=== PATIENT | male | born 1950 | race Caucasian/White ===

== ENCOUNTER 2024-04-15 10:44 | Emergency (ER) | payer MEDICARE, SELFPAY ==
[2024-04-15 11:04] VITALS: BP 120/67; PULSE 66; RESP 15; TEMP 36.4; O2SAT 98
[2024-04-15 11:10] VITALS: BP 120/67; PULSE 66; RESP 15; TEMP 36.4; O2SAT 98
--- NOTE | 2024-04-15 11:10 | ED.EAR ---
HPI - Ear Problem General Chief complaint: Ear Stated complaint: drainage from lt ear Time Seen by Provider: 04/15/24 11:12 Source: patient, RN notes reviewed and old records reviewed Mode of arrival: ambulatory Limitations: no limitations History of Present Illness HPI Narrative: 74 year old male presents to [facility] with complaints of left ear pain and some noted yellowish brownish drainage from his left ear which started last night. Patient reports some discomfort down his left neck below his left eat=r. Patient reports no fevers chills or sweats, has not taken any OTC pain medication for his symptoms. Patient reports concern due to scheduled to fly to [place] on Friday. MD Complaint: ear pain and other (drainage left ear) Location: left ear Severity: mild Discharge from ear: Reports yes - purulent (brownish yellow) Treatment prior to arrival: none Related Data Home Medications Medication Instructions Recorded Confirmed Lactobacillus rhamnosus-Bifidobac. 1 cap PO DIRECTED 04/15/24 04/15/24 animalis 3 billion cell capsule (Sendio) apixaban 2.5 mg tablet (Eliquis) 2.5 mg BID 04/15/24 04/15/24 atorvastatin 40 mg tablet 40 mg DAILY 04/15/24 04/15/24 celecoxib 100 mg capsule 100 mg BID 04/15/24 04/15/24 cholecalciferol (vitamin D3) 250 250 mcg PO DAILY 04/15/24 04/15/24 mcg (10,000 unit) capsule coenzyme Q10 100 mg capsule (Co 100 mg PO DAILY 04/15/24 04/15/24 Q-10) pregabalin 75 mg capsule 150 mg BID 04/15/24 04/15/24 semaglutide 2 mg/dose (8 mg/3 mL) 2 mg subcut WEEKLY 04/15/24 04/15/24 subcutaneous pen injector (Ozempic) torsemide 20 mg tablet 20 mg DAILY 04/15/24 04/15/24 Allergies Allergy/AdvReac Type Severity Reaction Status Date / Time No Known Allergies Allergy Verified 04/15/24 11:05 Review of Systems Review of Systems: CONSTITUTIONAL: Denies malaise, chills, sweats, or fever. EYES: Denies visual changes, redness, or discharge. ENT: Reports no rhinorrhea, congestion, sinus pain,positive for left otalgia and no sore throat. CARDIOVASCULAR: Denies chest pain, palpitations, or edema. RESPIRATORY: Reports no cough.? Denies dyspnea. GASTROINTESTINAL: Denies abdominal pain, nausea, vomiting, diarrhea SKIN: Denies rash or itching. MUSCULOSKELETAL: Denies myalgia. NEUROLOGIC: Denies headache. All systems reviewed & are unremarkable except as noted in HPI and below PMFSH Past Medical History Medical History (Updated 04/17/24 @ 09:39 by Josephine Martinez NP) Arthritis Factor V Leiden Hyperlipidemia Pulmonary embolism Surgical History Surgical History (Updated 04/17/24 @ 09:41 by Josephine Martinez NP) History of bilateral knee replacement History of left hip replacement History of tonsillectomy Social History Social History (Updated 04/17/24 @ 09:41 by Josephine Martinez NP) Smoking status: Never smoker Alcohol intake: current Alcohol use details: rare Substance use type: does not use Living arrangements: with family Gender identity (if verbalized by the patient): Male Comments At time of signature, agree with nursing past medical, surgical, social and family history. There is no relevant family history pertinent to the presenting complaint Exam Narrative: GENERAL: Well-appearing, well-nourished, and in no acute distress. HEAD: Normocephalic EYES: PERRLA, conjunctivae clear ENT: Nares clear, turbinates edematous and erythematous, clear discharge. Mucous membranes moist. Left TM red with some bulging,Right TM pearly gutierrez with dull light reflex bilaterally; no tragal tenderness. Oropharynx erythematous without lesions. Tonsils not present and throat without exudate, no drooling, no hoarseness, no trismus, uvula midline. NECK: Supple. No lymphadenopathy, some tenderness to left side of neck below ear CHEST: Clear to auscultation, breath sounds equal. No wheezing, rhonchi, rales, or stridor. No respiratory distress, spe
== END 2024-04-15 11:46 | disposition home or self-care (01) ==
PROVIDERS: Emergency Provider Registered Nurse
DX: H65.02 Acute serous otitis media, left ear (principal); M19.90 Unspecified osteoarthritis, unspecified site; D68.51 Activated protein C resistance; E78.5 Hyperlipidemia, unspecified; Z96.653 Presence of artificial knee joint, bilateral; Z96.642 Presence of left artificial hip joint; Z79.01 Long term (current) use of anticoagulants
CPT/HCPCS: 99213; G0463

== ENCOUNTER 2024-07-13 06:57 | Outpatient (CLI) | payer MEDICARE, SELFPAY ==
[2024-07-13 08:10] LABS: Basophils Absolute Auto 0.1 K/mm3 (0.0-0.1); Basophils Percent Auto 1.1 % (0.2-1.2); Eosinophils Absolute Auto 0.1 K/mm3 (0-0.3); Eosinophils Percent Auto 2.6 % (0-4.4); Hematocrit 44.4 % (42.0-52.0); Hemoglobin 14.5 g/dL (14.0-18.0); Immature Granulocyte Absolute 0.02 K/mm3 (0.00-0.031); Immature Granulocyte Percent A 0.4 % (0-0.5); Lymphocytes Percent Auto 31.6 % (18.3-44.2); Mean Corpuscular HGB Conc 32.7 g/dl (32-36); Mean Corpuscular Hemoglobin 31.6 pg (26-34); Mean Corpuscular Volume 96.7 fl (80-100); Mean Platelet Volume 10.9 fl (7.4-10.4); Monocytes Absolute Auto 0.6 K/mm3 (0.1-0.6); Monocytes Percent Auto 11.3 % (2.6-8.5); Neutrophils Absolute Auto 2.9 K/mm3 (1.3-6.7); Platelet Count Result 196 k/mm3 (150-375); Red Blood Count 4.59 M/mm3 (4.6-6.20); Red Cell Distribution Width 13.1 % (11.5-14.5); White Blood Count 5.4 K/mm3 (4.5-10.0)
[2024-07-13 08:27] LABS: Alanine Aminotransferase 20 U/L (6-50); Alkaline Phosphatase 120 U/L (38-126); Anion Gap 4 mmol/L (4-12); Aspartate Amino Transferase 25 U/L (17-59); Bilirubin,Total 1.1 mg/dL (0.2-1.3); Blood Urea Nitrogen 27 mg/dL (9-20); Carbon Dioxide 33 mmol/L (22-30); Chloride 102 mmol/L (98-107); Estimated Glomerular Filt Rate 55; Glucose 100 mg/dL (65-110); Potassium 4.2 mmol/L (3.4-5.0); Sodium 139 mmol/L (137-145)
[2024-07-13 13:16] LABS: Creatinine Urine 12.2 mg/dL
[2024-07-13 13:36] LABS: MALB Creatinine Ratio < 49.2 mg/g (0-30); Microalbumin Urine Random < 6.0 mg/L (0-16.7)
== END 2024-07-13 06:58 | disposition home or self-care (01) ==
PROVIDERS: PCP Family Medicine; Visit Provider Family Medicine
DX: E11.9 Type 2 diabetes mellitus without complications (principal); I27.20 Pulmonary hypertension, unspecified; I25.10 Atherosclerotic heart disease of native coronary artery without angina pectoris; E78.2 Mixed hyperlipidemia; D68.51 Activated protein C resistance; K21.9 Gastro-esophageal reflux disease without esophagitis; I51.9 Heart disease, unspecified
CPT/HCPCS: 36415; 80053; 82043; 83036; 84443; 85025

== ENCOUNTER 2024-08-26 08:48 | Outpatient (CLI) | payer MEDICARE, SELFPAY | END 2024-08-26 08:49 | disposition home or self-care (01) | PROVIDERS: PCP Family Medicine; Visit Provider Nurse Practitioner Family | DX: M17.12 Unilateral primary osteoarthritis, left knee (principal); M25.462 Effusion, left knee; W00.0XXA Fall on same level due to ice and snow, initial encounter; Z98.890 Other specified postprocedural states | CPT/HCPCS: 73564 ==

== ENCOUNTER 2024-10-20 14:52 | Outpatient (CLI) | payer MEDICARE, SELFPAY ==
--- NOTE | ~2024-10-20 | XR_ITS ---
CHEST RADIOGRAPH, PA AND LATERAL CLINICAL HISTORY: R05.8 - Other specified cough FOR 1 MONTH . COMPARISON: None available TECHNIQUE: PA and lateral views of the chest. FINDINGS The cardiomediastinal silhouette is unremarkable. The lungs are clear. Visualized osseous structures and soft tissues are unremarkable. IMPRESSION: No focal infiltrate or effusion. Reviewed, dictated and finalized at location A.
--- NOTE | ~2024-10-20 | XR_ITS ---
XR hip RT 2V w AP pelvis 10/20/2024 15:14 Indication: Right hip pain Procedure: AP pelvis and 2 views right hip Comparison: No prior studies for comparison. Findings: Moderate osteoarthritis of the right hip. There is a left total hip arthroplasty. Pelvic ri ngs intact. Sacral foramen are symmetric. No acute fracture or traumatic malalignment. There is lower lumbar spondylosis. Impression: 1: Moderate osteoarthritis of the right hip. Reviewed, dictated and finalized at location A. Impression: 1: Moderate osteoarthritis of the right hip.
--- OUTSIDE RECORDS SUMMARY | 2024-10-20 17:00 | XMS_ITS | Continuity of Care Document ---
Author Organization [facility] Address [address] [place] [address] Phone Care Team Providers Care Cafeteria Or Lunchroom Checker Name Role Phone Gerald Blackburn MD Unavailable [...] Providers Copied on Encounter [facility], [address], [place], [address], [place] tel:[phone] [facility] [place] Osteoarthrosis, localized, not specified whether primary or secondary, involving lower leg Fe 4 Alexey Duarte. [address] [place], [place], [id number] . tel:[phone] [facility], [address], [place], [address], [place] tel:[phone] [facility] [place] Osteoarthrosis, localized, not specified whether primary or secondary, involving lower leg 3 Alexey Duarte. [address] [place], [place], [id number] . tel:[phone] [facility], [address], [place], [address], [place] tel:[phone] [facility] [place] Pain in joint involving lower legObesity, MorbidOsteoarthro sis, localized, not specified whether primary or secondary, involving lower legHypertension, UnspecifiedDiabet ic Nephropathy Feb- 0 3 Alexey Duarte. [address] [facility], [place], [place], [id number] . [phone] [facility], [address], [address], [place] tel:[phone] [facility] [place] Plantar fascial fibromatosisCalca do spur Feb-0 2 Paranjpe Amod. [address] [facility] [address], [place], [place], [id number] . tel:[phone] [facility], [address] [address], [place], [address], [place] tel:[phone] [facility] [place] Plantar fascial fibromatosisCalca do spur 2 Paranjpe Amod. [address] [facility] [address], [place], [place], [id number] . tel:[phone] [facility], [address], [address], [place] tel:[phone] [facility] [place] Plantar fascial fibromatosisCalca do spur 2 Paranjpe Amod. [address] [facility] [address], [place], [place], [id number] . tel:[phone] Family History Family Member Type Diagnosis Age At Onset No Information Payers Payer name Insurance type Covered green party ID Authoriza tion(s) No Information Social History [...]
--- OUTSIDE RECORDS SUMMARY | 2024-10-20 17:00 | XMS_ITS | Encounter Summary ---
Author Organization [facility] Address [address] [facility] [place] [address] Care Team Providers Care Colorectal Surgeon Name Role Phone Yeimi Ramos OD Unavailable Virgil Love MD Unavailable Juju Toledo MD Unavailable [phone] Steve Stovall MD Unavailable Paula HDEZ MD, Frank Unavailable [phone] Virgil Love MD Primary Care Provider Dylan Ann MD Unavailable Maura Gallo MD Unavailable [phone] Kathy Galindo MD Unavailable Virgil Love MD Unavailable None, Physician Primary Care Provider UnavailJosue Cai MD Primary Care Provider [phone] Encounter Details Date Type Department Care Team (Late st Contact Info) Description 11/19/2022 Lab Requisition [facility] Lab [address] [facility] [place] [address] Venkata Mckeon MD [address] [place] [address] Neoplasm of uncertain behavior of [...] Sex Assigned at Male 05/12/2020 8:18 AM STAFF MINE WARFARE OFFICER Legal Sex Male 7:20 AM STAFF MINE WARFARE OFFICER Gender Identity Male 05/12/2020 8:18 AM STAFF MINE WARFARE OFFICER Sexual Orientation Straight 05/12/2020 8: 18 AM STAFF MINE WARFARE OFFICER documented as of this encounter Functional Status [...] Department Care Team (Latest Contact Info) Description 11/29/2024 12:20 PM CDT Hospital Encounter [facility] [address] [place] [address] Juju Toledo MD [address] [phone] Surgery General 11/29/2024 12:20 PM CDT - 11/29/2024 1:20 PM CDT Surgery [facility] [address] [place] [address] Juju Toledo MD [address] [phone] LEFT KNEE ARTHROSCOPY WITH PARTIAL MENISCECTOMY AND POSSIBLE CHONDROPLASTY 11/29/2024 12:30 PM CDT Procedure visit [facility] Orthopedics [address] [phone] Juju Toledo MD [address] [phone] 12/09/2024 10:45 AM CDT Office Visit [facility] Orthopedics [address] [address] Nicole Spencer PA [address] [place] [phone] Scheduled Procedures Name Priority Associated Diagnoses Date/Ti me ARTHROSCOPY KNEE WITH MENISCECTOMY (MEDIAL/LATERAL) S83.207A 11/29/2024 12:20 PM CDT documented as of this encounter [...] AM CDT) Case Report Dermatopathology Report Case: [id number] Authorizing Provider: Venkata Mckeon MD Collected: 11/19/2022 03:33 AM Ordering Location: [facility] Received: 11/20/2022 01:53 PM Pathologist: [...] specimen consists of a shave biopsy measuring 91a43w0 mm. Jar 0. 3 4:08 PM CDT [...] characteristic determined by the Dermatopathology Laboratory at [facility], directed by Dr. Joey Donnelly. These tests need not be, and therefore are not, approved by the [place] Food and Drug Administration. The tests are used for clinical purposes. Billing Codes Specimen Charges Stain Charges 76495 1 3 4:08 PM CDT DERMATOPATHOLOGY LABORATORY Embedded Images 3 4:08 PM CDT DERMATOPATHOLOGY LABORATORY Pathology/Cytolo gy TISSUE SPECIMEN FROM SKIN / Unknown 11/19/2022 3:33 AM CDT 11/20/2022 1:53 PM CDT Venkata Mckeon MD LAB - PATHOLOGY/CYTOLOGY ORDERAB LES Final Result DERMATOPATHOLOGY LABORATORY [facility] - Department of Dermatology [facility] Medicine [address] [place] [address], [address] [place] [address], [facility] [phone] documented in this encounter Visit Diagnoses Diagnosis Neoplasm of uncertain behavior of skin documented in this encounter Care Teams Colorectal Surgeon Relationship Specialty Start Date End Date Virgil Love MD [address] [facility] 200 [place] [address] PCP - General Family Medicine 09/07/21 08/17/24 [place] [address] [place] [address] PCP - Attributed-[facility] 02/28/22 Virgil Love MD [address] [facility] 200 [place] [address] PCP - Attributed-[facility] STL P4P 10/29/23 09/14/24 None, Physician PCP - General 08/18/24 09/14/24 Josue Delgado MD [address] [address] PCP - General Family Medicine 09/15/24 Yeimi Ramos, OD [address] [place] [address] Window Glass Installer 10/30/15 Virgil Love MD [address] [facility] [address] [place] [address] Family Medicine 11/25/19 Juju Toledo MD [address] [place] [phone] Orthopedic Surgery 11/25/19 [place] [address] [place] [address] Surgeon Orthopedic Surgery 05/07/21 [place] [address] [place] [address] Orthopedic Surgery 09/07/21 Dylan Ann MD [address] [place] [address] Cardiology 03/19/22 Kathy Galindo MD [address] [place] [address] Pulmonary Disease 08/20/22 documented as of this encounter
--- OUTSIDE RECORDS SUMMARY | 2024-10-20 17:00 | XMS_ITS | Referral Summary ---
Author Organization [facility] Address [address] [facility] [address] [place] [phone] Phone Care Team Providers Care Marriage And Family Social Worker Name Role Phone Virgil Love MD Primary [...] (two) times a day 02/26/2021 Active multivitamin,tx -zvbv-Dv-HL-min 27-0.4 mg tablet Take by mouth Active UNABLE TO FIND CPAP [id number] l [id number]-KN-ekyr ed-decreased from 9-08/11/18 08/11/2018 Active apixaban (ELIQUIS) [...] 05/03/2024 Assessment & Plan (05/03/2024 1:52 PM LAWYER): Some residual edema. Having some nocturia so we discussed adjusting dose of torsemide in the morning - Change torsemide to 40 mg every morning and check BMP in 2 weeks Generalized edema 11/27/2021 Assessment & Plan (10/20/2023 9:25 AM CDT): Some persistent edema likely venous insufficiency. - check tte Assessment & Plan (09/05/2022 10:18 PM LAWYER): Euvolemic on exam. Try switching Lasix to [...] 18 Assessment & Plan (05/03/2024 1:51 PM LAWYER): Stable -- Continue statin CKD (chronic kidney [...] pain 12/19/2015 Coronary artery disease invo lving qawalangin coronary artery of qawalangin heart without angina pectoris 10/01/2013 Overview (04/03/2021): Thallium treadmill 05/11: no ischemia, poss small prior apical infarct, nl LVEF. Cardiac cath 06/10: LVEF 60%, 20% L main. Assessment & Plan (05/03/2024 1:51 PM LAWYER): He has nonobstructive Coronary artery disease based on a cardiac catheterization. Remains free of anginal symptoms -- Continue Eliquis and statin for primary prevention. Assessment & Plan (10/20/2023 9:23 AM CDT): He has nonobstructive Coronary artery disease based on a cardiac catheterization. Continue Eliquis and statin for primary prevention. Remains free of anginal symptoms Assessment & Plan (09/05/2022 10:17 PM LAWYER): He has nonobstructive Coronary artery disease based [...] 05/11. Assessment & Plan (05/03/2024 1:51 PM LAWYER): Well controlled Assessment & Plan (10/20/2023 9:24 [...] on file Legal Sex Male 5:33 PM LAWYER Gender Identity Male 04/06/2021 8:16 AM CDT Sexual Orientation Straight 04/06/2021 8: 16 AM CDT Last Filed Vital Signs Vital Sign Reading Time Taken Comments Blood Pressure 134/70 05/03/2024 1:04 PM LAWYER Pulse 62 05/03/2024 1:04 PM LAWYER Temperature 36.1 C (97 F) 04/23/2021 12:27 PM CDT Respiratory Rate 22 04/23/2021 3:06 PM CDT Oxygen Saturation 98% 05/03/2024 1:04 PM LAWYER Inhaled Oxygen Concentration - - Weight 142 kg (313 lb) 05/03/2024 1:04 PM LAWYER Height 180.3 cm (5' 11 ) 05/03/2024 1:04 PM LAWYER Body Mass Index 43.65 05/03/2024 1:04 PM LAWYER Plan of Treatment Not on file Procedures Procedure Name Priority Date/Time Associated Diagnosis Comments EGFR Routine 05/17/2024 11:57 AM LAWYER Coronary artery disease involving qawalangin coronary artery of qawalangin heart without angina pectoris LIPID PANEL Routine 09/08/2023 COLONOSCOPY REPORT 06/14/2013 from Last 3 Months or Most Recently Relevant to Health Maintenance Results * eGFR (05/17/2024 11:57 AM LAWYER) eGFR 61 >=60 mL/min/1. 73 m2 Comment: [...] reviewed 2021. Blood 05/17/2024 11:5 7 AM LAWYER 05/17/2024 11:59 AM LAWYER Dylan Ann MD LAB BLOOD ORDERABLES Fin al Result CHARLES [address] [place] [address] * Lipid panel (09/08/2023) SCRIBED Cholesterol, Total [...] Most Recently Relevant to Health Maintenance Insurance [facility] MEDICARE ADVANTAGE [facility] MEDICARE ADVANTAGE [employer] MEDICARE ADVANTAGE Care Teams Marriage And Family Social Worker Relationship Specialty Start Date End Date Virgil Love MD [address] [facility] [address] [place] [address] PCP - General Family Medicine 01/02/21
--- OUTSIDE RECORDS SUMMARY | 2024-10-20 17:00 | XMS_ITS | Encounter Summary ---
Author Organization [facility] Address [address] [place] [address] Care Team Providers Care Rubber Mill Tender Name Role Phone Charles Cardenas MD Unavailable [phone] Grant Desir MD Unavailable Kofi Mendez MD Unavailable [phone] Charles Soria DO Unavailable [phone] Yeimi Ramos OD Unavailable [phone] Fannie Combs MANAGER BAKERY-GLASS MOULD CLEANER Unavailable [phone] Virgil Love MD Unavailable Juju Toledo MD Unavailable [phone] Steve Stovall MD Unavailable Paula HDEZ MD, Frank Unavailable [phone] Virgil Love MD Primary Care Provider Maura Gallo MD Unavailable Dylan Ann MD Unavailable Maura Gallo MD Unavailable [phone] Kathy Galindo MD Unavailable Virgil Love MD Unavailable [phone] None, Physician Primary Care Provider Josue Alvarez MD Primary Care Provider Encounter Details Date Type Department Care Team (Late st Contact Info) Description 11/09/2021 [facility] Outpatient Visit [facility] Orthopedics - Radiology [address] [facility] [place] [address] Document, Scanned Social History Tobacco Use Types [...] Sex Assigned at Male 05/12/2020 8:18 AM INVOICE MACHINE OPERATOR Legal Sex Male 7:20 AM INVOICE MACHINE OPERATOR Gender Identity Male 05/12/2020 8:18 AM INVOICE MACHINE OPERATOR Sexual Orientation Straight 05/12/2020 8: 18 AM INVOICE MACHINE OPERATOR documented as of this encounter Functional [...] Description 11/29/2024 12:20 PM CDT Hospital Encounter [facility] - [address] [place] [address] Juju Toledo MD [address] [facility] [address] [phone] Surgery General 11/29/2024 12:20 PM CDT - 11/29/2024 1:20 PM CDT Surgery [facility] - [address] [place] [address] Juju Toledo MD [address] [facility] [address] [phone] LEFT KNEE ARTHROSCOPY WITH PARTIAL MENISCECTOMY AND POSSIBLE CHONDROPLASTY 11/29/2024 12:30 PM CDT Procedure visit [facility] Orthopedics [address] [phone] Juju Toledo MD [address] [phone] 12/09/2024 10:45 AM CDT Office Visit [facility] Orthopedics [address] [phone] Nicole Spencer, [place] [address] [place] [address] Scheduled Procedures Name Priority Associated [...] on filedocumented in this encounter Care Teams Rubber Mill Tender Relationship Specialty Start Date End Date Virgil Love MD [address] [facility] [address] [place] [address] PCP - General Family Medicine 09/07/21 08/17/24 [place] [address] [facility] [address] [place] [address] PCP - Attributed-[facility] 07/31/21 [place] [address] [facility] [address] [place] [address] PCP - Attributed-[facility] MA 02/28/22 Virgil Love MD [address] [facility] 200 [place] [address] PCP - Attributed-[facility] MA STL P4P 10/29/23 09/14/24 None, Physician PCP - General 08/18/24 09/14/24 oJsue Delgado MD [address] [place] [address] PCP - General Family Medicine 09/15/24 Charles Cardenas MD [address] [place] [address] Pulmonary Disease 09/19/10 05/19/22 Grant Desir MD [address] [facility] [address] [place] [phone] Endocrinology 03/02/13 05/19/22 Kofi Mendez MD [address] [place] [address] [address] [place] [phone] Gastroenterology 03/02/13 05/19/22 Charles Soria DO [address] [place] [phone] Orthopedic Surgery 12/16/14 05/19/22 Yeimi Ramos, OD [address] [facility] [place] [address] Background Check Coordinator 10/30/15 Fannie Combs, MANAGER BAKERY-GLASS MOULD CLEANER [address] [facility] [address] [place] [address] Nurse Practitioner Nurse Practitioner 05/15/17 08/19/22 Virgil Love MD [address] [facility] [address] [place] [address] Family Medicine 11/25/19 Juju Toledo MD [address] [place] [phone] Orthopedic Surgery 11/25/19 [place] [address] [place], [place] [phone] Surgeon Orthopedic Surgery 05/07/21 [place] [address] [address] [place] [address] Orthopedic Surgery 09/07/21 Dylan Ann MD [address] [place] [address] Cardiology 03/19/22 Kathy Galindo MD [address] [place] [address] Pulmonary Disease 08/20/22 documented as of this encounter
--- OUTSIDE RECORDS SUMMARY | 2024-10-20 17:00 | XMS_ITS | Encounter Summary ---
Author Organization [facility] Address [address] [facility] [place] [address] Care Team Providers Care Interactive Developer Name Role Phone Yeimi Ramos OD Unavailable [phone] Virgil Love MD Unavailable Juju Toledo MD Unavailable [phone] Steve Stovall MD Unavailable Paual HDEZ MD, Frank Unavailable [phone] Dylan Ann MD Unavailable [phone] Kathy Galindo MD Unavailable Josue Delgado MD Primary Care Provider [phone] Encounter Details Date Type Department Care Team (Late st Contact Info) Description 10/05/2024 [facility] Outpatient Visit [facility] Orthopedics [address] [place] [address] Document, Scanned Social History Tobacco [...] Sex Assigned at Male 05/12/2020 8:18 AM TANK CAR CLEANER Legal Sex Male 7:20 AM TANK CAR CLEANER Gender Identity Male 05/12/2020 8:18 AM TANK CAR CLEANER Sexual Orientation Straight 05/12/2020 8: 18 AM TANK CAR CLEANER documented as of this encounter Functional Status * Is person deaf or have serious hearing difficulty? Answer Date of Assessment Author No 09/28/2021 7:44 PM CDMireles RN * Is person blind or have [...] of Assessment Author No 09/28/2021 7:44 PM CHANDANAT Philippe RN documented as of this encounter Mental Status * Does person have difficulty concentrating/remembering/making decisions? Answer Entry Date Author No 09/28/2021 7:44 PM Kulkarni RN documented in this encounter Plan of Treatment Upcoming Encounters Date Type Department Care Team (Latest Contact Info) Description 11/29/2024 12:20 PM CDT Hospital Encounter [facility] - [address] [place] [address] Juju Toledo MD [address] [address] Surgery General 11/29/2024 12:20 PM CDT - 11/29/2024 1:20 PM CDT Surgery [facility] - [address] [address] [place], [place] [phone] Juju Toledo MD [address] [address] LEFT KNEE ARTHROSCOPY WITH PARTIAL MENISCECTOMY AND POSSIBLE CHONDROPLASTY 11/29/2024 12:30 PM CDT Procedure visit [facility] Orthopedics [address] [phone] Juju Toledo MD [address] [address] 12/09/2024 10:45 AM CDT Office Visit [facility] Orthopedics [address] [phone] Nicole [place], [place] [address] [place] [address] Scheduled Procedures Name Priority Associated [...] on filedocumented in this encounter Care Teams Interactive Developer Relationship Specialty Start Date End Date Josue Delgado MD [address] [place] [address] PCP - General Family Medicine 09/15/24 LowellYeimi Lance, OD [address] [facility] [place] [address] Electrician Apprentice 10/30/15 Virgil Love MD [address] [facility] 200 [place] [address] Family Medicine 11/25/19 Juju Toledo MD [address] [facility] 100 [place] [address] Orthopedic Surgery 11/25/19 [place] [address] [address] [address] Surgeon Orthopedic Surgery 05/07/21 [place] [address] [address] [place] [address] Orthopedic Surgery 09/07/21 Dylan Ann MD [address] [place] [address] Cardiology 03/19/22 Kathy Galindo MD [address] [place] [address] Pulmonary Disease 08/20/22 documented as of this encounter
--- OUTSIDE RECORDS SUMMARY | 2024-10-20 17:00 | XMS_ITS | Encounter Summary ---
Author Organization [facility] Address [address] [facility] [address] Care Team Providers Care News Videographer Name Role Phone Justin Cowan MD Primary Care Provider Charles Cardenas MD Unavailable [phone] Javi Sotelo MD Unavailable [phone] Grant Desir MD Unavailable [phone] Kofi Mendez MD Unavailable Charles Soria DO Unavailable Juju Toledo MD Unavailable [phone] Yeimi Ramos OD Unavailable [phone] Tona Suarez RN Unavailable [phone] Byron Nickerson MD Unavailable Unavailable Fannie Combs ETCHER PRINTED CIRCUIT BOARDS-LIQUOR BRIDGE OPERATOR Unavailable Virgil Love MD Primary Care Provider Justin Cowan MD Primary Care Provider Maura Gallo MD Unavailable Virgil Love MD Unavailable Juju Toledo MD Unavailable [phone] Maura Gallo MD Unavailable Virgil Love MD Unavailable [phone] Maura Gallo MD Unavailable [phone] Maura Gallo MD Primary Care Provider [phone] Steve Stovall MD Unavailable [phone] Virgil Love MD Primary Care Provider [phone] David Flores MD Unavailable [phone] Paula HDEZ MD, Frank Unavailable [phone] Virgil Love MD Primary Care Provider [phone] Maura Gallo MD Unavailable [phone] Dylan Ann MD Unavailable [phone] Maura Gallo MD Unavailable [phone] Kathy Galindo MD Unavailable Virgil Love MD Unavailable [phone] Justin Cowan MD Unavailable Virgil Love MD Unavailable [phone] None, Physician Primary Care Provider UnavailJosue Cai MD Primary Care Provider [phone] Encounter Details Date Type Department Care Team (Late st Contact Info) Description 06/13/2014 Therapy Visit EXTERNAL NON-[facility] DEPT Charles Soria, DO [address] [place] [address] Social History Tobacco Use Types Packs/Day Years Used Date Smoking Tobacco: Never Smokeless Tobacco: Never Alcohol Use Standard Drinks/Week Comments Yes 1.7 (1 standard drink = 0.6 oz p ure alcohol) Sex and Gender Information Value Date Recorded Sex Assigned at Male 05/12/2020 8:18 AM HOME BASED ASSISTANT Legal Sex Male 7:20 AM HOME BASED ASSISTANT Gender Identity Male 05/12/2020 8:18 AM HOME BASED ASSISTANT Sexual Orientation Straight 05/12/2020 8: 18 AM HOME BASED ASSISTANT documented as of this encounter Plan of Treatment Upcoming Encounters Date Type Department Care Team (Latest Contact Info) Description 11/29/2024 12:20 PM CDT Hospital Encounter [facility] - [address]ast[address] Op [address] [place] [address] Juju Toledo MD [address] [phone] Surgery General 11/29/2024 12:20 PM CDT - 11/29/2024 1:20 PM CDT Surgery [facility] - [address] [place] [address] Juju Toledo MD [address] [phone] LEFT KNEE ARTHROSCOPY WITH PARTIAL MENISCECTOMY AND POSSIBLE CHONDROPLASTY 11/29/2024 12:30 PM CDT Procedure visit [facility] Orthopedics [address] [phone] Juju Toledo MD [address] [phone] 12/09/2024 10:45 AM CDT Office Visit [facility] Orthopedics [address] [place] [phone] Nicole Spencer, [place] [address] [place] [address] Scheduled Procedures Name Priority Associated [...] on filedocumented in this encounter Care Teams News Videographer Relationship Specialty Start Date End Date Justin Cowan MD [address] [place] [address] [address] [place] [phone] PCP - General 03/25/08 06/01/17 Virgil Love MD [address] [facility] 200 [place] [address] PCP - General Family Medicine 06/02/17 09/16/17 Justin Cowan MD [address] [place] [phone] PCP - General Internal Medicine 09/17/17 09/17/17 [place] [address] [place], [place] [address] PCP - Attributed-[facility] 08/28/18 03/20/20 [place] [address] [place], [place] [address] PCP - Attributed-[facility] [place] 08/29/19 10/28/19 Virgil Love MD [address] [facility] 200 [place] [address] PCP - Attributed-[facility] [place] 10/29/19 01/28/20 [place] [address] [place], [place] [address] PCP - Attributed-C [place] 01/29/20 06/14/21 [place] [address] [place] [address] PCP - General Family Medicine 05/07/21 05/14/21 Virgil Love MD [address] [facility] [address] [place] [address] PCP - General Family Medicine 06/06/21 09/06/21 Virgil Love MD [address] [facility] [address] [place] [address] PCP - General Family Medicine 09/07/21 08/17/24 [place] [address] [place] [address] PCP - Attributed-C [place] 07/31/21 12/14/21 [place] [address] [place] [address] PCP - Attributed-C [place] 02/28/22 10/16/23 Virgil Love MD [address] [facility] 200 [place] [address] PCP - Attributed-C [place] STL P4P 10/29/23 09/14/24 Justin Cowan MD [address] [facility] [address] [place] [address] PCP - Attributed-[facility] 10/07/17 07/01/18 Virgil Love MD [address] [facility] [address] [place], [place] [address] PCP - Attributed-[facility] 07/02/18 08/27/18 None, Physician PCP - General 08/18/24 09/14/24 Josue Delgado MD [address] [place] [address] [place] [address] PCP - General Family Medicine 09/15/24 Charles Cardenas MD [facility] [address] [place], [place] [phone] Pulmonary Disease 09/19/10 05/19/22 Javi Sotelo MD [address] [facility] [address] [place], [place] [address] Dermatology 08/23/11 09/06/21 Grant Desir MD [address] [place] [address] [address] [place] [address] Endocrinology 03/02/13 05/19/22 Kofi Mendez MD [address] [place] [address] [address] [place] [address] Gastroenterology 03/02/13 05/19/22 Charles Soria DO [address] [facility] [address] [place] [phone] Orthopedic Surgery 12/16/14 05/19/22 Juju Toledo MD [address] [facility] [address] [place] [phone] Orthopedic Surgery 08/08/15 09/06/21 Yeimi Ramos, OD [address] [facility] [address] Drafter Apprentice 10/30/15 Tona Suarez RN Hotel Maid 04/22/17 06/24/18 Byron Nickerson MD Physician Hematology and Oncology 05/15/17 09/06/21 Fannie Combs APRN-LIQUOR BRIDGE OPERATOR [address] [facility] [address] [place] [address] Nurse Practitioner Nurse Practitioner 05/15/17 08/19/22 Virgil Love MD [address] [facility] [address] [place] [address] Family Medicine 11/25/19 Juju Toledo MD [address] [place] [phone] Orthopedic Surgery 11/25/19 [place] [address] [facility] [address] [place] [address] Surgeon Orthopedic Surgery 05/07/21 [place] [address] [place] [address] Physical Medicine and Rehabilitation 07/19/21 09/06/21 [place] [address] [place] [address] Orthopedic Surgery 09/07/21 Dylan Ann MD [address] [facility] [address] [place] [address] Cardiology 03/19/22 Kathy Galindo MD [address] [place] [address] Pulmonary Disease 08/20/22 documented as of this encounter
--- OUTSIDE RECORDS SUMMARY | 2024-10-20 17:00 | XMS_ITS | Clinical Summary ---
Author Organization [facility] Address [address] [address] Phone Care Team Providers Care Scratch Polisher Name Role Phone Virgil Love MD Primary [...] (two) times a day 02/26/2021 Active multivitamin,tx -sfmc-Cl-WR-min 27-0.4 mg tablet Take by mouth Active UNABLE TO FIND CPAP [id number] l EZJD-RG-ysik ed-decreased from 9-08/11/18 08/11/2018 Active apixaban (ELIQUIS) [...] & Plan (05/03/2024 1:52 PM FINANCIAL AID COUNSELOR): Some residual edema. Having some nocturia so we discussed adjusting dose of torsemide in the morning - Change torsemide to 40 mg every morning and check BMP in 2 weeks Generalized edema 11/27/2021 Assessment & Plan (10/20/2023 9:25 AM CDT): Some persistent edema likely venous insufficiency. - check tte Assessment & Plan (09/05/2022 10:18 PM FINANCIAL AID COUNSELOR): Euvolemic on exam. Try switching Lasix to [...] & Plan (05/03/2024 1:51 PM FINANCIAL AID COUNSELOR): Stable -- Continue statin CKD (chronic kidney [...] pain 12/19/2015 Coronary artery disease invo lving knik coronary artery of knik heart without angina pectoris 10/01/2013 Overview (04/03/2021): Thallium treadmill 05/11: no ischemia, poss small prior apical infarct, nl LVEF. Cardiac cath 06/10: LVEF 60%, 20% L main. Assessment & Plan (05/03/2024 1:51 PM FINANCIAL AID COUNSELOR): He has nonobstructive Coronary artery disease based on a cardiac catheterization. Remains free of anginal symptoms -- Continue Eliquis and statin for primary prevention. Assessment & Plan (10/20/2023 9:23 AM CDT): He has nonobstructive Coronary artery disease based on a cardiac catheterization. Continue Eliquis and statin for primary prevention. Remains free of anginal symptoms Assessment & Plan (09/05/2022 10:17 PM FINANCIAL AID COUNSELOR): He has nonobstructive Coronary artery disease based [...] & Plan (05/03/2024 1:51 PM FINANCIAL AID COUNSELOR): Well controlled Assessment & Plan (10/20/2023 9:24 [...] Legal Sex Male 5:33 PM FINANCIAL AID COUNSELOR Gender Identity Male 04/06/2021 8:16 AM CDT Sexual Orientation Straight 04/06/2021 8: 16 AM CDT Obstetrics History Last Filed Vital Signs Vital Sign Reading Time Taken Comments Blood Pressure 134/70 05/03/2024 1:04 PM FINANCIAL AID COUNSELOR Pulse 62 05/03/2024 1:04 PM FINANCIAL AID COUNSELOR Temperature 36.1 C (97 F) 04/23/2021 12:27 PM CDT Respiratory Rate 22 04/23/2021 3:06 PM CDT Oxygen Saturation 98% 05/03/2024 1:04 PM FINANCIAL AID COUNSELOR Inhaled Oxygen Concentration - - Weight 142 kg (313 lb) 05/03/2024 1:04 PM FINANCIAL AID COUNSELOR Height 180.3 cm (5' 11 ) 05/03/2024 1:04 PM FINANCIAL AID COUNSELOR Body Mass Index 43.65 05/03/2024 1:04 PM FINANCIAL AID COUNSELOR Plan of Treatment Health Maintenance Due Date [...] EGFR Routine 05/17/2024 11:57 AM FINANCIAL AID COUNSELOR Coronary artery disease involving knik coronary artery of knik heart without angina pectoris LIPID PANEL Routine 09/08/2023 COLONOSCOPY REPORT 06/14/2013 from Last 3 Months or Most Recently Relevant to Health Maintenance Results * eGFR (05/17/2024 11:57 AM FINANCIAL AID COUNSELOR) eGFR 61 >=60 mL/min/1. 73 m2 Comment: [...] Blood 05/17/2024 11:5 7 AM FINANCIAL AID COUNSELOR 05/17/2024 11:59 AM FINANCIAL AID COUNSELOR Dylan nAn MD LAB BLOOD ORDERABLES Fin al Result CHARLES [address] [facility] Department [place] [address] * Lipid panel (09/08/2023) SCRIBED Cholesterol, Total 106 l - h EXTERNAL LAB SCRIBED HDL 42 l - h EXTERNAL LAB SCRIBED LDL 52 l - h EXTERNAL LAB SCRIBED Triglycerides 58 l - h EXTERNAL LAB Blood 09/08/2023 Historical Provider LAB BLOOD ORDERABLES Nereyda l Result Performing Organization Address City/[facility]/ZIP Co de Phone Number EXTERNAL LAB * COLONOSCOPY REPORT (06/14/2013) Anatomical Region Laterality Modality Other Narrative 06/14/2013 Ordered by an unspecified provider. Historical Provider GI PROCEDURE ORDERABLES F inal Result from Last 3 Months or Most Recently Relevant to Health Maintenance Insurance UHC MEDICARE ADVANTAGE [facility] MEDICARE ADVANTAGE UHC MEDICARE ADVANTAGE Care Teams Scratch Polisher Relationship Specialty Start Date End Date Virgil Love MD [address] [facility] [address] [facility] [place] [address] PCP - General Family Medicine 01/02/21
--- OUTSIDE RECORDS SUMMARY | 2024-10-20 17:00 | XMS_ITS | Encounter Summary ---
Author Organization [facility] Address [address] [facility] [place] [address] Care Team Providers Care Freelance Digital Project Manager Name Role Phone Charles Cardenas MD Unavailable [phone] Javi Sotelo MD Unavailable [phone] Grant Desir MD Unavailable Kofi Mendez MD Unavailable [phone] Charles Sorai DO Unavailable Juju Toledo MD Unavailable [phone] Yeimi Ramos OD Unavailable [phone] Byron Nickerson MD Unavailable Unavailable Fannie Combs MANAGER VEHICLE-AUTOMATIC PRESSER Unavailable [phone] Maura Gallo MD Unavailable [phone] Virgil Love MD Unavailable Juju Toledo MD Unavailable [phone] Maura Gallo MD Unavailable [phone] Virgil Love MD Unavailable [phone] Maura Gallo MD Unavailable Maura Gallo MD Primary Care Provider [phone] Steve Stovall MD Unavailable [phone] Virgil Love MD Primary Care Provider + [phone] David Flores MD Unavailable [phone] Paula HDEZ MD, Javi Unavailable [phone] Virgil Love MD Primary Care Provider + [phone] Maura Gallo MD Unavailable [phone] Dylan Ann MD Unavailable [phone] Maura Gallo MD Unavailable [phone] Kathy Galindo MD Unavailable Virgil Love MD Unavailable [phone] None, Physician Primary Care Provider UnavailJosue Cai MD Primary Care Provider [phone] Encounter Details Date Type Department Care Team (Late st Contact Info) Description 02/18/2019 [facility] [address] [place] [address] Juju Toledo MD [address] [place] [address] Social History Tobacco Use Types Packs/Day Years Used Date Smoking Tobacco: Never Smokeless Tobacco: Never Alcohol Use Standard Drinks/Week Comments No 4 (1 standard drink = 0.6 oz pur e alcohol) Sex and Gender Information Value Date Recorded Sex Assigned at Male 05/12/2020 8:18 AM DRAFT ROLLER PICKER Legal Sex Male 7:20 AM DRAFT ROLLER PICKER Gender Identity Male 05/12/2020 8:18 AM DRAFT ROLLER PICKER Sexual Orientation Straight 05/12/2020 8: 18 AM DRAFT ROLLER PICKER documented as of this encounter Functional Status [...] Description 11/29/2024 12:20 PM CDT Hospital Encounter [facility] [address] [facility] [place] [address] Juju Toledo MD [address] [place] [phone] Surgery General 11/29/2024 12:20 PM CDT - 11/29/2024 1:20 PM CDT Surgery [facility] [address] [place] [address] Juju Toledo MD [address] [place] [phone] LEFT KNEE ARTHROSCOPY WITH PARTIAL MENISCECTOMY AND POSSIBLE CHONDROPLASTY 11/29/2024 12:30 PM CDT Procedure visit [facility] Orthopedics [address] [place] [address] Juju Toledo MD [address] [place] [phone] 12/09/2024 10:45 AM CDT Office [facility] [address] [place] [address] [place] [address] [place] [address] Scheduled Procedures Name Priority Associated [...] on filedocumented in this encounter Care Teams Freelance Digital Project Manager Relationship Specialty [place] [address] [place] [address] PCP - Attributed-MSSP 08/28/18 03/20/20 [place] [address] [place] [address] PCP - Attributed-C MA 08/29/19 10/28/19 Virgil Love MD [address] [place] [address] PCP - Attributed-C OR 10/29/19 01/28/20 [place] [address] [place], [place] [id number] PCP - Attributed-[facility] 01/29/20 06/14/21 [place] [address] [place] [address] PCP - General Family Medicine 05/07/21 05/14/21 Virgil Love MD [address] [facility] [address] [place] [address] PCP - General Family Medicine 06/06/21 09/06/21 Virgil Love MD [address] [facility] [address] [place] [address] PCP - General Family Medicine 09/07/21 08/17/24 [place] [address] [place] [address] PCP - Attributed-[facility] 07/31/21 12/14/21 [place] [address] [place] [address] PCP - Attributed-C OR 02/28/22 10/16/23 Virgil Love MD [address] [facility] [address] [place] [address] PCP - Attributed-[facility] STL P4P 10/29/23 09/14/24 None, Physician PCP - General 08/18/24 09/14/24 Josue Delgado MD [address] [place] [address] [place] [phone] PCP - General Family Medicine 09/15/24 Charles Cardenas MD [address] [facility] [address] [place] [address] Pulmonary Disease 09/19/10 05/19/22 Javi Sotelo MD [address] [facility] [address] [place] [address] Dermatology 08/23/11 09/06/21 Grant Desir MD [address] [facility] [address] [place] [phone] Endocrinology 03/02/13 05/19/22 Kofi Mendez MD [address] [place], [place] [address]y [address] [place] [address] Gastroenterology 03/02/13 05/19/22 Charles Soria DO [address] [facility] [address] [place] [phone] Orthopedic Surgery 12/16/14 05/19/22 Juju Toledo MD [address] [facility] [address] [place] [phone] Orthopedic Surgery 08/08/15 09/06/21 Yeimi Ramos, OD [address] [facility] [place] [address] Hat Blocking Operator 10/30/15 Byron Nickerson MD [address] [facility] [place] [address] Physician Hematology and Oncology 05/15/17 09/06/21 Fannie Combs, MANAGER VEHICLE-AUTOMATIC PRESSER [address] [facility] [address] [place] [address] Nurse Practitioner Nurse Practitioner 05/15/17 08/19/22 Virgil Love MD [address] [facility] [address] [place] [address] Family Medicine 11/25/19 Juju Toledo MD [address] [place] [phone] Orthopedic Surgery 11/25/19 [place] [address] [place] [address] Surgeon Orthopedic Surgery 05/07/21 [place] [address] [place] [address] Physical Medicine and Rehabilitation 07/19/21 09/06/21 [place] [address] [place], [place] [phone] Orthopedic Surgery 09/07/21 Dylan Ann MD [address] [place] [address] Cardiology 03/19/22 Kathy Galindo MD [address] [place] [address] Pulmonary Disease 08/20/22 documented as of this encounter
--- OUTSIDE RECORDS SUMMARY | 2024-10-20 17:00 | XMS_ITS | Encounter Summary ---
Author Organization [facility] Address [address] [facility] [place] [address] Care Team Providers Care Zoology Professor Name Role Phone Charles Cardenas MD Unavailable [phone] Javi Sotelo MD Unavailable Grant Desir MD Unavailable [phone] Kofi Mendez MD Unavailable [phone] Charles Soria DO Unavailable Juju Toledo MD Unavailable [phone] Yeimi Ramos OD Unavailable [phone] Tona Suarez RN Unavailable [phone] Byron Nickerson MD Unavailable Unavailable Fannie Combs COAL DELIVERER-APPLICATIONS SYSTEMS ANALYST Unavailable Maura Gallo MD Unavailable [phone] Virgil Love MD Unavailable Juju Toledo MD Unavailable [phone] Maura Gallo MD Unavailable [phone] Virgil Love MD Unavailable Maura Gallo MD Unavailable [phone] Maura Gallo MD Primary Care Provider [phone] Steve Stovall MD Unavailable [phone] Virgil Love MD Primary Care Provider + [phone] David Flores MD Unavailable [phone] Paula HDEZ MD, Frank Unavailable Virgil Love MD Primary Care Provider + [phone] Maura Gallo MD Unavailable [phone] Dylan Ann MD Unavailable [phone] Maura Gallo MD Unavailable [phone] Kathy Galindo MD Unavailable Virgil Love MD Unavailable [phone] Justin Cowan MD Unavailable [phone] Virgil Love MD Unavailable [phone] None, Physician Primary Care Provider UnavailJosue Cai MD Primary Care Provider [phone] Encounter Details Date Type Department Care Team (Late st Contact Info) Description 05/19/2018 [facility] Outpatient Visit [facility] Orthopedics - Radiology [address] [place] [address] Document, Scanned Social History Tobacco Use Types Packs/Day Years Used Date Smoking Tobacco: Never Smokeless Tobacco: Never Alcohol Use Standard Drinks/Week Comments Yes 4 (1 standard drink = 0.6 oz pur e alcohol) 1 glass of whiskey nightly Sex and Gender Information Value Date Recorded Sex Assigned at Male 05/12/2020 8:18 AM CARE TRANSITION COORDINATOR Legal Sex Male 7:20 AM CARE TRANSITION COORDINATOR Gender Identity Male 05/12/2020 8:18 AM CARE TRANSITION COORDINATOR Sexual Orientation Straight 05/12/2020 8: 18 AM CARE TRANSITION COORDINATOR documented as of this encounter Functional Status [...] Ayala, RN * Does person have difficulty dressing/bathing? Answer Date of Assessment Author No 04/22/2017 12:37 AM Sharyn Ayala, RN * Does person have difficulty doing errands alone? Answer Date of Assessment Author No 04/22/2017 12:37 AM Sharyn Ayala, RN documented as of this encounter Mental Status * Does person have difficulty concentrating/remembering/making decisions? Answer Entry Date Author No 04/22/2017 12:37 AM Sharyn Ayala RN documented in this encounter Plan of Treatment Upcoming Encounters Date Type Department Care Team (Latest Contact Info) Description 11/29/2024 12:20 PM CDT Hospital Encounter [facility] [address] [place] [address] Juju Toledo MD [address] [place] [phone] Surgery General 11/29/2024 12:20 PM CDT - 11/29/2024 1:20 PM CDT Surgery [facility] [address] [place] [address] Juju Toledo MD [address] [place] [phone] LEFT KNEE ARTHROSCOPY WITH PARTIAL MENISCECTOMY AND POSSIBLE CHONDROPLASTY 11/29/2024 12:30 PM CDT Procedure visit [facility] Orthopedics [address] [place] [address] Juju Toledo MD [address] [place] [phone] 12/09/2024 10:45 AM CDT [facility] [address] [place] [address] Nicole Spencer [place] [address] [facility] [place] [address] Scheduled Procedures Name Priority Associated [...] on filedocumented in this encounter Care Teams Zoology Professor Relationship Specialty [place] [address] [place] [address] PCP - Attributed-MSSP 08/28/18 03/20/20 [place] [address] [place] [address] PCP - Attributed-[facility]HC MA 08/29/19 10/28/19 Virgil Love MD [address] [place] [address] PCP - Attributed-UHC ID 10/29/19 01/28/20 [place] [address] [place] [address] PCP - Attributed-UHC ID 01/29/20 06/14/21 [place] [address] [place] [address] PCP - General Family Medicine 05/07/21 05/14/21 Virgil Love MD [address] [place] [address] PCP - General Family Medicine 06/06/21 09/06/21 Virgil Love MD [address] [facility] [address] [place] [address] PCP - General Family Medicine 09/07/21 08/17/24 [place] [address] [place] [address] PCP - Attributed-UHC ID 07/31/21 12/14/21 [place] [address] [place], [place] [address] PCP - Attributed-[facility]HC ID 02/28/22 10/16/23 Virigl Love MD [address] [place] [address] PCP - Attributed-UHC MA STL P4P 10/29/23 09/14/24 Justin Cowan MD [address] [facility] [address] [place] [address] PCP - Attributed-MSSP 10/07/17 07/01/18 Virgil Love MD [address] [facility] [address] [place], [place] [phone] PCP - Attributed-MSSP 07/02/18 08/27/18 None, Physician PCP - General 08/18/24 09/14/24 Josue Delgado MD [address] [place] [address] [place] [address] PCP - General Family Medicine 09/15/24 Charles Cardenas MD [address] [facility] [address] [place], [place] [phone] Pulmonary Disease 09/19/10 05/19/22 Javi Sotelo MD [address] [facility] [address] [place] [address] Dermatology 08/23/11 09/06/21 Grant Desir MD [address] [place], [place] [address]wy [address] [place] [address] Endocrinology 03/02/13 05/19/22 Kofi Mendez MD [address] [place] [address] [address] [place] [address] Gastroenterology 03/02/13 05/19/22 Charles Soria DO [address] [facility] [place] [phone] Orthopedic Surgery 12/16/14 05/19/22 Juju Toledo MD [address] [facility] [address] [place] [phone] Orthopedic Surgery 08/08/15 09/06/21 Yeimi Ramos, OD [address] [facility] [address] [place], [place] [address] Plant Maintenance Engineer 10/30/15 Tona Suarez RN Stock Parts Inspector 04/22/17 06/24/18 Byron Nickerson MD Physician Hematology and Oncology 05/15/17 09/06/21 Fannie Combs, COAL DELIVERER-APPLICATIONS SYSTEMS ANALYST [address] [facility] [address] [place], [place] [address] Nurse Practitioner Nurse Practitioner 05/15/17 08/19/22 Virgil Love MD [address] [facility] [address] [place], [place] [phone] Family Medicine 11/25/19 Juju Toledo MD [address] [place] [phone] Orthopedic Surgery 11/25/19 [place] [address] [place], [place] [phone] Surgeon Orthopedic Surgery 05/07/21 [place] [address] [place] [address] Physical Medicine and Rehabilitation 07/19/21 09/06/21 [place] [address] [address] [place] [address] Orthopedic Surgery 09/07/21 Dylan Ann MD [address] [place] [address] Cardiology 03/19/22 Kathy Galindo MD [address] [place] [address] Pulmonary Disease 08/20/22 documented as of this encounter
--- OUTSIDE RECORDS SUMMARY | 2024-10-20 17:00 | XMS_ITS | Encounter Summary ---
Author Organization [facility] Address [address] [place] [address] Care Team Providers Care Landfill Grader Name Role Phone Justin Cowan MD Primary Care Provider [phone] Charles Cardenas MD Unavailable [phone] Javi Sotelo MD Unavailable [phone] Grant Desir MD Unavailable Kofi Mendez MD Unavailable Charles Soria DO Unavailable Juju Toledo MD Unavailable [phone] Yeimi Ramos OD Unavailable Tona Suarez RN Unavailable Byron Nickerson MD Unavailable Unavailable Fannie Combs DRY CANS BACK TENDER-UTILITIES AND MAINTENANCE SUPERVISOR Unavailable [phone] Virgil Love MD Primary Care Provider [phone] Justin Cowan MD Primary Care Provider [phone] Maura Gallo MD Unavailable Virgil Love MD Unavailable Juju Toledo MD Unavailable [phone] Maura Gallo MD Unavailable [phone] Virgil Love MD Unavailable [phone] Maura Gallo MD Unavailable [phone] Maura Gallo MD Primary Care Provider [phone] Steve Stovall MD Unavailable [phone] Virgil Love MD Primary Care Provider [phone] David Flores MD Unavailable [phone] Paula HDEZ MD, Frank Unavailable +[phone] Virgil Love MD Primary Care Provider + [phone] Maura Gallo MD Unavailable [phone] Dylan Ann MD Unavailable [phone] Maura Gallo MD Unavailable [phone] Kathy Galindo MD Unavailable Virgil Love MD Unavailable [phone] Justin Cowan MD Unavailable [phone] Virgil oLve MD Unavailable [phone] None, Physician Primary Care Provider UnavailJosue Cai MD Primary Care Provider [phone] Encounter Details Date Type Department Care Team (Late st Contact Info) Description 04/04/2014 Therapy Visit [facility] [address] [place] [address] Unknown, Provider Social History Tobacco Use Types Packs/Day Years Used Date Smoking Tobacco: Never Smokeless Tobacco: Never Alcohol Use Standard Drinks/Week Comments Yes 1.7 (1 standard drink = 0.6 oz p ure alcohol) Sex and Gender Information Value Date Recorded Sex Assigned at Male 05/12/2020 8:18 AM DEMI CHEF Legal Sex Male 7:20 AM DEMI CHEF Gender Identity Male 05/12/2020 8:18 AM DEMI CHEF Sexual Orientation Straight 05/12/2020 8: 18 AM DEMI CHEF documented as of this encounter Plan of Treatment Upcoming Encounters Date Type Department Care Team (Latest Contact Info) Description 11/29/2024 12:20 PM CDT Hospital Encounter [facility] - [facility] [address] [place] [address] Juju Toledo MD [address] [phone] Surgery General 11/29/2024 12:20 PM CDT - 11/29/2024 1:20 PM CDT Surgery [facility] - [facility] [address] [place] [address] Juju Toledo MD [address] [phone] LEFT KNEE ARTHROSCOPY WITH PARTIAL MENISCECTOMY AND POSSIBLE CHONDROPLASTY 11/29/2024 12:30 PM CDT Procedure visit [facility] Orthopedics [address] [phone] Juju Toledo MD [address] [phone] 12/09/2024 10:45 AM CDT Office Visit [facility] Orthopedics [address] [phone] Nicole Spencer, [place] [address] [place] [address] Scheduled Procedures Name Priority Associated [...] on filedocumented in this encounter Care Teams Landfill Grader Relationship Specialty Start Date End Date Justin Cowan MD [address] [place] [address] [address] [place] [address] PCP - General 03/25/08 06/01/17 Virgil Love MD [address] [address] PCP - General Family Medicine 06/02/17 09/16/17 Justin Cowan MD [address] [place] [address] 300 [place] [phone] PCP - General Internal Medicine 09/17/17 09/17/17 [place] [address] [id number] PCP - Attributed-MSSP 08/28/18 03/20/20 [place] [address] [facility] [address] [place] [address] PCP - Attributed-C [place] 08/29/19 10/28/19 Virgil Love MD [address] [facility] 200 [place] [address] PCP - Attributed-[facility] [place] 10/29/19 01/28/20 [place] [address] [place], [place] [id number] PCP - Attributed-C [place] 01/29/20 06/14/21 [place] [address] [place], [place] [address] PCP - General Family Medicine 05/07/21 05/14/21 Virgil Love MD [address] [facility] 200 [place] [address] PCP - General Family Medicine 06/06/21 09/06/21 Virgil Love MD [address] [facility] 200 [place] [address] PCP - General Family Medicine 09/07/21 08/17/24 [place] [address] [place], [place] [address] PCP - Attributed-[facility] 07/31/21 12/14/21 [place] [address] [place], [place] [address] PCP - Attributed-C [place] 02/28/22 10/16/23 Virgil Love MD [address] [facility] 200 [place] [address] PCP - Attributed-[facility] P4 10/29/23 09/14/24 Justin Cowan MD [address] [place] [address] [address] [place] [address] PCP - Attributed-MSSP 10/07/17 07/01/18 Virgil Love MD [address] [facility] 200 [place] [address] PCP - Attributed-MSSP 07/02/18 08/27/18 None, Physician PCP - General 08/18/24 09/14/24 Josue Delgado MD [address] [place] [address] PCP - General Family Medicine 09/15/24 Charles Cardenas MD [address] [place] [address] Pulmonary Disease 09/19/10 05/19/22 Javi Sotelo MD [address] [facility] [address] [place], [place] [phone] Dermatology 08/23/11 09/06/21 Grant Desir MD [address] [facility] [address] [place] [address] Endocrinology 03/02/13 05/19/22 Kofi Mendez MD [address] [facility] [address] [place] [address] Gastroenterology 03/02/13 05/19/22 Charles Soria DO [address] [place] [address] Orthopedic Surgery 12/16/14 05/19/22 Juju Toledo MD [address] [facility] [address] [place] [address] Orthopedic Surgery 08/08/15 09/06/21 Yeimi Ramos OD [address] [facility] [place] [address] Controls Designer 10/30/15 Tona Suarez, RN Claims Adjustor 04/22/17 06/24/18 Byron Nickerson MD Physician Hematology and Oncology 05/15/17 09/06/21 Fannie Combs, DRY CANS BACK TENDER-UTILITIES AND MAINTENANCE SUPERVISOR [address] [facility] [address] [place] [address] Nurse Practitioner Nurse Practitioner 05/15/17 08/19/22 Virgil Love MD [address] [facility] [address] [place] [address] Family Medicine 11/25/19 Juju Toledo MD [address] [place] [address] Orthopedic Surgery 11/25/19 [place] [address] [place] [address] Surgeon Orthopedic Surgery 05/07/21 [place] [address] [place] [address] Physical Medicine and Rehabilitation 07/19/21 09/06/21 [place] [address] [place] [address] Orthopedic Surgery 09/07/21 Dylan Ann MD [address] [facility] [address] [place] [address] Cardiology 03/19/22 Kathy Galindo MD [address] [place] [address] Pulmonary Disease 08/20/22 documented as of this encounter
--- OUTSIDE RECORDS SUMMARY | 2024-10-20 17:00 | XMS_ITS | Encounter Summary ---
Author Organization [facility] Address [address] [facility] [place] [address] Care Team Providers Care Sheepskin Pickler Name Role Phone Charles Cardenas MD Unavailable [phone] Grnat Desir MD Unavailable [phone] Kofi Mendez MD Unavailable [phone] Charles Soria DO Unavailable [phone] Yeimi Ramos OD Unavailable [phone] Fannie Combs BLACKSMITH HAMMER OPERATOR-RN SECURITY Unavailable [phone] Virgil Love MD Unavailable [phone] Juju Toledo MD Unavailable [phone] Steve Stovall MD Unavailable Paula HDEZ MD, Frank Unavailable [phone] Virgil Love MD Primary Care Provider [phone] Maura Gallo MD Unavailable [phone] Dylan Ann MD Unavailable Maura Gallo MD Unavailable [phone] Kathy Galindo MD Unavailable Virgil Love MD Unavailable [phone] None, Physician Primary Care Provider Josue Alvarez MD Primary Care Provider Encounter Details Date Type Department Care Team (Late st Contact Info) Description 11/29/2021 [facility] Outpatient Visit [facility] Orthopedics - Radiology [address] [facility] [place] [address] Document, Scanned Social History Tobacco Use Types [...] Sex Assigned at Male 05/12/2020 8:18 AM FOREST FIRE SPECIALIST SUPERVISOR Legal Sex Male 7:20 AM FOREST FIRE SPECIALIST SUPERVISOR Gender Identity Male 05/12/2020 8:18 AM FOREST FIRE SPECIALIST SUPERVISOR Sexual Orientation Straight 05/12/2020 8: 18 AM FOREST FIRE SPECIALIST SUPERVISOR documented as of this encounter Functional Status [...] [facility] [address] [place] [address] Juju Toledo MD 400 [facility] [address] [phone] Surgery General 11/29/2024 12:20 PM CDT - 11/29/2024 1:20 PM CDT Surgery [facility] - [facility] Op [address] [place] [address] Juju Toledo MD 400 [facility] [address] [phone] LEFT KNEE ARTHROSCOPY WITH PARTIAL MENISCECTOMY AND POSSIBLE CHONDROPLASTY 11/29/2024 12:30 PM CDT Procedure visit [facility] Orthopedics [address] [phone] Juju Toledo MD [address] [phone] 12/09/2024 10:45 AM CDT Office Visit [facility] Orthopedics [address] [phone] Nicole Spencer, [place] [address]75 [place] [address] Scheduled Procedures Name Priority Associated [...] on filedocumented in this encounter Care Teams Sheepskin Pickler Relationship Specialty Start Date End Date Virgil Love MD [address] [facility] 200 [place] [address] PCP - General Family Medicine 09/07/21 08/17/24 [place] [address] [facility] [address] [place] [address] PCP - Attributed-[facility] 07/31/21 [place] [address] [facility] [address] [place] [address] PCP - Attributed-[facility] [place] 02/28/22 Virgil Love MD [address] [facility] 200 [place] [address] PCP - Attributed-[facility] [place] STL P4P 10/29/23 09/14/24 None, Physician PCP - General 08/18/24 09/14/24 Josue Delgado MD [address] [place] [address] PCP - General Family Medicine 09/15/24 Charles Cardenas MD [address] [place] [address] Pulmonary Disease 09/19/10 05/19/22 Grant Desir MD [address] [facility] [address] [place] [address] Endocrinology 03/02/13 05/19/22 Kofi Mendez MD [address] [place] [address] [address] [place] [address] Gastroenterology 03/02/13 05/19/22 Charles Soria DO [address] [place] [address] Orthopedic Surgery 12/16/14 05/19/22 Yeimi Ramos, OD [address] [facility] [place] [address] Tunnel Mucker 10/30/15 Fannie Combs, BLACKSMITH HAMMER OPERATOR-RN SECURITY [address] [facility] [address] [place] [address] Nurse Practitioner Nurse Practitioner 05/15/17 08/19/22 Virgil Love MD [address]75 [facility] [address] [place] [address] Family Medicine 11/25/19 Juju Toledo MD [address] [place] [address] Orthopedic Surgery 11/25/19 [place] [address] [place], [place] [address] Surgeon Orthopedic Surgery 05/07/21 [place] [address] [address] [place] [address] Orthopedic Surgery 09/07/21 Dylan Ann MD [address] [place] [address] Cardiology 03/19/22 Kathy Galindo MD [address] [place] [address] Pulmonary Disease 08/20/22 documented as of this encounter
--- OUTSIDE RECORDS SUMMARY | 2024-10-20 17:00 | XMS_ITS | Encounter Summary ---
Author Organization [facility] Address [address] [facility] [place] [address] Care Team Providers Care Diagnostic Radiologic Technologist Name Role Phone Justin Cowan MD Primary Care Provider Charles Cardenas MD Unavailable Javi Sotelo MD Unavailable Grant Desir MD Unavailable Kofi Mendez MD Unavailable Charles Soria DO Unavailable Juju Toledo MD Unavailable [phone] Yeimi Ramos OD Unavailable Tona Suarez RN Unavailable [phone] Byron Nickerson MD Unavailable Unavailable Fannie Combs CONICAL MIXER-DREDGE PUMPER Unavailable [phone] Virgil Love MD Primary Care Provider Justin Cowan MD Primary Care Provider Maura Gallo MD Unavailable Virgil Love MD Unavailable Juju Toledo MD Unavailable [phone] Maura Gallo MD Unavailable [phone] Virgil Love MD Unavailable [phone] Maura Gallo MD Unavailable [phone] Maura Gallo MD Primary Care Provider [phone] Steve Stovall MD Unavailable [phone] Virgil Love MD Primary Care Provider + [phone] David Flores MD Unavailable [phone] Paula HDEZ MD, Frank Unavailable [phone] Virgil Love MD Primary Care Provider + [phone] Maura Gallo MD Unavailable [phone] Dylan Ann MD Unavailable +[phone] Maura Gallo MD Unavailable [phone] Kathy Galindo MD Unavailable Virgil Love MD Unavailable [phone] Justin Cowan MD Unavailable [phone] Virgil Love MD Unavailable [phone] None, Physician Primary Care Provider Unavailunruly e Josue Delgado MD Primary Care Provider [phone] Encounter Details Date Type Department Care Team (Late st Contact Info) Description 08/17/2015 [facility] Outpatient Visit [facility] Orthopedics [address] [place] [address] Juju Toledo MD [address] [place] [address] Social History Tobacco Use Types Packs/Day Years Used Date Smoking Tobacco: Never Smokeless Tobacco: Never Alcohol Use Standard Drinks/Week Comments Yes 1.7 (1 standard drink = 0.6 oz p ure alcohol) Sex and Gender Information Value Date Recorded Sex Assigned at Male 05/12/2020 8:18 AM HOTBED TRANSFER OPERATOR Legal Sex Male 7:20 AM HOTBED TRANSFER OPERATOR Gender Identity Male 05/12/2020 8:18 AM HOTBED TRANSFER OPERATOR Sexual Orientation Straight 05/12/2020 8: 18 AM HOTBED TRANSFER OPERATOR documented as of this encounter Plan of Treatment Upcoming Encounters Date Type Department Care Team (Latest Contact Info) Description 11/29/2024 12:20 PM CDT Hospital Encounter [facility] - [facility] Op [address] [place] [address] Juju Toledo MD [address] [phone] Surgery General 11/29/2024 12:20 PM CDT - 11/29/2024 1:20 PM CDT Surgery [facility] - [facility] [address] [place] [address] Juju Toledo MD [address] [phone] LEFT KNEE ARTHROSCOPY WITH PARTIAL MENISCECTOMY AND POSSIBLE CHONDROPLASTY 11/29/2024 12:30 PM CDT Procedure visit [facility] Orthopedics [address] [address] Juju Toledo MD [address] [address] 12/09/2024 10:45 AM CDT Office Visit [facility] Orthopedics [address] [address] Nicole Spencer [place] [address] [place] [address] Scheduled Procedures Name Priority Associated Diagnoses Date/Ti [...] on filedocumented in this encounter Care Teams Diagnostic Radiologic Technologist Relationship Specialty Start Date End Date Justin Cowan MD [address] [address] PCP - General 03/25/08 06/01/17 Virgil Love MD 1475 [facility] 200 [place] [address] PCP - General Family Medicine 06/02/17 09/16/17 Justin Cowan MD [address] [place] [address] PCP - General Internal Medicine 09/17/17 09/17/17 [place] [address] [place], [place] [address] PCP - Attributed-MSSP 08/28/18 03/20/20 [place] [address] [address] [place] [address] PCP - Attributed-[facility] [place] 08/29/19 10/28/19 Virgil Love MD [address] [facility] 200 [place] [address] PCP - Attributed-[facility] [place] 10/29/19 01/28/20 [place] [address] [place] [address] PCP - Attributed-[facility] [place] 01/29/20 06/14/21 [place] [address] [place] [address] PCP - General Family Medicine 05/07/21 05/14/21 Virgil Love MD [address] [facility] 200 [place] [address] PCP - General Family Medicine 06/06/21 09/06/21 Virgil Love MD [address] [facility] 200 [place] [address] PCP - General Family Medicine 09/07/21 08/17/24 [place] [address] [place] [address] PCP - Attributed-[facility] MA 07/31/21 12/14/21 [place] [address] [place] [address] PCP - Attributed-[facility] [place] 02/28/22 10/16/23 Virgil Love MD 14[address] [facility] 200 [place] [address] PCP - Attributed-[facility] STL P4P 10/29/23 09/14/24 Justin Cowan MD 711 [facility] [address] [place] [address] PCP - Attributed-MSSP 10/07/17 07/01/18 Virgil Love MD 1475 [facility] 200 [place] [address] PCP - Attributed-[facility]SP 07/02/18 08/27/18 None, Physician PCP - General 08/18/24 09/14/24 Josue Delgado MD [address] [place] [address] PCP - General Family Medicine 09/15/24 Charles Cardenas MD [address] [facility] [address] [place] [address] Pulmonary Disease 09/19/10 05/19/22 Javi Sotelo MD [address] [facility] [address] [place] [address] Dermatology 08/23/11 09/06/21 Grant Desir MD 7[address] [facility] [address] [place] [address] Endocrinology 03/02/13 05/19/22 Kofi Mendez MD [address] [facility] [address] [place] [address] Gastroenterology 03/02/13 05/19/22 Charles Soria DO [address] [place] [address] Orthopedic Surgery 12/16/14 05/19/22 Juju Toledo MD [address] [facility] [address] [place] [address] Orthopedic Surgery 08/08/15 09/06/21 Yeimi Ramos, OD [address] [facility] [place], [place] [address] Airport Skilled Maintenance Supervisor 10/30/15 Tona Suarez, RN Flight Crew Ordnanceman 04/22/17 06/24/18 Byron Nickerson MD Physician Hematology and Oncology 05/15/17 09/06/21 Fannie Combs, CONICAL MIXER-DREDGE PUMPER [address] [facility] [address] [place], [place] [id number] Nurse Practitioner Nurse Practitioner 05/15/17 08/19/22 Virgil Love MD [address] [facility] [address] [place], [place] [address] Family Medicine 11/25/19 Juju Toledo MD [address] [place] [address] Orthopedic Surgery 11/25/19 [place] [address] [place] [address] Surgeon Orthopedic Surgery 05/07/21 [place] [address] [place], [place] [address] Physical Medicine and Rehabilitation 07/19/21 09/06/21 [place] [address] [place] [address] Orthopedic Surgery 09/07/21 Dylan Ann MD [address] [facility] [address] [place] [address] Cardiology 03/19/22 Kathy Galindo MD [address] [place] [address] Pulmonary Disease 08/20/22 documented as of this encounter
--- OUTSIDE RECORDS SUMMARY | 2024-10-20 17:00 | XMS_ITS | Encounter Summary ---
Author Organization [facility] Address [address] [facility] [place] [address] Care Team Providers Care Software Maintenance Engineer Name Role Phone Charles Cardenas MD Unavailable [phone] Javi Sotelo MD Unavailable Grant Desir MD Unavailable +[phone] Kofi Mendez MD Unavailable +[phone] Charles Soria DO Unavailable +[phone] Juju Toledo MD Unavailable [phone] Yeimi Ramos OD Unavailable [phone] Byron Nickerson MD Unavailable Unavailable Fannie Combs SIEBEL CRM DEVELOPER-CHARGE AUTHORIZER Unavailable +[phone] Maura Gallo MD Unavailable Virgil Love MD Unavailable +[phone] Juju Toledo MD Unavailable [phone] Virgil Love MD Unavailable +[phone] Maura Gallo MD Unavailable Maura Gallo MD Primary Care Provider [phone] Steve Stovall MD Unavailable [phone] Virgli Love MD Primary Care Provider + [phone] David Flores MD Unavailable +[phone] Paula HDEZ MD, Javi Unavailable +[phone] Virgil Love MD Primary Care Provider + [phone] Maura Gallo MD Unavailable [phone] Dylan Ann MD Unavailable +[phone] Maura Gallo MD Unavailable +[phone] Kathy Galindo MD Unavailable Virgil Love MD Unavailable +[phone] None, Physician Primary Care Provider UnavailJosue Cai MD Primary Care Provider [phone] Encounter Details Date Type Department Care Team (Late st Contact Info) Description 11/17/2019 Lab Requisition [facility] Care DermPath Lab [address] [facility] [place] [address] Dario Sanabria MD [address] [place] [address] Social History Tobacco Use Types Packs/Day Years Used Date Smoking Tobacco: Never Smokeless Tobacco: Never Alcohol Use Standard Drinks/Week Comments No 4 (1 standard drink = 0.6 oz pur e alcohol) Sex and Gender Information Value Date Recorded Sex Assigned at Male 05/12/2020 8:18 AM PRODUCER DIRECTOR Legal Sex Male 7:20 AM PRODUCER DIRECTOR Gender Identity Male 05/12/2020 8:18 AM PRODUCER DIRECTOR Sexual Orientation Straight 05/12/2020 8: 18 AM PRODUCER DIRECTOR COVID-19 Exposure Response Date Recorded In the [...] Description 11/29/2024 12:20 PM CDT Hospital Encounter [facility] - [address]ast[address] [place] [address] Juju Toledo MD [address] [place] [phone] Surgery General 11/29/2024 12:20 PM CDT - 11/29/2024 1:20 PM CDT Surgery [facility] - [address]astasia Op [address] [place] [address] Juju Toledo MD [address] [place] [phone] LEFT KNEE ARTHROSCOPY WITH PARTIAL MENISCECTOMY AND POSSIBLE CHONDROPLASTY 11/29/2024 12:30 PM CDT Procedure visit [facility] Orthopedics [address] [place] [address] Juju Toledo MD [address] [place] [phone] 12/09/2024 10:45 AM CDT Office Visit [facility] Health Orthopedics [address] [place] [address] Nicole Spencer, [place] [address] [place] [address] Scheduled Procedures Name Priority Associated Diagnoses Date/Ti ms ARTHROSCOPY KNEE WITH MENISCECTOMY (MEDIAL/LATERAL) S83.207A 11/29/2024 [...] AM CDT) Case Report Dermatopathology Report Case: [id number] Authorizing Provider: Dario Sanabria MD Collected: 11/16/2019 12:00 AM Ordering Location: [facility] DermPath Lab Received: 11/17/2019 09:52 AM [...] PM CDT DERMATOPATHOLOGY LABORATORY Gross Description A: [id number]. B: [id number]. C: [id number]. D: [id number]. E: [id number]. 0 5:19 PM CDT DERMATOPATHOLOGY LABORATORY Microscopic [...] characteristic determined by the Dermatopathology Laboratory at [facility], directed by Dr. Joey Donnelly. These tests need not be, and therefore are not, approved by the [place] Food and Drug Administration. The tests are used for clinical purposes. Billing Codes Specimen Charges Stain Charges 49898 39166 16156 34690 36664 1 1 1 1 1 0 5:19 [...] BLES Edited Result - Final DERMATOPATHOLOGY LABORATORY [facility] - Department of Dermatology Beam Department Supervisor [place] [address], [facility] [phone] documented in this encounter Visit Diagnoses Not on filedocumented in this encounter Care Teams Software Maintenance Engineer Relationship Specialty [place] [address] [place] [address] PCP - Attributed-[facility] 08/28/18 03/20/20 Virgil Love MD [address] [facility] [address] [place] [address] PCP - Attributed-[facility] [place] 10/29/19 01/28/20 [place] [address] [place] [address] PCP - Attributed-[facility] [place] 01/29/20 06/14/21 [place] [address] [place] [address] PCP - General Family Medicine 05/07/21 05/14/21 Virgil Love MD [address] [facility] [address] [place] [address] PCP - General Family Medicine 06/06/21 09/06/21 Virgil Love MD [address] [facility] [address] [place] [address] PCP - General Family Medicine 09/07/21 08/17/24 [place] [address] [place] [address] PCP - Attributed-[facility] [place] 07/31/21 12/14/21 [place] [address] [place] [address] PCP - [facility] 02/28/22 10/16/23 Virgil Love MD [address] [facility] [address] [place] [address] PCP - Attributed-[facility] ST P4P 10/29/23 09/14/24 None, Physician PCP - General 08/18/24 09/14/24 Josue Delgado MD Professional [place] [facility] [place] [address] PCP - General Family Medicine 09/15/24 Charles Cardenas MD [address] [place] [address] Pulmonary Disease 09/19/10 05/19/22 Javi Sotelo MD [address] [facility] [address] [place] [address] Dermatology 08/23/11 09/06/21 Grant Desir MD [address] [facility] [address] [place] [phone] Endocrinology 03/02/13 05/19/22 Kofi Mendez MD [address] [facility] [address] [address] [place] [address] Gastroenterology 03/02/13 05/19/22 Charles Soria DO [address] [place] [phone] Orthopedic Surgery 12/16/14 05/19/22 Juju Toledo MD [address] [facility] [address] [place] [phone] Orthopedic Surgery 08/08/15 09/06/21 Yeimi Ramos, OD [address] [facility] [place] [address] Soup Mixer 10/30/15 Byron Nickerson MD [address] [facility] [place] [address] Physician Hematology and Oncology 05/15/17 09/06/21 Fannie Combs APRN-CHARGE AUTHORIZER [address] [facility] [address] [place] [address] Nurse Practitioner Nurse Practitioner 05/15/17 08/19/22 Virgil Love MD [address] [facility] [address] [place] [address] Family Medicine 11/25/19 Juju Toledo MD [address] [facility] [address] [place] [phone] Orthopedic Surgery 11/25/19 [place] [address] [place] [address] Surgeon Orthopedic Surgery 05/07/21 [place] [address] [place], [place] [address] Physical Medicine and Rehabilitation 07/19/21 09/06/21 [place] [address] [place] [address] Orthopedic Surgery 09/07/21 Dylan Ann MD [address] [place] [address] Cardiology 03/19/22 Kathy Galindo MD [address] [place] [address] Pulmonary Disease 08/20/22 documented as of this encounter
--- OUTSIDE RECORDS SUMMARY | 2024-10-20 17:00 | XMS_ITS | Encounter Summary ---
Author Organization [facility] Address [address] [facility] [place] [address] Care Team Providers Care Automotive Fleet Supervisor Name Role Phone Charles Cardenas MD Unavailable [phone] Javi Sotelo MD Unavailable Grant Desir MD Unavailable [phone] Kofi Mendez MD Unavailable [phone] Charles Soria DO Unavailable Juju Toledo MD Unavailable [phone] Yeimi Ramos OD Unavailable [phone] Byron Nickerson MD Unavailable Unavailable Fannie Combs MANAGER OF HEALTH-RATE ENGINEER Unavailable [phone] Maura Gallo MD Unavailable [phone] Virgil Love MD Unavailable Juju Toledo MD Unavailable [phone] Maura Gallo MD Unavailable [phone] Virgil Love MD Unavailable Maura Gallo MD Unavailable Maura Gallo MD Primary Care Provider [phone] Steve Stovall MD Unavailable [phone] Virgil Love MD Primary Care Provider + [phone] David Flores MD Unavailable [phone] Paula HDEZ MD, Javi Unavailable [phone] Virgil Love MD Primary Care Provider + [phone] Maura Gallo MD Unavailable [phone] Dylan Ann MD Unavailable [phone] Maura Gallo MD Unavailable [phone] Kathy Galindo MD Unavailable Virgil Love MD Unavailable [phone] None, Physician Primary Care Provider UnavailJosue Cai MD Primary Care Provider [phone] Encounter Details Date Type Department Care Team (Late st Contact Info) Description 11/16/2018 [facility] [address] [place] [address] Juju Toledo MD [address] [place] [address] Social History Tobacco Use Types Packs/Day Years Used Date Smoking Tobacco: Never Smokeless Tobacco: Never Alcohol Use Standard Drinks/Week Comments No 4 (1 standard drink = 0.6 oz pur e alcohol) Sex and Gender Information Value Date Recorded Sex Assigned at Male 05/12/2020 8:18 AM OUTSOLE LEVELER Legal Sex Male 7:20 AM OUTSOLE LEVELER Gender Identity Male 05/12/2020 8:18 AM OUTSOLE LEVELER Sexual Orientation Straight 05/12/2020 8: 18 AM OUTSOLE LEVELER documented as of this encounter Functional Status [...] Description 11/29/2024 12:20 PM CDT Hospital Encounter [facility] - Anastasia Op [address] [facility] [place] [address] Juju Toledo MD [address] [place] [phone] Surgery General 11/29/2024 12:20 PM CDT - 11/29/2024 1:20 PM CDT Surgery [facility] - [address]ast[address] [place] [address] Juju Toledo MD [address] [place] [phone] LEFT KNEE ARTHROSCOPY WITH PARTIAL MENISCECTOMY AND POSSIBLE CHONDROPLASTY 11/29/2024 12:30 PM CDT Procedure visit [facility] Orthopedics [address] [place] [address] Juju Toledo MD [address] [place] [phone] 12/09/2024 10:45 AM CDT Office Visit [facility] [address] [place] [address] Nicole Spencer [place] [address] [place] [address] Scheduled Procedures Name Priority Associated [...] on filedocumented in this encounter Care Teams Automotive Fleet Supervisor Relationship Specialty [place] [address] [place] [address] PCP - Attributed-[facility] 08/28/18 03/20/20 [place] [address] [place] [address] PCP - Attributed-C [place] 08/29/19 10/28/19 Virgil Love MD [address] [place] [address] PCP - Attributed-C [place] 10/29/19 01/28/20 [place] [address] [place], [place] [address] PCP - Attributed-[facility] 01/29/20 06/14/21 [place] [address] [place] [address] PCP - General Family Medicine 05/07/21 05/14/21 Virgil Love MD [address] [facility] [address] [place] [address] PCP - General Family Medicine 06/06/21 09/06/21 Virgil Love MD [address] [facility] [address] [place] [address] PCP - General Family Medicine 09/07/21 08/17/24 [place] [address] [place] [address] PCP - Attributed-[facility] 07/31/21 12/14/21 [place] [address] [place] [address] PCP - Attributed-C [place] 02/28/22 10/16/23 Virgil Love MD [address] [facility] [address] [place] [address] PCP - Attributed-[facility] ST[facility] P4P 10/29/23 09/14/24 None, Physician PCP - General 08/18/24 09/14/24 Josue Delgado MD [address] [place] [address] [place] [phone] PCP - General Family Medicine 09/15/24 Charles Cardenas MD [address] [facility] [address] [place] [address] Pulmonary Disease 09/19/10 05/19/22 Javi Sotelo MD [address] [facility] [address] [place] [address] Dermatology 08/23/11 09/06/21 Grant Desir MD [address] [facility] [address] [place] [phone] Endocrinology 03/02/13 05/19/22 Kofi Mendez MD [address] [place], [place] [address]y [address] [place] [address] Gastroenterology 03/02/13 05/19/22 Charles Soria DO [address] [facility] [address] [place] [address] Orthopedic Surgery 12/16/14 05/19/22 Juju Toledo MD [address] [facility] [address] [place] [phone] Orthopedic Surgery 08/08/15 09/06/21 Yeimi Ramos, OD [address] [facility] [place] [address] Tenter Frame Back Tender 10/30/15 Byron Nickerson MD [address] [facility] [place] [address] Physician Hematology and Oncology 05/15/17 09/06/21 Fannie Combs, MANAGER OF HEALTH-RATE ENGINEER [address] [facility] [address] [place] [address] Nurse Practitioner Nurse Practitioner 05/15/17 08/19/22 Virgil Love MD [address] [facility] [address] [place] [address] Family Medicine 11/25/19 Juju Toledo MD [address] [place] [phone] Orthopedic Surgery 11/25/19 [place] [address] [place] [address] Surgeon Orthopedic Surgery 05/07/21 [place] [address] [place] [address] Physical Medicine and Rehabilitation 07/19/21 09/06/21 [place] [address] [place], [place] [phone] Orthopedic Surgery 09/07/21 Dylan Ann MD [address] [place] [address] Cardiology 03/19/22 Kathy Galindo MD [address] [place] [address] Pulmonary Disease 08/20/22 documented as of this encounter
--- OUTSIDE RECORDS SUMMARY | 2024-10-20 17:00 | XMS_ITS | Encounter Summary ---
Author Organization [facility] Address [address] [facility] [place] [address] Care Team Providers Care Overhead Cleaner Name Role Phone Justin Cowan MD Primary Care Provider Charles Cardenas MD Unavailable [phone] Javi Sotelo MD Unavailable Grant Desir MD Unavailable Kofi Mendez MD Unavailable Charles Soria DO Unavailable [phone] Juju Toledo MD Unavailable [phone] Yeimi Ramos OD Unavailable Tona Suarez RN Unavailable Byron Nickerson MD Unavailable Unavailable Fannie Combs PROFILE STITCHING MACHINE OPERATOR-CLINICAL RESEARCH ADMINISTRATOR Unavailable Virgil Love MD Primary Care Provider [phone] Justin Cowan MD Primary Care Provider Maura Gallo MD Unavailable Virgil Love MD Unavailable [phone] Juju Toledo MD Unavailable [phone] Maura Gallo MD Unavailable [phone] Virgil Love MD Unavailable [phone] Maura Gallo MD Unavailable [phone] Maura Gallo MD Primary Care Provider [phone] Steve Stovall MD Unavailable [phone] Virgil Love MD Primary Care Provider [phone] aDvid Flores MD Unavailable +[phone] Paula HDEZ MD, Frank Unavailable [phone] Virgil Love MD Primary Care Provider + [phone] Maura Gallo MD Unavailable [phone] Dylan Ann MD Unavailable [phone] Maura Gallo MD Unavailable [phone] Kathy Galindo MD Unavailable Virgil Love MD Unavailable [phone] Justin Cowan MD Unavailable Virgil Love MD Unavailable [phone] None, Physician Primary Care Provider UnavailJosue Cai MD Primary Care Provider [phone] Encounter Details Date Type Department Care Team (Late st Contact Info) Description 02/03/2014 [facility] Justin Cowan MD [address] [facility] [address] [place] [address] Social History Tobacco Use Types Packs/Day Years Used Date Smoking Tobacco: Never Smokeless Tobacco: Never Alcohol Use Standard Drinks/Week Comments Yes 1.7 (1 standard drink = 0.6 oz p ure alcohol) Sex and Gender Information Value Date Recorded Sex Assigned at Male 05/12/2020 8:18 AM INSPECTOR ALIGNING Legal Sex Male 7:20 AM INSPECTOR ALIGNING Gender Identity Male 05/12/2020 8:18 AM INSPECTOR ALIGNING Sexual Orientation Straight 05/12/2020 8: 18 AM INSPECTOR ALIGNING documented as of this encounter Plan of Treatment Upcoming Encounters Date Type Department Care Team (Latest Contact Info) Description 11/29/2024 12:20 PM CDT Hospital Encounter [facility] - [address] [place] [address] Juju Toledo MD [address] [phone] Surgery General 11/29/2024 12:20 PM CDT - 11/29/2024 1:20 PM CDT Surgery [facility] - [address] [place] [address] Juju Toledo MD [address] [phone] LEFT KNEE ARTHROSCOPY WITH PARTIAL MENISCECTOMY AND POSSIBLE CHONDROPLASTY 11/29/2024 12:30 PM CDT Procedure visit [facility] Orthopedics [address] [address] Juju Toledo MD [address] [phone] 12/09/2024 10:45 AM CDT Office Visit [facility] Orthopedics [address] [place] [address] Nicole Spencer PA [address] [place] [phone] Scheduled Procedures Name Priority Associated Diagnoses Date/Ti [...] on filedocumented in this encounter Care Teams Overhead Cleaner Relationship Specialty Start Date End Date Justin Cowan MD [address] [facility] [address] [place] [address] PCP - General 03/25/08 06/01/17 Virgil Love MD 14[address] [facility] 200 [place] [address] PCP - General Family Medicine 06/02/17 09/16/17 Justin Cowan MD [address] [place] [address] [address] [place] [phone] PCP - General Internal Medicine 09/17/17 09/17/17 [place] [address] [place] [address] PCP - Attributed-[facility] 08/28/18 03/20/20 [place] [address] [place], [place] [address] PCP - Attributed-[facility] 08/29/19 10/28/19 Virgil Love MD [address] [facility] 200 [place] [address] PCP - Attributed-[facility] [place] 10/29/19 01/28/20 [place] [address] [place], [place] [address] PCP - Attributed-C [place] 01/29/20 06/14/21 [place] [address] [place], [place] [address] PCP - General Family Medicine 05/07/21 05/14/21 Virgil Love MD [address] [facility] 200 [place] [address] PCP - General Family Medicine 06/06/21 09/06/21 Virgil Love MD [address] [facility] 200 [place] [address] PCP - General Family Medicine 09/07/21 08/17/24 [place] [address] [place] [address] PCP - Attributed-[facility] 07/31/21 12/14/21 [place] [address] [place], [place] [address] PCP - Attributed-C [place] 02/28/22 10/16/23 Virgil Love MD [address] [facility] 200 [place] [address] PCP - Attributed-[facility] P4 10/29/23 09/14/24 Justin Cowan MD [address] [facility] [address] [place] [address] PCP - Attributed-[facility] 10/07/17 07/01/18 Virgil Love MD [address] [place] [address] 200 [place], [place] [address] PCP - Attributed-[facility] 07/02/18 08/27/18 None, Physician PCP - General 08/18/24 09/14/24 Josue Delgado MD [address] [place] [address] [place] [address] PCP - General Family Medicine 09/15/24 Charles Cardenas MD [address] [place] [address] [facility] [address] [place] [address] Pulmonary Disease 09/19/10 05/19/22 [place] [address] [place] [address] [address] [place], [place] [address] Dermatology 08/23/11 09/06/21 Grant Desir MD [address] [place], [place] [address]y [address] [place] [address] Endocrinology 03/02/13 05/19/22 Kofi Mendez MD [address] [place] [address] [address] [place] [address] Gastroenterology 03/02/13 05/19/22 Charles Soria DO [address] [facility] [address] [place] [address] Orthopedic Surgery 12/16/14 05/19/22 Juju Toledo MD [address] [facility] [address] [place] [address] Orthopedic Surgery 08/08/15 09/06/21 Yeimi Ramos OD [address] [facility] [place] [address] Physical Director 10/30/15 Tona Suarez, RN Corporate Director Of Pharmacy 04/22/17 06/24/18 Byron Nickerson MD Physician Hematology and Oncology 05/15/17 09/06/21 Fannie Combs APRN-CLINICAL RESEARCH ADMINISTRATOR [address] [facility] [address] [place] [address] Nurse Practitioner Nurse Practitioner 05/15/17 08/19/22 Virgil Love MD [address] [facility] [address] [place] [address] Family Medicine 11/25/19 Juju Toledo MD [address] [place] [phone] Orthopedic Surgery 11/25/19 [place] [address] [place] [address] Surgeon Orthopedic Surgery 05/07/21 [place] [address] [place] [address] Physical Medicine and Rehabilitation 07/19/21 09/06/21 [place] [address] [place] [address] Orthopedic Surgery 09/07/21 Dylan Ann MD [address] [place] [address] Cardiology 03/19/22 Kathy Galindo MD [address] [place] [address] Pulmonary Disease 08/20/22 documented as of this encounter
--- OUTSIDE RECORDS SUMMARY | 2024-10-20 17:00 | XMS_ITS | Encounter Summary ---
Author Organization [facility] Address [address] [place] [address] Care Team Providers Care Animal Nutrition Consultant Name Role Phone Justin Cowan MD Primary Care Provider Charles Cardenas MD Unavailable [phone] Javi Sotelo MD Unavailable Grant Desir MD Unavailable [phone] Kofi Mendez MD Unavailable Charles Soria DO Unavailable Juju Toledo MD Unavailable [phone] Yeimi Ramos OD Unavailable Tona Suarez RN Unavailable Byron Nickerson MD Unavailable Unavailable Fannie Combs REGISTERED NURSE MATERNAL CHILD-COMPUTER OPERATIONS MANAGER Unavailable [phone] Virgil Love MD Primary Care Provider [phone] Justin Cowan MD Primary Care Provider [phone] Maura Gallo MD Unavailable [phone] Virgil Love MD Unavailable [phone] Juju Toledo MD Unavailable [phone] Maura Gallo MD Unavailable [phone] Virgil Love MD Unavailable [phone] Maura Gallo MD Unavailable [phone] Maura Gallo MD Primary Care Provider [phone] Steve Stovall MD Unavailable [phone] Virgil Love MD Primary Care Provider [phone] David Flores MD Unavailable [phone] Paula HDEZ MD, Frank Unavailable +[phone] Virgil Love MD Primary Care Provider + [phone] Maura Gallo MD Unavailable [phone] Dylan Ann MD Unavailable [phone] Maura Gallo MD Unavailable [phone] Kathy Galindo MD Unavailable Virgil Love MD Unavailable [phone] Justin Cowan MD Unavailable [phone] Virgil Love MD Unavailable [phone] None, Physician Primary Care Provider UnavailJosue Cai MD Primary Care Provider [phone] Encounter Details Date Type Department Care Team (Late st Contact Info) Description 06/10/2014 Therapy Visit EXTERNAL NON-[facility] DEPT Justin Cowan MD 1 [facility] [address] [place] [address] Social History Tobacco Use Types Packs/Day Years Used Date Smoking Tobacco: Never Smokeless Tobacco: Never Alcohol Use Standard Drinks/Week Comments Yes 1.7 (1 standard drink = 0.6 oz p ure alcohol) Sex and Gender Information Value Date Recorded Sex Assigned at Male 05/12/2020 8:18 AM SOCK FOLDER Legal Sex Male 7:20 AM SOCK FOLDER Gender Identity Male 05/12/2020 8:18 AM SOCK FOLDER Sexual Orientation Straight 05/12/2020 8: 18 AM SOCK FOLDER documented as of this encounter Plan of Treatment Upcoming Encounters Date Type Department Care Team (Latest Contact Info) Description 11/29/2024 12:20 PM CDT Hospital Encounter [facility] - [facility] [address] [place] [address] Juju Toledo MD [address] [phone] Surgery General 11/29/2024 12:20 PM CDT - 11/29/2024 1:20 PM CDT Surgery [facility] - [facility] [address] [place] [address] Juju Toledo MD [address] [phone] LEFT KNEE ARTHROSCOPY WITH PARTIAL MENISCECTOMY AND POSSIBLE CHONDROPLASTY 11/29/2024 12:30 PM CDT Procedure visit [facility] [address] [phone] Juju Toledo MD [address] [phone] 12/09/2024 10:45 AM CDT Office Visit [facility] [address] [phone] Nicole Spencer PA [address] [place] [address] Scheduled Procedures Name Priority Associated [...] on filedocumented in this encounter Care Teams Animal Nutrition Consultant Relationship Specialty Start Date End Date Justin Cowan MD 1 [facility] [address] [place] [address] PCP - General 03/25/08 06/01/17 Virgil Love MD [address] [facility] 200 [place] [address] PCP - General Family Medicine 06/02/17 09/16/17 Justin Cowan MD [address] [place] [phone] PCP - General Internal Medicine 09/17/17 09/17/17 [place] [address] [place], [place] [id number] PCP - Attributed-MSSP 08/28/18 03/20/20 [place] [address] [place], [place] [id number] PCP - Attributed-[facility] [place] 08/29/19 10/28/19 Virgil Love MD [address] [facility] [address] [place] [address] PCP - Attributed-C [place] 10/29/19 01/28/20 [place] [address] [place], [place] [id number] PCP - Attributed-C [place] 01/29/20 06/14/21 [place] [address] [place] [address] PCP - General Family Medicine 05/07/21 05/14/21 Virgil Love MD [address] [facility] [address] [place] [address] PCP - General Family Medicine 06/06/21 09/06/21 Virgil Love MD [address] [facility] [address] [place] [address] PCP - General Family Medicine 09/07/21 08/17/24 [place] [address] [place] [address] PCP - Attributed-C [place] 07/31/21 12/14/21 [place] [address] [place] [address] PCP - Attributed-C [place] 02/28/22 10/16/23 Virgil Love MD [address] [facility] [address] [place] [address] PCP - Attributed-C [place] [facility] P4P 10/29/23 09/14/24 Justin Cowan MD [address] [facility] [place] [address] PCP - Attributed-MSSP 10/07/17 07/01/18 Virgil Love MD [address] [facility] [address] [place] [address] PCP - Attributed-MSSP 07/02/18 08/27/18 None, Physician PCP - General 08/18/24 09/14/24 Josue Delgado MD [address] [place] [address] [place] [address] PCP - General Family Medicine 09/15/24 Charles Cardenas MD [address] [place], [place] [phone] Pulmonary Disease 09/19/10 05/19/22 Javi Sotelo MD [address] [facility] [address] [place], [place] [phone] Dermatology 08/23/11 09/06/21 Grant Desir MD [address] [place] [address] [address] [place] [address] Endocrinology 03/02/13 05/19/22 Kofi Mendez MD [address] [place] [address] [address] [place] [address] Gastroenterology 03/02/13 05/19/22 Charles Soria DO [address] [facility] [address] [place] [address] Orthopedic Surgery 12/16/14 05/19/22 Juju Toledo MD [address] [facility] [address] [place] [phone] Orthopedic Surgery 08/08/15 09/06/21 Yeimi Ramos OD [address] [facility] [address] Regional Administrative Assistant 10/30/15 Tona Suarez RN Furnace Clerk 04/22/17 06/24/18 Byron [place] MD Physician Hematology and Oncology 05/15/17 09/06/21 Fannie Combs APRN-COMPUTER OPERATIONS MANAGER [address] [facility] [address] [place] [address] Nurse Practitioner Nurse Practitioner 05/15/17 08/19/22 Vrigil Love MD [address] [facility] [address] [place] [address] Family Medicine 11/25/19 Juju Toledo MD [address] [place] [phone] Orthopedic Surgery 11/25/19 [place] [address] [facility] [address] [place] [address] Surgeon Orthopedic Surgery 05/07/21 [place] [address] [place] [address] Physical Medicine and Rehabilitation 07/19/21 09/06/21 [place] [address] [place] [address] [place] [address] Orthopedic Surgery 09/07/21 Dylan Ann MD [address] [place] [address] Cardiology 03/19/22 Kathy Galindo MD [address] [place] [address] Pulmonary Disease 08/20/22 documented as of this encounter
--- OUTSIDE RECORDS SUMMARY | 2024-10-20 17:00 | XMS_ITS | Encounter Summary ---
Author Organization [facility] Address [address] [facility] [place] [address] Care Team Providers Care Crime Scene Specialist Name Role Phone Charles Cardenas MD Unavailable [phone] Javi Sotelo MD Unavailable [phone] Grant Desir MD Unavailable [phone] Kofi Mendez MD Unavailable [phone] Charles Soria DO Unavailable [phone] Juju Toledo MD Unavailable [phone] Yeimi Ramos OD Unavailable [phone] Byron [place] MD Unavailable Unavailable Fannie Combs COMMUNITY FACILITATOR-SUPERVISOR CEMETERY WORKERS Unavailable [phone] Maura Gallo MD Unavailable Virgil Love MD Unavailable [phone] Juju Toledo MD Unavailable [phone] Virgil Love MD Unavailable Maura Gallo MD Unavailable Maura Gallo MD Primary Care Provider [phone] Steve Stovall MD Unavailable Virgil Love MD Primary Care Provider [phone] David Flores MD Unavailable Paula HDEZ MD, Javi Unavailable [phone] Virgil Love MD Primary Care Provider [phone] Maura Gallo MD Unavailable [phone] Dylan Ann MD Unavailable [phone] Muara Gallo MD Unavailable [phone] Kathy Galindo MD Unavailable Virgil Love MD Unavailable [phone] None, Physician Primary Care Provider UnavailJosue Cai MD Primary Care Provider [phone] Encounter Details Date Type Department Care Team (Late st Contact Info) Description 11/24/2019 Lab Requisition [facility] [address] [facility] [place] [phone] Dario Sanabria MD [address] [place] [address] Social History Tobacco Use Types Packs/Day Years Used Date Smoking Tobacco: Never Smokeless Tobacco: Never Alcohol Use Standard Drinks/Week Comments No 4 (1 standard drink = 0.6 oz pur e alcohol) Sex and Gender Information Value Date Recorded Sex Assigned at Male 05/12/2020 8:18 AM SAND BOBBER Legal Sex Male 7:20 AM SAND BOBBER Gender Identity Male 05/12/2020 8:18 AM SAND BOBBER Sexual Orientation Straight 05/12/2020 8: 18 AM SAND BOBBER COVID-19 Exposure Response Date Recorded In the [...] 11/29/2024 12:20 PM CDT Hospital Encounter [facility] - [facility]ast[facility] Op [address] [place] [address] Juju Toledo MD [address] [place] [phone] Surgery General 11/29/2024 12:20 PM CDT - 11/29/2024 1:20 PM CDT Surgery [facility] - [facility] Op [address] [place] [address] Juju Toledo MD [address] [place] [phone] LEFT KNEE ARTHROSCOPY WITH PARTIAL MENISCECTOMY AND POSSIBLE CHONDROPLASTY 11/29/2024 12:30 PM CDT Procedure visit [facility] Orthopedics [address] [place] [address] Juju Toledo MD [address] [place] [phone] 12/09/2024 10:45 AM CDT Office Visit [facility] Health Orthopedics [address] [place] [address] Nicole Spencer, PA [address] [place] [address] Scheduled Procedures Name Priority Associated Diagnoses Date/Ti ri ARTHROSCOPY KNEE WITH MENISCECTOMY (MEDIAL/LATERAL) S83.207A 11/29/2024 [...] AM CDT) Case Report Dermatopathology Report Case: [id number] Authorizing Provider: Dario Sanabria MD Collected: 11/23/2019 12:00 AM Ordering Location: [facility] Lab Received: 11/24/2019 10:55 AM Pathologist: [...] CDT DERMATOPATHOLOGY LABORATORY Gross Description Specimen A: [id number]. Jar 0. Specimen B: [id number]. Jar 0. Specimen C: [id number]. Jar 0. 0 6:16 PM CDT DERMATOPATHOLOGY [...] characteristic determined by the Dermatopathology Laboratory at [facility], directed by Dr. Joey Donnelly. These tests need not be, and therefore are not, approved by the [place] Food and Drug Administration. The tests are used for clinical purposes. Billing Codes Specimen Charges Stain Charges 29644 23636 88903 1 1 1 0 6:16 PM CDT [...] PATHOLOGY/CYTOLOGY ORDERA BLES Final Result DERMATOPATHOLOGY LABORATORY [facility] - Department of Dermatology Biology Lecturer [facility]/[address] [phone] documented in this encounter Visit Diagnoses Not on filedocumented in this encounter Care Teams Crime Scene Specialist Relationship Specialty [place] [address] [place] [address] PCP - Attributed-[facility] 08/28/18 03/20/20 Virgil Love MD [address] [place] [address] PCP - Attributed-[facility] 10/29/19 01/28/20 [place] [address] [place] [address] PCP - Attributed-[facility] 01/29/20 06/14/21 [place] [address] [place] [address] PCP - General Family Medicine 05/07/21 05/14/21 Virgil Love MD [address] [place] [address] PCP - General Family Medicine 06/06/21 09/06/21 Virgil Love MD [address] [facility] 200 [place] [address] PCP - General Family Medicine 09/07/21 08/17/24 [place] [address] [facility] [address] [place] [address] PCP - Attributed-[facility] 07/31/21 12/14/21 [place] [address] [facility] [address] [place] [address] PCP - Attributed-[facility] 02/28/22 10/16/23 Virgil Love MD [address] [facility] [address] [place] [address] PCP - Attributed-[facility] P4 10/29/23 09/14/24 None, Physician PCP - General 08/18/24 09/14/24 Josue Delgado MD [address] [place] [address] [place] [address] PCP - General Family Medicine 09/15/24 Charles Cardenas MD [address] [place] [address] Pulmonary Disease 09/19/10 05/19/22 Javi Sotelo MD [address] [facility] [address] [place] [address] Dermatology 08/23/11 09/06/21 Grant Dseir MD [address] [facility] [address] [place] [address] Endocrinology 03/02/13 05/19/22 Kofi Mendez MD [address] [facility] [address] [place] [address] Gastroenterology 03/02/13 05/19/22 Charles Soria DO [address] [place] [phone] Orthopedic Surgery 12/16/14 05/19/22 Juju Toledo MD [facility] [facility] [address] [place] [phone] Orthopedic Surgery 08/08/15 09/06/21 Yeimi Ramos, LUIS [address] [facility] [address] Instruction Assistant Principal 10/30/15 Byron [place] MD [address] [facility] [address] Physician Hematology and Oncology 05/15/17 09/06/21 Fannie Combs APRN-SUPERVISOR CEMETERY WORKERS [facility]5 [facility] [address] [place] [address] Nurse Practitioner Nurse Practitioner 05/15/17 08/19/22 Virgil Love MD [address] [facility] 200 [place] [address] Family Medicine 11/25/19 Juju Toledo MD [address] [place] [phone] Orthopedic Surgery 11/25/19 [place] [address] [place] [address] Surgeon Orthopedic Surgery 05/07/21 [place] [address] [place] [address] Physical Medicine and Rehabilitation 07/19/21 09/06/21 [place] [address] [place] [address] Orthopedic Surgery 09/07/21 Dylan Ann MD [address] [place] [address] Cardiology 03/19/22 Kathy Galindo MD [address] [place] [address] Pulmonary Disease 08/20/22 documented as of this encounter
--- OUTSIDE RECORDS SUMMARY | 2024-10-20 17:00 | XMS_ITS | Clinical Summary ---
Author Organization [facility] Address [address] [facility] [place] [address] Care Team Providers Care Grapple Crew Leader Name Role Phone Yeimi Ramos OD Unavailable Virgil Love MD Unavailable [phone] Juju Toledo MD Unavailable [phone] Steve Stovall MD Unavailable [phone] Paula HDEZ MD, Frank Unavailable [phone] Dylan Ann MD Unavailable [phone] Kathy Galindo MD Unavailable Josue Delgado MD Primary Care Provider [phone] Source Comments [facility],non-owned Affiliates and Associated Physician Practices is amultiple site organization consisting of ambulatory clinics and hospital sitesin [place], [place], [place] and [place]. This disclosure is being madepursuant to the Care Everywhere program and may not contain all information available regarding this patient. Last updated 18.[facility] Allergies No known active allergies Medications * Be aware that medications may not be up to date on this document. Alwaysverify current medications with the patient. Multiple Vitamins-Minerals (CENTRUM SILVER 50+MEN PO) Take by mouth once daily Active CPAP CPAP [id number] ZJOV-KJ-gvlaxo-de creased from 9-08/11/18 08/11/19 19 Active Coenzyme Q10 100 MG tablet Take 1 (one) tablet by mouth once daily Active Probiotic Product (LineRate Systems PO) Take by mouth 2 times daily Active amoxicillin (AMOXIL) 500 MG tablet Take 4 tabs one hour before any dental treatment 4 tablet 3 12/12/19 22 Active Cholecalciferol (Vitamin D3) 250 MCG (34341 UT) TABS Take by mouth once daily [...] A DAY. 05/02/20 24 Active HYDROcodone-acetam inophen (Radom) 10-325 MG tabletIndications: Acute pain of left [...] Encounters Date Type Department Care Team Description 10/12/2024 Telephone [facility] [address] [place] [address] Juju Toledo MD Surgery Scheduling 10/11/2024 Telephone [facility] [address] [place] [address] Juju Toledo MD Question 10/05/2024 SS Outpatient Visit [facility] [address] [place] [address] Document, Scanned 09/30/2024 11:15 AM CDT Office Visit [facility] [address] [place] [address] Juju Toledo MD Acute pain of left knee (Primary Dx); Acute meniscal tear of left knee, initial encounter 09/15/2024 10:44 AM CDT - 09/15/2024 11:59 PM CDT Hospital Encounter [facility] Imaging Services - MRI [address] [place] [address] Juju Toledo MD Discharge Disposition: Home or Self Care 09/14/2024 Travel 09/09/2024 Travel from Last 3 Months Immunizations Immunization Administration Dates Next Due COVID PFIZER BIVALENT 12Y+ 30mcg/0.3ML 03/19/2022 Comirnaty Covd-19 Mrna Vacci ne (Nucleoside Modified) 04/11/2023 Covid Moderna primary monova lent 12+ yr 0.5mL 03/03/2021,10/03/2020,08/28/2020 FLU VACCINE TRI IIV3 SPLIT P F IM (FLUVIRIN) 04/08/2015,04/08/2015 INFLUENZA VACCINE 04/11/2023, 2,03/06/2021,2019,02/28/2019,02/28/2019,04/08/2017,1 INFLUENZA VACCINE, ADJUVANTE D, QUADR. (FLUAD QUADRIVALENT; [...] Sex Assigned at Male 05/12/2020 8:18 AM TECHNICAL SUPPORT REPRESENTATIVE Legal Sex Male 7:20 AM TECHNICAL SUPPORT REPRESENTATIVE Gender Identity Male 05/12/2020 8:18 AM TECHNICAL SUPPORT REPRESENTATIVE Sexual Orientation Straight 05/12/2020 8: 18 AM TECHNICAL SUPPORT REPRESENTATIVE Last Filed Vital Signs Vital Sign Reading [...] 1:48 PM CDT Height 179.1 cm (5' 10.5 ) 02/26/2024 1:48 PM CD T Body Mass Index 43.57 02/26/2024 1:48 PM CDT Plan of Treatment Upcoming Encounters Date Type Department Care Team (Latest Contact Info) Description 11/29/2024 12:20 PM CDT Hospital Encounter [facility] [address] [place] [address] Juju Toledo MD [address] [place] [phone] Surgery General 11/29/2024 12:20 PM CDT - 11/29/2024 1:[address] [facility] [address] [place] [address] Juju Toledo MD [address] [place] [phone] LEFT KNEE ARTHROSCOPY WITH PARTIAL MENISCECTOMY AND POSSIBLE CHONDROPLASTY 11/29/2024 12:30 PM CDT Procedure visit [facility] [address] [place] [address] Juju Toledo MD [address] [place] [phone] 12/09/2024 10:45 AM CDT Office Visit [facility] [address] [place] [address] Nicole Spencer, [place] [address] [place] [phone] Scheduled Procedures Name Priority Associated Diagnoses Date/Ti me ARTHROSCOPY KNEE WITH MENISCECTOMY (MEDIAL/LATERAL) S83.207A 11/29/2024 12:20 PM CDT Health Maintenance Due Date Last [...] 132/86(2023 1:48 PM CDT) No Rojelio, Leonor [facility] Lifestyle: Have labs drawn Lifestyle No Rojelio, Leonor [facility] Lifestyle: Have labs drawn Lifestyle No Rojelio, Leonor Have labs drawn Lifestyle No Rojelio, Leonor Medical Devices Implanted Type Area Platen Builder Up Device Identifier Shelf Expiration Date Model / Serial / Lot Iconix 1 Tt Intellibraid Technology 1.4 Mm Plaza With 1.2 Mm Xbraid Tt Implanted:Qty: 3 on 09/15/2015 by Juju Toledo MD at [facility] Left: Shoulder 05/30/2017 [id number] / / [id number] Shell Actb 54mm Hip Ch 12 Sclp Snpft Lck Implanted:Qty: 1 on 09/27/2021 at [facility] Left: Hip [employer] 05/29/2031 [id number] / / [id number] Liner Actb 45d 7mm Ofst Jj 54mm 36mm Implanted:Qty: 1 on 09/27/2021 at [facility] Left: Hip [employer] 09/27/2025 [id number] / / [id number] Stm Fem 154mm Hip 5 Lat Ofst Intgr-+ Implanted:Qty: 1 on 09/27/2021 at [facility] Left: Hip [employer] 09/27/2025 [id number] / / [id number] Head Fem +8mm 12/14 36mm Hip Oxnm Implanted:Qty: 1 on 09/27/2021 at [facility] Left: Hip [employer] 06/29/2031 [id number] / / [id number] Cmpnt Ptlr Std 31mm 3 Pg Kn Ser A Implanted:Qty: 1 on 04/10/2022 by Steve Stovall MD at [facility] Right: Knee [employer] 01/17/2027 [id number] / / [id number] Tray Tib 83mm Kn Cocr I Beam Implanted:Qty: 1 on 04/10/2022 by Steve Stovall MD at [facility] Right: Knee [employer] 01/16/2032 [id number] / / [id number] Cmpnt Fem Kn Rt Cr Cmnt Prm Vngrd Intlk Implanted:Qty: 1 on 04/10/2022 by Steve Stovall MD at [facility] Right: Knee [employer] 03/07/2032 [id number] / / [id number] Brng [id number] Vngrd Arcm Kn Ant Stab Implanted:Qty: 1 on 04/10/2022 by Steve Stovall MD at [facility] Right: Knee [employer] 11/22/2025 [id number] / / [id number] Cmnt Bone Djo Srg Cblt 40gm Hvisc Strl Implanted:Qty: 1 on 04/10/2022 by Steve Stovall MD at [facility] Right: Knee [employer] 01/10/2023 600-15-0 00 / / [id number] Anselmo Bone [place]-G Hv 40/20 Implanted:Qty: 1 on 04/10/2022 by Steve Stovall MD at [facility] Right: Knee [employer] 07/26/2023 600-15-1 00 / / [id number] Explanted Type Area Platen Builder Up Device Identifier Shelf Expiration Date Model / Serial / Lot Iconix 1.4 Mm Plaza Explanted:Qty : 1 on 09/15/2015 by Juju Toledo MD at [facility] Left: Shoulder 04/23/2017 [id number] 2 / / [id number] Pin Hlf 255mm 5mm Jtx Lng Orth Ss 45mm Explanted:Qty : 1 on 09/27/2021 at [facility] [employer] [id number] / / Procedures Procedure Name Priority Date/Time Associated Diagnosis Comments MRI KNEE LEFT WO CONTRAST Routine 09/15/2024 11:38 AM CDT History of prosthetic unicompartmental arthroplasty of left knee Fall, initial encounter Acute pain of left knee IMAGING COMMUNICATION ORDER Routine 08/26/2024 3:20 PM TECHNICAL SUPPORT REPRESENTATIVE HEMOGLOBIN A1C - POINT OF CARE (AMB) [...] DATE/TIME OF EXAM: 09/15/2024 11:38 AM, LOCATION [facility] INDICATION: Z96.652: Presence of left artificial knee [...] CONTRAST, DATE/TIME OF EXAM: 1:38 AM, LOCATION [facility] INDICATION: Z96.652: Presence of left artificial knee [...] * IMAGING COMMUNICATION ORDER (08/26/2024 3:20 PM TECHNICAL SUPPORT REPRESENTATIVE) Anatomical Region Laterality Modality Other Scanned Document IR ORDERABLES Final Result * HEMOGLOBIN A1C - POINT OF CARE (HgbA1C) (02/26/2024 1:58 PM CDT) Pathologist [facility] Hemoglobin A1c POCT 5.7 % [facility] Expiration Date [id number] [facility] K[facility]KER Lot # [id number] [facility] QC Verified Yes Yes [facility] Blood BLOOD SPECIMEN / Unknown 02/26/2024 1:58 PM CDT Virgil Love MD LAB - POINT OF CARE ORDERABL ES Final Result Performing Organization Address City/[facility]/ZIP Co de Phone Number [facility] [address] [place] [address], [facility] [phone] * (ABNORMAL) BASIC METABOLIC PANEL (BMP) (10/08/2023 10:02 AM CDT) Pathologist [facility] Glucose 121(H) 70 - 105 mg/dL [facility] [...] Comment Lab Testing performed at: [facility] [address] [facility] [place] [id number] Virgil Love MD LAB - CHEMISTRY ORDERABLES F inal Result [facility] INSURANCE BILL [address] [place] [address] * MICROALB/CREAT RATIO URINE RANDOM PANEL (09/08/2023 11:57 AM CDT) Creatinine Urine 80.06 mg/dL [facility] INSURANCE BILL Microalbumin Urine <0.5 mg/dL [facility] INSURANCE BILL Microalbumin/Crea tinine Ratio mg/g [facility] INSURANCE BILL Comment: Not Calculated Urine URINE SPECIMEN OBTAINED BY CLEAN CATCH PROCEDURE / Unknown 09/08/2023 11:57 AM CDT 09/08/2023 Narrative Resulting Agency Comment Lab Testing performed at: [facility] [address] [place] [id number] us Virgil Love MD LAB - URINE CHEMISTRY ORDERA BLES Final Result [facility] INSURANCE BILL [address] [place] [address] * EYE EXAM (06/26/2023) Anatomical Region Laterality Modality Other 06/26/2023 Narrative 06/26/2023 Ordered by an unspecified provider. us Scanned Document SCANNING ONLY Final Result * [id number] COLOGUARD TEST *Associate with Z12.11 OR Z12.12 Dx Codes* (11/17/2018 8:00 AM CDT) Cologuard Negative Not Applicable [employer] [facility] Comment: A negative result indicates [...] were screened with both Cologuard and colonoscopy. (Imperiale T. et al, N Engl J Med 2014;370(14):8705-4286) COLOGUARD RE-SCREENING RECOMMENDATION: Periodic routine colorectal cancer screening is an important part of preventive healthcare for asymptomatic persons at average risk for colorectal cancer. Following a negative Cologuard result, the [place] Cancer Society and U.S. Multi-Society Task Force screening guidelines recommend a Cologuard re-screening interval of 3 years. References: [place] [employer] Society (ACS). Colorectal cancer prevention and early detection. [place], [place]: [place] [employer] Society; [updated 2015Oct 21]. https://www.cancer.org/cancer/prgsm-cusysg-yrprth/knrabusqo-gazsdsvma-ampxobm/ acs-recommendations.html. Accessed February 27, 2018; Ayo DK, Steven CR, King LeighK, Colorectal Cancer Screening: Recommendations for Physicians and Patients from the U.S. Multi-Society Task Force on Colorectal Cancer Screening, Am J Gastroenterology 2017; 112:3887-4001. Test Type: Composite algorithmic analysis of stool [...] can be accessed at the following location: www.[facility].com/results. Additional description of the Cologuard test process, warnings and precautions can be found at www.cologuardtest.com. Rx Only. Stool specimen (specimen) STOOL SPECIMEN / Unknown 11/17/2018 8:00 AM CDT 11/18/2018 4:34 PM CDT Virgil Love MD LAB - CHEMISTRY ORDERABLES F inal Result [facility] [address] [address] * ENDOSCOPY, COLON, SCREENING (06/10/2018) Kofi Mendez MD GI PROCEDURE ORDERABLES F inal Result Performing Organization Address City/[facility]/ZIP Co de Phone Number [facility] RESULT SCAN [...] a more specific supplemental or PCR testing. [employer] offers HCV Ab w/Reflex to Verification test #[id number]. Blood specimen (specimen) BLOOD SPECIMEN / Unknown 03/04/2013 9:19 AM CDT 03/04/2013 12:01 PM CDT Narrative Resulting Agency Comment [facility] [address] [facility] [phone] Justin Cowan MD LAB - CHEMISTRY ORDERABLES Fin al Result [facility] ACCOUNT BILL [address] [place] [address] from Last 3 Months or Most Recently Relevant to Health Maintenance Insurance MANAGED MEDICARE ADV MANAGED MEDICARE ADV Advance Directives Documents on File Type Date Recorded Patient Access Control Officer Expl anation Adv Directive/Living Will/POA 04/12/2022 10:08 [...] 11:50 AM 06/25/2018 5:15 PM Care Teams Grapple Crew Leader Relationship Specialty Start Date End Date Josue Delgado MD [address] [place] [phone] PCP - General Family Medicine 09/15/24 Yeimi Ramos, OD [address] [facility] [address] Digital Press Operator 10/30/15 Virgil Love MD [address] [place], [place] [phone] Family Medicine 11/25/19 Juju Toledo MD [address] [facility] [address] [place] [address] Orthopedic Surgery 11/25/19 [place] [address] [id number] Surgeon Orthopedic Surgery 05/07/21 [place] [address] [place] [address] Orthopedic Surgery 09/07/21 Dylan Ann MD [address] [place] [address] Cardiology 03/19/22 Kathy Galindo MD [address] [place] [address] Pulmonary Disease 08/20/22
== END 2024-10-20 14:53 | disposition home or self-care (01) ==
PROVIDERS: PCP Family Medicine
DX: M16.11 Unilateral primary osteoarthritis, right hip (principal); R05.8 Other specified cough; I27.20 Pulmonary hypertension, unspecified
CPT/HCPCS: 71046; 73502

== ENCOUNTER 2025-02-10 01:45 | Day surgery (SDC) | payer MEDICARE, SELFPAY ==
[2024-09-28 14:12] VITALS: BMI 41.8
--- NOTE | 2024-09-28 16:05 | PC.NURSE ---
Spoke with patient regarding medication Eliquis. Patient verbalizes understanding that the last dose is to be taken on 10/08/2024 and the Endoscopist will instruct them when to restart after the procedure.
--- OUTSIDE RECORDS SUMMARY | 2024-10-11 00:59 | XMS_ITS | Encounter Summary ---
Author Organization [facility] Address [address] [place] [address] Care Team Providers Care Barrel Lathe Operator Outside Name Role Phone Yeimi Ramos OD Unavailable [phone] Virgil Love MD Unavailable Juju Toledo MD Unavailable [phone] Steve Stovall MD Unavailable aPula HDEZ MD, Frank Unavailable [phone] Dylan Ann MD Unavailable [phone] Kathy Galindo MD Unavailable Josue Delgado MD Primary Care Provider [phone] Encounter Details Date Type Department Care Team (Late st Contact Info) Description 10/05/2024 [facility] Outpatient Visit [facility] Orthopedics [address] [place] [address] Document, Scanned Social History Tobacco Use Types Packs/Day Years Used Date Smoking Tobacco: Never Smokeless Tobacco: Never Alcohol Use Standard Drinks/Week Comments No 4 (1 standard drink = 0.6 oz pur e alcohol) AUDIT-C Answer Date Recorded Q1: How often do you have a drink containing alcohol? Never 04/10/2022 Q2: How many drinks containi ng alcohol do you have on a typical day when you are drinking? Patient does not drink Q3: How often do you have si x or more drinks on one occasion? Never 04/10/2022 PHQ-2 Answer Date Recorded Patient Health Questionnaire-2 Score 2 09/23/2024 Hunger Vital Sign Answer Date Recorded Within the past 12 months, y ou worried that your food would run out before you got the money to buy more. Never true 04/11/20 22 Within the past 12 months, t he food you bought just didn't last and you didn't have money to get more. Never true 04/11/2022 Sex and Gender Information Value Date Recorded Sex Assigned at Male 05/12/2020 8:18 AM COMPUTER CONSULTANT Legal Sex Male 7:20 AM COMPUTER CONSULTANT Gender Identity Male 05/12/2020 8:18 AM COMPUTER CONSULTANT Sexual Orientation Straight 05/12/2020 8: 18 AM COMPUTER CONSULTANT documented as of this encounter Functional Status * Is person deaf or have serious hearing difficulty? Answer Date of Assessment Author No 09/28/2021 7:44 PM CDT Philippe RN * Is person blind or have serious difficulty seeing? Answer Date of Assessment Author No 09/28/2021 7:44 PM CDT Philippe RN * Does person have serious difficulty walking/climbing stairs? Answer Date of Assessment Author No 09/28/2021 7:44 PM CDT Philippe RN * Does person have difficulty dressing/bathing? Answer Date of Assessment Author No 09/28/2021 7:44 PM CDT Philippe RN * Does person have difficulty doing errands alone? Answer Date of Assessment Author No 09/28/2021 7:44 PM CDT Philippe RN documented as of this encounter Mental Status * Does person have difficulty concentrating/remembering/making decisions? Answer Entry Date Author No 09/28/2021 7:44 PM Kulkarni RN documented in this encounter Plan of Treatment Upcoming Encounters Date Type Department Care Team (Latest Contact Info) Description 12/06/2024 12:50 PM CDT Procedure visit [facility] Orthopedics [address] [place] [address] Juju Toledo MD [address] [address] 12/06/2024 1:15 PM CDT Hospital Encounter [facility] [address], [place] [id number] Juju Toledo MD [address] [address] Surgery General 12/06/2024 1:15 PM CDT - 12/06/2024 2:15 PM CDT Surgery [facility] [address] [place], [place] [id number] Juju Toledo MD [address] [address] LEFT KNEE ARTHROSCOPY WITH PARTIAL MENISCECTOMY AND POSSIBLE CHONDROPLASTY 12/16/2024 10:45 AM CDT Office Visit [facility] Orthopedics [address] [id number] Nicole [place], [place] [address] [place] [id number] Scheduled Procedures Name Priority Associated Diagnoses Date/Ti me ARTHROSCOPY KNEE WITH MENISCECTOMY (MEDIAL/LATERAL) S83.207A 12/06/2024 1:15 PM CDT documented as of this encounter Goals Goal Patient Goal Type Associated Problems Recent Progress Patient-Stated? Author Blood Pressure < 140/90 Blood Pressure 132/86(2023 1:48 PM CDT) No Rojelio, Leonor Blood Pressure < 140/90 Blood Pressure 132/86(2023 1:48 PM CDT) No Rojelio, Leonor Blood Pressure < 140/90 Blood Pressure 132/86(2023 1:48 PM CDT) No Rojelio, Leonor Blood Pressure < 140/90 Blood Pressure 132/86(2023 1:48 PM CDT) No Rojelio, Leonor [facility] Lifestyle: Have labs drawn Lifestyle No Rojelio, Leonor [facility] Lifestyle: Have labs drawn Lifestyle No Rojelio, Leonor Have labs drawn Lifestyle No Rojelio, Leonor documented as of this encounter Visit Diagnoses Not on filedocumented in this encounter Care Teams Barrel Lathe Operator Outside Relationship Specialty Start Date End Date Josue Delgado MD [address] [place] [address] PCP - General Family Medicine 09/15/24 DinwiddieYeimi Lance, OD [address] [facility] [place] [address] Lathe Turner 10/30/15 Virgil Love MD [address] [facility] [address] [place] [address] Family Medicine 11/25/19 Juju Toledo MD [address] [facility] [address] [place] [address] Orthopedic Surgery 11/25/19 [place] [address] [address] [address] Surgeon Orthopedic Surgery 05/07/21 [place] [address] [address] [facility] [address] [place] [address] Orthopedic Surgery 09/07/21 Dylan Ann MD [address] [place] [address] Cardiology 03/19/22 Kathy Galindo MD [address] [place] [address] Pulmonary Disease 08/20/22 documented as of this encounter
--- OUTSIDE RECORDS SUMMARY | 2024-10-11 00:59 | XMS_ITS | Referral Summary ---
Author Organization [facility] Address [address] [facility] [address] [place] [address] Phone Care Team Providers Care Escape Wheel Tooth Cutter Name Role Phone Virgil Love MD Primary Care Provider + Allergies No known active allergies Medications celecoxib (CeleBREX) 200 mg capsule TAKE 1 (ONE) CAPSULE BY MOUTH 2 TIMES DAILY 2021 Active atorvastatin (LIPITOR) 40 mg tablet Take 1 tablet (40 mg total) by mouth daily 02/12/2021 Active potassium chloride ER 10 mEq CR capsule Take 10 mEq by mouth daily 02/08/2021 Active ubidecarenone (coenzyme Q10) 100 mg tablet Take 1 tablet by mouth daily Active zolpidem CR (AMBIEN CR) 12.5 mg CR tablet Take 1 tablet (12.5 mg total) by mouth nightly as needed 09/18/2020 Active pregabalin (LYRICA) 75 mg capsule 2 (two) times a day 02/26/2021 Active multivitamin,tx -gluq-Qi-NA-min 27-0.4 mg tablet Take by mouth Active UNABLE TO FIND CPAP [id number] ed-decreased from 9-08/11/18 08/11/2018 Active apixaban (ELIQUIS) 2.5 mg tablet Take 1 tablet (2.5 mg total) by mouth 2 (two) times a day Active semaglutide (Ozempic) 2 mg/dose (8 mg/3 mL) pen injector injection Inject 2 mg under the skin Active torsemide (DEMADEX) 20 mg tablet Take 2 tablets (40 mg total) by mouth 2 (two) times a day 360 tablet 3 08/20/2023 Active cholecalciferol (VITAMIN D-3) 5,000 unit tablet Active Active Problems Problem Noted Date Diagnosed Date Chronic diastolic heart failure 05/03/2024 Assessment & Plan (05/03/2024 1:52 PM FINANCIAL AID DIRECTOR): Some residual edema. Having some nocturia so we discussed adjusting dose of torsemide in the morning - Change torsemide to 40 mg every morning and check BMP in 2 weeks Generalized edema 11/27/2021 Assessment & Plan (10/20/2023 9:25 AM CDT): Some persistent edema likely venous insufficiency. - check tte Assessment & Plan (09/05/2022 10:18 PM FINANCIAL AID DIRECTOR): Euvolemic on exam. Try switching Lasix to 40 every other day but if edema recurs then go back to 40 daily Assessment & Plan (03/27/2022 11:06 AM CDT): Improved after increasing his Lasix to 40 b.i.d. which he will continue. Will get a chemistry panel next week Assessment & Plan (01/02/2022 6:57 PM CDT): Significantly improving after increasing diuretic - cont lasix 40 bid Assessment & Plan (11/27/2021 11:53 AM CDT): He has significant fluid overload after his surgery. It is getting better with Lasix however he still has 2+ pitting edema. - increase Lasix to 40 b.i.d. and check labs in 1-2 weeks - see him in a month for follow-up Chronic bilateral low back pain 12/22/2020 Left lumbosacral radiculopathy 12/22/2020 Musculoskeletal pain 12/22/2020 Primary osteoarthritis of left hip 12/22/2020 Bilateral pulmonary embolism 08/08/2020 Type 2 diabetes mellitus wit h stage 3 chronic kidney disease, without long-term current use of insulin 12/14/2019 Overview (04/03/2021): Virgil Loev MD on 11/11/19 Preop examination 06/24/2018 Atherosclerosis of aorta 10/02/2017 Overview (04/03/2021): CXR: 18 Assessment & Plan (05/03/2024 1:51 PM FINANCIAL AID DIRECTOR): Stable -- Continue statin CKD (chronic kidney disease), stage III 10/03/19 18 Overview (04/03/2021): 03/10/19 Maura Gallo MD Family Medicine Status post gastric banding 10/01/2017 Factor 5 Leiden mutation, heterozygous 7 Overview (04/03/2021): 09/28/18 Multidisciplinary Hematology and Oncology and Nurse Practitioner Class 3 severe obesity due t o excess calories with serious comorbidity and body mass index (BMI) of 45.0 to 49.9 in adult 10/30/2016 Chronic right shoulder pain 12/19/2015 Coronary artery disease invo lving algaaciq coronary artery of algaaciq heart without angina pectoris 10/01/2013 Overview (04/03/2021): Thallium treadmill 05/11: no ischemia, poss small prior apical infarct, nl LVEF. Cardiac cath 06/10: LVEF 60%, 20% L main. Assessment & Plan (05/03/2024 1:51 PM FINANCIAL AID DIRECTOR): He has nonobstructive Coronary artery disease based on a cardiac catheterization. Remains free of anginal symptoms -- Continue Eliquis and statin for primary prevention. Assessment & Plan (10/20/2023 9:23 AM CDT): He has nonobstructive Coronary artery disease based on a cardiac catheterization. Continue Eliquis and statin for primary prevention. Remains free of anginal symptoms Assessment & Plan (09/05/2022 10:17 PM FINANCIAL AID DIRECTOR): He has nonobstructive Coronary artery disease based on a cardiac catheterization. Continue Eliquis and statin for primary prevention. Remains free of anginal symptoms Assessment & Plan (03/27/2022 11:06 AM CDT): He has nonobstructive Coronary artery disease based on a cardiac catheterization. Continue Eliquis and statin for primary prevention. He is going to undergo contralateral knee surgery and he is okay to proceed without any further testing Assessment & Plan (01/02/2022 6:56 PM CDT): He has nonobstructive Coronary artery disease based on a catheterization from within last 6 months. Continue Eliquis and statin for primary prevention Assessment & Plan (11/27/2021 11:52 AM CDT): He has nonobstructive Coronary artery disease based on a catheterization from within last 6 months. Continue Eliquis and statin for primary prevention HTN (hypertension) 10/09/2012 Overview (04/03/2021): HCTZ started 05/11. Assessment & Plan (05/03/2024 1:51 PM FINANCIAL AID DIRECTOR): Well controlled Assessment & Plan (10/20/2023 9:24 AM CDT): Well controlled CTS (carpal tunnel syndrome) 09/25/2012 Peripheral neuropathy 09/25/2012 Obstructive sleep apnea syndrome 09/19/2010 Overview (04/03/2021): CPAP, Dx 09/07 (Dr Cardenas) GERD (gastroesophageal reflux disease) 09/25/200 8 Overview (04/03/2021): EGD (Dr. Mendez) 04/06 Hyperlipidemia 03/24/2008 Overview (04/03/2021): Muscle aches with atorvastatin 06/11: changed to Crestor. Radiation exposure 03/24/2008 Immunizations Immunization Administration Dates Next Due Influenza, Quadrivalent, Hig h Dose, Preservative Free, Intrr 03/06/2021 Influenza, Quadrivalent, Spl it, Preservative Free, Intramuscular 04/02/2018 Influenza, Trivalent, High D ose, Split, Preservative Free, Intramuscular 02/28/2019 Influenza, Trivalent, Preser vative Free, Intramuscular 04/08/2015,04/08/2015 Influenza, Unspecified 02/21/2020,2019,02/28/2019,04/08 Moderna SARS-CoV-2 Monovalen t Vaccination (12+ YRS) 03/03/2021 Pneumococcal Conjugate PCV 13 10/08/2017 Pneumococcal Polysaccharide PPV23 04/08/2015,03/2014 Tdap 07/23/2020,12/16/2014 ZOSTER LIVE 04/08/2015 ZOSTER Recombinant 06/12/2019,02/28/2019, 019 Social History Tobacco Use Types Packs/Day Years Used Date Smoking Tobacco: Never Smokeless Tobacco: Never Tobacco Cessation:Counseling Given: Not Answered AUDIT-C Answer Date Recorded Q1: How often do you have a drink containing alc ohol? Never 04/23/2021 Average Number of Drinks Not on file 021 Frequency of Binge Drinking Not on file 03/31 Sex and Gender Information Value Date Recorded Sex Assigned at Not on file Legal Sex Male 5:33 PM FINANCIAL AID DIRECTOR Gender Identity Male 04/06/2021 8:16 AM CDT Sexual Orientation Straight 04/06/2021 8: 16 AM CDT Last Filed Vital Signs Vital Sign Reading Time Taken Comments Blood Pressure 134/70 05/03/2024 1:04 PM FINANCIAL AID DIRECTOR Pulse 62 05/03/2024 1:04 PM FINANCIAL AID DIRECTOR Temperature 36.1 C (97 F) 04/23/2021 12:27 PM CDT Respiratory Rate 22 04/23/2021 3:06 PM CDT Oxygen Saturation 98% 05/03/2024 1:04 PM FINANCIAL AID DIRECTOR Inhaled Oxygen Concentration - - Weight 142 kg (313 lb) 05/03/2024 1:04 PM FINANCIAL AID DIRECTOR Height 180.3 cm (5' 11) 05/03/2024 1:04 PM FINANCIAL AID DIRECTOR Body Mass Index 43.65 05/03/2024 1:04 PM FINANCIAL AID DIRECTOR Plan of Treatment Not on file Procedures Procedure Name Priority Date/Time Associated Diagnosis Comments EGFR Routine 05/17/2024 11:57 AM FINANCIAL AID DIRECTOR Coronary artery disease involving algaaciq coronary artery of algaaciq heart without angina pectoris LIPID PANEL Routine 09/08/2023 COLONOSCOPY REPORT 06/14/2013 from Last 3 Months or Most Recently Relevant to Health Maintenance Results * eGFR (05/17/2024 11:57 AM FINANCIAL AID DIRECTOR) eGFR 61 >=60 mL/min/1. 73 m2 Comment: Interpretive Data Reference Interval Normal >/= 90 mL/min/1.73m2 Mildly decreased* 60 - 89 mL/min/1.73m2 Mildly to moderately decreased 45 - 59 mL/min/1.73m2 Moderately to severely decreased 30 - 44 mL/min/1.73m2 Severely decreased 15 - 29 mL/min/1.73m2 Kidney Failure < 15 mL/min/1.73m2 *Relative to young adult level Estimated glomerular filtration rate is determined by the 2020 CKD-EPI equation recommended by the National Kidney Foundation (A Unifying Approach to GFR Estimation: Recommendations of the NKF-ASK Task Force on Reassessing the Inclusion of Race in Diagnosing Kidney Disease, JASN 2020). The CKD-EPI equation should not be used for patients with unstable renal function and has not been validated in children and those over 70. Current interpretive data was last reviewed 2021. Blood 05/17/2024 11:5 7 AM FINANCIAL AID DIRECTOR 05/17/2024 11:59 AM FINANCIAL AID DIRECTOR Dylan Ann MD LAB BLOOD ORDERABLES Fin al Result [facility] [address] Department [place] [address] * Lipid panel (09/08/2023) SCRIBED Cholesterol, Total 106 l - h EXTERNAL LAB SCRIBED HDL 42 l - h EXTERNAL LAB SCRIBED LDL 52 l - h EXTERNAL LAB SCRIBED Triglycerides 58 l - h EXTERNAL LAB Blood 09/08/2023 Historical Provider LAB BLOOD ORDERABLES Nereyda l Result EXTERNAL LAB * COLONOSCOPY REPORT (06/14/2013) Anatomical Region Laterality Modality Other Narrative 06/14/2013 Ordered by an unspecified provider. Historical Provider GI PROCEDURE ORDERABLES F inal Result from Last 3 Months or Most Recently Relevant to Health Maintenance Insurance [facility] MEDICARE ADVANTAGE [facility] MEDICARE ADVANTAGE [employer] MEDICARE ADVANTAGE Care Teams Escape Wheel Tooth Cutter Relationship Specialty Start Date End Date Virgil Love MD [address] [facility] [address] [place] [address] PCP - General Family Medicine 01/02/21
--- OUTSIDE RECORDS SUMMARY | 2024-10-11 01:00 | XMS_ITS | Encounter Summary ---
Author Organization [facility] Address [address] [place] [address] Care Team Providers Care Aviation Support Equipment Repairer Name Role Phone Charles Cardenas MD Unavailable [phone] Javi Sotelo MD Unavailable Grant Desir MD Unavailable Kofi Mendez MD Unavailable [phone] Charles Soria DO Unavailable Juju Toledo MD Unavailable [phone] Yeimi Ramos OD Unavailable [phone] Tona Suarez RN Unavailable [phone] Byron Nickerson MD Unavailable Unavailable Fannie Combs VOCATIONAL REHABILITATION COUNSELOR-RN [facility]ARY CARE UNIT Unavailable [phone] Maura Gallo MD Unavailable [phone] Virgil Love MD Unavailable Juju Toledo MD Unavailable [phone] Maura Gallo MD Unavailable Virgil Love MD Unavailable [phone] Maura Gallo MD Unavailable [phone] Maura Gallo MD Primary Care Provider [phone] Steve Stovall MD Unavailable [phone] Virgil Love MD Primary Care Provider + [phone] David Flores MD Unavailable [phone] Paula HDEZ MD, Frank Unavailable +[phone] Virgil Love MD Primary Care Provider + [phone] Maura Gallo MD Unavailable [phone] Dylan Ann MD Unavailable [phone] Maura Gallo MD Unavailable [phone] Kathy Galindo MD Unavailable Virgil Love MD Unavailable [phone] Justin Cowan MD Unavailable [phone] Virgil Love MD Unavailable [phone] None, Physician Primary Care Provider UnavailJosue Cai MD Primary Care Provider [phone] Encounter Details Date Type Department Care Team (Late st Contact Info) Description 05/19/2018 [facility] Outpatient Visit [facility] Orthopedics - Radiology [address] [place] [address] Document, Scanned Social History Tobacco Use Types Packs/Day Years Used Date Smoking Tobacco: Never Smokeless Tobacco: Never Alcohol Use Standard Drinks/Week Comments Yes 4 (1 standard drink = 0.6 oz pur e alcohol) 1 glass of whiskey nightly Sex and Gender Information Value Date Recorded Sex Assigned at Male 05/12/2020 8:18 AM SHEET METAL FORMER Legal Sex Male 7:20 AM SHEET METAL FORMER Gender Identity Male 05/12/2020 8:18 AM SHEET METAL FORMER Sexual Orientation Straight 05/12/2020 8: 18 AM SHEET METAL FORMER documented as of this encounter Functional Status * Is person deaf or have serious hearing difficulty? Answer Date of Assessment Author No 04/22/2017 12:37 AM Sharyn Ayala, RN * Is person blind or have serious difficulty seeing? Answer Date of Assessment Author No 04/22/2017 12:37 AM Sharyn Ayala, RN * Does person have serious difficulty walking/climbing stairs? Answer Date of Assessment Author No 04/22/2017 12:37 AM Sharyn Ayala RN * Does person have difficulty dressing/bathing? Answer Date of Assessment Author No 04/22/2017 12:37 AM Sharyn Ayala, RN * Does person have difficulty doing errands alone? Answer Date of Assessment Author No 04/22/2017 12:37 AM Sharyn Ayala RN documented as of this encounter Mental Status * Does person have difficulty concentrating/remembering/making decisions? Answer Entry Date Author No 04/22/2017 12:37 AM Sharyn Ayala RN documented in this encounter Plan of Treatment Upcoming Encounters Date Type Department Care Team (Latest Contact Info) Description 12/06/2024 12:50 PM CDT Procedure visit [facility] Orthopedics [address] [place] [address] [place] [address] Juju Toledo MD [address] [phone] 12/06/2024 1:15 PM CDT Hospital Encounter [facility] [address] [place] [address] Juju Toledo MD [address] [phone] Surgery General 12/06/2024 1:15 PM CDT - 12/06/2024 2:15 PM CDT Surgery [facility] [address] [place] [address] Juju Toledo MD [address] [place] [phone] LEFT KNEE ARTHROSCOPY WITH PARTIAL MENISCECTOMY AND POSSIBLE CHONDROPLASTY 12/16/2024 10:45 AM CDT Office Visit [facility] Health Orthopedics [address] [place] [address] Nicole Spencer PA [address] [facility] [place] [address] Scheduled Procedures Name Priority Associated Diagnoses Date/Ti [...] on filedocumented in this encounter Care Teams Aviation Support Equipment Repairer Relationship Specialty [place] [address] [place] [address] PCP - Attributed-[facility] 08/28/18 03/20/20 [place] [address] [place] [address] PCP - Attributed-C MA 08/29/19 10/28/19 Virgil Love MD [address] [place] [address] PCP - Attributed-[facility] [place] 10/29/19 01/28/20 [place] [address] [place] [address] PCP - Attributed-[facility] [place] 01/29/20 06/14/21 [place] [address] [place] [address] PCP - General Family Medicine 05/07/21 05/14/21 Virgil Love MD [address] [place] [address] PCP - General Family Medicine 06/06/21 09/06/21 Virgil Love MD [address] [facility] [address] [place] [address] PCP - General Family Medicine 09/07/21 08/17/24 [place] [address] [place] [address] PCP - Attributed-[facility] [place] 07/31/21 12/14/21 [place] [address] [place], [place] [address] PCP - Attributed-[facility] [place] 02/28/22 10/16/23 Virgil Love MD [address] [place] [address] PCP - Attributed-[facility] [place] STL P4P 10/29/23 09/14/24 Justin Cowan MD [address] [facility] [address] [place] [address] PCP - Attributed-[facility] 10/07/17 07/01/18 Virgil Love MD [address] [facility] [address] [place], [place] [id number] PCP - Attributed-[facility] 07/02/18 08/27/18 None, Physician PCP - General 08/18/24 09/14/24 oJsue Delgado MD [address] [place] [address] [place] [address] PCP - General Family Medicine 09/15/24 Charles Cardenas MD [address] [place], [place] [phone] Pulmonary Disease 09/19/10 05/19/22 Javi Sotelo MD [address] [facility] [address] [place] [address] Dermatology 08/23/11 09/06/21 Grant Desir MD [address] [place], [place] [address]wy [address] [place] [address] Endocrinology 03/02/13 05/19/22 Kofi Mendez MD [address] [place] [address] [address] [place] [address] Gastroenterology 03/02/13 05/19/22 Charles Soria DO [address] [facility] [place] [phone] Orthopedic Surgery 12/16/14 05/19/22 Juju Toledo MD [address] [facility] [address] [place] [phone] Orthopedic Surgery 08/08/15 09/06/21 Yeimi Ramos, OD [address] [facility] [facility] [address] [place], [place] [address] Sugar Chipper Machine Operator 10/30/15 Tona Suarez RN Ux Manager 04/22/17 06/24/18 Byron Nickerson MD Physician Hematology and Oncology 05/15/17 09/06/21 Fannie Combs, VOCATIONAL REHABILITATION COUNSELOR-RN CORONARY CARE UNIT [address] [facility] [address] [place], [place] [id number] Nurse Practitioner Nurse Practitioner 05/15/17 08/19/22 Virgil Love MD [address] [facility] [address] [place], [place] [phone] Family Medicine 11/25/19 Juju Toledo MD [address] [place] [phone] Orthopedic Surgery 11/25/19 [place] [address] [place], [place] [phone] Surgeon Orthopedic Surgery 05/07/21 [place] [address] [place] [address] Physical Medicine and Rehabilitation 07/19/21 09/06/21 [place] [address] [address] [place] [address] Orthopedic Surgery 09/07/21 Dylan Ann MD [address] [place] [address] Cardiology 03/19/22 Kathy Galindo MD [address] [place] [address] Pulmonary Disease 08/20/22 documented as of this encounter
--- OUTSIDE RECORDS SUMMARY | 2024-10-11 01:00 | XMS_ITS | Encounter Summary ---
Author Organization [facility] Address [address] [facility] [place] [address] Care Team Providers Care Miter Sawyer Name Role Phone Charles Cardenas MD Unavailable [phone] Javi Sotelo MD Unavailable Grant Desir MD Unavailable [phone] Kofi Mendez MD Unavailable [phone] Charles Soria DO Unavailable [phone] Juju Toledo MD Unavailable [phone] Yeimi Ramos OD Unavailable [phone] Byron Nickerson MD Unavailable Unavailable Fannie Combs EXPERIMENTAL ROCKETSLED MECHANIC-RETAIL PHARMACY MANAGER Unavailable [phone] Maura Gallo MD Unavailable [phone] Virgil Love MD Unavailable [phone] Juju Toledo MD Unavailable [phone] Virgil Love MD Unavailable [phone] Maura Gallo MD Unavailable Maura Gallo MD Primary Care Provider [phone] Steve Stovall MD Unavailable [phone] Virgil Love MD Primary Care Provider + [phone] David Flores MD Unavailable Paula HDEZ MD, Javi Unavailable [phone] Virgil Love MD Primary Care Provider [phone] Maura Gallo MD Unavailable [phone] Dylan Ann MD Unavailable [phone] Maura Gallo MD Unavailable [phone] Kathy Galindo MD Unavailable Virgil Love MD Unavailable [phone] None, Physician Primary Care Provider UnavailJosue Cai MD Primary Care Provider [phone] Encounter Details Date Type Department Care Team (Late st Contact Info) Description 11/24/2019 Lab Requisition [facility] Care DermPath Lab [address] [facility] [place] [phone] Dario Sanabria MD [address] [place] [address] Social History Tobacco Use Types Packs/Day Years Used Date Smoking Tobacco: Never Smokeless Tobacco: Never Alcohol Use Standard Drinks/Week Comments No 4 (1 standard drink = 0.6 oz pur e alcohol) Sex and Gender Information Value Date Recorded Sex Assigned at Male 05/12/2020 8:18 AM DUMPER CENTRAL CONCRETE MIXING PLANT Legal Sex Male 7:20 AM DUMPER CENTRAL CONCR[employer]E M[employer]ING [employer]ANT Gender Identity Male 05/12/2020 8:18 AM DUMPER CENTRAL CONCR[employer]E M[employer]ING PLANT Sexual Orientation Straight 05/12/2020 8: 18 AM DUMPER CENTRAL CONCRETE MIXING PLANT COVID-19 Exposure Response Date Recorded In the last month, have you been in contact with someone who was confirmed or suspected to have Coronavirus / COVID-19? No / Unsure 11/25/2019 2:10 PM CDT documented as of this encounter Functional Status * Is person deaf or have serious hearing difficulty? Answer Date of Assessment Author No 06/24/2018 12:00 PM Lissett Baca RN * Is person blind or have serious difficulty seeing? Answer Date of Assessment Author No 06/24/2018 12:00 PM Lissett Baca RN * Does person have serious difficulty walking/climbing stairs? Answer Date of Assessment Author No 06/24/2018 12:00 PM Lissett Baca RN * Does person have difficulty dressing/bathing? Answer Date of Assessment Author No 06/24/2018 12:00 PM Lissett Baca RN * Does person have difficulty doing errands alone? Answer Date of Assessment Author No 06/24/2018 12:00 PM Lissett Baca RN documented as of this encounter Mental Status * Does person have difficulty concentrating/remembering/making decisions? Answer Entry Date Author No 06/24/2018 12:00 PM Lissett Baca RN documented in this encounter Plan of Treatment Upcoming Encounters Date Type Department Care Team (Latest Contact Info) Description 12/06/2024 12:50 PM CDT Procedure visit [facility] Orthopedics [address] [place] [address] Juju Toledo MD [address] [phone] 12/06/2024 1:15 PM CDT Hospital Encounter [facility] [address] [place] [address] Juju Toledo MD [address] [phone] Surgery General 12/06/2024 1:15 PM CDT - 12/06/2024 2:15 PM CDT Surgery [facility] [address] [place] [address] Juju Toledo MD [address] [phone] LEFT KNEE ARTHROSCOPY WITH PARTIAL MENISCECTOMY AND POSSIBLE CHONDROPLASTY 12/16/2024 10:45 AM CDT Office Visit [facility] Health Orthopedics [address] [place] [address] Nicole Spencer, PA [address] [place] [address] Scheduled Procedures Name Priority Associated [...] Rojelio, Leonor documented as of this encounter Procedures Procedure Name Priority Date/Time Associated Diagnosis Comments DERMATOPATHOLOGY Routine 11/23/2019 12:0 0 AM CDT documented in this encounter Results * DERMATOPATHOLOGY (11/23/2019 12:00 AM CDT) Case Report Dermatopathology Report Case: [id number] Authorizing Provider: Dario Sanabria MD Collected: 11/23/2019 12:00 AM Ordering Location: [facility] DermPath Lab Received: 11/24/2019 10:55 AM Pathologist: Scott Donnelly MD Specimens: A) - Skin, scalp A B) - Skin, scalp B C) - Skin, scalp C 0 6:16 PM T DERMATOPATHOLOGY LABORATORY Final Diagnosis Specimen A. SKIN, scalp A: ACTINIC KERATOSIS (L57.0) Specimen B. SKIN, scalp B: ACTINIC KERATOSIS (L57.0) Specimen C. SKIN, scalp C: ACTINIC KERATOSIS (L57.0) (see microscopic description) 0 6:16 PM T DERMATOPATHOLOGY LABORATORY Clinical History A-C: Check margins. 0 6:16 PM CDT DERMATOPATHOLOGY LABORATORY Gross Description Specimen A: [id number]. Jar 0. Specimen B: [id number]. Jar 0. Specimen C: [id number]. Jar 0. 0 6:16 PM CDT DERMATOPATHOLOGY LABORATORY Microscopic Description Specimen A. SKIN, scalp A: There is focal parakeratosis. The lower half of the epidermis shows disorderly maturation of keratinocytes with nuclear pleomorphism. Specimen B. SKIN, scalp B: There is focal parakeratosis. The lower half of the epidermis shows disorderly maturation of keratinocytes with nuclear pleomorphism. Specimen C. SKIN, scalp C: There is focal parakeratosis. The lower half of the epidermis shows disorderly maturation of keratinocytes with nuclear pleomorphism. Additional deeper sections were obtained and reviewed. 0 6:16 PM T DERMATOPATHOLOGY LABORATORY Disclaimer An external and internal positive and negative controls are appropriate for the histochemical, immunohistochemical and immunofluorescence stain(s) in this case (if any), except where stated explicitly. The performance characteristics of the stain(s) cited in this report were developed and its performance characteristic determined by the Dermatopathology Laboratory at [facility], directed by Dr. Joey Donnelly. These tests need not be, and therefore are not, approved by the [place] Food and Drug Administration. The tests are used for clinical purposes. Billing Codes Specimen Charges Stain Charges 22787 [id number] 35466 1 1 1 0 6:16 PM CDT DERMATOPATHOLOGY LABORATORY Embedded Images 0 6:16 PM T DERMATOPATHOLOGY LABORATORY Pathology/Cytology TISSUE SPECIMEN FROM SKIN / Unknown 11/23/2019 11/24/2019 10:55 AM CDT Miscellaneous samples (specimen) TISSUE SPECIMEN FROM SKIN / Unknown 11/23/2019 11/24/2019 10:55 AM CDT Miscellaneous samples (specimen) TISSUE SPECIMEN FROM SKIN / Unknown 11/23/2019 11/24/2019 10:55 AM CDT Dario Sanabria MD LAB - PATHOLOGY/CYTOLOGY ORDERA BLES Final Result DERMATOPATHOLOGY LABORATORY [facility] - Department of Dermatology [facility]/[address] [phone] documented in this encounter Visit Diagnoses Not on filedocumented in this encounter Care Teams Miter Sawyer Relationship Specialty [place] [address] [place] [address] PCP - Attributed-[facility] 08/28/18 03/20/20 Virgil Love MD [address] [place] [address] PCP - Attributed-[facility] 10/29/19 01/28/20 [place] [address] [place] [address] PCP - Attributed-[facility] 01/29/20 06/14/21 [place] [address] [place] [address] PCP - General Family Medicine 05/07/21 05/14/21 Virgil Love MD [address] [place] [address] PCP - General Family Medicine 06/06/21 09/06/21 Virgil Love MD [address] [facility] [address] [place] [address] PCP - General Family Medicine 09/07/21 08/17/24 [place] [address] [facility] [address] [place] [address] PCP - Attributed-[facility] 07/31/21 12/14/21 [place] [address] [facility] [address] [place] [address] PCP - Attributed-[facility] 02/28/22 10/16/23 Virgil Love MD [address] [facility] [address] [place] [address] PCP - Attributed-[facility] P4 10/29/23 09/14/24 None, Physician PCP - General 08/18/24 09/14/24 Josue Delgado MD [address] [place] [address] [place] [address] PCP - General Family Medicine 09/15/24 Charles Cardenas MD [address] [place] [address] Pulmonary Disease 09/19/10 05/19/22 Javi Sotelo MD [address] [facility] [address] [place] [address] Dermatology 08/23/11 09/06/21 Grant Desir MD [address] [facility] [address] [place] [address] Endocrinology 03/02/13 05/19/22 Kofi Mendez MD [address] [facility] [address] [place] [address] Gastroenterology 03/02/13 05/19/22 Charles Soria DO [address] [place] [address] Orthopedic Surgery 12/16/14 05/19/22 Juju Toledo MD [facility] [address] [place] [phone] Orthopedic Surgery 08/08/15 09/06/21 Yeimi Ramos, LUIS [address] [place] [address] Media Sales Representative 10/30/15 Byron Nickerson MD [address] [place] [address] Physician Hematology and Oncology 05/15/17 09/06/21 Fannie Combs APRN-RETAIL PHARMACY MANAGER [facility] [address] [place] [address] Nurse Practitioner Nurse Practitioner 05/15/17 08/19/22 Virgil Love MD [address] [facility] [address] [place] [address] Family Medicine 11/25/19 Juju Toledo MD [address] [place] [address] Orthopedic Surgery 11/25/19 [place] [address] [place] [address] Surgeon Orthopedic Surgery 05/07/21 [place] [address] [place] [address] Physical Medicine and Rehabilitation 07/19/21 09/06/21 [place] [address] [address] [place] [address] Orthopedic Surgery 09/07/21 Dylan Ann MD [address] [place] [address] Cardiology 03/19/22 Kathy Galindo MD [address] [place] [address] Pulmonary Disease 08/20/22 documented as of this encounter
--- OUTSIDE RECORDS SUMMARY | 2024-10-11 01:00 | XMS_ITS | Encounter Summary ---
Author Organization [facility] Address [address] [facility] [place] [address] Care Team Providers Care Sleeve Baster Name Role Phone Justin Cowan MD Primary Care Provider [phone] Charles Cardenas MD Unavailable [phone] Javi Sotelo MD Unavailable Grant Desir MD Unavailable [phone] Kofi Mendez MD Unavailable Charles Soria DO Unavailable Juju Toledo MD Unavailable [phone] Yeimi Ramos OD Unavailable [phone] Tona Suarez RN Unavailable Byron Nickerson MD Unavailable Unavailable Fannie Combs RESIDENT HALL DIRECTOR-SKID ROAD WORKER Unavailable [phone] Virgil Love MD Primary Care Provider Justin Cowan MD Primary Care Provider Maura Gallo MD Unavailable Virgil Love MD Unavailable [phone] Juju Toledo MD Unavailable [phone] Maura Gallo MD Unavailable Virgil Love MD Unavailable [phone] Maura Gallo MD Unavailable [phone] Maura Gallo MD Primary Care Provider [phone] Steve Stovall MD Unavailable [phone] Virgil Love MD Primary Care Provider [phone] David Flores MD Unavailable [phone] Paula HDEZ MD, Frank Unavailable +[phone] Virgil Love MD Primary Care Provider + [phone] Maura Gallo MD Unavailable [phone] Dylan Ann MD Unavailable [phone] Maura Gallo MD Unavailable +[phone] Kathy Galindo MD Unavailable Virgil Love MD Unavailable +[phone] Justin Cowan MD Unavailable [phone] Virgil Love MD Unavailable +[phone] None, Physician Primary Care Provider UnavailJosue Cai MD Primary Care Provider [phone] Encounter Details Date Type Department Care Team (Late st Contact Info) Description 06/13/2014 Therapy Visit EXTERNAL NON-[facility] DEPT Charles Soria, DO [address] [place] [address] Social History Tobacco Use Types Packs/Day Years Used Date Smoking Tobacco: Never Smokeless Tobacco: Never Alcohol Use Standard Drinks/Week Comments Yes 1.7 (1 standard drink = 0.6 oz p ure alcohol) Sex and Gender Information Value Date Recorded Sex Assigned at Male 05/12/2020 8:18 AM ADVERTISING ASSISTANT Legal Sex Male 7:20 AM ADVERTISING ASSISTANT Gender Identity Male 05/12/2020 8:18 AM ADVERTISING ASSISTANT Sexual Orientation Straight 05/12/2020 8: 18 AM ADVERTISING ASSISTANT documented as of this encounter Plan of Treatment Upcoming Encounters Date Type Department Care Team (Latest Contact Info) Description 12/06/2024 12:50 PM CDT Procedure visit [facility] Orthopedics [address] [address] Juju Toledo MD [address] [phone] 12/06/2024 1:15 PM CDT Hospital Encounter [facility] [address] [place], [place] [id number] Juju Toledo MD [address] [address] Surgery General 12/06/2024 1:15 PM CDT - 12/06/2024 2:[address] [facility] - [address] [place], [place] [address] Juju Toledo MD [address] [phone] LEFT KNEE ARTHROSCOPY WITH PARTIAL MENISCECTOMY AND POSSIBLE CHONDROPLASTY 12/16/2024 10:45 AM CDT Office Visit [facility] Orthopedics [address] [id number] Nicole Spencer, [place] [address] [place] [address] Scheduled Procedures Name Priority Associated [...] on filedocumented in this encounter Care Teams Sleeve Baster Relationship Specialty Start Date End Date Justin Cowan MD [address] [place] [address] 300 [place] [address] PCP - General 03/25/08 06/01/17 Virgil Love MD [address]75 [facility] 200 [place] [address] PCP - General Family Medicine 06/02/17 09/16/17 Justin Cowan MD [address] [place] [phone] PCP - General Internal Medicine 09/17/17 09/17/17 [place] [address] [place], [place] [address] PCP - Attributed-MSSP 08/28/18 03/20/20 [place] [address] [place], [place] [address] PCP - Attributed-[facility] [place] 08/29/19 10/28/19 Virgil Love MD [address]75 [facility] 200 [place] [address] PCP - Attributed-[facility]HC [place] 10/29/19 01/28/20 [place] [address] [place], [place] [address] PCP - Attributed-C [place] 01/29/20 06/14/21 [place] [address] [place] [address] PCP - General Family Medicine 05/07/21 05/14/21 Virgil Love MD [address] [facility] [address] [place] [address] PCP - General Family Medicine 06/06/21 09/06/21 Virgil Love MD [address] [facility] [address] [place] [address] PCP - General Family Medicine 09/07/21 08/17/24 [place] [address] [place] [address] PCP - Attributed-C [place] 07/31/21 12/14/21 [place] [address] [place] [address] PCP - Attributed-C [place] 02/28/22 10/16/23 Virgil Love MD [address] [email or web address] 200 [place] [address] PCP - Attributed-C [place] STL P4P 10/29/23 09/14/24 Justin Cowan MD [address] [facility] [address] [place] [address] PCP - Attributed-MSSP 10/07/17 07/01/18 Virgil Love MD 1475 [facility] 200 [place], [place] [address]84[address] PCP - Attributed-MSSP 07/02/18 08/27/18 None, Physician PCP - General 08/18/24 09/14/24 Josue Delgado MD [address] [place] [address] [place] [address] PCP - General Family Medicine 09/15/24 Charles Cardenas MD [facility] [address] [place], [place] [address] Pulmonary Disease 09/19/10 05/19/22 Javi Sotelo MD [address] [facility] [address] [place], [place] [address] Dermatology 08/23/11 09/06/21 Grant Desir MD [address] [place] [address] Pkw[address] [place] [address] Endocrinology 03/02/13 05/19/22 Kofi Mendez MD [address] [place] [address] [address]kw[address] [place] [address] Gastroenterology 03/02/13 05/19/22 Charles Soria DO 400 [facility] [address] [place] [address] Orthopedic Surgery 12/16/14 05/19/22 Juju Toledo MD [address]75 [facility] [address] [place] [address] Orthopedic Surgery 08/08/15 09/06/21 Yeimi Ramos, OD [address] [place] [address] Educational Speech Language Clinician 10/30/15 Tona Suarez RN Filler Wiper 04/22/17 06/24/18 Byron Nickerson MD Physician Hematology and Oncology 05/15/17 09/06/[address] F[address] Combs APRN-SKID ROAD WORKER [address] [facility] [address] [place] [address] Nurse Practitioner Nurse Practitioner 05/15/17 08/19/22 Virgil Love MD [address] [facility] [address] [place] [address] Family Medicine 11/25/19 Juju Toledo MD [address] [place] [phone] Orthopedic Surgery 11/25/19 [place] [address] [facility] [address] [place] [address] Surgeon Orthopedic Surgery 05/07/21 [place] [address] [place] [address] Physical Medicine and Rehabilitation 07/19/21 09/06/21 [place] [address] [place] [address] [place] [address] Orthopedic Surgery 09/07/21 Dylan Ann MD [address] [facility] [address] [place] [address] Cardiology 03/19/22 Kathy Galindo MD [address] [place] [address] Pulmonary Disease 08/20/22 documented as of this encounter
--- OUTSIDE RECORDS SUMMARY | 2024-10-11 01:00 | XMS_ITS | Encounter Summary ---
Author Organization [facility] Address [address] [facility] [place] [address] Care Team Providers Care Frame Aligner Name Role Phone Justin Cowan MD Primary Care Provider Charles Cardenas MD Unavailable [phone] Javi Sotelo MD Unavailable Grant Desir MD Unavailable Kofi Mendez MD Unavailable [phone] Charles Soria DO Unavailable [phone] Juju Toledo MD Unavailable [phone] Yeimi Ramos OD Unavailable Tona Suarez RN Unavailable +[phone] Byron Nickerson MD Unavailable Unavailable Fannie Combs HAZMAT CDL DRIVER-NEEDLE MOLDER Unavailable [phone] Virgil Love MD Primary Care Provider [phone] Justin Cowan MD Primary Care Provider [phone] Maura Gallo MD Unavailable Virgil Love MD Unavailable [phone] Juju Toledo MD Unavailable [phone] Maura Gallo MD Unavailable [phone] Virgil Love MD Unavailable [phone] Maura Gallo MD Unavailable [phone] Maura Gallo MD Primary Care Provider [phone] Steve Stovall MD Unavailable [phone] Virgil Love MD Primary Care Provider [phone] David Flores MD Unavailable [phone] Paula HDEZ MD, Frank Unavailable +[phone] Virgil Love MD Primary Care Provider + [phone] Maura Gallo MD Unavailable [phone] Dylan Ann MD Unavailable +[phone] Maura Gallo MD Unavailable [phone] Kathy Galindo MD Unavailable Virgil Love MD Unavailable [phone] Justin Cowan MD Unavailable [phone] Virgil Love MD Unavailable [phone] None, Physician Primary Care Provider UnavailJosue Cai MD Primary Care Provider [phone] Encounter Details Date Type Department Care Team (Late st Contact Info) Description 02/03/2014 [facility] DEPT Justin Cowan MD [address] [facility] [address] [place] [address] Social History Tobacco Use Types Packs/Day Years Used Date Smoking Tobacco: Never Smokeless Tobacco: Never Alcohol Use Standard Drinks/Week Comments Yes 1.7 (1 standard drink = 0.6 oz p ure alcohol) Sex and Gender Information Value Date Recorded Sex Assigned at Male 05/12/2020 8:[address] MAGISTRATE Legal Sex Male 7:[address] MAGISTRATE Gender Identity Male 05/12/2020 8:[address] MAGISTRATE Sexual Orientation Straight 05/12/2020 8: [address] MAGISTRATE documented as of this encounter Plan of Treatment Upcoming Encounters Date Type Department Care Team (Latest Contact Info) Description 12/06/2024 12:50 PM CDT Procedure visit [facility] Orthopedics [address] [address] Juju Toledo MD 400 [facility] [address] [phone] 12/06/2024 1:15 PM CDT Hospital Encounter [facility] - [address] [place] [address] Juju Toledo MD 400 [facility] [address] [phone] Surgery General 12/06/2024 1:15 PM CDT - 12/06/2024 2:15 PM CDT Surgery [facility] - [address] [place], [place] [address] Juju Toledo MD 400 [facility] [address] [phone] LEFT KNEE ARTHROSCOPY WITH PARTIAL MENISCECTOMY AND POSSIBLE CHONDROPLASTY 12/16/2024 10:45 AM CDT Office Visit [facility] Orthopedics 400 [facility] [address] [address] Nicole Spencer PA 1475 [place] [address] Scheduled Procedures Name Priority Associated Diagnoses Date/Ti me ARTHROSCOPY KNEE WITH MENISCECTOMY (MEDIAL/LATERAL) S83.207A 12/06/2024 1:15 PM CDT documented as of this encounter Goals Goal Patient Goal Type Associated Problems Recent Progress Patient-Stated? Author Blood Pressure < 140/90 Blood Pressure 132/86(2023 1:48 PM CDT) No Rojelio, Leonor [facility] Lifestyle: Have labs drawn Lifestyle No Rojelio, Leoonr documented as of this encounter Visit Diagnoses Not on filedocumented in this encounter Care Teams Frame Aligner Relationship Specialty Start Date End Date Justin Cowan MD 1 [facility] 300 [place] [address] PCP - General 03/25/08 06/01/17 Virgil Love MD 1475 [facility] 200 [place] [address] PCP - General Family Medicine 06/02/17 09/16/17 Justin Cowan MD [address] [place] [address] [address] [place] [address] PCP - General Internal Medicine 09/17/17 09/17/17 [place] [address] [place] [address] PCP - Attributed-MSSP 08/28/18 03/20/20 [place] [address] [place], [place] [address] PCP - Attributed-[facility] 08/29/19 10/28/19 Virgil Love MD [address] [facility] 200 [place] [address] PCP - Attributed-[facility] MA 10/29/19 01/28/20 [place] [address] [place], [place] [address] PCP - Attributed-C [place] 01/29/20 06/14/21 [place] [address] [place], [place] [address] PCP - General Family Medicine 05/07/21 05/14/21 Virgil Love MD 1475 [facility] 200 [place] [address] PCP - General Family Medicine 06/06/21 09/06/21 Virgil Love MD 1475 [facility] 200 [place] [address] PCP - General Family Medicine 09/07/21 08/17/24 [place] [address] [place] [address] PCP - Attributed-[facility] 07/31/21 12/14/21 [place] [address] [place], [place] [address] PCP - Attributed-C [place] 02/28/22 10/16/23 Virgil Love MD 1475 [facility] 200 [place] [address] PCP - Attributed-[facility] P4 10/29/23 09/14/24 Justin Cowan MD 1 [facility] [address] [place] [address] PCP - Attributed-MSSP 10/07/17 07/01/18 Virgil Love MD [address] [place] [address] 200 [place], [place] [address] PCP - Attributed-MSSP 07/02/18 08/27/18 None, Physician PCP - General 08/18/24 09/14/24 Josue Delgado MD [address] [place] [address] [place] [address] PCP - General Family Medicine 09/15/24 Charles Cardenas MD [address] [place] [address] [place] [address] Pulmonary Disease 09/19/10 05/19/22 [place] [address] [place] [address] [address] [place], [place] [address] Dermatology 08/23/11 09/06/21 Grant Desir MD [address] [place], [place] [address]y [address] [place] [address] Endocrinology 03/02/13 05/19/22 Kofi Mendez MD [address] [place] [address] [address]kw[address] [place] [address] Gastroenterology 03/02/13 05/19/22 Charles Soria DO 400 [facility] [address] [place] [address] Orthopedic Surgery 12/16/14 05/19/22 Juju Toledo MD [address] [facility] [address] [place] [address] Orthopedic Surgery 08/08/15 09/06/21 Yeimi Ramos OD [address] [facility] [place] [address] Skate Hop 10/30/15 Tona Suarez, RN Regional Sales Manager 04/22/17 06/24/18 Byron Nickerson MD Physician Hematology and Oncology 05/15/17 09/06/21 Fannie Combs APRN-NEEDLE MOLDER 1475 [facility] [address] [place] [address] Nurse Practitioner Nurse Practitioner 05/15/17 08/19/22 Virgil Love MD [address] [facility] [address] [place] [address] Family Medicine 11/25/19 Juju Toledo MD [address] [place] [address] Orthopedic Surgery 11/25/19 [place] [address] [place] [address] Surgeon Orthopedic Surgery 05/07/21 [place] [address] [place] [address] Physical Medicine and Rehabilitation 07/19/21 09/06/21 [place] [address] [place] [address] Orthopedic Surgery 09/07/21 Dylan Ann MD [address] [place] [address] Cardiology 03/19/22 Kathy Galindo MD [address] [place] [address] Pulmonary Disease 08/20/22 documented as of this encounter
--- OUTSIDE RECORDS SUMMARY | 2024-10-11 01:00 | XMS_ITS | Encounter Summary ---
Author Organization [facility] Address [address] [facility] [place] [address] Care Team Providers Care Preparole Counseling Aide Name Role Phone Charles Cardenas MD Unavailable [phone] Javi Sotelo MD Unavailable Grant Deisr MD Unavailable Kofi Mendez MD Unavailable [phone] Charles Soria DO Unavailable Juju Toledo MD Unavailable [phone] Yeimi Ramos OD Unavailable [phone] Byron Nickerson MD Unavailable Unavailable Fannie Combs WAFER CLEANER-JOURNALISM INTERNSHIP Unavailable [phone] Maura Gallo MD Unavailable Virgil Love MD Unavailable [phone] Juju Toledo MD Unavailable [phone] Maura Gallo MD Unavailable Virgil Love MD Unavailable [phone] Maura Gallo MD Unavailable [phone] Maura Gallo MD Primary Care Provider [phone] Steve Stovall MD Unavailable [phone] Virgil Love MD Primary Care Provider + [phone] David Flores MD Unavailable +[phone] Paula HDEZ MD, Javi Unavailable +[phone] Virgil Love MD Primary Care Provider + [phone] Maura Gallo MD Unavailable [phone] Dylan Ann MD Unavailable [phone] Maura Gallo MD Unavailable [phone] Kathy Galindo MD Unavailable Virgil Love MD Unavailable [phone] None, Physician Primary Care Provider UnavailJosue Cai MD Primary Care Provider [phone] Encounter Details Date Type Department Care Team (Late st Contact Info) Description 02/18/2019 [facility] [address] [place] [address] Juju Toledo MD [address] [place] [address] Social History Tobacco Use Types Packs/Day Years Used Date Smoking Tobacco: Never Smokeless Tobacco: Never Alcohol Use Standard Drinks/Week Comments No 4 (1 standard drink = 0.6 oz pur e alcohol) Sex and Gender Information Value Date Recorded Sex Assigned at Male 05/12/2020 8:18 AM TOP LIFT AND AUTOMATIC WINDOW REPAIRER Legal Sex Male 7:20 AM TOP LIFT AND AUTOMATIC WINDOW REPAIRER Gender Identity Male 05/12/2020 8:18 AM TOP LIFT AND AUTOMATIC WINDOW REPAIRER Sexual Orientation Straight 05/12/2020 8: 18 AM TOP LIFT AND AUTOMATIC WINDOW REPAIRER documented as of this encounter Functional Status [...] Description 12/06/2024 12:50 PM CDT Procedure visit [facility] Orthopedics [address] [address] Juju Toledo MD [address] [phone] 12/06/2024 1:15 PM CDT Hospital Encounter [facility] - Anastasia [address] [place] [address] Juju Toledo MD [address] [phone] Surgery General 12/06/2024 1:15 PM CDT - 12/06/2024 2:15 PM CDT Surgery [facility] - [address]astasia [address] [place] [address] Juju Toledo MD [address] [phone] LEFT KNEE ARTHROSCOPY WITH PARTIAL MENISCECTOMY AND POSSIBLE CHONDROPLASTY 12/16/2024 10:45 AM CDT Office Visit [facility] Orth[facility]ics [address] [place] [address] Nicole Spencer PA [address] [place] [address] Scheduled Procedures Name Priority Associated [...] on filedocumented in this encounter Care Teams Preparole Counseling Aide Relationship Specialty [place] [address] [place] [address] PCP - Attributed-MSSP 08/28/18 03/20/20 [place] [address] [place] [address] PCP - Attributed-C [place] 08/29/19 10/28/19 Virgil Love MD [address] [place] [address] PCP - Attributed-C [place] 10/29/19 01/28/20 [place] [address] [place], [place] [address] PCP - Attributed-[facility] 01/29/20 06/14/21 [place] [address] [place] [address] PCP - General Family Medicine 05/07/21 05/14/21 Virgil Love MD 1475 [facility] [address] [place] [address] PCP - General Family Medicine 06/06/21 09/06/21 Virgil Love MD 1475 [facility] [address] [place] [address] PCP - General Family Medicine 09/07/21 08/17/24 [place] [address] [place] [address] PCP - Attributed-[facility] 07/31/21 12/14/21 [place] [address] [place] [address] PCP - Attributed-C [place] 02/28/22 10/16/23 Virgil Love MD 1475 [facility] [address] [place] [address] PCP - Attributed-[facility] STL P4P 10/29/23 09/14/24 None, Physician PCP - General 08/18/24 09/14/24 Josue Delgado MD [address] [place] [address] [place] [address] PCP - General Family Medicine 09/15/24 Charles Cardenas MD [address] [facility] [address] [place] [address] Pulmonary Disease 09/19/10 05/19/22 Javi Sotelo MD 53[address] [facility] [address] [place] [address] Dermatology 08/23/11 09/06/21 Grant Desir MD [facility] [facility] [address] [place] [address] Endocrinology 03/02/13 05/19/22 Kofi Mendez MD [address] [place], [place] [address]y [address] [place] [address] Gastroenterology 03/02/13 05/19/22 Charles Soria DO 400 [facility] [address] [place] [address] Orthopedic Surgery 12/16/14 05/19/22 Juju Toledo MD 1475 [facility] [address] [place] [address] Orthopedic Surgery 08/08/15 09/06/21 Yeimi Ramos, OD [address] [facility] [place] [place] [address] Drawing Machine Operator 10/30/15 Byron Nickerson MD [address] [facility] [place] [address] Physician Hematology and Oncology 05/15/17 09/06/21 Fannie Combs, WAFER CLE[employer]ER[employer] INTERNSHIP 1475 [facility] [address] [place] [address] Nurse Practitioner Nurse Practitioner 05/15/17 08/19/22 Virgil Love MD [address] [facility] [address] [place] [address] Family Medicine 11/25/19 Juju Toledo MD [address] [place] [address] Orthopedic Surgery 11/25/19 [place] [address] [place] [address] Surgeon Orthopedic Surgery 05/07/21 [place] [address] [place] [address] Physical Medicine and Rehabilitation 07/19/21 09/06/21 [place] [address] [place], [place] [address] Orthopedic Surgery 09/07/21 Dylan Ann MD [address] [place] [address] Cardiology 03/19/22 Kathy Galindo MD [address] [place] [address] Pulmonary Disease 08/20/22 documented as of this encounter
--- OUTSIDE RECORDS SUMMARY | 2024-10-11 01:00 | XMS_ITS | Continuity of Care Document ---
Author Organization [facility] Address [address] [place] [address] Phone Care Team Providers Care Photostatic Copy Maker Name Role Phone Gerald Blackburn MD Unavailable Unavailable Medications Medication Instructions Dosage Effective Dates (start - stop) Status Comments Celebrex 200 mg Cap take 1 capsule (200M G) by oral route every day 200 MG - Active Lipitor 10 mg Tab take 1 tablet (10MG) by oral route every day 10 MG - Active Advance Directives Directive Yes / No Effective Date File Name No Information Encounters Encounter Description Practice Location Reason(s) For Visit Diagnoses Date Provider Providers Copied on Encounter [facility], [address], [place], [address], [place] tel:[phone] [facility] [place] Osteoarthrosis, localized, not specified whether primary or secondary, involving lower leg Fe 4 Alexey Duarte. [address] [place], [place], [id number] . tel:[phone] [facility], [address], [place], [address], [place] tel:[phone] [facility] [place] Osteoarthrosis, localized, not specified whether primary or secondary, involving lower leg 3 Alexey Duarte. [address] [place], [place], [id number] . tel:[phone] [facility], [address], [place], [address], [place] tel:[phone] [facility] [place] Pain in joint involving lower legObesity, MorbidOsteoarthro sis, localized, not specified whether primary or secondary, involving lower legHypertension, UnspecifiedDiabet ic Nephropathy Feb- 0 3 Alexey Duarte. [address] [facility], [place], [place], [id number] . [phone] [facility], [address], [address], [place] tel:[phone] [facility] [place] Plantar fascial fibromatosisCalca do spur Feb-0 2 Paranjpe Amod. [address] [facility] [address], [place], [place], [id number] . tel:[phone] [facility], [address] [address], [place], [address], [place] tel:[phone] [facility] [place] Plantar fascial fibromatosisCalca do spur 2 Paranjpe Amod. [address] [facility] [address], [place], [place], [id number] . tel:[phone] [facility], [address], [address], [place] tel:[phone] [facility] [place] Plantar fascial fibromatosisCalca do spur 2 Paranjpe Amod. [address] [facility] [address], [place], [place], [id number] . tel:[phone] Family History Family Member Type Diagnosis Age At Onset No Information Payers Payer name Insurance type Covered republican ID Authoriza tion(s) No Information Social History Type Description Quantity Date Captured Comments Sex Male Smoking Status No Information Chief Complaint And Reason For Visit No Information Reason For Referral Reason For Referral No Information History Of Present Illness Encounter Date Complaint History Of Prese nt Illness No Information Functional Status Date Functional Assessmen t No Information Instructions Date Instruction Additional Infor mation No Information Assessments Type Assessment Date No Information Patient Care Teams Name Effective Dates (start - stop) Status Members No Information
--- OUTSIDE RECORDS SUMMARY | 2024-10-11 01:00 | XMS_ITS | Clinical Summary ---
Author Organization [facility] Address [address] [place] [address] Care Team Providers Care Wool Merchant Name Role Phone Yeimi Ramos OD Unavailable [phone] Virgil Love MD Unavailable [phone] Juju Toledo MD Unavailable [phone] Steve Stovall MD Unavailable [phone] Paula HDEZ MD, Frank Unavailable [phone] Dylan Ann MD Unavailable [phone] Kathy Galindo MD Unavailable Josue Delgado MD Primary Care Provider Source Comments [facility],non-owned Affiliates and Associated Physician Practices is amultiple site organization consisting of ambulatory clinics and hospital sitesin [place], [place], [place] and [place]. This disclosure is being madepursuant to the Care Everywhere program and may not contain all information available regarding this patient. Last updated 18.[facility] Allergies No known active allergies Medications * Be aware that medications may not be up to date on this document. Alwaysverify current medications with the patient. Multiple Vitamins-Minerals (CENTRUM SILVER 50+MEN PO) Take by mouth once daily Active CPAP CPAP [id number] creased from 9-08/11/18 08/11/19 19 Active Coenzyme Q10 100 MG tablet Take 1 (one) tablet by mouth once daily Active Probiotic Product (JustBook PO) Take by mouth 2 times daily Active amoxicillin (AMOXIL) 500 MG tablet Take 4 tabs one hour before any dental treatment 4 tablet 3 12/12/19 22 Active Cholecalciferol (Vitamin D3) 250 MCG (46912 UT) TABS Take by mouth once daily Active atorvastatin (Lipitor) 40 MG tablet Take 1 (one) tablet by mouth once daily 90 tablet 3 07/11/19 24 Active Additional Information Patient taking differently: 20 mgOral DAILY, Reported on 02/26/2024 mupirocin (Bactroban) 2 % ointment Apply to affected area 2 times daily 30 g 2 08/04/19 24 Active apixaban (Eliquis) 2.5 MG tablet Take 1 (one) tablet by mouth 2 times daily 180 tablet 2 08/28/19 24 Active celecoxib (CeleBREX) 100 MG capsule Take 1 (one) capsule by mouth 2 times daily 180 capsule 4 10/22/19 24 Active Semaglutide (2 MG/DOSE) 8 MG/3ML Subcutaneous Solution Pen-injector (Ozempic (2 MG/DOSE)) Inject 2 (two) mg subcutaneously every 7 days 9 mL 3 11/13/19 24 Active Additional Information Patient not taking.Reported on 09/30/2024 methylPREDNISolone (Medrol Dosepak) 4 MG tabletIndications: Left lumbosacral radiculopathy Take by mouth as directed Take as directed by mouth per package instructions. 21 tablet 02/26/20 24 Active Additional Information Patient not taking.Reported on 09/30/2024 pregabalin (Lyrica) 75 MG capsuleIndications :Primary osteoarthritis of right shoulder TAKE 2 CAPSULES BY MOUTH 3 TIMES A DAY 540 capsule 05/31/20 24 Active Mounjaro 5 MG/0.5ML injection 07/06/19 25 Active torsemide (Demadex) 20 MG tablet TAKE 2 TABLETS BY MOUTH 2 TIMES A DAY. 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 07/26/2024 Failure of total knee replacement, subsequent en counter 04/10/2022 Hip arthritis 09/27/2021 Type 2 diabetes mellitus wit h diabetic neuropathy, without long-term current use of insulin 05/16/2021 Overview (05/16/2021): 11/11/19 Virgil Love MD Family Medicine OV Morbid obesity 05/16/2021 Overview (05/16/2021): BMI 41.84 as of 04/06/21 Primary osteoarthritis of left hip 12/22/2020 Left lumbosacral radiculopathy 12/22/2020 Chronic bilateral low back pain 12/22/2020 Type 2 diabetes mellitus wit h stage 3 chronic kidney disease, without long-term current use of insulin, unspecified whether stage 3a or 3b CKD 12/14/2019 Overview (05/16/2021): 11/13/20 Virgil Love MD Family Medicine OV Virgil Love MD on 11/11/19 BMI 40.0-44.9, adult 03/10/2019 Overview (05/16/2021): BMI 41.84 as of 04/06/21 Preop examination 06/24/2018 CKD (chronic kidney disease), stage III 10/03/19 18 Overview (06/04/2019): 03/10/19 Maura Gallo MD Family Medicine Status post gastric banding 10/01/2017 Factor 5 Leiden mutation, heterozygous 7 Overview (06/04/2019): 09/28/18 Multidisciplinary Hematology and Oncology and Nurse Practitioner Class 3 severe obesity due t o excess calories with serious comorbidity and body mass index (BMI) of 45.0 to 49.9 in adult 10/30/2016 Chronic right shoulder pain 12/19/2015 S/P arthroscopy of shoulder 10/29/2015 Labral tear of shoulder 08/20/2015 CAD (coronary artery disease) 10/01/2013 Overview (05/02/2021): Thallium treadmill 05/11: no ischemia, poss small prior apical infarct, nl LVEF. Cardiac cath 06/10: LVEF 60%, 20% L main. Peripheral neuropathy 09/25/2012 CUBA (obstructive sleep apnea) 09/19/2010 Overview (09/19/2010): CPAP, Dx 09/07 (Dr Cardenas) Hyperlipidemia 03/24/2008 Overview (06/10/2013): Muscle aches with atorvastatin 06/11: changed to Crestor. Screen for colon cancer 03/24/2008 Overview (10/22/2013): Adenomatous polyp 04/01. Follow-up scope (Dr. Mendez) 04/06: no polyps, some diverticulosis. 06/11: no polyps. Family history of colon cancer in sister. Radiation Exposure (to neck as child) 03/24/2008 CUBA on CPAP Resolved Problems Problem Noted Date Diagnosed Date Resolved Date Musculoskeletal pain 12/22/2020 022 Bilateral pulmonary embolism 08/08/2020 08/28/2023 History of diabetes mellitus, type II 11/05/2018 05/15/2020 Type II Diabetes mellitus w/ CKD III 10/02/2017 11/05/2018 Atherosclerosis of aorta 10/02/201708/2020 Overview (10/02/2017): CXR: 18 DVT femoral (deep venous thr ombosis) with thrombophlebitis 10/01/2017 05/15/2020 Unstable angina pectoris 04/21/2017 Acute saddle pulmonary embol ism without acute cor pulmonale 04/21/2017 05/15/2020 Pulmonary artery hypertension 12/20/2016 05/15/2020 Overview (12/20/2016): Eduar Espinoza MD: 08/30/2016 Type II diabetes mellitus, uncontrolled 10/30/2016 12/24/2016 Overview (10/30/2016): Office Visit 05/13/16 Dr. Blayne Desir Left shoulder pain 07/28/2015 7 CAD (coronary artery disease) 10/01/2013 05/02/2021 Overview (12/07/2014): Thallium treadmill 05/11: no ischemia, poss small prior apical infarct, nl LVEF. Cardiac cath 06/10: LVEF 60%, 20% L main. Type 2 diabetes, controlled, with neuropathy 3 11/05/2018 Overview (03/02/2013): Metformin started 02/09. HTN (hypertension) 10/09/2012 2 Overview (10/09/2012): HCTZ started 05/11. Diabetic sensorimotor neuropathy 09/25/2012 12/07/2014 CTS (carpal tunnel syndrome) 09/25/2012 05/02/2021 HTN (hypertension) 08/04/2008 2 Overview (12/03/2010): Able to come off amlodipine 2009 Screening for heart disease 03/24/2008 05/15/2020 Overview (06/15/2012): Normal thallium TM 04/05. Normal carotid ultrasound 07/06. Normal thallium TM 04/06 (except for hypertensive response). Thallium treadmill 05/11: no ischemia, poss small prior apical infarct, nl LVEF. Cardiac cath 06/10: LVEF 60%, 20% L main. GERD (gastroesophageal reflux disease) 03/24/2008 04/05/2022 Overview (05/02/2008): EGD (Dr. Mendez) 04/06 Back pain 12/24/2016 Encounters Date Type Department Care Team Description 10/05/2024 SS Outpatient Visit [facility] [address] [place] [address] Document, Scanned 09/30/2024 11:15 AM CDT Office Visit [facility] [address] [place] [address] Juju Toledo MD Acute pain of left knee (Primary Dx); Acute meniscal tear of left knee, initial encounter 09/15/2024 10:44 AM CDT - 09/15/2024 11:59 PM CDT Hospital Encounter [facility] - MRI [address] [place] [phone] Juju Toledo MD Discharge Disposition: Home or Self Care 09/14/2024 Travel 09/09/2024 Travel from Last 3 Months Immunizations Immunization Administration Dates Next Due COVID PFIZER BIVALENT 12Y+ 30mcg/0.3ML 03/19/2022 Comirnaty Covd-19 Mrna Vacci ne (Nucleoside Modified) 04/11/2023 Covid Moderna primary monova lent 12+ yr 0.5mL 03/03/2021,10/03/2020,08/28/2020 FLU VACCINE TRI IIV3 SPLIT P F IM (FLUVIRIN) 04/08/2015,04/08/2015 INFLUENZA VACCINE 04/11/2023,,03/06/2021,2019,02/28/2019,02/28/2019,04/08/2017,1 INFLUENZA VACCINE, ADJUVANTE D, QUADR. (FLUAD QUADRIVALENT; 65Y+) (AIIV4) 04/11/2023 INFLUENZA VACCINE, HIGH-DOSE , QUADR. (FLUZONE HIGH-DOSE QUADRIVALENT; 65Y+), 0.7 ML (HD-IIV4) 04/01/2022,03/06/2021,02/21/2020,2018,02/28/2019 INFLUENZA VACCINE, HIGH-DOSE , TRIV. (FLUZONE HIGH-DOSE TRIVALENT; 65Y+) (HD-IIV3) 02/28/2019 INFLUENZA VACCINE, QUADR. (F LUZONE; FLULAVAL; FLUARIX; AFLURIA QUADRIVALENT; 6MO+), 0.5 ML (IIV4) 04/02/2018 MODERNA SARS-COV-2 COVID-19 VACCINE 0.25ML 12/12/2021 PNEUMOCOCCAL PPSV23 04/08/2015,03/09/2014 Pneumococcal Pcv13 Conj 10/08/2017 RSV AREXVY 60YR+ 0.5ML 05/21/2023 TDAP (7yrs+) 07/23/2020,07/23/2020,12/16/2014 ZOSTER VACCINE, LIVE 04/08/2015 Zoster Hzv Vacc Recombinant Inj Im 06/12/2019,,02/28/2019 Family History Medical History Relation Name Comments CAD (Coronary Artery Disease) Brother CABG Colon polyps Brother Hodgkin's lymphoma Brother CAD (Coronary Artery Disease) Father CABG Colon polyps Father CAD (Coronary Artery Disease) Mother Cancer Sister colon Relation Name Status Comments Brother Father Mother Sister Social History Tobacco Use Types Packs/Day Years Used Date Smoking Tobacco: Never Smokeless Tobacco: Never Tobacco Cessation:Counseling Given: Not Answered Alcohol Use Standard Drinks/Week Comments No 4 [...] Sex Assigned at Male 05/12/2020 8:18 AM MANAGER APPLIED Legal Sex Male 7:20 AM MANAGER APPLIED Gender Identity Male 05/12/2020 8:18 AM MANAGER APPLIED Sexual Orientation Straight 05/12/2020 8: 18 AM MANAGER APPLIED Last Filed Vital Signs Vital Sign Reading Time Taken Comments Blood Pressure 132/86 02/26/2024 1:48 PM CDT Pulse 68 02/26/2024 1:48 PM CDT Temperature 36.4 C (97.5 F) 02/26/2024 1:48 PM CDT Respiratory Rate 18 04/11/2022 11:35 AM CDT Oxygen Saturation 98% 02/26/2024 1:48 PM CDT Inhaled Oxygen Concentration - - Weight 139.7 kg (308 lb) 02/26/2024 1:48 PM CDT Height 179.1 cm (5' 10.5) 02/26/2024 1:48 PM CD T Body Mass Index 43.57 02/26/2024 1:48 PM CDT Plan of Treatment Upcoming Encounters Date Type Department Care Team (Latest Contact Info) Description 12/06/2024 12:50 PM CDT Procedure visit [facility] [address] [place] [id number] Juju Toledo MD [address] [phone] 12/06/2024 1:15 PM CDT Hospital Encounter [facility] [address] [place] [address] Juju Toledo MD [address] [phone] Surgery General 12/06/2024 1:15 PM CDT - 12/06/2024 2:15 PM CDT Surgery [facility] [address] [place] [address] Juju Toledo MD [address] [place] [phone] LEFT KNEE ARTHROSCOPY WITH PARTIAL MENISCECTOMY AND POSSIBLE CHONDROPLASTY 12/16/2024 10:45 AM CDT Office Visit [facility] [address] [place] [address] Nicole [place], [place] [address] [place] [address] Scheduled Procedures Name Priority Associated Diagnoses Date/Ti me ARTHROSCOPY KNEE WITH MENISCECTOMY (MEDIAL/LATERAL) S83.207A 12/06/2024 1:15 PM CDT Health Maintenance Due Date Last Done Comments CT COLONOGRAPHY - COLON CA SCREENING 1950 FIT - COLON CA SCREENING 1950 FLEX SIG - COLON CA SCREENING 1950 COLOGUARD (AGES 45-75) - COLON CA SCREENING 11/17/2021 11/17/2018 COVID-19 VACCINE ( season) 2024 04/11/2023, 04/11/2023, 12/02/2022, Additional history exists DIABETES - URINE PROTEIN SCREENING 06/30/2024 09/08/2023, 08/26/2022, 05/20/2022, Additional history exists MEDICARE AWV CALENDAR YEAR 2024 08/28/2023, 08/20/2022, 09/07/2021, Additional history exists DIABETES-HGB A1C 08/27/2024 02/26/2024, , 08/26/2022, Additional history exists DIABETES-SERUM CREATININE 10/07/20242023, 09/08/2023, 08/26/2022, Additional history exists DIABETES-FOOT EXAM WITH MONOFILAMENT 02/26/2025 02/27/2024, 08/20/2022, 04/02/2018, Additional history exists INFLUENZA VACCINE (Season Ended) 2025 04/11/2023, 04/11/2023, 04/01/2022, Additional history exists DIABETES RETINOPATHY SCREENING 06/26/2025 06/26/2023, 03/29/2022, 06/11/2021, Additional history exists COLON MONITORING 06/10/2028 06/10/2018, 05/2018, 06/10/2018, Additional history exists COLONOSCOPY - COLON CA SCREENING 06/10/2028 06/10/2018, 06/10/2018, 06/10/2018, Additional history exists Colorectal Cancer Screening 06/10/2028 DTAP/TDAP/TD VACCINES (4 - Td or Tdap) 07/23/2030 07/23/2020, 07/23/2020, 12/16/2014 HEPATITIS C SCREENING Completed 03/04/2013 PNEUMOCOCCAL VACCINE 50+ Discontinued 018, 04/08/2015, 03/09/2014 ZOSTER VACCINE Completed 06/12/2019, 06/2018, 02/28/2019, Additional history exists Respiratory Syncytial Virus (RSV) Vaccine Pt: or over 60 yrs Completed 05/21/2023 DEPRESSION SCREENING Completed 09/30/2024, 08/28/2023, 08/20/2022, Additional history exists HEPATITIS B VACCINE Aged Out No longe r eligible based on patient's age to complete this topic HIB VACCINE Aged Out No longer eligi ble based on patient's age to complete this topic HPV VACCINE Aged Out No longer eligi ble based on patient's age to complete this topic MENINGOCOCCAL (Group B) VACCINE SHARED DECISION-MAKING Aged Out No longer eligible based on patient's age to complete this topic MENINGOCOCCAL GROUPS A/C/Y/W VACCINE Aged Out No longer eligible based on patient's age to complete this topic Goals Goal Patient Goal Type Associated Problems [...] Have labs drawn Lifestyle No Rojelio, Leonor Medical Devices Implanted Type Area Financial Processing Clerk Device Identifier Shelf Expiration Date Model / Serial / Lot Iconix 1 Tt IntellibrMirador [employer] 1.4 Mm [place] With 1.2 Mm Xbraid Tt Implanted:Qty: 3 on 09/15/2015 by Juju Toledo MD at [facility] Left: Shoulder 05/30/2017 [id number] / / [id number] Shell Actb 54mm Hip Ch 12 Sclp Snpft Lck Implanted:Qty: 1 on 09/27/2021 at [facility] Left: Hip [employer] 05/29/2031 [id number] Liner Actb 45d 7mm Ofst Jj 54mm 36mm Implanted:Qty: 1 on 09/27/2021 at [facility] Left: Hip [employer] 09/27/2025 [id number] / / [id number] Stm Fem 154mm Hip 5 Lat Ofst Intgr-+ Implanted:Qty: 1 on 09/27/2021 at [facility] Left: Hip [employer] 09/27/2025 [id number] / / [id number] Head Fem +8mm 06/12 36mm Hip Oxnm Implanted:Qty: 1 on 09/27/2021 at [facility] Left: Hip [employer] 06/29/2031 [id number] / / [id number] Cmpnt Ptlr Std 31mm 3 Pg Kn Ser A Implanted:Qty: 1 on 04/10/2022 by Steve Stovall MD at [facility] Right: Knee [employer] 01/17/2027 [id number] / / [id number] Tray Tib 83mm Kn Cocr I Beam Implanted:Qty: 1 on 04/10/2022 by Steve Stovall MD at [facility] Right: Knee [employer] 01/16/2032 [id number] / / [id number] Cmpnt Fem Kn Rt Cr Cmnt Prm Vngrd Intlk Implanted:Qty: 1 on 04/10/2022 by Steve Stovall MD at [facility] Right: Knee [employer] 03/07/2032 [id number] / / [id number] Brng [id number] Vngrd Arcm Kn Ant Stab Implanted:Qty: 1 on 04/10/2022 by Steve Stovall MD at [facility] Right: Knee [employer] 11/22/2025 [id number] / / [id number] Cmnt Bone Djo Srg Cblt 40gm Hvisc Strl Implanted:Qty: 1 on 04/10/2022 by Steve Stovall MD at [facility] Right: Knee [employer] 01/10/2023 600-15-0 00 / / [id number] Anselmo Bone [place]-G Hv 40/20 Implanted:Qty: 1 on 04/10/2022 by Steve Stovall MD at [facility] Right: Knee [employer] 07/26/2023 600-15-1 00 / / [id number] Explanted Type Area Financial Processing Clerk Device Identifier Shelf Expiration Date Model / Serial / Lot Iconix 1.4 Mm [place] Explanted:Qty : 1 on 09/15/2015 by Juju Toledo MD at [facility] Left: Shoulder 04/23/2017 [id number] 2 / / [id number] Pin Hlf 255mm 5mm Jtx Lng Orth Ss 45mm Explanted:Qty : 1 on 09/27/2021 at [facility] [employer] [id number] / / Procedures Procedure Name Priority Date/Time Associated Diagnosis Comments MRI KNEE LEFT WO CONTRAST Routine 09/15/2024 11:38 AM CDT History of prosthetic unicompartmental arthroplasty of left knee Fall, initial encounter Acute pain of left knee IMAGING COMMUNICATION ORDER Routine 08/26/2024 3:20 PM MANAGER APPLIED HEMOGLOBIN A1C - POINT OF CARE (AMB) Routine 02/26/2024 1:58 PM CDT Type 2 diabetes mellitus with stage 3 chronic kidney disease, without long-term current use of insulin, unspecified whether stage 3a or 3b CKD BASIC METABOLIC PANEL (CALCIUM TOTAL) Routine 10/08/2023 10:02 AM CDT SATISH (acute kidney injury) MICROALB/CREAT RATIO URINE RANDOM PANEL Routine 09/08/2023 11:57 AM CDT Type 2 diabetes mellitus with diabetic neuropathy, without long-term current use of insulin EYE EXAM 06/26/2023 COLOGUARD TEST Routine 11/17/2018 8:00 AM CDT Screen for colon cancer ENDOSCOPY, COLON, SCREENING Routine 06/10/2018 Family history of colon cancer Hx of adenomatous colonic polyps Family history of polyps in the colon HEPATITIS C ANTIBODY Routine 03/04/2013 9:19 AM CDT Diabetic sensorimotor neuropathy from Last 3 Months or Most Recently Relevant to Health Maintenance Results * MRI Knee Left Wo Contrast (09/15/2024 11:38 AM CDT) Anatomical Region Laterality Modality Lower Extremity Magnetic Resonan ce 09/15/2024 12:2 4 PM CDT Impressions 09/15/2024 1:06 PM CDT IMPRESSION: 1. Undersurface tear of the posterior horn of the lateral meniscus with a horizontal tear extending into the body. 2. No cruciate or collateral ligament tear. 3. Moderate-severe chondral thinning within the patellofemoral and lateral central weightbearing compartments. 4. Reactive marrow signal change within the proximal tibia. Given history of fall this could relate to contusion. No acute fracture line. 5. Moderate knee joint effusion with evidence of synovitis. 6. No evidence of prosthetic loosening or osteolysis. > Interpreting Provider: Fredi Joyner MD on 09/15/2024 1:06 PM Narrative 09/15/2024 1:06 PM CDT PROCEDURE: MRI KNEE LEFT WO CONTRAST, DATE/TIME OF EXAM: 09/15/2024 11:38 AM, LOCATION [facility] INDICATION: Z96.652: Presence of left artificial knee joint W19.XXXA: Unspecified fall, initial encounter M25.562: Pain in left knee ADDITIONAL CLINICAL INFORMATION: Ordering Provider Reason For Exam: Technologist Note: Additional: COMPARISON: Radiographs 07/12/2024 (report not provided at time of dictation). TECHNIQUE: MRI of the knee was performed without contrast. FINDINGS: Joint and Bursae: There is a moderate knee joint effusion. Some intermediate signal filling defects within the effusion are noted, evidence for synovitis. There is no evidence of a Gomez's cyst. Bones: There is some relatively diffuse increased T2 signal within the proximal tibia. This is relatively nonfocal within the central aspect of the bone, near the intercondylar eminence. No significant osteolysis or lucency/resorption is noted about the medial compartment prosthesis to suggest loosening. Cartilage: Patellofemoral: Grade 3 chondral thinning patellofemoral compartment is noted. There is moderate marginal osteophyte formation. Medial compartment: Replaced. Lateral Compartment: Grade 3 chondral thinning is noted laterally. There is marginal osteophyte formation. Ligaments: The somewhat limited due to magnetic susceptibility artifact, both the ACL and PCL appear to remain intact. The lateral collateral ligament complex is intact. The MCL appears intact. Extensor Mechanism: The quadriceps and patellar tendons are intact. The medial and lateral patellar retinacula are intact. Tendons/Soft tissues: The popliteus tendon is intact. The musculature is intact without evidence of tear. The popliteal neurovascular bundle is unremarkable. Mensici: The medial meniscus is absent. There is undersurface tearing of the posterior horn of the lateral meniscus. There is a horizontal component which extends into the body. Procedure Note Fredi Joyner MD - 09/15/2024 PROCEDURE: MRI KNEE LEFT WO CONTRAST, DATE/TIME OF EXAM: 1:38 AM, LOCATION [facility] INDICATION: Z96.652: Presence of left artificial knee joint W19.XXXA: Unspecified fall, initial encounter M25.562: Pain in left knee ADDITIONAL CLINICAL INFORMATION: Ordering Provider Reason For Exam: Technologist Note: Additional: COMPARISON: Radiographs 07/12/2024 (report not provided at time of dictation). TECHNIQUE: MRI of the knee was performed without contrast. FINDINGS: Joint and Bursae: There is a moderate knee joint effusion. Some intermediate signal filling defects within the effusion are noted,evidence for synovitis. There is no evidence of a Gomez's cyst. Bones: There is some relatively diffuse increased T2 signal within the proximal tibia. This is relatively nonfocal within the central aspect of the bone, near the intercondylar eminence. No significant osteolysis or lucency/resorption is noted about the medial compartment prosthesis to suggest loosening. Cartilage: Patellofemoral: Grade 3 chondral thinning patellofemoral compartment is noted. There is moderate marginal osteophyte formation. Medial compartment: Replaced. Lateral Compartment: Grade 3 chondral thinning is notedlaterally. There is marginal osteophyte formation. Ligaments: The somewhat limited due to magnetic susceptibility artifact, both the ACL and PCL appear to remain intact. The lateral collateral ligament complex is intact. The MCL appears intact. Extensor Mechanism: The quadriceps and patellar tendons are intact. The medial and lateral patellar retinacula are intact. Tendons/Soft tissues: The popliteus tendon is intact. The musculatureis intact without evidence of tear. The popliteal neurovascular bundle is unremarkable. Mensici: The medial meniscus is absent. There is undersurface tearingof the posterior horn of the lateral meniscus. There is a horizontalcomponent which extends into the body. IMPRESSION: 1. Undersurface tear of the posterior horn of the lateral meniscus witha horizontal tear extending into the body. 2. No cruciate or collateral ligament tear. 3. Moderate-severe chondral thinning within the patellofemoral andlateral central weightbearing compartments. 4. Reactive marrow signal change within the proximal tibia. Givenhistory of fall this could relate to contusion. No acute fracture line. 5. Moderate knee joint effusion with evidence of synovitis. 6. No evidence of prosthetic loosening or osteolysis. > Interpreting Provider: Fredi Joyner MD on 09/15/2024 1:06 PM us Juju Toledo MD MR ORDERABLES Final Result * IMAGING COMMUNICATION ORDER (08/26/2024 3:20 PM MANAGER APPLIED) Anatomical Region Laterality Modality Other us Scanned Document IR ORDERABLES Final Result * HEMOGLOBIN A1C - POINT OF CARE (HgbA1C) (02/26/2024 1:58 PM CDT) Hemoglobin A1c POCT 5.7 % [facility] [employer] Expiration Date [id number] [facility] [employer] Lot # [id number] [facility] QC Verified Yes Yes [facility] [employer] Blood BLOOD SPECIMEN / Unknown 02/26/2024 1:58 PM CDT Virgil Love MD LAB - POINT OF CARE ORDERABL ES Final Result [facility] [address] [place], [place] [address] [phone] * (ABNORMAL) BASIC METABOLIC PANEL (BMP) (10/08/2023 10:02 AM CDT) Glucose 121(H) 70 - 105 mg/dL [facility] INSURANCE BILL BUN 23 7 - 26 mg/dL [facility] BILL Creatinine 1.20 0.72 - 1.25 mg/dL [facility] INSURANCE BILL eGFR by CKD-EPI 65(L) >=90 mL/min/1.7 3 m2 [facility] INSURANCE BILL Sodium 141 136 - 145 mmol/L [facility] INSURANCE BILL Potassium 3.7 3.5 - 5.1 mmol/L [facility] INSURANCE BILL Chloride 101 98 - 107 mmol/L [facility] INSURANCE BILL CO2 31(H) 22 - 29 mmol/L [facility] INSURANCE BILL Calcium 9.3 8.4 - 10.4 mg/dL [facility] INSURANCE BILL Blood BLOOD SPECIMEN / Unknown 10/08/2023 10:02 AM CDT 10/08/2023 Narrative Resulting Agency Comment Lab Testing performed at: [facility] [address] [facility] [id number] us Virgil Love MD LAB - CHEMISTRY ORDERABLES F inal Result [facility] INSURANCE BILL [address] [place] [address] * MICROALB/CREAT RATIO URINE RANDOM PANEL (09/08/2023 11:57 AM CDT) Creatinine Urine 80.06 mg/dL [facility] INSURANCE BILL Microalbumin Urine <0.5 mg/dL [facility] INSURANCE BILL Microalbumin/Crea tinine Ratio mg/g [facility] INSURANCE BILL Comment: Not Calculated Urine URINE SPECIMEN OBTAINED BY CLEAN CATCH PROCEDURE / Unknown 09/08/2023 11:57 AM CDT 09/08/2023 Narrative Resulting Agency Comment Lab Testing performed at: [facility] [address] [place] [id number] us Virgil Love MD LAB - URINE CHEMISTRY ORDERA BLES Final Result [facility] INSURANCE BILL [address] [place] [address] * EYE EXAM (06/26/2023) Anatomical Region Laterality Modality Other 06/26/2023 Narrative 06/26/2023 Ordered by an unspecified provider. us Scanned Document SCANNING ONLY Final Result * [id number] COLOGUARD TEST *Associate with Z12.11 OR Z12.12 Dx Codes* (11/17/2018 8:00 AM CDT) Cologuard Negative Not Applicable [facility] Comment: A negative result indicates a low likelihood that a colorectal cancer (CRC) or an advanced adenoma (adenomatous polyps with more advanced pre-malignant features) is present. The chance that a person with a negative Cologuard test has a colorectal cancer is less than 1 in 1500 (negative predictive value >99.9%) or has an advanced adenoma is less than 5.3% (negative predictive value 94.7%). These data are based on a prospective cross-sectional screening study of 10,000 individuals at average risk for colorectal cancer who were screened with both Cologuard and colonoscopy. (Loreto Vargas al, N Engl J Med 2014;370(14):4209-2305) COLOGUARD RE-SCREENING RECOMMENDATION: Periodic routine colorectal cancer screening is an important part of preventive healthcare for asymptomatic persons at average risk for colorectal cancer. Following a negative Cologuard result, the [place] [employer] Society and U.S. Multi-Society Task Force screening guidelines recommend a Cologuard re-screening interval of 3 years. References: [place] [employer] Society (ACS). Colorectal cancer prevention and early detection. [place], [place]: [place] [employer]; [updated 2015Oct 21]. https://www.cancer.org/cancer/thqjn-vxntlu-dzlqiu/xxdxjavzy-huqxiicvc-vkxvqwa/ acs-recommendations.html. Accessed February 27, 2018; Ayo DK, Steven CR, King LeighK, Colorectal Cancer Screening: Recommendations for Physicians and Patients from the U.S. Multi-Society Task Force on Colorectal Cancer Screening, Am J Gastroenterology 2017; 112:0884-5503. Test Type: Composite algorithmic analysis of stool DNA-biomarkers with hemoglobin immunoassay. Quantitative values of individual biomarkers are not reportable and are not associated with individual biomarker result reference ranges. Precautions and Limitations: Cologuard is intended for colorectal cancer screening of adults of either sex, 50 years or older, who are at typical average-risk for colorectal cancer. A negative Cologuard test result does not guarantee the absence of colorectal cancer or advanced adenoma (pre-cancer). Patients with a negative Cologuard test result should be advised to continue participating in a colorectal cancer screening program. Cologuard may produce a positive result, even though a colonoscopy may not find colorectal cancer or precancerous polyps. The performance of Cologuard has been established in a cross sectional study (i.e., single point in time). Performance has not been evaluated in adults who have been previously tested with Cologuard or in patients less than 50 years of age. Cologuard has been approved for use by the U.S. FDA. Cologuard performance data in a 10,000 patient pivotal study using colonoscopy as the reference method can be accessed at the following location: www.[employer]do[employer]/results. Additional description of the Cologuard test process, warnings and precautions can be found at www.cologuardtest.com. Rx Only. Stool specimen (specimen) STOOL SPECIMEN / Unknown 11/17/2018 8:00 AM CDT 11/18/2018 4:34 PM CDT us Virgil Love MD LAB - CHEMISTRY ORDERABLES F inal Result [facility] [address] [place] [id number] * ENDOSCOPY, COLON, SCREENING (06/10/2018) us Kofi Mendez MD GI PROCEDURE ORDERABLES F inal Result Performing Organization Address City/[facility] Co de Phone Number [facility] RESULT SCAN * HEPATITIS C ANTIBODY (03/04/2013 9:19 AM CDT) Hepatitis C Antibody <0.1 0.0 - 0.9 s/co ratio [facility] ACCOUNT BILL Comment: Negative: < 0.8 Indeterminate 0.8 - 0.9 Positive: > 0.9 . In order to reduce the incidence of a false positive result, the CDC recommends that all s/co ratios between 1.0 and 10.9 be confirmed by a more specific supplemental or PCR testing. [facility] offers HCV Ab w/Reflex to Verification test #[id number]. Blood specimen (specimen) BLOOD SPECIMEN / Unknown 03/04/2013 9:19 AM CDT 03/04/2013 12:01 PM CDT Narrative Resulting Agency Comment [facility] [address] [facility] [id number] us Justin Cowan MD LAB - CHEMISTRY ORDERABLES Fin al Result Performing Organization Address [facility] de Phone Number [facility] ACCOUNT BILL [address] [place] [address] from Last 3 Months or Most Recently Relevant to Health Maintenance Insurance MANAGED MEDICARE ADV MANAGED MEDICARE ADV Advance Directives Documents on File Type Date Recorded Patient Tin Tie Machine Operator Automatic Expl anation Adv Directive/Living Will/POA 04/12/2022 10:08 PM Adv Directive/Living Will/POA 06/26/2018 9:49 PM Adv Directive/Living Will/POA 06/18/2018 4:59 PM * Full Code (Latest Code Status on File) Date Activated Date Inactivated Comments 04/10/2022 3:59 PM 04/11/2022 3:30 PM * Full Code Date Activated Date Inactivated Comments 09/27/2021 10:01 AM 10/02/2021 6:13 PM * Full Code Date Activated Date Inactivated Comments 08/08/2020 9:36 PM 08/10/2020 3:33 PM * Full Code Date Activated Date Inactivated Comments 08/08/2020 8:43 PM 08/08/2020 9:36 PM * Full Code Date Activated Date Inactivated Comments 06/24/2018 11:50 AM 06/25/2018 5:15 PM Care Teams Wool Merchant Relationship Specialty Start Date End Date Josue Delgado MD [address] [place] [id number] PCP - General Family Medicine 09/15/24 Yeimi Ramos OD [address] [facility] [place] [address] Supervisor Mirror Fabrication 10/30/15 Virgil Love MD [address] [place] [address] Family Medicine 11/25/19 Juju Toledo MD [address] [facility] [address] [place] [phone] Orthopedic Surgery 11/25/19 [place] [address] [address] Surgeon Orthopedic Surgery 05/07/21 [place] [address] [place] [address] Orthopedic Surgery 09/07/21 Dylan Ann MD [address] [place] [address] Cardiology 03/19/22 Kathy Galindo MD [address] [place] [address] Pulmonary Disease 08/20/22
--- OUTSIDE RECORDS SUMMARY | 2024-10-11 01:00 | XMS_ITS | Encounter Summary ---
Author Organization [facility] Address [address] [place] [address] Care Team Providers Care Butcher Scullion Name Role Phone Charles Cardenas MD Unavailable [phone] Grant Desir MD Unavailable [phone] Kofi Mendez MD Unavailable [phone] Charles Soria DO Unavailable [phone] Yeimi Ramos OD Unavailable [phone] Fannie Combs BAIT PAINTER-ACCOUNTS PAYABLE MANAGER Unavailable [phone] Virgil Love MD Unavailable [phone] Juju Toledo MD Unavailable [phone] Steve Stovall MD Unavailable Paula HDEZ MD, Frank Unavailable [phone] Virgil Love MD Primary Care Provider Maura Gallo MD Unavailable [phone] Dylan Ann MD Unavailable Maura Gallo MD Unavailable Kathy Galindo MD Unavailable Virgil Love MD Unavailable None, Physician Primary Care Provider Josue Alvarez MD Primary Care Provider Encounter Details Date Type Department Care Team (Late st Contact Info) Description 11/09/2021 [facility] Outpatient Visit [facility] Orthopedics - Radiology [address] [place] [address] Document, Scanned Social History Tobacco Use Types Packs/Day Years Used Date Smoking Tobacco: Never Smokeless Tobacco: Never Alcohol Use Standard Drinks/Week Comments No 4 (1 standard drink = 0.6 oz pur e alcohol) PHQ-2 Answer Date Recorded PHQ2 TOTAL SCORE 0 09/07/2021 Hunger Vital Sign Answer Date Recorded Within the past 12 months, y ou worried that your food would run out before you got the money to buy more. Never true 09/29/19 22 Within the past 12 months, t he food you bought just didn't last and you didn't have money to get more. Never true 09/28/2021 Sex and Gender Information Value Date Recorded Sex Assigned at Male 05/12/2020 8:18 AM HORIZONTAL DRILL OPERATOR Legal Sex Male 7:20 AM HORIZONTAL DRILL OPERATOR Gender Identity Male 05/12/2020 8:18 AM HORIZONTAL DRILL OPERATOR Sexual Orientation Straight 05/12/2020 8: 18 AM HORIZONTAL DRILL OPERATOR documented as of this encounter Functional Status * Is person deaf or have serious hearing difficulty? Answer Date of Assessment Author No 09/28/2021 7:44 PM Kulkarni RN * Is person blind or have serious difficulty seeing? Answer Date of Assessment Author No 09/28/2021 7:44 PM Kulkarni RN * Does person have serious difficulty walking/climbing stairs? Answer Date of Assessment Author No 09/28/2021 7:44 PM Kulkarni RN * Does person have difficulty dressing/bathing? Answer Date of Assessment Author No 09/28/2021 7:44 PM Kulkarni RN * Does person have difficulty doing errands alone? Answer Date of Assessment Author No 09/28/2021 7:44 PM Kulkarni RN documented as of this encounter Mental Status * Does person have difficulty concentrating/remembering/making decisions? Answer Entry Date Author No 09/28/2021 7:44 PM CDT Philippe RN documented in this encounter Plan of Treatment Upcoming Encounters Date Type Department Care Team (Latest Contact Info) Description 12/06/2024 12:50 PM CDT Procedure visit [facility] Orthopedics [address] [id number] Juju Toledo MD [address] [address] 12/06/2024 1:15 PM CDT Hospital Encounter [facility] - [address] [place], [place] [phone] Juju Toledo MD [address] [facility] [address] [address] Surgery General 12/06/2024 1:15 PM CDT - 12/06/2024 2:15 PM CDT Surgery [facility] - [address] [place], [place] [phone] Juju Toledo MD [address] [address] LEFT KNEE ARTHROSCOPY WITH PARTIAL MENISCECTOMY AND POSSIBLE CHONDROPLASTY 12/16/2024 10:45 AM CDT Office Visit [facility] Orthopedics [address] [phone] Nicole [place], [place] [address] [place] [address] Scheduled Procedures Name Priority Associated [...] on filedocumented in this encounter Care Teams Butcher Scullion Relationship Specialty Start Date End Date Virgil Love MD [address] [facility] [address] [place] [address] PCP - General Family Medicine 09/07/21 08/17/24 [place] [address] [facility] [address] [place] [address] PCP - Attributed-[facility] 07/31/21 [place] [address] [facility] [address] [place] [address] PCP - Attributed-[facility] [place] 02/28/22 Virgil Love MD [address] [facility] [address] [place] [address] PCP - Attributed-[facility] [place] ST[place] P4P 10/29/23 09/14/24 None, Physician PCP - General 08/18/24 09/14/24 Josue Delgado MD [address] [place] [address] PCP - General Family Medicine 09/15/24 Charles Cardenas MD [address] [place] [address] Pulmonary Disease 09/19/10 05/19/22 Grant Desir MD [address] [place] [phone] Endocrinology 03/02/13 05/19/22 Kofi Mendez MD [address] [place] [address] [address] [place] [phone] Gastroenterology 03/02/13 05/19/22 Charles Soria DO [address] [place] [phone] Orthopedic Surgery 12/16/14 05/19/22 Yeimi Ramos, OD [address] [facility] [place] [address] Busperson 10/30/15 Fannie Combs, BAIT PAINTER-ACCOUNTS PAYABLE MANAGER [address] [facility] [address] [place] [address] Nurse Practitioner Nurse Practitioner 05/15/17 08/19/22 Virgil Love MD [address] [facility] [address] [place] [address] Family Medicine 11/25/19 Juju Toledo MD [address] [place] [phone] Orthopedic Surgery 11/25/19 [place] [address] [place], [place] [phone] Surgeon Orthopedic Surgery 05/07/21 [place] [address] [place] [address] Orthopedic Surgery 09/07/21 Dylan Ann MD [address] [place] [address] Cardiology 03/19/22 Kathy Galindo MD [address] [place] [address] Pulmonary Disease 08/20/22 documented as of this encounter
--- OUTSIDE RECORDS SUMMARY | 2024-10-11 01:00 | XMS_ITS | Encounter Summary ---
Author Organization [facility] Address [address] [facility] [place] [address] Care Team Providers Care Farmworker Fruit Name Role Phone Charles Cardenas MD Unavailable [phone] Javi Sotelo MD Unavailable Grant Desir MD Unavailable [phone] Kofi Mendez MD Unavailable [phone] Charles Soria DO Unavailable [phone] Juju Toledo MD Unavailable [phone] Yeimi Ramos OD Unavailable [phone] Byron Nickerson MD Unavailable Unavailable Fannie Combs BEHAVIORAL HEALTH CONSULTANT-MANUFACTURING AUTOMATION ENGINEER Unavailable [phone] Maura Gallo MD Unavailable [phone] Virgil Love MD Unavailable [phone] Juju Toledo MD Unavailable [phone] Virgil Love MD Unavailable [phone] Maura Gallo MD Unavailable Maura Gallo MD Primary Care Provider Steve Stovall MD Unavailable [phone] Virgil Love MD Primary Care Provider + [phone] David Flores MD Unavailable [phone] Paula HDEZ MD, Javi Unavailable [phone] Virgil Love MD Primary Care Provider + [phone] Maura Gallo MD Unavailable [phone] Dylan Ann MD Unavailable [phone] Maura Gallo MD Unavailable [phone] Kathy Galindo MD Unavailable Virgil Love MD Unavailable [phone] None, Physician Primary Care Provider UnavailJosue Cai MD Primary Care Provider [phone] Encounter Details Date Type Department Care Team (Late st Contact Info) Description 11/17/2019 Lab Requisition [facility] Care DermPath Lab [address] [facility], [facility] [place] [address] Dario Sanabria MD [address] [place] [address] Social History Tobacco Use Types Packs/Day Years Used Date Smoking Tobacco: Never Smokeless Tobacco: Never Alcohol Use Standard Drinks/Week Comments No 4 (1 standard drink = 0.6 oz pur e alcohol) Sex and Gender Information Value Date Recorded Sex Assigned at Male 05/12/2020 8:18 AM CROSSING FLAGMAN Legal Sex Male 7:20 AM CROSSING FLAGMAN Gender Identity Male 05/12/2020 8:18 AM CROSSING FLAGMAN Sexual Orientation Straight 05/12/2020 8: 18 AM CROSSING FLAGMAN COVID-19 Exposure Response Date Recorded In the last month, have you been in contact with someone who was confirmed or suspected to have Coronavirus / COVID-19? No / Unsure 11/03/2019 10:40 AM CDT documented as of this encounter Functional [...] Description 12/06/2024 12:50 PM CDT Procedure visit [facility] Orthopedics [address] [place] [address] Juju Toledo MD [address] [phone] 12/06/2024 1:15 PM CDT Hospital Encounter [facility] [address] [place] [address] Juju Toledo MD [address] [phone] Surgery General 12/06/2024 1:15 PM CDT - 12/06/2024 2:15 PM CDT Surgery [facility] - [address] [address] [place] [address] Juju Toledo MD [address] [phone] LEFT KNEE ARTHROSCOPY WITH PARTIAL MENISCECTOMY AND POSSIBLE CHONDROPLASTY 12/16/2024 10:45 AM CDT Office Visit [facility] Health Orthopedics [address] [place] [address] Nicole Spencer, [place] [address] [place] [address] Scheduled Procedures Name [...] Priority Date/Time Associated Diagnosis Comments DERMATOPATHOLOGY Routine 11/16/2019 12:0 0 AM CDT documented in this encounter Results * DERMATOPATHOLOGY (11/16/2019 12:00 AM CDT) Case Report Dermatopathology Report Case: [id number] Authorizing Provider: Dario Sanabria MD Collected: 11/16/2019 12:00 AM Ordering Location: [facility] DermPath Lab Received: 11/17/2019 09:52 AM Pathologist: Scott Donnelly MD Specimens: A) - Skin, scalp A B) - Skin, scalp B C) - Skin, scalp C D) - Skin, scalp D E) - Skin, scalp E 0 5:19 PM CDT DERMATOPATHOLOGY LABORATORY Addendum 1 Specimen E The malignant dermal spindle cell neoplasm is not present at the base of the specimen. 0 5:19 PM CDT DERMATOPATHOLOGY LABORATORY Addendum electronically signed by Scott Donnelly MD on 11/26/2019 at 5:18 PM Final Diagnosis Specimen A. SKIN, scalp A: DERMAL FIBROSIS (L90.5) Specimen B. SKIN, scalp B: DERMAL FIBROSIS (L90.5) Specimen C. 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 SKIN, scalp D: ACTINIC KERATOSIS (L57.0) Specimen E. 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 Check margins. 0 5:19 PM CDT DERMATOPATHOLOGY LABORATORY Gross Description A: [id number]. B: [id number]. C: 18i3x5nz. D: [id number]. E: [id number]. 0 5:19 PM CDT DERMATOPATHOLOGY LABORATORY Microscopic Description Specimen A. SKIN, scalp A: The epidermis is unremarkable. There is focal dermal fibrosis. Tumor is not present in the sections examined. Specimen B. SKIN, scalp B: The epidermis is unremarkable. There is focal dermal fibrosis. Tumor is not present in the sections examined. Specimen C. SKIN, scalp C: The epidermis shows parakeratosis, full thickness disorderly maturation of keratinocytes, mitoses at different levels, and dyskeratotic cells. Specimen D. SKIN, scalp D: There is focal parakeratosis. The lower half of the epidermis shows disorderly maturation of keratinocytes with nuclear pleomorphism. Specimen E. SKIN, scalp E: There is a cellular, dermal based tumor comprised of spindle, oval, and polygonal cells with pleomorphic and polymorphic nuclei. Multinucleated giant cells and mitotic figures are present. There are fibroblasts and collagen bundles oriented parallel to the skin surface with elongated blood vessels, some of which are oriented perpendicular to the skin surface. 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 At the request of the clinician immunohistochemical stains can be performed. 0 5:19 PM CDT DERMATOPATHOLOGY LABORATORY Disclaimer An external and internal positive and negative controls are appropriate for the histochemical, immunohistochemical and immunofluorescence stain(s) in this case (if any), except where stated explicitly. The performance characteristics of the stain(s) cited in this report were developed and its performance characteristic determined by the Dermatopathology Laboratory at [facility], directed by Dr. Joey Donnelly. These tests need not be, and therefore are not, approved by the [place] Food and Drug Administration. The tests are used for clinical purposes. Billing Codes Specimen Charges Stain Charges 33550 71386 65351 23976 68611 1 1 1 1 1 0 5:19 PM CDT DERMATOPATHOLOGY LABORATORY Embedded Images 0 5:19 PM CDT DERMATOPATHOLOGY LABORATORY Pathology/Cytology TISSUE SPECIMEN FROM SKIN / Unknown 11/16/2019 11/17/2019 9:52 AM CDT Miscellaneous samples (specimen) TISSUE SPECIMEN FROM SKIN / Unknown 11/16/2019 11/17/2019 9:52 AM CDT Miscellaneous samples (specimen) TISSUE SPECIMEN FROM SKIN / Unknown 11/16/2019 11/17/2019 9:52 AM CDT Miscellaneous samples (specimen) TISSUE SPECIMEN FROM SKIN / Unknown 11/16/2019 11/17/2019 9:52 AM CDT Miscellaneous samples (specimen) TISSUE SPECIMEN FROM SKIN / Unknown 11/16/2019 11/17/2019 9:52 AM CDT Dario Sanabria MD LAB - PATHOLOGY/CYTOLOGY ORDERA BLES Edited Result - Final DERMATOPATHOLOGY LABORATORY [facility] - Department of Dermatology Leaded Glass Installer [place] [address], [facility] [phone] documented in this encounter Visit Diagnoses Not on filedocumented in this encounter Care Teams Farmworker Fruit Relationship Specialty [place] [address] [place] [address] PCP - Attributed-[facility] 08/28/18 03/20/20 Virgil Love MD [address] [facility] [address] [place] [address] PCP - Attributed-[facility] [place] 10/29/19 01/28/20 [place] [address] [place] [address] PCP - Attributed-[facility] [place] 01/29/20 06/14/21 [place] [address] [place] [address] PCP - General Family Medicine 05/07/21 05/14/21 Virgil Love MD [address] [facility] [address] [place] [address] PCP - General Family Medicine 06/06/21 09/06/21 Virgil Love MD [address] [facility] [address] [place] [address] PCP - General Family Medicine 09/07/21 08/17/24 [place] [address] [place] [address] PCP - Attributed-[facility] [place] 07/31/21 12/14/21 [place] [address] [place] [address] PCP - Attributed-[facility] 02/28/22 10/16/23 Virgil Love MD [address] [facility] [address] [place] [address] PCP - Attributed-[facility] ST P4P 10/29/23 09/14/24 None, Physician PCP - General 08/18/24 09/14/24 Josue Delgado MD [address] [facility] [place] [address] PCP - General Family Medicine 09/15/24 Charles Cardenas MD [address] [place] [address] Pulmonary Disease 09/19/10 05/19/22 Javi Sotelo MD [address] [facility] [address] [place] [address] Dermatology 08/23/11 09/06/21 Grant Desir MD [address] [facility] [address] [place] [address] Endocrinology 03/02/13 05/19/22 Kofi Mendez MD [address] [facility] [address] [place] [address] Gastroenterology 03/02/13 05/19/22 Charles Soria DO [address] [place] [phone] Orthopedic Surgery 12/16/14 05/19/22 Juju Toledo MD [address] [facility] [address] [place] [address] Orthopedic Surgery 08/08/15 09/06/21 Yeimi Ramos, OD [address] [facility] [place] [address] Veneer Slicing Machine Operator 10/30/15 Byron Nickerson MD [address] [facility] [place] [address] Physician Hematology and Oncology 05/15/17 09/06/21 Fannie Combs APRN-MANUFACTURING AUTOMATION ENGINEER [address] [facility] [address] [place] [address] Nurse Practitioner Nurse Practitioner 05/15/17 08/19/22 Vrigil Love MD [address] [facility] [address] [place] [address] Family Medicine 11/25/19 Juju Toledo MD [address] [facility] [address] [place] [address] Orthopedic Surgery 11/25/19 [place] [address] [place] [address] Surgeon Orthopedic Surgery 05/07/21 [place] [address] [place], [place] [id number] Physical Medicine and Rehabilitation 07/19/21 09/06/21 [place] [address] [place] [address] Orthopedic Surgery 09/07/21 Dylan Ann MD [address] [place] [address] Cardiology 03/19/22 Kathy Galindo MD [address] [place] [address] Pulmonary Disease 08/20/22 documented as of this encounter
--- OUTSIDE RECORDS SUMMARY | 2024-10-11 01:00 | XMS_ITS | Encounter Summary ---
Author Organization [facility] Address [address] [place] [address] Care Team Providers Care Patch Sander Name Role Phone Yeimi Ramos OD Unavailable [phone] Virgil Love MD Unavailable Juju Toledo MD Unavailable [phone] Steve Stovall MD Unavailable [phone] Paula HDEZ MD, Frank Unavailable [phone] Virgil Love MD Primary Care Provider Dylan Ann MD Unavailable Maura Gallo MD Unavailable Kathy Galindo MD Unavailable Virgil Love MD Unavailable None, Physician Primary Care Provider UnavailJosue Cai MD Primary Care Provider [phone] Encounter Details Date Type Department Care Team (Late st Contact Info) Description 11/19/2022 Lab Requisition [facility] - DermPath Lab [address] [facility] [place] [address] Venkata Mckeon MD [phone] [place] [address] Neoplasm of uncertain behavior of skin Social History Tobacco Use Types Packs/Day Years [...] occasion? Never 04/10/2022 PHQ-2 Answer Date Recorded PHQ2 TOTAL SCORE 0 08/20/2022 Hunger Vital Sign Answer Date Recorded Within [...] Sex Assigned at Male 05/12/2020 8:18 AM BREAKDOWN MILL OPERATOR Legal Sex Male 7:20 AM BREAKDOWN MILL OPERATOR Gender Identity Male 05/12/2020 8:18 AM BREAKDOWN MILL OPERATOR Sexual Orientation Straight 05/12/2020 8: 18 AM BREAKDOWN MILL OPERATOR documented as of this encounter Functional [...] Description 12/06/2024 12:50 PM CDT Procedure visit [facility] Orthopedics [address] [address] Juju Toledo MD [address] [address] 12/06/2024 1:15 PM CDT Hospital Encounter [facility] - [address] [place] [address] Jjuu Toledo MD [address] [phone] Surgery General 12/06/2024 1:15 PM CDT - 12/06/2024 2:15 PM CDT Surgery [facility] - [address] [place] [address] Juju Toledo MD [address] [phone] LEFT KNEE ARTHROSCOPY WITH PARTIAL MENISCECTOMY AND POSSIBLE CHONDROPLASTY 12/16/2024 10:45 AM CDT Office Visit [facility] Orthopedics [address] [phone] Nicole Spencer PA [address] [place] [address] Scheduled Procedures Name Priority Associated Diagnoses Date/Ti [...] Priority Date/Time Associated Diagnosis Comments DERMATOPATHOLOGY Routine 11/19/2022 3:33 AM CDT Neoplasm of uncertain behavior of skin [ICD-10-CM] documented in this encounter Results * DERMATOPATHOLOGY (11/19/2022 3:33 AM CDT) Case Report Dermatopathology Report Case: [id number] Authorizing Provider: Venkata Mckeon MD Collected: 11/19/2022 03:33 AM Ordering Location: [facility] DermPath Lab Received: 11/20/2022 01:53 PM Pathologist: Radha Koch MD Specimen: Skin, sternum 3 4:08 PM CDT DERMATOPATHOLOGY LABORATORY Final Diagnosis Specimen A. SKIN, sternum: ACTINIC KERATOSIS, PIGMENTED (L57.0) SEBORRHEIC KERATOSIS, IRRITATED AND INFLAMED (L82.0) (see microscopic description) 3 4:08 PM CDT DERMATOPATHOLOGY LABORATORY Clinical History Neoplasm of Uncertain Behavior vs. SK vs. Lentigo R/O MIS 3 4:08 PM CDT DERMATOPATHOLOGY LABORATORY Gross Description Specimen A: Received is one formalin filled container labeled with the patient's name and designated sternum. The specimen consists of a shave biopsy measuring 87w30h0 mm. Jar 0. 3 4:08 PM CDT DERMATOPATHOLOGY LABORATORY Microscopic Description Specimen A. SKIN, sternum: There is alternating orthokeratosis and parakeratosis. Along the undersurface of the epidermis, there are buds of atypical keratinocytes in a disorderly arrangement. There is prominent pigmentation in some of the keratinocytes. Sections show adjacent acanthosis, papillomatosis, hyperkeratosis, and squamous eddies. There is a lymphohistiocytic infiltrate within the papillary dermis. 3 4:08 PM CDT DERMATOPATHOLOGY LABORATORY Disclaimer An external and internal positive and negative controls are appropriate for the histochemical, immunohistochemical and immunofluorescence stain(s) in this case (if any), except where stated explicitly. The performance characteristics of the stain(s) cited in this report were developed and its performance characteristic determined by the Dermatopathology Laboratory at [facility], directed by Dr. Joey Donnelly. These tests need not be, and therefore are not, approved by the [place] Food and Drug Administration. The tests are used for clinical purposes. Billing Codes Specimen Charges Stain Charges 26222 1 3 4:08 PM CDT DERMATOPATHOLOGY LABORATORY Embedded Images 3 4:08 PM CDT DERMATOPATHOLOGY LABORATORY Pathology/Cytolo gy TISSUE SPECIMEN FROM SKIN / Unknown 11/19/2022 3:33 AM CDT 11/20/2022 1:53 PM CDT Venkata Mckeon MD LAB - PATHOLOGY/CYTOLOGY ORDERAB LES Final Result DERMATOPATHOLOGY LABORATORY [facility] - Department of Dermatology [facility] Medicine [address] [place] [address], 3rd [place] [address], [facility] [phone] documented in this encounter Visit Diagnoses Diagnosis Neoplasm of uncertain behavior of skin documented in this encounter Care Teams Patch Sander Relationship Specialty Start Date End Date Virgil Love MD [address] [facility] [address] [place] [address] PCP - General Family Medicine 09/07/21 08/17/24 [place] [address] [place] [address] PCP - Attributed-[facility] 02/28/22 Virgil Love MD [address] [facility] [address] [place] [address] PCP - Attributed-[facility] STL P4P 10/29/23 09/14/24 None, Physician PCP - General 08/18/24 09/14/24 Josue Delgado MD [address] [place] [address] PCP - General Family Medicine 09/15/24 Yeimi Ramos, OD [address] [facility] [address] Business Services Administrator 10/30/15 Virgil Love MD [address] [facility] [facility] [address] [place] [address] Family Medicine 11/25/19 Juju Toledo MD [address] [place] [phone] Orthopedic Surgery 11/25/19 [place] [address] [place] [address] Surgeon Orthopedic Surgery 05/07/21 [place] [address] [place] [address] Orthopedic Surgery 09/07/21 Dylan Ann MD [address] [place] [address] Cardiology 03/19/22 Kathy Galindo MD [address] [place] [address] Pulmonary Disease 08/20/22 documented as of this encounter
--- OUTSIDE RECORDS SUMMARY | 2024-10-11 01:00 | XMS_ITS | Encounter Summary ---
Author Organization [facility] Address [address] [facility] [place] [address] Care Team Providers Care Elementary [employer] Principal Name Role Phone Charles Cardenas MD Unavailable [phone] Grant Desir MD Unavailable [phone] Kofi Mendez MD Unavailable [phone] Charles Soria DO Unavailable [phone] Yeimi Ramos OD Unavailable [phone] Fannie Combs MANAGER ETHICS-PROCEDURAL NURSE Unavailable [phone] Virgil Love MD Unavailable [phone] Juju Toledo MD Unavailable Steve Stovall MD Unavailable [phone] Paula HDEZ MD, Frank Unavailable [phone] Virgil Love MD Primary Care Provider Maura Gallo MD Unavailable Dylan Ann MD Unavailable Maura Gallo MD Unavailable [phone] Kathy Galindo MD Unavailable Virgil Love MD Unavailable [phone] None, Physician Primary Care Provider Josue Alvarez MD Primary Care Provider Encounter Details Date Type Department Care Team (Late st Contact Info) Description 11/29/2021 [facility] Outpatient Visit [facility] Orthopedics - Radiology [address] [place] [address] Document, Scanned Social History Tobacco Use Types [...] Sex Assigned at Male 05/12/2020 8:18 AM TRAVELING FREIGHT AGENT Legal Sex Male 7:20 AM TRAVELING FREIGHT AGENT Gender Identity Male 05/12/2020 8:18 AM TRAVELING FREIGHT AGENT Sexual Orientation Straight 05/12/2020 8: 18 AM TRAVELING FREIGHT AGENT documented as of this encounter Functional Status [...] Description 12/06/2024 12:50 PM CDT Procedure visit [facility] Orthopedics [address] [phone] Juju Toledo MD [address] [address] 12/06/2024 1:15 PM CDT Hospital Encounter [facility] - [address] [place], [place] [phone] Juju Toledo MD [address] [facility] [address] [address] Surgery General 12/06/2024 1:15 PM CDT - 12/06/2024 2:15 PM CDT Surgery [facility] - [address] [place], [place] [address] Juju Toledo MD [address] [address] LEFT KNEE ARTHROSCOPY WITH PARTIAL MENISCECTOMY AND POSSIBLE CHONDROPLASTY 12/16/2024 10:45 AM CDT Office Visit [facility] Orthopedics [address] [phone] Nicole Spencer, PA [address] [place] [address] Scheduled Procedures Name Priority Associated Diagnoses Date/Ti me ARTHROSCOPY KNEE WITH MENISCECTOMY (MEDIAL/LATERAL) S83.207A 12/06/2024 1:15 PM CDT documented as of this encounter Goals Goal Patient Goal Type Associated Problems Recent Progress Patient-Stated? Author Blood Pressure < 140/90 Blood Pressure 132/86(2023 1:48 PM CDT) No Rojleio, Leonor Blood Pressure < 140/90 Blood Pressure 132/86(2023 1:48 PM CDT) No Rojelio, Leonor Blood Pressure < 140/90 Blood Pressure 132/86(2023 1:48 PM CDT) No Rojelio, Leonor Blood Pressure < 140/90 Blood Pressure 132/86(2023 1:48 PM CDT) No Rojelio, Leonor [facility] Lifestyle: Have labs drawn Lifestyle No Rojelio, Leonor [facility] Lifestyle: Have labs drawn Lifestyle No Rojelio, Leonor Have labs drawn Lifestyle No Rojleio, Leonor documented as of this encounter Visit Diagnoses Not on filedocumented in this encounter Care Teams Elementary [employer] Principal Relationship Specialty Start Date End Date Virgil Love MD [address] [facility] 200 [place] [address] PCP - General Family Medicine 09/07/21 08/17/24 [place] [address] [facility] [address] [place] [address] PCP - Attributed-[facility] 07/31/21 [place] [address] [facility] [place] [address] PCP - Attributed-[facility] [place] 02/28/22 Virgil Love MD [address] [facility] 200 [place] [address] PCP - Attributed-[facility] [place] STL P4P 10/29/23 09/14/24 None, Physician PCP - General 08/18/24 09/14/24 Josue Delgado MD [address] [place] [address] PCP - General Family Medicine 09/15/24 Charles Cardenas MD [address] [place] [address] Pulmonary Disease 09/19/10 05/19/22 Grant Desir MD [address] [facility] [address] [place] [address] Endocrinology 03/02/13 05/19/22 Kofi Mendez MD [address] [place] [address] [address] [place] [address] Gastroenterology 03/02/13 05/19/22 Charles Soria DO [address] [place] [address] Orthopedic Surgery 12/16/14 05/19/22 Yeimi Ramos, OD [address] [facility] [place] [address] Rim Turning Finisher 10/30/15 Fannie Combs, MANAGER ETHICS-PROCEDURAL NURSE [address] [facility] [address] [place] [address] Nurse Practitioner Nurse Practitioner 05/15/17 08/19/22 Virgil Love MD [address] [facility] [address] [place] [address] Family Medicine 11/25/19 Juju Toledo MD [address] [place] [address] Orthopedic Surgery 11/25/19 [place] [address] [place], [place] [address] Surgeon Orthopedic Surgery 05/07/21 [place] [address] [address] [place] [address] Orthopedic Surgery 09/07/21 Dylan Ann MD [address] [place] [address] Cardiology 03/19/22 Kathy Galindo MD [address] [place] [address] Pulmonary Disease 08/20/22 documented as of this encounter
--- OUTSIDE RECORDS SUMMARY | 2024-10-11 01:00 | XMS_ITS | Encounter Summary ---
Author Organization [facility] Address [address] [facility] [place] [address] Care Team Providers Care Airline Lounge Receptionist Name Role Phone Charles Cardenas MD Unavailable [phone] Javi Sotelo MD Unavailable [phone] Grant Desir MD Unavailable Kofi Mendez MD Unavailable [phone] Charles Soria DO Unavailable +[phone] Juju Toledo MD Unavailable [phone] Yeimi Ramos OD Unavailable [phone] Byron Nickerson MD Unavailable Unavailable Fannie Combs BANANA EXPERT-FELLER OPERATOR Unavailable +[phone] Maura Gallo MD Unavailable Virgil Love MD Unavailable Juju Toledo MD Unavailable [phone] Maura Gallo MD Unavailable Virgil Love MD Unavailable [phone] Maura Gallo MD Unavailable [phone] Maura Gallo MD Primary Care Provider [phone] Steve Stovall MD Unavailable [phone] Virgil Love MD Primary Care Provider + [phone] David Flores MD Unavailable +[phone] Paula HDEZ MD, Javi Unavailable +[phone] Virgil Love MD Primary Care Provider + [phone] Maura Gallo MD Unavailable [phone] Dylan Ann MD Unavailable +[phone] Maura Gallo MD Unavailable +[phone] Kathy Galindo MD Unavailable Virgil Love MD Unavailable [phone] None, Physician Primary Care Provider UnavailJosue Cai MD Primary Care Provider [phone] Encounter Details Date Type Department Care Team (Late st Contact Info) Description 11/16/2018 [facility] [address] [place] [address] Juju Toledo MD [address] [place] [address] Social History Tobacco Use Types Packs/Day Years Used Date Smoking Tobacco: Never Smokeless Tobacco: Never Alcohol Use Standard Drinks/Week Comments No 4 (1 standard drink = 0.6 oz pur e alcohol) Sex and Gender Information Value Date Recorded Sex Assigned at Male 05/12/2020 8:18 AM TOE SEWER Legal Sex Male 7:20 AM TOE SEWER Gender Identity Male 05/12/2020 8:18 AM TOE SEWER Sexual Orientation Straight 05/12/2020 8: 18 AM TOE SEWER documented as of this encounter Functional Status [...] Description 12/06/2024 12:50 PM CDT Procedure visit [facility] Orthopedics [address] [address] Juju Toledo MD [address] [phone] 12/06/2024 1:15 PM CDT Hospital Encounter [facility] - [address] [place] [address] Juju Toledo MD [address] [address] Surgery General 12/06/2024 1:15 PM CDT - 12/06/2024 2:15 PM CDT Surgery [facility] - [address] [place] [address] Juju Toledo MD [address] [phone] LEFT KNEE ARTHROSCOPY WITH PARTIAL MENISCECTOMY AND POSSIBLE CHONDROPLASTY 12/16/2024 10:45 AM CDT Office Visit [facility] [address] [place] [address] Nicole Spencer PA [address] [place] [address] Scheduled Procedures Name Priority Associated [...] on filedocumented in this encounter Care Teams Airline Lounge Receptionist Relationship Specialty [place] [address] [place] [address] PCP - Attributed-MSSP 08/28/18 03/20/20 [place] [address] [place] [address] PCP - Attributed-C MA 08/29/19 10/28/19 Virgil Love MD [address] [place] [address] PCP - Attributed-C [place] 10/29/19 01/28/20 [place] [address] [place], [place] [address] PCP - Attributed-[facility] 01/29/20 06/14/21 [place] [address] [place] [address] PCP - General Family Medicine 05/07/21 05/14/21 Virgil Love MD [address] [facility] [address] [place] [address] PCP - General Family Medicine 06/06/21 09/06/21 Virgil Love MD [address] [facility] [address] [place] [address] PCP - General Family Medicine 09/07/21 08/17/24 [place] [address] [place] [address] PCP - Attributed-[facility] 07/31/21 12/14/21 [place] [address] [place] [address] PCP - Attributed-C [place] 02/28/22 10/16/23 Virgil Love MD [address] [facility] [address] [place] [address] PCP - Attributed-[facility] STL P4P 10/29/23 09/14/24 None, Physician PCP - General 08/18/24 09/14/24 Josue Delgado MD [address] [place] [address] [place] [phone] PCP - General Family Medicine 09/15/24 Charles Cardenas MD [address] [facility] [address] [place] [address] Pulmonary Disease 09/19/10 05/19/22 Javi Sotelo MD [address] [facility] [address] [place] [address] Dermatology 08/23/11 09/06/21 Grant Desir MD [address] [facility] [address] [place] [address] Endocrinology 03/02/13 05/19/22 Kofi Mendez MD [address] [place] [address]y [address] [place] [address] Gastroenterology 03/02/13 05/19/22 Charles Soria DO [address] [facility] [address] [place] [address] Orthopedic Surgery 12/16/14 05/19/22 Juju Toledo MD [address] [facility] [address] [address] [address] [place] [address] Orthopedic Surgery 08/08/15 09/06/21 Yeimi Ramos, OD [address] [facility] [place] [address] Supervisor Loading 10/30/15 Byron Nickerson MD [address] [facility] [place] [address] Physician Hematology and Oncology 05/15/17 09/06/21 Fannie Combs, BANANA EXPERT-FELLER OPERATOR [address] [facility] [address] [place] [address] Nurse Practitioner Nurse Practitioner 05/15/17 08/19/22 Virgil Love MD [address] [facility] [address] [place] [address] Family Medicine 11/25/19 Juju Toledo MD [address] [place] [address] Orthopedic Surgery 11/25/19 [place] [address] [place] [address] Surgeon Orthopedic Surgery 05/07/21 [place] [address] [place] [address] Physical Medicine and Rehabilitation 07/19/21 09/06/21 [place] [address] [place], [place] [phone] Orthopedic Surgery 09/07/21 Dylan Ann MD [address] [place] [address] Cardiology 03/19/22 Kathy Galindo MD [address] [place] [address] Pulmonary Disease 08/20/22 documented as of this encounter
--- OUTSIDE RECORDS SUMMARY | 2024-10-11 01:00 | XMS_ITS | Encounter Summary ---
Author Organization [facility] Address [address] [facility] [place] [address] Care Team Providers Care Repatcher Name Role Phone Justin Cowan MD Primary Care Provider [phone] Charles Cardenas MD Unavailable [phone] Javi Sotelo MD Unavailable [phone] Grant Desir MD Unavailable Kofi Mendez MD Unavailable Charles Soria DO Unavailable Juju Toledo MD Unavailable [phone] Yeimi Ramos OD Unavailable Tona Suarez RN Unavailable +[phone] Byron Nickerson MD Unavailable Unavailable Fannie Combs COOKER LOADER-CANDY POLISHER Unavailable [phone] Virgil Love MD Primary Care Provider Justin Cowan MD Primary Care Provider Maura Gallo MD Unavailable Virgil Love MD Unavailable Juju Toledo MD Unavailable [phone] Maura Gallo MD Unavailable [phone] Virgil Love MD Unavailable [phone] Maura Gallo MD Unavailable [phone] Maura Gallo MD Primary Care Provider [phone] Steve Stovall MD Unavailable [phone] Virgil Love MD Primary Care Provider + [phone] David Flores MD Unavailable [phone] Paula HDEZ MD, Frank Unavailable [phone] Virgil Love MD Primary Care Provider + [phone] Maura Gallo MD Unavailable [phone] Dylan Ann MD Unavailable [phone] Maura Gallo MD Unavailable [phone] Kathy Galindo MD Unavailable Virgil Love MD Unavailable [phone] Justin Cowan MD Unavailable [phone] Virgil Love MD Unavailable [phone] None, Physician Primary Care Provider Unavailunruly e Josue Delgado MD Primary Care Provider [phone] Encounter Details Date Type Department Care Team (Late st Contact Info) Description 08/17/2015 [facility] Outpatient Visit [facility] Health Orthopedics [address] [place] [address] Juju Toledo MD [address] [place] [address] Social History Tobacco Use Types Packs/Day Years Used Date Smoking Tobacco: Never Smokeless Tobacco: Never Alcohol Use Standard Drinks/Week Comments Yes 1.7 (1 standard drink = 0.6 oz p ure alcohol) Sex and Gender Information Value Date Recorded Sex Assigned at Male 05/12/2020 8:18 AM CLINICAL COUNSELOR Legal Sex Male 7:20 AM CLINICAL COUNSELOR Gender Identity Male 05/12/2020 8:18 AM CLINICAL COUNSELOR Sexual Orientation Straight 05/12/2020 8: 18 AM CLINICAL COUNSELOR documented as of this encounter Plan of Treatment Upcoming Encounters Date Type Department Care Team (Latest Contact Info) Description 12/06/2024 12:50 PM CDT Procedure visit [facility] Orthopedics [address] [address] Juju Toledo MD [address] [phone] 12/06/2024 1:15 PM CDT Hospital Encounter [facility] - [address] [place] [address] Juju Toledo MD [address] [phone] Surgery General 12/06/2024 1:15 PM CDT - 12/06/2024 2:15 PM CDT Surgery [facility] - [address] [place], [place] [address] Juju Toledo MD [address] [phone] LEFT KNEE ARTHROSCOPY WITH PARTIAL MENISCECTOMY AND POSSIBLE CHONDROPLASTY 12/16/2024 10:45 AM CDT Office Visit [facility] Orthopedics [address] [address] Nicole Spencer, PA [address] [place] [address] Scheduled Procedures Name Priority Associated Diagnoses Date/Ti [...] on filedocumented in this encounter Care Teams Repatcher Relationship Specialty Start Date End Date Justin Cowan MD [address] [address] PCP - General 03/25/08 06/01/17 Virgil Love MD [address] [facility] 200 [place] [address] PCP - General Family Medicine 06/02/17 09/16/17 Justin Cowan MD [address] [place] [address] PCP - General Internal Medicine 09/17/17 09/17/17 [place] [address] [place], [place] [address] PCP - Attributed-MSSP 08/28/18 03/20/20 [place] [address] [place] [address] PCP - Attributed-[facility] [place] 08/29/19 10/28/19 Virgil Love MD [address] [facility] 200 [place] [address] PCP - Attributed-[facility] [place] 10/29/19 01/28/20 [place] [address] [place] [address] PCP - Attributed-[facility] MA 01/29/20 06/14/21 [place] [address] [place] [address] PCP - General Family Medicine 05/07/21 05/14/21 Virgil Love MD [address] [facility] 200 [place] [address] PCP - General Family Medicine 06/06/21 09/06/21 Virgil Love MD [address] [facility] 200 [place] [address] PCP - General Family Medicine 09/07/21 08/17/24 [place] [address] [place] [address] PCP - Attributed-[facility] MA 07/31/21 12/14/21 [place] [address] [place] [address] PCP - Attributed-[facility] MA 02/28/22 10/16/23 Virgil Love MD [address] [facility] 200 [place] [address] PCP - Attributed-[facility] P4P 10/29/23 09/14/24 Justin Cowan MD [address] [facility] [address] [place] [address] PCP - Attributed-MSSP 10/07/17 07/01/18 Virgil Love MD [address] [facility] 200 [place] [address] PCP - Attributed-MSSP 07/02/18 08/27/18 None, Physician PCP - General 08/18/24 09/14/24 Josue Delgado MD [address] [place] [address] PCP - General Family Medicine 09/15/24 Charles Cardenas MD [address] [facility] [address] [place] [address] Pulmonary Disease 09/19/10 05/19/22 Javi Sotelo MD [address] [facility] [address] [place] [address] Dermatology 08/23/11 09/06/21 Grant Desir MD [address] [facility] [address] [place] [address] Endocrinology 03/02/13 05/19/22 Kofi Mendez MD [address] [facility] [address] [place] [address] Gastroenterology 03/02/13 05/19/22 Charles Soria DO [address] [place] [address] Orthopedic Surgery 12/16/14 05/19/22 Juju Toledo MD [address] [facility] [address] [place] [address] Orthopedic Surgery 08/08/15 09/06/21 Yeimi Ramos, OD [address] [facility] [place], [place] [address] Volunteer Coordinator 10/30/15 Tona Suarez, RN Optical Mechanic Apprentice 04/22/17 06/24/18 Byron Nickerson MD Physician Hematology and Oncology 05/15/17 09/06/21 Fannie Combs, COOKER LOADER-CANDY POLISHER [address] [facility] [address] [place], [place] [phone] Nurse Practitioner Nurse Practitioner 05/15/17 08/19/22 Virgil Love MD [address] [facility] [address] [place], [place] [address] Family Medicine 11/25/19 Juju Toledo MD [address] [place] [address] Orthopedic Surgery 11/25/19 [place] [address] [place] [address] Surgeon Orthopedic Surgery 05/07/21 [place] [address] [place], [place] [address] Physical Medicine and Rehabilitation 07/19/21 09/06/21 [place] [address] [place] [address] Orthopedic Surgery 09/07/21 Dylan Ann MD [address] [facility] [address] [place] [address] Cardiology 03/19/22 Kathy Galindo MD [address] [place] [address] Pulmonary Disease 08/20/22 documented as of this encounter
--- OUTSIDE RECORDS SUMMARY | 2024-10-11 01:00 | XMS_ITS | Encounter Summary ---
Author Organization [facility] Address [address] [facility] [place] [address] Care Team Providers Care Rivet Flunky Name Role Phone Justin Cowan MD Primary Care Provider Charles Cardenas MD Unavailable [phone] Javi Sotelo MD Unavailable [phone] Grant Desir MD Unavailable [phone] Kofi Mendez MD Unavailable Charles Soria DO Unavailable [phone] Juju Toledo MD Unavailable [phone] Yeimi Ramos OD Unavailable [phone] Tona Suarez RN Unavailable Byron Nickerson MD Unavailable Unavailable Fannie Combs CASH PERSON-OPERATIONS CONTROLLER Unavailable Virgil Love MD Primary Care Provider Justin Cowan MD Primary Care Provider [phone] Maura Gallo MD Unavailable [phone] Virgil Love MD Unavailable Juju Toledo MD Unavailable [phone] Maura Gallo MD Unavailable [phone] Virgil Love MD Unavailable [phone] Maura Gallo MD Unavailable [phone] Maura Gallo MD Primary Care Provider [phone] Steev Stovall MD Unavailable [phone] Virgil Love MD Primary Care Provider [phone] David Flores MD Unavailable +[phone] Paula HDEZ MD, Frank Unavailable +[phone] Virgil Love MD Primary Care Provider + [phone] Maura Gallo MD Unavailable [phone] Dylan Ann MD Unavailable +[phone] Maura Gallo MD Unavailable [phone] Kathy Galindo MD Unavailable Virgil Love MD Unavailable +[phone] Justin Cowan MD Unavailable [phone] Virgil Love MD Unavailable [phone] None, Physician Primary Care Provider UnavailJosue Cai MD Primary Care Provider [phone] Encounter Details Date Type Department Care Team (Late st Contact Info) Description 04/04/2014 Therapy Visit [facility] [address] [place] [address] Unknown, Provider Social History Tobacco Use Types Packs/Day Years Used Date Smoking Tobacco: Never Smokeless Tobacco: Never Alcohol Use Standard Drinks/Week Comments Yes 1.7 (1 standard drink = 0.6 oz p ure alcohol) Sex and Gender Information Value Date Recorded Sex Assigned at Male 05/12/2020 8:18 AM JOURNEYMAN POWER PLANT OPERATOR Legal Sex Male 7:20 AM JOURNEYMAN POWER PLANT OPERATOR Gender Identity Male 05/12/2020 8:18 AM JOURNEYMAN POWER PLANT OPERATOR Sexual Orientation Straight 05/12/2020 8: 18 AM JOURNEYMAN POWER PLANT OPERATOR documented as of this encounter Plan of Treatment Upcoming Encounters Date Type Department Care Team (Latest Contact Info) Description 12/06/2024 12:50 PM CDT Procedure visit [facility] Orthopedics [address] [place] [phone] Juju Toledo MD [address] [address] 12/06/2024 1:15 PM CDT Hospital Encounter [facility] - [address] [place], [place] [address] Juju Toledo MD [address] [address] Surgery General 12/06/2024 1:15 PM CDT - 12/06/2024 2:15 PM CDT Surgery [facility] - [address] [place], [place] [address] Juju Toledo MD [address] [address] LEFT KNEE ARTHROSCOPY WITH PARTIAL MENISCECTOMY AND POSSIBLE CHONDROPLASTY 12/16/2024 10:45 AM CDT Office Visit [facility] Orthopedics [address] [address] Nicole Spencer, PA [address] [place] [address] Scheduled Procedures Name Priority Associated [...] on filedocumented in this encounter Care Teams Rivet Flunky Relationship Specialty Start Date End Date Justin Cowan MD [address] [place] [address] [address] [place] [address] PCP - General 03/25/08 06/01/17 Virgil Love MD [address] [address] PCP - General Family Medicine 06/02/17 09/16/17 Justin Cowan MD [address] [place] [address] [address] [place] [address] PCP - General Internal Medicine 09/17/17 09/17/17 [place] [address] [address] PCP - Attributed-MSSP 08/28/18 03/20/20 [place] [address] [facility] [address] [place] [address] PCP - Attributed-C MA 08/29/19 10/28/19 Virgil Love MD 1475 [facility] 200 [place] [address] PCP - Attributed-[facility] [place] 10/29/19 01/28/20 [place] [address] [place], [place] [address] PCP - Attributed-C [place] 01/29/20 06/14/21 [place] [address] [place], [place] [address] PCP - General Family Medicine 05/07/21 05/14/21 Virgil Love MD 1475 [facility] 200 [place] [address] PCP - General Family Medicine 06/06/21 09/06/21 Virgil Love MD 1475 [facility] 200 [place] [address] PCP - General Family Medicine 09/07/21 08/17/24 [place] [address] [place], [place] [address] PCP - Attributed-[facility] 07/31/21 12/14/21 [place] [address] [place], [place] [address] PCP - Attributed-C [place] 02/28/22 10/16/23 Virgil Love MD 1475 [facility] 200 [place] [address] PCP - Attributed-[facility] P4 10/29/23 09/14/24 Justin Cowan MD [address] [place] [address] [address] [place] [address] PCP - Attributed-MSSP 10/07/17 07/01/18 Virgil Love MD 1475 [facility] 200 [place] [address] PCP - Attributed-MSSP 07/02/18 08/27/18 None, Physician PCP - General 08/18/24 09/14/24 Josue Delgado MD [address] [place] [address] PCP - General Family Medicine 09/15/24 Charles Cardenas MD [address] [place] [address] Pulmonary Disease 09/19/10 05/19/22 Javi Sotelo MD [address] [facility] [address] [place], [place] [id number] Dermatology 08/23/11 09/06/21 Grant Desir MD [address] [facility] [address] [place] [address] Endocrinology 03/02/13 05/19/22 Kofi Mendez MD [address] [facility] [address] [place] [address] Gastroenterology 03/02/13 05/19/22 Charles Soria DO [address] [place] [address] Orthopedic Surgery 12/16/14 05/19/22 Juju Toledo MD [address] [facility] [address] [place] [address] Orthopedic Surgery 08/08/15 09/06/21 Yeimi Ramos OD [address] [facility] [place] [address] Silo Filler 10/30/15 Tona Suarez, RN Web Production Designer 04/22/17 06/24/18 Byron Nickerson MD Physician Hematology and Oncology 05/15/17 09/06/21 Fannie Combs, CASH PERSON-OPERATIONS CONTROLLER [address] [facility] [address] [place] [address] Nurse Practitioner Nurse Practitioner 05/15/17 08/19/22 Virgil Love MD [address] [facility] [address] [place] [address] Family Medicine 11/25/19 Juju Toledo MD [address] [place] [address] Orthopedic Surgery 11/25/19 [place] [address] [place] [address] Surgeon Orthopedic Surgery 05/07/21 [place] [address] [place] [address] Physical Medicine and Rehabilitation 07/19/21 09/06/21 [place] [address] [address] [place] [address] Orthopedic Surgery 09/07/21 Dylan Ann MD [address] [facility] [address] [place] [address] Cardiology 03/19/22 Kathy Galindo MD [address] [place] [address] Pulmonary Disease 08/20/22 documented as of this encounter
--- OUTSIDE RECORDS SUMMARY | 2024-10-11 01:00 | XMS_ITS | Clinical Summary ---
Author Organization [facility] Address [address] [address] Phone Care Team Providers Care Shoe Reconditioner Name Role Phone Virgil Love MD Primary [...] (two) times a day 02/26/2021 Active multivitamin,tx -eyvk-Au-TT-min 27-0.4 mg tablet Take by mouth Active UNABLE TO FIND CPAP [id number]-zpbv l HCJK-CH-dwqk ed-decreased from 9-08/11/18 08/11/2018 Active apixaban (ELIQUIS) [...] 05/03/2024 Assessment & Plan (05/03/2024 1:52 PM CONCRETE BLOCK MAKER): Some residual edema. Having some nocturia so we discussed adjusting dose of torsemide in the morning - Change torsemide to 40 mg every morning and check BMP in 2 weeks Generalized edema 11/27/2021 Assessment & Plan (10/20/2023 9:25 AM CDT): Some persistent edema likely venous insufficiency. - check tte Assessment & Plan (09/05/2022 10:18 PM CONCRETE BLOCK MAKER): Euvolemic on exam. Try switching Lasix to [...] use of insulin 12/14/2019 Overview (04/03/2021): Virgil Love MD on 11/11/19 Preop examination 06/24/2018 Atherosclerosis of aorta 10/02/2017 Overview (04/03/2021): CXR: 18 Assessment & Plan (05/03/2024 1:51 PM CONCRETE BLOCK MAKER): Stable -- Continue statin CKD (chronic kidney [...] pain 12/19/2015 Coronary artery disease invo [place]ving [place] coronary artery of [place] heart without angina pectoris 10/01/2013 Overview (04/03/2021): Thallium treadmill 05/11: no ischemia, poss small prior apical infarct, nl LVEF. Cardiac cath 06/10: LVEF 60%, 20% L main. Assessment & Plan (05/03/2024 1:51 PM CONCRETE BLOCK MAKER): He has nonobstructive Coronary artery disease based on a cardiac catheterization. Remains free of anginal symptoms -- Continue Eliquis and statin for primary prevention. Assessment & Plan (10/20/2023 9:23 AM CDT): He has nonobstructive Coronary artery disease based on a cardiac catheterization. Continue Eliquis and statin for primary prevention. Remains free of anginal symptoms Assessment & Plan (09/05/2022 10:17 PM CONCRETE BLOCK MAKER): He has nonobstructive Coronary artery disease based [...] 05/11. Assessment & Plan (05/03/2024 1:51 PM CONCRETE BLOCK MAKER): Well controlled Assessment & Plan (10/20/2023 9:24 [...] ZOSTER LIVE 04/08/2015 ZOSTER Recombinant 06/12/2019,02/28/2019, 019 Surgical History Surgery Date Site/Laterality Comments JOINT REPLACEMENT 06/30/2013 - 06/29/2014 BARIATRIC SURGERY 06/30/2008 - 06/29/2009 REPLACEMENT TOTAL HIP LATERAL POSITION 08/28/2021 - 09/27 FLUORO GUIDED ASPIRATION OR INJECTION LARGE JOINT BILATERAL 12/25/2020 Bilateral Medical History Medical History Date Comments Clotting disorder Jul 2020 Cataract Apr 2020 Diabetes mellitus (HCC) 2009 Sleep apnea 2009 GERD (gastroesophageal reflux disease) 1975 Heart disease 2012 Family History Medical History Relation Name Comments Cancer Brother 1 Power Depression Brother 2 Den Early Brother 3 Jarett Heart disease Father Stevenson Heart disease Mother Monalisa Cancer Sister Talisha Relation Name Status Comments Brother 1 Power Brother 2 Den Brother 3 Jarett Father Stevenson Mother Monalisa Sister Talisha Social History Tobacco Use Types Packs/Day Years [...] on file Legal Sex Male 5:33 PM CONCRETE BLOCK MAKER Gender Identity Male 04/06/2021 8:16 AM CDT Sexual Orientation Straight 04/06/2021 8: 16 AM CDT Obstetrics History Last Filed Vital Signs Vital Sign Reading Time Taken Comments Blood Pressure 134/70 05/03/2024 1:04 PM CONCRETE BLOCK MAKER Pulse 62 05/03/2024 1:04 PM CONCRETE BLOCK MAKER Temperature 36.1 C (97 F) 04/23/2021 12:27 PM CDT Respiratory Rate 22 04/23/2021 3:06 PM CDT Oxygen Saturation 98% 05/03/2024 1:04 PM CONCRETE BLOCK MAKER Inhaled Oxygen Concentration - - Weight 142 kg (313 lb) 05/03/2024 1:04 PM CONCRETE BLOCK MAKER Height 180.3 cm (5' 11) 05/03/2024 1:04 PM CONCRETE BLOCK MAKER Body Mass Index 43.65 05/03/2024 1:04 PM CONCRETE BLOCK MAKER Plan of Treatment Health Maintenance Due Date Last Done Comments Albumin Creatinine Ratio, Urine 1952 Depression Screening 1952 Hepatitis C Screening 1952 Dilated Eye Exam 1952 Foot Exam 1952 Hepatitis B Screening 1970 Well Visit 65+ 2017 Fall Risk Assessment 04/23/2022 04/23/2021 Pneumococcal vaccine 65+ (3 of 3 - PCV20 or PCV21) 10/08/2022 10/08/2017, 04/08/2015, 03/09/2014 Hemoglobin A1C 02/23/2023 08/26/2022, 05/01, 01/16/2022, Additional history exists Colon Cancer Screening-Colonoscopy 06/14/20232012 Covid-19 Vaccine (2023-07 5 season) 2024 12/12/2021, 03/03/2021, 10/03/2020, Additional history exists Lipid Panel 09/07/2024 09/08/2023, 08/28, 08/26/2022, Additional history exists Influenza Vaccine (Season Ended) 2025 04/11/2023, 04/01/2022, 03/06/2021, Additional history exists eGFR 05/17/2025 05/17/2024, 09/28, 05/20/2022, Additional history exists DTaP/Tdap/Td Vaccine (3 - Td or Tdap) 07/23/2030 07/23/2020, 12/16/2014 Zoster Vaccine Completed 06/12/2019, 06/2018, 02/28/2019, Additional history exists Procedures Procedure Name Priority Date/Time Associated Diagnosis Comments EGFR Routine 05/17/2024 11:57 AM CONCRETE BLOCK MAKER Coronary artery disease involving [place] coronary artery of [place] heart without angina pectoris LIPID PANEL Routine 09/08/2023 COLONOSCOPY REPORT 06/14/2013 from Last 3 Months or Most Recently Relevant to Health Maintenance Results * eGFR (05/17/2024 11:57 AM CONCRETE BLOCK MAKER) eGFR 61 >=60 mL/min/1. 73 m2 Comment: [...] reviewed 2021. Blood 05/17/2024 11:5 7 AM CONCRETE BLOCK MAKER 05/17/2024 11:59 AM CONCRETE BLOCK MAKER Dylan Ann MD LAB BLOOD ORDERABLES Fin al Result CHARLES [address] [facility] Department [place] [address] * Lipid panel (09/08/2023) SCRIBED Cholesterol, Total 106 l - h EXTERNAL LAB SCRIBED HDL 42 l - h EXTERNAL LAB SCRIBED LDL 52 l - h EXTERNAL LAB SCRIBED Triglycerides 58 l - h EXTERNAL LAB Blood 09/08/2023 Historical Provider LAB BLOOD ORDERABLES Nereyda l Result Performing Organization Address City/[facility]/ZIP Co de Phone Number EXTERNAL LAB * COLONOSCOPY REPORT (06/14/2013) Anatomical Region Laterality Modality Other Narrative 06/14/2013 Ordered by an unspecified provider. Historical Provider GI PROCEDURE ORDERABLES F inal Result from Last 3 Months or Most Recently Relevant to Health Maintenance Insurance UHC MEDICARE ADVANTAGE [facility] MEDICARE ADVANTAGE UHC MEDICARE ADVANTAGE Care Teams Shoe Reconditioner Relationship Specialty Start Date End Date Virgil Love MD [address] [facility] [facility] [address] [facility] [place] [address] PCP - General Family Medicine 01/02/21
--- OUTSIDE RECORDS SUMMARY | 2024-10-11 01:00 | XMS_ITS | Encounter Summary ---
Author Organization [facility] Address [address] [facility] [place] [address] Care Team Providers Care Wet Pour Mixer Name Role Phone Justin Cowan MD Primary Care Provider Charles Cardenas MD Unavailable [phone] Javi Sotelo MD Unavailable [phone] Grant Desir MD Unavailable Kofi Mendez MD Unavailable [phone] Charles Soria DO Unavailable [phone] Juju Toledo MD Unavailable [phone] Yeimi Ramos OD Unavailable Tona Suarez RN Unavailable [phone] Byron Nickerson MD Unavailable Unavailable Fannie Combs BEER COOLER-LEAD RIDER Unavailable Virgil Love MD Primary Care Provider Justin Cowan MD Primary Care Provider Maura Gallo MD Unavailable [phone] Virgil Love MD Unavailable [phone] Juju Toledo MD Unavailable [phone] Maura Gallo MD Unavailable Virgil Love MD Unavailable [phone] Maura Gallo MD Unavailable [phone] Maura Gallo MD Primary Care Provider [phone] Steve Stovall MD Unavailable [phone] Virgil Love MD Primary Care Provider [phone] David Flores MD Unavailable [phone] Paula HDEZ MD, Frank Unavailable [phone] Virgil Love MD Primary Care Provider [phone] Maura Gallo MD Unavailable [phone] Dylan Ann MD Unavailable [phone] Maura Gallo MD Unavailable [phone] Kathy Galindo MD Unavailable Virgil Love MD Unavailable [phone] Justin Cowan MD Unavailable [phone] Virgil Love MD Unavailable [phone] None, Physician Primary Care Provider UnavailJosue Cai MD Primary Care Provider [phone] Encounter Details Date Type Department Care Team (Late st Contact Info) Description 06/10/2014 Therapy Visit EXTERNAL NON-[facility] DEPT Justin Cowan MD [address] [facility] [address] [place] [address] Social History Tobacco Use Types Packs/Day Years Used Date Smoking Tobacco: Never Smokeless Tobacco: Never Alcohol Use Standard Drinks/Week Comments Yes 1.7 (1 standard drink = 0.6 oz p ure alcohol) Sex and Gender Information Value Date Recorded Sex Assigned at Male 05/12/2020 8:18 AM DISPENSING LEAD Legal Sex Male 7:20 AM DISPENSING LEAD Gender Identity Male 05/12/2020 8:18 AM DISPENSING LEAD Sexual Orientation Straight 05/12/2020 8: 18 AM DISPENSING LEAD documented as of this encounter Plan of Treatment Upcoming Encounters Date Type Department Care Team (Latest Contact Info) Description 12/06/2024 12:50 PM CDT Procedure visit [facility] Orthopedics [address] [phone] Juju Toledo MD [address] [address] 12/06/2024 1:15 PM CDT Hospital Encounter [facility] [address] [place], [place] [phone] Juju Toledo MD [address] [address] Surgery General 12/06/2024 1:15 PM CDT - 12/06/2024 2:15 PM CDT Surgery [facility] [address] [place], [place] [phone] Juju Toledo MD [address] [phone] LEFT KNEE ARTHROSCOPY WITH PARTIAL MENISCECTOMY AND POSSIBLE CHONDROPLASTY 12/16/2024 10:45 AM CDT Office Visit [facility] Orthopedics [address] [address] Nicole Spencer, [place] [address] [place] [address] Scheduled Procedures Name Priority Associated [...] on filedocumented in this encounter Care Teams Wet Pour Mixer Relationship Specialty Start Date End Date Justin Cowan MD 1 [facility] [address] [place] [address] PCP - General 03/25/08 06/01/17 Virgil Love MD [address] [facility] 200 [place] [address] PCP - General Family Medicine 06/02/17 09/16/17 Justin Cowan MD [address] [place] [phone] PCP - General Internal Medicine 09/17/17 09/17/17 [place] [address] [place], [place] [id number] PCP - Attributed-MSSP 08/28/18 03/20/20 [place] [address] [place], [place] [id number] PCP - Attributed-[facility] [place] 08/29/19 10/28/19 Virgil Love MD [address] [facility] [address] [place] [address] PCP - Attributed-C [place] 10/29/19 01/28/20 [place] [address] [place], [place] [address] PCP - Attributed-C [place] 01/29/20 06/14/21 [place] [address] [place] [address] PCP - General Family Medicine 05/07/21 05/14/21 Virgil Love MD [address] [facility] [address] [place] [address] PCP - General Family Medicine 06/06/21 09/06/21 Virgil Love MD [address] [facility] [address] [place] [address] PCP - General Family Medicine 09/07/21 08/17/24 [place] [address] [place] [address] PCP - Attributed-[place] 07/31/21 12/14/21 [place] [address] [place] [address] PCP - Attributed-[place] 02/28/22 10/16/23 Virgil Love MD [address] [facility] [facility] [address] [place] [address] PCP - Attributed-[place] STL P4P 10/29/23 09/14/24 Justin Cowan MD [address] [facility] [address] [place] [address] PCP - Attributed-MSSP 10/07/17 07/01/18 Virgil Love MD [address] [facility] [address] [place] [address] PCP - Attributed-MSSP 07/02/18 08/27/18 None, Physician PCP - General 08/18/24 09/14/24 Josue Delgado MD [address] [place] [address] [place] [address] PCP - General Family Medicine 09/15/24 Charles Cardenas MD [address] [place], [place] [phone] Pulmonary Disease 09/19/10 05/19/22 Javi Sotelo MD [address] [facility] [address] [place], [place] [phone] Dermatology 08/23/11 09/06/21 Grant Desir MD [address] [place] [address] [address] [place] [address] Endocrinology 03/02/13 05/19/22 Kofi Mendez MD [address] [place] [address] [address] [place] [address] Gastroenterology 03/02/13 05/19/22 Charles Soria DO [address] [facility] [address] [place] [address] Orthopedic Surgery 12/16/14 05/19/22 Juju Toledo MD [address] [facility] [address] [place] [phone] Orthopedic Surgery 08/08/15 09/06/21 Yeimi Ramos OD [address] [facility] [address] Yarn Twister 10/30/15 Tona Suarez RN Deputy County Clerk 04/22/17 06/24/18 Byron Nickerson MD Physician Hematology and Oncology 05/15/17 09/06/21 Fannie Combs APRN-LEAD RIDER [address] [facility] [address] [place] [address] Nurse Practitioner Nurse Practitioner 05/15/17 08/19/22 Virgil Love MD [address] [facility] [address] [place] [address] Family Medicine 11/25/19 Juju Toledo MD [address] [place] [phone] Orthopedic Surgery 11/25/19 [place] [address] [facility] [address] [place] [address] Surgeon Orthopedic Surgery 05/07/21 [place] [address] [place] [address] Physical Medicine and Rehabilitation 07/19/21 09/06/21 [place] [address] [place] [address] [place] [address] Orthopedic Surgery 09/07/21 Dylna Ann MD [address] [place] [address] Cardiology 03/19/22 Kathy Galindo MD [address] [place] [address] Pulmonary Disease 08/20/22 documented as of this encounter
--- NOTE | 2024-10-11 07:25 | SUR.PREOP ---
Patient called to reschedule appointment for today 10/11. Patient states he is sick after a vacation and unable to complete prep. Gave patient office number to reschedule.
[2025-01-28 14:14] VITALS: BMI 41.8
--- NOTE | 2025-01-28 14:16 | PC.NURSE ---
Spoke with PATIENT regarding medication _ELIQUIS_. _PATIENT_verbalizes understanding that the last dose is to be taken on 02/07/25 and the Endoscopist will instruct them when to restart after the procedure.
--- OUTSIDE RECORDS SUMMARY | 2025-02-10 02:09 | XMS_ITS | Encounter Summary ---
Author Organization [facility] Address [address] [facility] [place] [address] Care Team Providers Care Gis Scientist Name Role Phone Justin Cowan MD Primary Care Provider Charles Cardenas MD Unavailable [phone] Javi Sotelo MD Unavailable Grant Desir MD Unavailable [phone] Kofi Mendez MD Unavailable [phone] Charles Sorai DO Unavailable Juju Toledo MD Unavailable [phone] Yeimi Ramos OD Unavailable Tona Suarez RN Unavailable Byron Nickerson MD Unavailable Unavailable Fannie Combs CORRESPONDENCE DICTATOR-EMERGENCY MEDICINE NURSE PRACTITIONER Unavailable [phone] Virgil Love MD Primary Care Provider Justin Cowan MD Primary Care Provider Maura Gallo MD Unavailable Virgil Love MD Unavailable Juju Toledo MD Unavailable [phone] Maura Gallo MD Unavailable [phone] Virgil Love MD Unavailable [phone] Maura Gallo MD Unavailable [phone] Maura Gallo MD Primary Care Provider [phone] Steve Stovall MD Unavailable [phone] Virigl Love MD Primary Care Provider [phone] David Flores MD Unavailable [phone] Paula HDEZ MD, Frank Unavailable [phone] Virgil Love MD Primary Care Provider [phone] Maura Gallo MD Unavailable [phone] Dylan Ann MD Unavailable [phone] Maura Gallo MD Unavailable [phone] Kathy Galindo MD Unavailable Virgil Love MD Unavailable [phone] Justin Cowan MD Unavailable [phone] Virgil Love MD Unavailable [phone] None, Physician Primary Care Provider UnavailJosue Cai MD Primary Care Provider [phone] Karla Masters Unavailable Encounter Details Date Type Department Care Team (Late st Contact Info) Description 06/10/2014 Therapy Visit EXTERNAL NON-[facility] DEPT Justin Cowan MD [address] [place] [address] [address] [place] [address] Social History Tobacco Use Types Packs/Day Years Used Date Smoking Tobacco: Never Smokeless Tobacco: Never Alcohol Use Standard Drinks/Week Comments Yes 1.7 (1 standard drink = 0.6 oz p ure alcohol) Sex and Gender Information Value Date Recorded Sex Assigned at Male 05/12/2020 8:18 AM PAN GREASER Legal Sex Male 7:20 AM PAN GREASER Gender Identity Male 05/12/2020 8:18 AM PAN GREASER Sexual Orientation Straight 05/12/2020 8: 18 AM PAN GREASER documented as of this encounter Plan of Treatment Upcoming Encounters Date Type Department Care Team (Late st Contact Info) Description 03/14/2025 11:15 AM CDT Office Visit [facility] Orthopedics [address] [facility] [address] [place], [place] [phone] Juju Toledo MD [address] [facility] [address] [place] [address] 04/25/2025 9:00 AM CDT Office Visit [facility] Orthopedics [address] [facility] [address] [place], [place] [address] Juju Toledo MD [address] [facility] [address] [place] [address] documented as of this encounter Goals Goal Patient Goal Type Associated Problems Recent Progress Patient-Stated? Author Blood Pressure < 140/90 Blood Pressure 105/65(2024 2:30 PM CDT) No Rojelio, Leonor Blood Pressure < 140/90 Blood Pressure 105/65(2024 2:30 PM CDT) No Rojelio, Leonor [facility] Lifestyle: Have labs drawn Lifestyle No Rojelio, Leonor [facility] Lifestyle: Have labs drawn Lifestyle No Rojelio, Leonor documented as of this encounter Visit Diagnoses Not on filedocumented in this encounter Care Teams Gis Scientist Relationship Specialty Start Date End Date Justin Cowan MD [address] [facility] [address] [facility] [address] [place] [phone] PCP - General 03/25/08 06/01/17 Virgil Love MD [address] [facility] [address] [place], [place] [id number] PCP - General Family Medicine 06/02/17 09/16/17 Justin Cowan MD [address] [facility] [address] [place] [phone] PCP - General Internal Medicine 09/17/17 09/17/17 [place] [address] [place] [address] PCP - Attributed-[facility] 08/28/18 03/20/20 [place] [address] [place] [address] PCP - Attributed-[facility] 08/29/19 10/28/19 Virgil Love MD [address] [facility] [address] [place] [address] PCP - Attributed-[facility] 10/29/19 01/28/20 [place] [address] [place] [address] PCP - Attributed-[facility] 01/29/20 06/14/21 [place] [address] [place] [address] PCP - General Family Medicine 05/07/21 05/14/21 Virgil Love MD [address] [facility] [address] [place] [address] PCP - General Family Medicine 06/06/21 09/06/21 Virgil Love MD [address] [facility] [address] [place] [address] PCP - General Family Medicine 09/07/21 08/17/24 [place] [address] [facility] [address] [place] [address] PCP - Attributed-[facility] 07/31/21 12/14/21 [place] [address] [facility] [address] [place] [address] PCP - Attributed-[facility] 02/28/22 10/16/23 Virgil Love MD [address] [facility] [address] [place] [address] PCP - Attributed-[facility] 10/29/23 09/14/24 Justin Cowan MD [address] [facility] [address] [place] [address] PCP - Attributed-[facility] 10/07/17 07/01/18 Virgil Love MD [address] [facility] [address] [place] [address] PCP - Attributed-[facility] 07/02/18 08/27/18 None, Physician PCP - General 08/18/24 09/14/24 Josue Delgado MD [address] [place] [address] PCP - General Family Medicine 09/15/24 Charles Cardenas MD [address] [place] [address] Pulmonary Disease 09/19/10 05/19/22 Javi Sotelo MD [address] [facility] [address] [place] [address] Dermatology 08/23/11 09/06/21 Grant Desir MD [address] [facility] [address] [place] [address] Endocrinology 03/02/13 05/19/22 Kofi Mendez MD [address] [place] [address] [address] [place] [address] Gastroenterology 03/02/13 05/19/22 Charles Soria DO [address] [place] [address] Orthopedic Surgery 12/16/14 05/19/22 Juju Toledo MD [address] [facility] [address] [place] [phone] Orthopedic Surgery 08/08/15 09/06/21 Yeimi Ramos OD [address] [facility] [place] [place] [address] Business Info Consultant 10/30/15 Tona Suarez, RN Warp Clamper 04/22/17 06/24/18 Byron Nickerson MD Physician Hematology and Oncology 05/15/17 09/06/21 Fannie Combs, CORRESPONDENCE DICTATOR-EMERGENCY MEDICINE NURSE PRACTITIONER [address] [facility] [address] [place] [address] Nurse Practitioner Nurse Practitioner 05/15/17 08/19/22 Virgil Love MD [address] [facility] [address] [place] [address] Family Medicine 11/25/19 Juju Toledo MD [address] [place] [address] Orthopedic Surgery 11/25/19 [place] [address] [place] [address] Surgeon Orthopedic Surgery 05/07/21 [place] [address] [place] [address] Physical Medicine and Rehabilitation 07/19/21 09/06/21 [place] [address] [place] [address] Orthopedic Surgery 09/07/21 Dylan Ann MD [address] [place] [address] Cardiology 03/19/22 Kathy Galindo MD [address] [place] [address] Pulmonary Disease 08/20/22 Karla Masters Care Coordination Specialist Care Management 10/29/24 10/29/24 documented as of this encounter
--- OUTSIDE RECORDS SUMMARY | 2025-02-10 02:09 | XMS_ITS | Encounter Summary ---
Author Organization [facility] Address [address] [facility] [place] [address] Care Team Providers Care Commercial Sales Specialist Name Role Phone Yeimi Ramos OD Unavailable [phone] Virgil Love MD Unavailable Juju Toledo MD Unavailable [phone] Steve Stovall MD Unavailable Paula HDEZ MD, Frank Unavailable [phone] Dylan Ann MD Unavailable [phone] Kathy Galindo MD Unavailable Josue Delgado MD Primary Care Provider [phone] Karla Masters Unavailable Encounter Details Date Type Department Care Team (Late st Contact Info) Description 10/05/2024 [facility] Outpatient Visit [facility] Orthopedics [address] [place] [address] Document, Scanned Social History Tobacco [...] Sex Assigned at Male 05/12/2020 8:18 AM POEM WRITER Legal Sex Male 7:20 AM POEM WRITER Gender Identity Male 05/12/2020 8:18 AM POEM WRITER Sexual Orientation Straight 05/12/2020 8: 18 AM POEM WRITER documented as of this encounter Functional Status [...] Description 03/14/2025 11:15 AM CDT Office Visit [facility] Orthopedics [address] [place] [id number] Juju Toledo MD [address] [facility] [place] [address] 04/25/2025 9:00 AM CDT Office Visit [facility] Health Orthopedics [address] [facility] [address] [place], [place] [address] Juju Toledo MD [address] [facility] [place] [id number] documented as of this encounter Goals Goal [...] on filedocumented in this encounter Care Teams Commercial Sales Specialist Relationship Specialty Start Date End Date Josue Delgado MD [address] [place] [address] PCP - General Family Medicine 09/15/24 Yeimi Ramos OD [address] [facility] [place] [address] Facility Service Manager 10/30/15 Virgil oLve MD [address] [facility] 200 [place] [address] Family Medicine 11/25/19 Juju Toledo MD [address] [place] [id number] Orthopedic Surgery 11/25/19 [place] [address] [facility] 100 [place] [address] Surgeon Orthopedic Surgery 05/07/21 [place] [address] [address] [facility] 100 [place] [address] Orthopedic Surgery 09/07/21 Dylan Ann MD [address] [facility] [address] [place] [address] Cardiology 03/19/22 Kathy Galindo MD [address] [place] [address] Pulmonary Disease 08/20/22 Karla Masters Care Coordination Specialist Care Management 10/29/24 10/29/24 documented as of this encounter
--- OUTSIDE RECORDS SUMMARY | 2025-02-10 02:09 | XMS_ITS | Encounter Summary ---
Author Organization [facility] Address [address] [facility] [place] [address] Care Team Providers Care Manager Filter Name Role Phone Justin Cowan MD Primary Care Provider Charles Cardenas MD Unavailable [phone] Javi Sotelo MD Unavailable [phone] Grant Desir MD Unavailable [phone] Kofi Mendez MD Unavailable [phone] Charles Soria DO Unavailable [phone] Juju Toledo MD Unavailable [phone] Yeimi Ramos OD Unavailable Tona Suarez RN Unavailable [phone] Byron Nickerson MD Unavailable Unavailable Fannie Combs LEARNING AND DEVELOPMENT COORDINATOR-BRIM AND CROWN PRESSER Unavailable [phone] Virgil Love MD Primary Care Provider Justin Cowan MD Primary Care Provider Maura Gallo MD Unavailable [phone] iVrgil Love MD Unavailable [phone] Juju Toledo MD Unavailable [phone] Mauar Gallo MD Unavailable Virgil Love MD Unavailable [phone] Maura Gallo MD Unavailable [phone] Maura Gallo MD Primary Care Provider [phone] Steve Stovall MD Unavailable [phone] Virgil Love MD Primary Care Provider [phone] David Flores MD Unavailable Paula HDEZ MD, Frank Unavailable [phone] Virgil Love MD Primary Care Provider [phone] Maura Gallo MD Unavailable [phone] Dylan Ann MD Unavailable Maura Gallo MD Unavailable Kathy Galindo MD Unavailable Virgil Love MD Unavailable [phone] Justin Cowan MD Unavailable [phone] Virgil Love MD Unavailable None, Physician Primary Care Provider UnavailJosue Cai MD Primary Care Provider Karla Masters Unavailable Encounter Details Date Type Department Care Team (Late st Contact Info) Description 06/13/2014 Therapy Visit EXTERNAL NON-[facility] DEPT Charles Soria, DO [address] [place] [address] Social History Tobacco Use Types Packs/Day Years Used Date Smoking Tobacco: Never Smokeless Tobacco: Never Alcohol Use Standard Drinks/Week Comments Yes 1.7 (1 standard drink = 0.6 oz p ure alcohol) Sex and Gender Information Value Date Recorded Sex Assigned at Male 05/12/2020 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 Legal Sex Male 7:20 AM AIRCRAFT LANDING GEAR INSPECTOR Gender Identity Male 05/12/2020 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 Sexual Orientation Straight 05/12/2020 8: 18 AM AIRCRAFT LANDING GEAR INSPECTOR documented as of this encounter Plan of Treatment Upcoming Encounters Date Type Department Care Team (Late st Contact Info) Description 03/14/2025 11:15 AM CDT Office Visit [facility] Health Orthopedics [address] [facility] 100 [place], [place] [id number] Juju Toledo MD [address] [facility] 100 [place] [address] 04/25/2025 9:00 AM CDT Office Visit [facility] Health Orthopedics [address] [facility] 100 [place], [place] [address] Juju Toledo MD [address] [facility] 100 [place] [address] documented as of this encounter [...] on filedocumented in this encounter Care Teams Manager Filter Relationship Specialty Start Date End Date Justin Cowan MD [address] [facility] [address] [facility] [address] [place] [address] PCP - General 03/25/08 06/01/17 Virgil Love MD [address] [facility] 200 [place], [place] [id number] PCP - General Family Medicine 06/02/17 09/16/17 Justin Cowan MD [address] [facility] [address] [place] [address] PCP - General Internal Medicine 09/17/17 09/17/17 [place] [address] [place] [address] PCP - Attributed-[facility] 08/28/18 03/20/20 [place] [address] [place] [address] PCP - Attributed-C MA 08/29/19 10/28/19 Virgil Love MD [address] [facility] 200 [place] [address] PCP - Attributed-[facility] 10/29/19 01/28/20 [place] [address] [place] [address] PCP - Attributed-C SC 01/29/20 06/14/21 [place] [address] [place] [address] PCP - General Family Medicine 05/07/21 05/14/21 Virgil Love MD [address] [facility] 200 [place] [address] PCP - General Family Medicine 06/06/21 09/06/21 Virgil Love MD [address] [facility] 200 [place] [address] PCP - General Family Medicine 09/07/21 08/17/24 [place] [address] [facility] [address] [place] [address] PCP - Attributed-[facility] 07/31/21 12/14/21 [place] [address] [facility] [address] [place] [address] PCP - Attributed-[facility] 02/28/22 10/16/23 Virgil Love MD [address] [facility] 200 [place] [address] PCP - Attributed-[facility] P4P 10/29/23 09/14/24 Justin Cowan MD [address] [facility] [address] [place] [address] PCP - Attributed-[facility] 10/07/17 07/01/18 Virgil Love MD [address] [facility] 200 [place] [address] PCP - Attributed-[facility] 07/02/18 08/27/18 None, Physician PCP - General 08/18/24 09/14/24 Josue Delgado MD [address] [place] [address] PCP - General Family Medicine 09/15/24 Charles Cardenas MD [address] [facility] [address] [place] [address] Pulmonary Disease 09/19/10 05/19/22 Javi Sotelo MD [address] [facility] [address] [place] [address] Dermatology 08/23/11 09/06/21 Grant Desir MD [address] [facility] [address] [place] [phone] Endocrinology 03/02/13 05/19/22 Kofi Mendez MD [address] [place] [address] [address] [place] [address] Gastroenterology 03/02/13 05/19/22 Charles Soria DO [address] [place] [address] Orthopedic Surgery 12/16/14 05/19/22 Juju Toledo MD [address] [facility] [address] [place] [address] Orthopedic Surgery 08/08/15 09/06/21 Yeimi Ramos OD [address] [facility] [address] Loom Changer 10/30/15 Tona Suarez, RN Reproduction Artist 04/22/17 06/24/18 Byron Nickerson MD Physician Hematology and Oncology 05/15/17 09/06/21 Deweese, Fannie L, LEARNING AND DEVELOPMENT COORDINATOR-BRIM AND CROWN PRESSER [address] [facility] [address] [place] [address] Nurse Practitioner Nurse Practitioner 05/15/17 08/19/22 Virgil Love MD [address] [facility] [address] [place] [address] Family Medicine 11/25/19 Juju Toledo MD [address] [place] [address] Orthopedic Surgery 11/25/19 [place] [address] [place], [place] [phone] Surgeon Orthopedic Surgery 05/07/21 [place] [address] [place] [address] Physical Medicine and Rehabilitation 07/19/21 09/06/21 [place] [address] [place] [address] Orthopedic Surgery 09/07/21 Dylan Ann MD [address] [place] [address] Cardiology 03/19/22 Kathy Galindo MD [address] [place] [address] Pulmonary Disease 08/20/22 Karla Masters Care Coordination Specialist Care Management 10/29/24 10/29/24 documented as of this encounter
--- OUTSIDE RECORDS SUMMARY | 2025-02-10 02:09 | XMS_ITS | Encounter Summary ---
Author Organization [facility] Address [address] [place] [address] Care Team Providers Care Plain Clothes Police Officer Name Role Phone Charles Cardenas MD Unavailable [phone] Javi Sotelo MD Unavailable Grant Desir MD Unavailable Kofi Mendez MD Unavailable [phone] Charles Soria DO Unavailable [phone] Juju Toledo MD Unavailable [phone] Yeimi Ramos OD Unavailable [phone] Tona Suarez RN Unavailable [phone] Byron Nickerson MD Unavailable Unavailable Fannie Combs PRINT PROJECT MANAGER-ACIDIZER [employer]ATER [employer]LL Unavailable Maura Gallo MD Unavailable [phone] Virgil Love MD Unavailable [phone] Juju Toledo MD Unavailable [phone] Maura Gallo MD Unavailable Virgil Love MD Unavailable [phone] Maura Gallo MD Unavailable Maura Gallo MD Primary Care Provider [phone] Steve Stovall MD Unavailable [phone] Virgil Love MD Primary Care Provider [phone] David Flores MD Unavailable Paula HDEZ MD, Frank Unavailable [phone] Virgil Love MD Primary Care Provider [phone] Maura Gallo MD Unavailable Dylan Ann MD Unavailable [phone] Maura Gallo MD Unavailable [phone] Kathy Galindo MD Unavailable Virgil Love MD Unavailable [phone] Justin Cowan MD Unavailable [phone] Virgil Love MD Unavailable [phone] None, Physician Primary Care Provider UnavailJosue Cai MD Primary Care Provider Karla Masters Unavailable Encounter Details Date Type Department Care Team (Late st Contact Info) Description 05/19/2018 [facility] Outpatient Visit [facility] Orthopedics - Radiology [address] [place] [address] Document, Scanned Social History Tobacco Use Types Packs/Day Years Used Date Smoking Tobacco: Never Smokeless Tobacco: Never Alcohol Use Standard Drinks/Week Comments Yes 4 (1 standard drink = 0.6 oz pur e alcohol) 1 glass of whiskey nightly Sex and Gender Information Value Date Recorded Sex Assigned at Male 05/12/2020 8:18 AM GROUT WORKER Legal Sex Male 7:20 AM GROUT WORKER Gender Identity Male 05/12/2020 8:18 AM GROUT WORKER Sexual Orientation Straight 05/12/2020 8: 18 AM GROUT WORKER documented as of this encounter Functional Status * Is person deaf or have serious hearing difficulty? Answer Date of Assessment Author No 04/22/2017 12:37 AM Sharyn Ayala, RN * Is person blind or have serious difficulty seeing? Answer Date of Assessment Author No 04/22/2017 12:37 AM Sharyn Ayala RN * Does person have serious difficulty walking/climbing stairs? Answer Date of Assessment Author No 04/22/2017 12:37 AM Sharyn Ayala, RN * Does person have difficulty dressing/bathing? Answer Date of Assessment Author No 04/22/2017 12:37 AM Sharyn Ayala RN * Does person have difficulty doing [...] Description 03/14/2025 11:15 AM CDT Office Visit [facility] Orthopedics [address] [place] [address] Juju Toledo MD [address] [address] 04/25/2025 9:00 AM CDT Office Visit [facility] Orthopedics [address] [place] [address] Juju Toledo MD [address] [facility] [address] [address] documented as of this encounter Goals Goal [...] on filedocumented in this encounter Care Teams Plain Clothes Police Officer Relationship Specialty [place] [address] [place] [address] PCP - Attributed-[facility] 08/28/18 03/20/20 [place] [address] [place] [address] PCP - Attributed-[facility] 08/29/19 10/28/19 Virgil Love MD [address] [place] [address] PCP - Attributed-[facility] 10/29/19 01/28/20 [place] [address] [place], [place] [address] PCP - Attributed-[facility] 01/29/20 06/14/21 [place] [address] [place], [place] [address] PCP - General Family Medicine 05/07/21 05/14/21 Virgil Love MD [address] [place] [address] PCP - General Family Medicine 06/06/21 09/06/21 Virgil Love MD [address] [facility] 200 [place] [address] PCP - General Family Medicine 09/07/21 08/17/24 [place] [address] [facility] [address] [place] [address] PCP - Attributed-[facility] 07/31/21 12/14/21 [place] [address] [facility] [address] [place], [place] [id number] PCP - Attributed-[facility] 02/28/22 10/16/23 Virgil Love MD [address] [facility] 200 [place] [address] PCP - Attributed-[facility] P4P 10/29/23 09/14/24 Justin Cowan MD [address] [place], [place] [address] [facility] [address] [place] [address] P[facility] - [facility] 10/07/17 07/01/18 Virgil Love MD [address] [facility] 200 [place] [address] PCP - Attributed-[facility] 07/02/18 08/27/18 None, Physician PCP - General 08/18/24 09/14/24 Josue Delgado MD [address] [place] [address] PCP - General Family Medicine 09/15/24 Charles Cardenas MD [address] [place] [address] Pulmonary Disease 09/19/10 05/19/22 Javi Sotelo MD [address] [facility] [facility] [address] [place] [address] Dermatology 08/23/11 09/06/21 Grant Desir MD [address] [facility] [address] [place] [address] Endocrinology 03/02/13 05/19/22 Kofi Mendez MD [address] [facility] [address] [place] [address] Gastroenterology 03/02/13 05/19/22 Charles Soria DO [address] [place] [address] Orthopedic Surgery 12/16/14 05/19/22 Juju Toledo MD [address] [facility] [address] [place] [address] Orthopedic Surgery 08/08/15 09/06/21 Yeimi Ramos OD [address] [facility] [place] [place] [address] International Tax Manager 10/30/15 Tona Suarez, RN Machinist Wood 04/22/17 06/24/18 Byron Nickerson MD Physician Hematology and Oncology 05/15/17 09/06/21 Fannie Combs, PRINT PROJECT MANAGER-ACIDIZER [employer]ATER [employer]LL [address] [facility] [address] [place] [address] Nurse Practitioner Nurse Practitioner 05/15/17 08/19/22 Virgil Love MD [address] [facility] [address] [place], [place] [id number] Family Medicine 11/25/19 Juju Toledo MD [address] [place] [address] Orthopedic Surgery 11/25/19 [place] [address] [place] [address] Surgeon Orthopedic Surgery 05/07/21 [place] [address] [place] [address] Physical Medicine and Rehabilitation 07/19/21 09/06/21 [place] [address] [place] [address] Orthopedic Surgery 09/07/21 Dylan Ann MD [address] [place] [address] Cardiology 03/19/22 Kathy Galindo MD [address] [place] [address] Pulmonary Disease 08/20/22 Karla Masters Care Coordination Specialist Care Management 10/29/24 10/29/24 documented as of this encounter
--- OUTSIDE RECORDS SUMMARY | 2025-02-10 02:09 | XMS_ITS | Clinical Summary ---
Author Organization [email or web address] Address [address] [place] [address] Care Team Providers Care Climbing Guide Name Role Phone Yeimi Ramos OD Unavailable [phone] Virgil Love MD Unavailable [phone] Juju Toledo MD Unavailable [phone] Steve Stovall MD Unavailable [phone] Paula HDEZ MD, Frank Unavailable [phone] Dylan Ann MD Unavailable [phone] Kathy Galindo MD Unavailable Josue Delgado MD Primary Care Provider [phone] Source Comments [email or web address],non-owned Affiliates and Associated Physician Practices is amultiple site organization consisting of ambulatory clinics and hospital sitesin [place], [place], [place] and [place]. This disclosure is being madepursuant to the Care Everywhere program and may not contain all information available regarding this patient. Last updated 18.[email or web address] Allergies No known active allergies Medications * Be aware that medications may not be up to date on this document. Alwaysverify current medications with the patient. Multiple Vitamins-Minerals (CENTRUM SILVER 50+MEN PO) Take by mouth once daily Active CPAP CPAP [id number] creased from 9-08/11/18 08/11/19 19 Active Coenzyme Q10 100 MG tablet Take 1 (one) tablet by mouth once daily Active Probiotic Product (Listen Up PO) Take by mouth 2 times daily Active amoxicillin (AMOXIL) 500 MG tablet Take 4 tabs one hour before any dental treatment 4 tablet 3 12/12/19 22 Active Cholecalciferol (Vitamin D3) 250 MCG (13453 UT) TABS Take by mouth once daily Active atorvastatin (Lipitor) 40 MG tablet Take 1 (one) tablet by mouth once daily 90 tablet 3 07/11/19 24 Active Additional Information Patient taking differently: 20 mgOral DAILY, Reported on 11/29/2024 mupirocin (Bactroban) 2 % ointment Apply to [...] days 9 mL 3 11/13/19 24 Active methylPREDNISolone (Medrol Dosepak) 4 MG tabletIndications: Left [...] 2 TIMES A DAY. 05/02/20 24 Active METAMUCIL FIBER PO A ctive Fexofenadine HCl (ALLERGY 24-HR PO) A ctive acetaminophen (Tylenol) 500 MG tablet Take 1 (one) tablet by mouth 3 times daily Maximum allowable Acetaminophen amount = 4 Grams (4000 mg) / 24 hours. 11/27/19 25 Active HYDROcodone-acetam inophen ([place]) 5-325 MG tabletIndications: Old peripheral tear of lateral meniscus of left knee Take 1 (one) tablet to 2 (two) tablets by mouth every 6 hours as needed for Pain (Moderate or Severe pain) 40 tablet 11/27/19 25 Active HYDROcodone-acetam inophen ([place]) 10-325 MG tabletIndications: S/P arthroscopy of knee Take 1 (one) tablet by mouth every 8 hours as needed for Pain 40 tablet 01/18/20 25 025 Active Hospital, Clinic, or Other Facility Administered Medication Ordered Dose Route Frequency Start Date End Date Status lidocaine HCl (PF) (Xylocaine MPF) 2 % injectionIndications :Local Anesthesia INFILTRATION ONCE 01/17/2025 01/17/2025 Ended triamcinolone acetonide (Kenalog-40) injection 80 mgIndications:S/P arthroscopy of knee 80 mg IX ONCE 01/17/2025 01/17/2025 Ended Active Problems Problem Noted Date Diagnosed Date [...] Atherosclerosis of aorta 10/02/201708/2020 Overview (10/02/2017): CXR: 07.01.17 DVT femoral (deep venous thr ombosis) with [...] Encounters Date Type Department Care Team Description 01/17/2025 11:30 AM CDT Office Visit [facility] [address] [place] [address] Juju Toledo MD S/P arthroscopy of knee (Primary Dx) 12/10/2024 [facility] Outpatient Visit [facility] [address] [place] [address] Document, Scanned 12/09/2024 10:45 AM CDT Office Visit [facility] [address] [place] [address] Nicole Spencer PA S/P arthroscopy of knee (Primary Dx) 11/29/2024 12:44 PM CDT Anesthesia Event [facility] [address] [place] [address] Emmanuel Lucia MD Rush, Abby, APRN-CHARLI 11/29/2024 12:20 PM CDT - 11/29/2024 1:20 PM CDT Surgery [facility] [address] [place] [address] Juju Toledo MD LEFT KNEE ARTHROSCOPY WITH PARTIAL LATERAL MENISCECTOMY AND CHONDROPLASTY 11/29/2024 10:27 AM CDT - 11/29/2024 2:50 PM CDT Hospital Encounter [facility] [address] [place] [address] Juju Toledo MD Surgery General Discharge Disposition: Home or Self Care 11/29/2024 Travel 11/19/2024 Travel from Last 3 Months Immunizations Immunization Administration Dates Next Due COVID PFIZER 12+YR 30MCG/0.3mL 03/20/2024,2022 COVID PFIZER BIVALENT 12Y+ 30mcg/0.3ML 12/02/2022,03/19/2022 Comirnaty Covd-19 Mrna Vacci ne (Nucleoside Modified) 04/11/2023 Covid Moderna primary monova lent 12+ yr 0.5mL 03/03/2021,10/03/2020,08/28/2020 FLU VACCINE TRI IIV3 SPLIT P F IM (FLUVIRIN) 04/08/2015,04/08/2015 INFLUENZA VACCINE 04/11/2023, 2,03/06/2021,2019,02/28/2019,02/28/2019,04/08/2017,1 INFLUENZA VACCINE, ADJUVANTE D, QUADR. (FLUAD QUADRIVALENT; 65Y+) (AIIV4) 04/11/2023 INFLUENZA VACCINE, ADJUVANTE D, TRIV. (FLUAD TRIVALENT; 65Y+) (AIIV3) 03/20/2024 INFLUENZA VACCINE, HIGH-DOSE , QUADR. (FLUZONE HIGH-DOSE QUADRIVALENT; 65Y+), 0.7 ML (HD-IIV4) 04/01/2022,03/06/2021,02/21/2020,2018,02/28/2019 INFLUENZA VACCINE, HIGH-DOSE , TRIV. (FLUZONE HIGH-DOSE TRIVALENT; 65Y+) (HD-IIV3) 02/28/2019 INFLUENZA VACCINE, QUADR. (F LUZONE; FLULAVAL; FLUARIX; AFLURIA QUADRIVALENT; 6MO+), 0.5 ML (IIV4) 04/02/2018 MODERNA SARS-COV-2 COVID-19 VACCINE 0.25ML 12/12/2021 PNEUMOCOCCAL PPSV23 04/08/2015,03/09/2014 Pneumococcal Pcv13 Conj 10/08/2017 RSV AREXVY 60YR+ 0.5ML 05/21/2023 TDAP (7yrs+) 07/23/2020,12/16/2014 TDAP, HISTORIC VACCINE 07/23/2020 ZOSTER VACCINE, LIVE 04/08/2015 Zoster Hzv Vacc [...] you have a drink containing alc ohol? Monthly or less 11/29/2024 Q2: How many drinks containi ng alcohol do you have on a typical day when you are drinking? 1 or 2 11/29/2024 Q3: How often do you have si x or more drinks on one occasion? Never 11/29/2024 PHQ-2 Answer Date Recorded Patient Health Questionnaire-2 [...] Sex Assigned at Male 05/12/2020 8:18 AM ANNUAL GIVING DIRECTOR Legal Sex Male 7:20 AM ANNUAL GIVING DIRECTOR Gender Identity Male 05/12/2020 8:18 AM ANNUAL GIVING DIRECTOR Sexual Orientation Straight 05/12/2020 8: 18 AM ANNUAL GIVING DIRECTOR Last Filed Vital Signs Vital Sign Reading Time Taken Comments Blood Pressure 105/65 11/29/2024 2:30 PM CDT Pulse 51 11/29/2024 2:30 PM CDT Temperature 36.3 C (97.3 F) 11/29/2024 2:08 PM CDT Respiratory Rate 16 11/29/2024 2:30 PM CDT Oxygen Saturation 100% 11/29/2024 2:30 PM CDT Inhaled Oxygen Concentration - - Weight 141.1 kg (311 lb) 11/29/2024 11:19 AM CDT Height 177.8 cm (5' 10) 11/29/2024 11:19 AM CDT Body Mass Index 44.62 11/29/2024 11:19 AM CDT Plan of Treatment Upcoming Encounters Date Type Department Care Team (Late st Contact Info) Description 03/14/2025 11:15 AM CDT Office Visit [facility] [address] [place] [address] Juju Toledo MD [address] [place] [phone] 04/25/2025 9:00 AM CDT Office Visit [facility] [address] [place] [address] Juju Toledo MD [address] [place] [phone] Health Maintenance Due Date Last Done Comments CT COLONOGRAPHY - COLON CA SCREENING 1950 FIT - COLON CA SCREENING 1950 FLEX SIG - COLON CA SCREENING 1950 COLOGUARD (AGES 45-75) - COLON CA SCREENING 11/17/2021 11/17/2018 DIABETES - URINE PROTEIN SCREENING 06/30/2024 09/08/2023, 08/26/2022, 05/20/2022, Additional history exists MEDICARE AWV CALENDAR YEAR 2024 08/28/2023, 08/20/2022, 09/07/2021, Additional history exists DIABETES-HGB A1C 08/27/2024 02/26/2024, , 08/26/2022, Additional history exists COVID-19 VACCINE ( season) 2024 03/20/2024, 04/11/2023, 04/11/2023, Additional history exists DIABETES-SERUM CREATININE 10/07/20242023, 09/08/2023, 08/26/2022, Additional history exists DIABETES-FOOT EXAM WITH MONOFILAMENT 02/26/2025 02/27/2024, 08/20/2022, 04/02/2018, Additional history exists INFLUENZA VACCINE (#1) 2025 , 04/11/2023, 04/11/2023, Additional history exists DIABETES RETINOPATHY SCREENING 06/26/2025 [...] Rojelio, [employer] Implanted Type Area Long Chain Beamer Device Identifier Shelf Expiration Date Model / Serial / Lot Iconix 1 Tt Intellibraid [employer] 1.4 Mm [place] With 1.2 Mm Xbraid Tt Implanted:Qty: 3 on 09/15/2015 by Juju Toledo MD at [facility] Left: Shoulder 05/30/2017 [id number] / / [id number] Shell Actb 54mm Hip Ch 12 Sclp Snpft Lck Implanted:Qty: 1 on 09/27/2021 at [facility] Left: Hip [employer] 05/29/2031 [id number] Liner Actb 45d 7mm Ofst Jj 54mm 36mm Implanted:Qty: 1 on 09/27/2021 at [facility] Left: Hip [employer] 09/27/2025 [id number] / / [id number] Stm Fem 154mm Hip 5 Lat Ofst Intgr-+ Implanted:Qty: 1 on 09/27/2021 at [facility] Left: Hip [employer] 09/27/2025 [id number] / / [id number] Head Fem +8mm 12/14 36mm Hip Oxnm Implanted:Qty: 1 on 09/27/2021 at [facility] Left: Hip [employer] 06/29/2031 [id number] / / [id number] Cmpnt Ptlr Std 31mm 3 Pg Kn Ser A Implanted:Qty: 1 on 04/10/2022 by Steve Stovall MD at [facility] Right: Knee [employer] 01/17/2027 [id number] / / [id number] Tray Tib 83mm Kn Cocr I Beam Implanted:Qty: 1 on 04/10/2022 by Steve Stovall MD at [facility] Right: Knee [employer] 01/16/2032 [id number] / / [id number] Cmpnt Fem Kn Rt Cr Cmnt Prm Vngrd Intlk Implanted:Qty: 1 on 04/10/2022 by Steve Stovall MD at [facility] Right: Knee [employer] 03/07/2032 [id number] / / [id number] Brng 07kdy25ad Vngrd Arcm Kn Ant Stab Implanted:Qty: 1 on 04/10/2022 by Steve Stovall MD at [facility] Right: Knee [employer] 11/22/2025 [id number] / / [id number] Cmnt Bone Djo Srg Cblt 40gm Hvisc Strl Implanted:Qty: 1 on 04/10/2022 by Steve Stovall MD at [facility] Right: Knee [employer] 01/10/2023 600-15-0 00 / / [id number] Anselmo Bone Greer-G Hv 40/20 Implanted:Qty: 1 on 04/10/2022 by Steve Stovall MD at [facility] Right: Knee [employer] 07/26/2023 600-15-1 00 / / [id number] Explanted Type Area Long Chain Beamer Device Identifier Shelf Expiration Date Model / Serial / Lot Iconix 1.4 Mm [place] Explanted:Qty : 1 on 09/15/2015 by Juju Toledo MD at [facility] Left: Shoulder 04/23/2017 3910-500-31 2 / / [id number] Pin Hlf 255mm 5mm Jtx Lng Orth Ss 45mm Explanted:Qty : 1 on 09/27/2021 at [facility] [employer] [id number] / / Procedures Procedure Name Priority Date/Time Associated Diagnosis Comments IMAGING/RADIOLOGY/XR AY RESULTS ORDER Routine 01/17/2025 1:21 PM CDT GLUCOSE - POINT OF CARE Routine 11/29/2024 1:43 PM CDT PA KNEE SCOPE,MEDIAL OR LATERAL MENISECTOMY 11/29/2024 12:33 PM CDT S83.207A HEMOGLOBIN A1C - POINT OF CARE (AMB) [...] CDT Screen for colon cancer ENDOSCOPY, COLON, DIAGNOSTIC Routine 06/10/2018 7:46 AM ANNUAL GIVING DIRECTOR ENDOSCOPY, COLON, SCREENING Routine 06/10/2018 Family history of colon cancer Hx of adenomatous colonic polyps Family history of polyps in the colon HEPATITIS C ANTIBODY Routine 03/04/2013 9:19 AM CDT Diabetic sensorimotor neuropathy from Last 3 Months or Most Recently Relevant to Health Maintenance Results * IMAGING RADIOLOGY XRAY RESULTS ORDER (01/17/2025 1:21 PM CDT) Anatomical Region Laterality Modality Other Historical Provider MD IMAGING Final Res ult * GLUCOSE - POINT OF CARE (11/29/2024 1:43 PM CDT) Pathologist [facility] Glucose WB/POC 96 70 - 99 mg/dL 11/29/2024 1:52 PM CDT [facility] Specimen Type Arterial/C apillary 11/29/2024 1:52 PM CDT [facility] Blood BLOOD SPECIMEN / Unknown 11/29/2024 1:43 PM CDT 11/29/2024 1:52 PM CDT Juju Toledo MD LAB - POINT OF CARE ORDERABLES Final Result Performing Organization Address [facility]/ZIP Co de Phone Number [facility] [address] [place] [address] * HEMOGLOBIN A1C - POINT OF CARE (HgbA1C) (02/26/2024 1:58 PM CDT) Pathologist [facility] Hemoglobin A1c POCT 5.7 % [facility] Expiration Date [id number] [facility] Lot # [id number] [facility] QC Verified Yes Yes [facility] Blood BLOOD SPECIMEN / Unknown 02/26/2024 1:58 PM CDT Virgil Love MD LAB - POINT OF CARE ORDERABL ES Final Result Performing Organization Address City/[facility]/ZIP Co de Phone Number [facility] [address] [place] [address], [facility] [phone] * (ABNORMAL) BASIC METABOLIC PANEL (BMP) (10/08/2023 10:02 AM CDT) Pathologist [facility] Glucose 121(H) 70 - 105 mg/dL [facility] [...] Resulting Agency Comment Lab Testing performed at: [facility] [address] [place] [phone] Virgil Love MD LAB - CHEMISTRY ORDERABLES F inal Result [facility] INSURANCE BILL [address] [place] [address] * MICROALB/CREAT RATIO URINE RANDOM PANEL (09/08/2023 11:57 AM CDT) Creatinine Urine 80.06 mg/dL [facility] INSURANCE BILL Microalbumin Urine <0.5 mg/dL [facility] INSURANCE BILL Microalbumin/Crea tinine Ratio mg/g [facility] INSURANCE BILL Comment: Not Calculated Urine URINE SPECIMEN OBTAINED BY CLEAN CATCH PROCEDURE / Unknown 09/08/2023 11:57 AM CDT 09/08/2023 Narrative Resulting Agency Comment Lab Testing performed at: [facility] [address] [place] [phone] Virgil Love MD LAB - URINE CHEMISTRY ORDERA BLES Final Result [facility] INSURANCE BILL [address] [place] [address] * EYE EXAM (06/26/2023) Anatomical Region Laterality Modality Other 06/26/2023 Narrative 06/26/2023 Ordered by an unspecified provider. us Scanned Document SCANNING ONLY Final Result * [id number] COLOGUARD TEST *Associate with Z12.11 OR Z12.12 Dx Codes* (11/17/2018 8:00 AM CDT) Cologuard Negative Not Applicable [facility] Comment: A negative result indicates [...] screened with both Cologuard and colonoscopy. (Loreto Rousseau. et al, N Engl J Med 2014;370(14):6766-7313) COLOGUARD RE-SCREENING RECOMMENDATION: Periodic routine colorectal cancer screening is an important part of preventive healthcare for asymptomatic persons at average risk for colorectal cancer. Following a negative Cologuard result, the [place] [employer] and U.S. Multi-Society Task Force screening guidelines recommend a Cologuard re-screening interval of 3 years. References: [place] [employer] (ACS). Colorectal cancer prevention and early detection. [place], [place]: [place] [employer]; [updated 2015Oct 21]. https://www.cancer.org/cancer/lypto-shygdd-irxirw/cssdjxxio-rejprtbpn-nfftvfv/ acs-recommendations.html. Accessed February 27, 2018; Ayo ZAPATA, Steven HERMAN, King LeighK, Colorectal Cancer Screening: Recommendations for Physicians and Patients from the U.S. Multi-Society Task Force on Colorectal Cancer Screening, Am J Gastroenterology 2017; 112:2543-0052. Test Type: Composite algorithmic analysis of stool [...] can be accessed at the following location: www.4 the stars/results. Additional description of the Cologuard test process, warnings and precautions can be found at www.cologuardtest.Offerti. Rx Only. Stool specimen (specimen) STOOL SPECIMEN / Unknown 11/17/2018 8:00 AM CDT 11/18/2018 4:34 PM CDT us Virgil Love MD LAB - CHEMISTRY ORDERABLES F inal Result [facility] [address] [place] [id number] * ENDOSCOPY, COLON, DIAGNOSTIC (06/10/2018 7:46 AM ANNUAL GIVING DIRECTOR) Report Endoscopy POC _ Patient Name: Jarred To Procedure Date: 06/10/2018 7:46 AM Date of : 1950 Admit Type: Outpatient Age: 68 Gender: Male Attending MD: Kofi Mendez MD _ Procedure: Colonoscopy Indications: High risk colon cancer surveillance: Personal history of colonic polyps Providers: Kofi Mendez MD (Doctor) Patient Profile: This is a 68 year old male. Referring MD: Virgil Love (Referring MD) Medicines: Monitored Anesthesia Care Complications: No immediate complications. _ Procedure: After I obtained informed consent, the scope was passed under direct vision. Throughout the procedure, the patient's blood pressure, pulse, and oxygen saturations were monitored continuously. The Colonoscope was introduced through the anus and advanced to the ileocolonic anastomosis. The appendiceal orifice was photographed. The patient tolerated the procedure well. The quality of the bowel preparation was good. Findings: The rectum, sigmoid colon, descending colon, splenic flexure, transverse colon, hepatic flexure, ascending colon and cecum appeared normal. A moderate amount of stool was found in the rectum, in the sigmoid colon, in the descending colon, at the splenic flexure, in the transverse colon, at the hepatic flexure, in the ascending colon and in the cecum. _ Impression: - The rectum, sigmoid colon, descending colon, splenic flexure, transverse colon, hepatic flexure, ascending colon and cecum are normal. - Stool in the rectum, in the sigmoid colon, in the descending colon, at the splenic flexure, in the transverse colon, at the hepatic flexure, in the ascending colon and in the cecum. - No specimens collected. Recommendation: - Patient has a contact number available for emergencies. The signs and symptoms of potential delayed complications were discussed with the patient. Return to normal activities tomorrow. Written discharge instructions were provided to the patient. - Resume previous diet. - Repeat colonoscopy in 1 year for surveillance. - Resume Eliquis (apixaban) at prior dose. Procedure Code(s): --- Professional --- 10095, Colonoscopy, flexible; diagnostic, including collection of specimen(s) by brushing or washing, when performed (separate procedure) --- Technical --- 59463, Colonoscopy, flexible; diagnostic, including collection of specimen(s) by brushing or washing, when performed (separate procedure) Diagnosis Code(s): --- Professional --- Z86.010, Personal history of colonic polyps --- Technical --- Z86.010, Personal history of colonic polyps CPT copyright 2017 [employer] [employer]. All rights reserved. The codes documented in this report are preliminary and upon certified professional ergonomist review may be revised to meet current compliance requirements. Kofi Mendez MD Kofi Mendez MD 06/10/2018 8:45:19 AM This report has been signed electronically. Number of Addenda: 0 Note Initiated On: 06/10/2018 7:46 AM RANDAL SCARLETTEDS 06/10/2018 7:46 AM ANNUAL GIVING DIRECTOR Kofi Mendez MD GI PROCEDURE ORDERABLES E dited Result - Final Performing Organization Address [facility]/ZIP Co de Phone Number [facility] * ENDOSCOPY, COLON, SCREENING (06/10/2018) Kofi Mendez MD GI PROCEDURE ORDERABLES F inal Result Performing Organization Address [facility] Co de Phone Number [facility] [...] offers HCV Ab w/Reflex to Verification test #[id number]. Blood specimen (specimen) BLOOD SPECIMEN / Unknown 03/04/2013 9:19 AM CDT 03/04/2013 12:01 PM CDT Narrative Resulting Agency Comment [facility] [address] [facility] [phone] us Justin Cowan MD LAB - CHEMISTRY ORDERABLES Fin al Result [facility] ACCOUNT BILL [address] [place] [address] from Last 3 Months or Most Recently Relevant to Health Maintenance Insurance [facility] MANAGED MEDICARE ADV [facility] MANAGED MEDICARE ADV Advance Directives Documents on File Type Date Recorded Patient Human Resources Safety Manager Expl anation Adv Directive/Living Will/POA 04/12/2022 10:08 [...] 11:50 AM 06/25/2018 5:15 PM Care Teams Climbing Guide Relationship Specialty Start Date End Date Josue Delgado MD [address] [place] [address] PCP - General Family Medicine 09/15/24 Yeimi Ramos OD [address] [place] [address] Slubber Runner 10/30/15 Virgil Love MD [address] [place] [address] Family Medicine 11/25/19 Juju Toledo MD [address] [place] [phone] Orthopedic Surgery 11/25/19 [place] [address] [address] Surgeon Orthopedic Surgery 05/07/21 [place] [address] [facility] [address] [place], [place] [phone] Orthopedic Surgery 09/07/21 Dylan Ann MD [address] [place] [address] Cardiology 03/19/22 Kathy Galindo MD [address] [place] [address] Pulmonary Disease 08/20/22
--- OUTSIDE RECORDS SUMMARY | 2025-02-10 02:09 | XMS_ITS | Encounter Summary ---
Author Organization [facility] Address [address] [place] [address] Care Team Providers Care Ell Tutor Name Role Phone Charles Cardenas MD Unavailable Javi Sotelo MD Unavailable [phone] Grant Desir MD Unavailable Kofi Mendez MD Unavailable [phone] Charles Soria DO Unavailable [phone] Juju Toledo MD Unavailable [phone] Yeimi Ramos OD Unavailable [phone] Byron Nickerson MD Unavailable Unavailable Fannie Combs ASSEMBLY REPAIRER-WEAPONS OFFICER [employer] Unavailable [phone] Maura Gallo MD Unavailable Virgil Love MD Unavailable [phone] Juju Toledo MD Unavailable [phone] Virgil Love MD Unavailable [phone] Maura Gallo MD Unavailable Maura Gallo MD Primary Care Provider [phone] Steve Stovall MD Unavailable Virgil Love MD Primary Care Provider [phone] David Flores MD Unavailable Paula HDEZ MD, Frank Unavailable [phone] Virgil Love MD Primary Care Provider [phone] Maura Gallo MD Unavailable [phone] Dylan Ann MD Unavailable [phone] Maura Gallo MD Unavailable Kathy Galindo MD Unavailable Virgil Love MD Unavailable [phone] None, Physician Primary Care Provider UnavailJosue Cai MD Primary Care Provider Karla Matsers Unavailable Encounter Details Date Type Department Care Team (Late st Contact Info) Description 11/24/2019 Lab Requisition [facility] [address] [place] [address] Dario Sanabria MD [address] [place] [address] Social History Tobacco Use Types Packs/Day Years Used Date Smoking Tobacco: Never Smokeless Tobacco: Never Alcohol Use Standard Drinks/Week Comments No 4 (1 standard drink = 0.6 oz pur e alcohol) Sex and Gender Information Value Date Recorded Sex Assigned at Male 05/12/2020 8:18 AM VP [employer]BILE [employer]ODUCTS Legal Sex Male 7:20 AM VP [employer] Gender Identity Male 05/12/2020 8:18 AM VP [employer] Sexual Orientation Straight 05/12/2020 8: 18 AM VP [employer] COVID-19 Exposure Response Date Recorded In the [...] 03/14/2025 11:15 AM CDT Office Visit [facility] Orthopedics [address] [place] [address] Juju Toledo MD [address] [phone] 04/25/2025 9:00 AM CDT Office Visit [facility] Orthopedics [address] [place] [address] Juju Toledo MD [address] [address] documented as of this encounter Goals Goal [...] AM CDT) Case Report Dermatopathology Report Case: [id number] Authorizing Provider: Dario Sanabria MD Collected: 11/23/2019 12:00 AM Ordering Location: [facility] DermPath Lab Received: 11/24/2019 10:55 AM Pathologist: Scott Donnelly MD Specimens: A) - Skin, scalp A B) - Skin, scalp B C) - Skin, scalp C 0 6:16 PM CDT DERMATOPATHOLOGY LABORATORY Final Diagnosis Specimen A. SKIN, scalp A: ACTINIC KERATOSIS (L57.0) Specimen B. SKIN, scalp B: ACTINIC KERATOSIS (L57.0) Specimen C. SKIN, scalp C: ACTINIC KERATOSIS (L57.0) (see microscopic description) 0 6:16 PM CDT DERMATOPATHOLOGY LABORATORY at 1816 CDT Clinical History A-C: Check margins. 0 6:16 PM CDT DERMATOPATHOLOGY LABORATORY Gross Description Specimen A: [id number]. Jar 0. Specimen B: [id number]. Jar 0. Specimen C: [id number]. Jar 0. 0 6:16 PM CDT DERMATOPATHOLOGY [...] were obtained and reviewed. 0 6:16 PM CDT DERMATOPATHOLOGY LABORATORY Disclaimer An external and internal positive and negative controls are appropriate for the histochemical, immunohistochemical and immunofluorescence stain(s) in this case (if any), except where stated explicitly. The performance characteristics of the stain(s) cited in this report were developed and its performance characteristic determined by the Dermatopathology Laboratory at [facility], directed by Dr. Joey Donnelly. These tests need not be, and therefore are not, approved by the [place] Food and Drug Administration. The tests are used for clinical purposes. Billing Codes Specimen Charges Stain Charges 91818 [id number] [id number] 1 1 1 0 6:16 PM CDT DERMATOPATHOLOGY LABORATORY Embedded Images 0 6:16 PM CDT DERMATOPATHOLOGY LABORATORY Pathology/Cytology TISSUE SPECIMEN FROM SKIN / Unknown 11/23/2019 11/24/2019 10:55 AM CDT Miscellaneous samples (specimen) TISSUE SPECIMEN FROM SKIN / Unknown 11/23/2019 11/24/2019 10:55 AM CDT Miscellaneous samples (specimen) TISSUE SPECIMEN FROM SKIN / Unknown 11/23/2019 11/24/2019 10:55 AM CDT Dario Sanabria MD LAB - PATHOLOGY/CYTOLOGY ORDERA BLES Final Result Performing Organization Address City/State/[facility] [[email or web address]] Co de Phone Number DERMATOPATHOLOGY LABORATORY [facility] - Department of Dermatology Endocrinology Physician Center/[id number] [place] [address] documented in this encounter Visit Diagnoses Not on filedocumented in this encounter Care Teams Ell Tutor Relationship Specialty [place] [address] [place] [address] PCP - Attributed-[facility] 08/28/18 03/20/20 Virgil Love MD [address] [place] [address] PCP - Attributed-[facility] 10/29/19 01/28/20 [place] [address] [place], [place] [address] PCP - Attributed-[facility] 01/29/20 06/14/21 [place] [address] [place] [address] PCP - General Family Medicine 05/07/21 05/14/21 Virgil Love MD [address] [place] [address] PCP - General Family Medicine 06/06/21 09/06/21 Virgil Love MD [address] [place] [address] PCP - General Family Medicine 09/07/21 08/17/24 [place] [address] [place], [place] [address] PCP - Attributed-[facility] 07/31/21 12/14/21 [place] [address] [place], [place] [address] PCP - Attributed-[facility] 02/28/22 10/16/23 Virgil Love MD [address] [place] [address] PCP - Attributed-[facility] P4P 10/29/23 09/14/24 None, Physician PCP - General 08/18/24 09/14/24 Josue Delgado MD [address] [place] [address] PCP - General Family Medicine 09/15/24 Charles Cardenas MD [address] [place] [address] Pulmonary Disease 09/19/10 05/19/22 Javi Sotelo MD [address] [facility] [address] [place], [place] [address] Dermatology 08/23/11 09/06/21 Grant Desir MD [address] [facility] [address] [place] [phone] Endocrinology 03/02/13 05/19/22 Kofi Mendez MD [address] [facility] [address] [place] [address] Gastroenterology 03/02/13 05/19/22 Charles Soria DO [address] [place] [address] Orthopedic Surgery 12/16/14 05/19/22 Juju Toledo MD [address] [facility] [address] [place] [address] Orthopedic Surgery 08/08/15 09/06/21 AtlantaYeimi Lance, OD [address] [facility] [place] [address] German Instructor 10/30/15 Byron Nickerson MD [address] [facility] [place] [address] Physician Hematology and Oncology 05/15/17 09/06/21 Fannie Combs, ASSEMBLY REPAIRER-WEAPONS OFFICER [employer] [address] [facility] [address] [place] [address] Nurse Practitioner Nurse Practitioner 05/15/17 08/19/22 Virgil Love MD [address] [facility] [address] [place] [address] Family Medicine 11/25/19 Juju Toledo MD [address] [place] [address] Orthopedic Surgery 11/25/19 [place] [address] [place] [address] Surgeon Orthopedic Surgery 05/07/21 [place] [address] [place] [address] Physical Medicine and Rehabilitation 07/19/21 09/06/21 [place] [address] [place], [place] [address] Orthopedic Surgery 09/07/21 Dylan Ann MD [address] [place] [address] Cardiology 03/19/22 Kathy Galindo MD [address] [place] [address] Pulmonary Disease 08/20/22 Karla Masters Care Coordination Specialist Care Management 10/29/24 10/29/24 documented as of this encounter
--- OUTSIDE RECORDS SUMMARY | 2025-02-10 02:09 | XMS_ITS | Encounter Summary ---
Author Organization [facility] Address [address] [place] [address] Care Team Providers Care Cloth Shrinking Supervisor Name Role Phone Charles Cardenas MD Unavailable [phone] Javi Sotelo MD Unavailable [phone] Grant Desir MD Unavailable Kofi Mendez MD Unavailable [phone] Charles Soria DO Unavailable Juju Toledo MD Unavailable [phone] Yeimi Ramos OD Unavailable [phone] Byron Nickerson MD Unavailable Unavailable Fannie Combs JOURNEYMAN PAINTER-HEEL PAINTER Unavailable [phone] Maura Glalo MD Unavailable Virgil Love MD Unavailable Juju Toledo MD Unavailable [phone] Maura Gallo MD Unavailable [phone] Virgil Love MD Unavailable Maura Gallo MD Unavailable [phone] Maura Gallo MD Primary Care Provider Steve Stovall MD Unavailable [phone] Virgil Love MD Primary Care Provider [phone] David Flores MD Unavailable [phone] Paula HDEZ MD, Javi Unavailable [phone] Virgil Love MD Primary Care Provider [phone] Maura Gallo MD Unavailable [phone] Dylan Ann MD Unavailable [phone] Maura Gallo MD Unavailable [phone] Kathy Galindo MD Unavailable Virgil Love MD Unavailable [phone] None, Physician Primary Care Provider UnavailJosue Cai MD Primary Care Provider [phone] Karla Masters Unavailable Encounter Details Date Type Department Care Team (Late st Contact Info) Description 11/16/2018 [facility] [address] [place] [address] Juju Toledo MD [address] [place] [address] Social History Tobacco Use Types Packs/Day Years Used Date Smoking Tobacco: Never Smokeless Tobacco: Never Alcohol Use Standard Drinks/Week Comments No 4 (1 standard drink = 0.6 oz pur e alcohol) Sex and Gender Information Value Date Recorded Sex Assigned at Male 05/12/2020 8:18 AM SKILLED NURSING PROFESSIONAL Legal Sex Male 7:20 AM SKILLED NURSING PROFESSIONAL Gender Identity Male 05/12/2020 8:18 AM SKILLED NURSING PROFESSIONAL Sexual Orientation Straight 05/12/2020 8: 18 AM SKILLED NURSING PROFESSIONAL documented as of this encounter Functional Status * Is person deaf or have serious hearing difficulty? Answer Date of Assessment Author No 06/24/2018 12:00 PM SKILLED NURSING PROFESSIONAL Lissett Nicholson RN * Is person blind or have [...] Description 03/14/2025 11:15 AM CDT Office Visit [facility] Orthopedics [address] [address] Juju Toledo MD [address] [phone] 04/25/2025 9:00 AM CDT Office Visit [facility] Orth[facility] [address] [place] [address] Juju Toledo MD [address] [phone] documented as of this encounter Goals Goal [...] on filedocumented in this encounter Care Teams Cloth Shrinking Supervisor Relationship Specialty [place] [address] [place] [address] PCP - Attributed-[facility] 08/28/18 03/20/20 [place] [address] [place] [address] PCP - Attributed-[facility] 08/29/19 10/28/19 Virgil Love MD [address] [facility] [address] [place] [address] PCP - Attributed-[facility] 10/29/19 01/28/20 [place] [address] [place] [address] PCP - Attributed-[facility] 01/29/20 06/14/21 [place] [address] [place] [address] PCP - General Family Medicine 05/07/21 05/14/21 Virgil Love MD [address] [facility] [address] [place] [address] PCP - General Family Medicine 06/06/21 09/06/21 Virgil Love MD [address] [facility] [address] [place] [address] PCP - General Family Medicine 09/07/21 08/17/24 [place] [address] [facility] [address] [place], [place] [address] PCP - Attributed-[facility] 07/31/21 12/14/21 [place] [address] [facility] [facility] [address] [place], [place] [address] PCP - Attributed-[facility] 02/28/22 10/16/23 Virgil Love MD [address] [facility] [address] [place] [address] PCP - Attributed-[facility] P4P 10/29/23 09/14/24 None, Physician PCP - General 08/18/24 09/14/24 Josue Delgado MD [address] [place] [address] PCP - General Family Medicine 09/15/24 Charles Cardenas MD [address] [place] [address] Pulmonary Disease 09/19/10 05/19/22 Javi Sotelo MD [address] [facility] [address] [place] [address] Dermatology 08/23/11 09/06/21 Grant Desir MD [address] [facility] [address] [place] [address] Endocrinology 03/02/13 05/19/22 Kofi Mendez MD [address] [facility] [address] [place] [address] Gastroenterology 03/02/13 05/19/22 Charles Soria DO [address] [place] [address] Orthopedic Surgery 12/16/14 05/19/22 Juju Toledo MD [address] [facility] [address] [place] [address] Orthopedic Surgery 08/08/15 09/06/21 Yeimi Ramos, OD [address] [facility] [place] [address] Jewel Bearing Broacher 10/30/15 Byron Nickerson MD [address] [facility] [place] [address] Physician Hematology and Oncology 05/15/17 09/06/21 Fannie Combs APRN-HEEL PAINTER [address] [facility] [address] [place], [place] [address] Nurse Practitioner Nurse Practitioner 05/15/17 08/19/22 Virgil Love MD [address] [facility] [address] [place], [place] [address] Family Medicine 11/25/19 Juju Toledo MD [address] [facility] [address] [place] [address] Orthopedic Surgery 11/25/19 [place] [address] [place] [address] Surgeon Orthopedic Surgery 05/07/21 [place] [address] [place] [address] Physical Medicine and Rehabilitation 07/19/21 09/06/21 [place] [address] [place] [address] Orthopedic Surgery 09/07/21 Dylan Ann MD [address] [place] [address] Cardiology 03/19/22 Kathy Galindo MD [address] [place] [address] Pulmonary Disease 08/20/22 Karla Masters Care Coordination Specialist Care Management 10/29/24 10/29/24 documented as of this encounter
--- OUTSIDE RECORDS SUMMARY | 2025-02-10 02:09 | XMS_ITS | Encounter Summary ---
Author Organization [facility] Address [address] [facility] [address] Care Team Providers Care Dietary Services Director Name Role Phone Justin Cowan MD Primary Care Provider Charles Cardenas MD Unavailable [phone] Javi Sotelo MD Unavailable Grant Desir MD Unavailable Kofi Mendez MD Unavailable [phone] Charles Soria DO Unavailable [phone] Juju Toledo MD Unavailable [phone] Yeimi Ramos OD Unavailable Tona Suarez RN Unavailable Byron Nickerson MD Unavailable Unavailable Fannie Combs RACE ENGINE BUILDER-FINISH GRINDER Unavailable [phone] Virgil Love MD Primary Care Provider Justin Cowan MD Primary Care Provider Maura Gallo MD Unavailable [phone] Virgil Love MD Unavailable Juju Toledo MD Unavailable [phone] Maura Gallo MD Unavailable Virgil Love MD Unavailable [phone] Maura Gallo MD Unavailable [phone] Maura Gallo MD Primary Care Provider [phone] Steve Stovall MD Unavailable [phone] Virgil Love MD Primary Care Provider [phone] David Flores MD Unavailable [phone] Paula HDEZ MD, Frank Unavailable [phone] Virgil Love MD Primary Care Provider [phone] Maura Gallo MD Unavailable [phone] Dylan Ann MD Unavailable [phone] Maura Gallo MD Unavailable [phone] Kathy Galindo MD Unavailable Virgil Love MD Unavailable [phone] Justin Cowan MD Unavailable [phone] Virgil Love MD Unavailable [phone] None, Physician Primary Care Provider UnavailJosue Cai MD Primary Care Provider [phone] Karla Masters Unavailable Encounter Details Date Type Department Care Team (Late st Contact Info) Description 04/04/2014 Therapy Visit [facility] [address] [place] [address] Unknown, Provider Social History Tobacco Use Types Packs/Day Years Used Date Smoking Tobacco: Never Smokeless Tobacco: Never Alcohol Use Standard Drinks/Week Comments Yes 1.7 (1 standard drink = 0.6 oz p ure alcohol) Sex and Gender Information Value Date Recorded Sex Assigned at Male 05/12/2020 8:18 AM SMALL PARTS ASSEMBLER Legal Sex Male 7:20 AM SMALL PARTS ASSEMBLER Gender Identity Male 05/12/2020 8:18 AM SMALL PARTS ASSEMBLER Sexual Orientation Straight 05/12/2020 8: 18 AM SMALL PARTS ASSEMBLER documented as of this encounter Plan of Treatment Upcoming Encounters Date Type Department Care Team (Late st Contact Info) Description 03/14/2025 11:15 AM CDT Office Visit [facility] Orthopedics [address] [facility] [address] [place], [place] [address] Juju Toledo MD [address] [facility] [address] [place] [address] 04/25/2025 9:00 AM CDT Office Visit [facility] Orthopedics [address] [facility] [address] [place], [place] [address] Juju Toledo MD [address] [phone] documented as of this encounter Goals Goal [...] on filedocumented in this encounter Care Teams Dietary Services Director Relationship Specialty Start Date End Date Justin Cowan MD [address] [place] [address] [address] [place] [address] PCP - General 03/25/08 06/01/17 Virgil Love MD [address] [facility] 200 [place] [address] PCP - General Family Medicine 06/02/17 09/16/17 Justin Cowan MD [address] [place] [address] [address] [place] [address] PCP - General Internal Medicine 09/17/17 09/17/17 [place] [address] [place] [address] PCP - Attributed-[facility] 08/28/18 03/20/20 [place] [address] [place] [address] PCP - Attributed-[facility] [place] 08/29/19 10/28/19 Virgil Love MD [address] [facility] [address] [place] [address] PCP - Attributed-[facility] 10/29/19 01/28/20 [place] [address] [place] [address] PCP - Attributed-[facility] 01/29/20 06/14/21 [place] [address] [place] [address] PCP - General Family Medicine 05/07/21 05/14/21 Virgil Love MD [address] [facility] [address] [place] [address] PCP - General Family Medicine 06/06/21 09/06/21 Virgil Love MD [address] [facility] [address] [place] [address] PCP - General Family Medicine 09/07/21 08/17/24 [place] [address] [facility] [address] [place], [place] [address] PCP - Attributed-[facility] 07/31/21 12/14/21 [place] [address] [facility] [address] [place] [address] PCP - Attributed-[facility] 02/28/22 10/16/23 Virgil Love MD [address] [facility] [address] [place] [address] PCP - Attributed-[facility] P4P 10/29/23 09/14/24 Justin Cowan MD [address] [place], [place] [address]Y [address] [place] [address] PCP - Attributed-[facility] 10/07/17 07/01/18 Virgil Love MD [address] [facility] [address] [place] [address] PCP - Attributed-[facility] 07/02/18 08/27/18 None, Physician PCP - General 08/18/24 09/14/24 Josue Delgado MD [address] [place] [address] PCP - General Family Medicine 09/15/24 Charles Cardenas MD [address] [facility] [address] [place] [address] Pulmonary Disease 09/19/10 05/19/22 Javi Sotelo MD [address] [facility] [address] [place], [place] [address] Dermatology 08/23/11 09/06/21 Grant Desir MD [address] [place], [place] [address]y [address] [place] [address] Endocrinology 03/02/13 05/19/22 Kofi Mendez MD [address] [place], [place] [address]y [address] [place] [address] Gastroenterology 03/02/13 05/19/22 Charles Soria DO [address] [place] [address] Orthopedic Surgery 12/16/14 05/19/22 [place] [address] [place] [address] [address] [place] [address] Orthopedic Surgery 08/08/15 09/06/21 Yeimi Ramos, LUIS [address] [facility] [place] [address] Huc Ob 10/30/15 Tona Suarez, RN Broadcast Producer 04/22/17 06/24/18 Byron Nickerson MD Physician Hematology and Oncology 05/15/17 09/06/21 Fannie Combs APRN-FINISH GRINDER [address] [facility] [address] [place] [address] Nurse Practitioner Nurse Practitioner 05/15/17 08/19/22 Virgil Love MD [address] [place] [address] Family Medicine 11/25/19 Juju Toledo MD [address] [place] [address] Orthopedic Surgery 11/25/19 [place] [address] [place] [address] Surgeon Orthopedic Surgery 05/07/21 [place] [address] [place] [address] Physical Medicine and Rehabilitation 07/19/21 09/06/21 [place] [address] [address] [place] [address] Orthopedic Surgery 09/07/21 Dylan Ann MD [address] [facility] [address] [place] [address] Cardiology 03/19/22 Kathy Galindo MD [address] [place] [address] Pulmonary Disease 08/20/22 Karla Masters Care Coordination Specialist Care Management 10/29/24 10/29/24 documented as of this encounter
--- OUTSIDE RECORDS SUMMARY | 2025-02-10 02:09 | XMS_ITS | Encounter Summary ---
Author Organization [facility] Address [address] [facility] [place] [address] Care Team Providers Care Principal Gifts Officer Name Role Phone Justin Cowan MD Primary Care Provider [phone] Charles Cardenas MD Unavailable [phone] Javi Sotelo MD Unavailable [phone] Grant Desir MD Unavailable [phone] Kofi Mendez MD Unavailable [phone] Charles Soria DO Unavailable Juju Toledo MD Unavailable [phone] Yeimi Ramos OD Unavailable [phone] Tona Suarez RN Unavailable [phone] Byron Nickerson MD Unavailable Unavailable Fannie Combs GAUGE MACHINE OPERATOR-TRANSITION ADVISOR Unavailable [phone] Virgil Love MD Primary Care Provider [phone] Justin Cowan MD Primary Care Provider Maura Gallo MD Unavailable Virgil Love MD Unavailable Juju Toledo MD Unavailable [phone] Maura Gallo MD Unavailable Virgil Love MD Unavailable [phone] Maura Gallo MD Unavailable Maura Gallo MD Primary Care Provider Steve Stovall MD Unavailable Virgil Love MD Primary Care Provider [phone] David Flores MD Unavailable Paula HDEZ MD, Frank Unavailable [phone] Virgil Love MD Primary Care Provider [phone] Maura Gallo MD Unavailable [phone] Dylan Ann MD Unavailable [phone] Maura Gallo MD Unavailable Kathy Galindo MD Unavailable Virgil Love MD Unavailable Justin Cowan MD Unavailable [phone] Virgil Love MD Unavailable None, Physician Primary Care Provider UnavailJosue Cai MD Primary Care Provider Karla Masters Unavailable Encounter Details Date Type Department Care Team (Late st Contact Info) Description 08/17/2015 [facility] Outpatient Visit [facility] Health Orthopedics [address] [place], [place] [address] Juju Toledo MD [address] [place] [address] Social History Tobacco Use Types Packs/Day Years Used Date Smoking Tobacco: Never Smokeless Tobacco: Never Alcohol Use Standard Drinks/Week Comments Yes 1.7 (1 standard drink = 0.6 oz p ure alcohol) Sex and Gender Information Value Date Recorded Sex Assigned at Male 05/12/2020 8:18 AM LAN MANAGER Legal Sex Male 7:20 AM LAN MANAGER Gender Identity Male 05/12/2020 8:18 AM LAN MANAGER Sexual Orientation Straight 05/12/2020 8: 18 AM LAN MANAGER documented as of this encounter Plan of Treatment Upcoming Encounters Date Type Department Care Team (Late st Contact Info) Description 03/14/2025 11:15 AM CDT Office Visit [facility] Orthopedics [address] [id number] Juju Tloedo MD [address] [address] 04/25/2025 9:00 AM CDT Office Visit [facility] Orthopedics [address] [facility] 100 [place], [place] [address] Juju Toledo MD [address] [address] documented as of this encounter Goals [...] on filedocumented in this encounter Care Teams Principal Gifts Officer Relationship Specialty Start Date End Date Justin Cowan MD 1 [facility] 300 [place] [address] PCP - General 03/25/08 06/01/17 Virgil Love MD [address] [facility] 200 [place] [address] PCP - General Family Medicine 06/02/17 09/16/17 Justin Cowan MD [address] [place], [place] [address]W[place] [facility] [address] [place] [address] PCP - General Internal Medicine 09/17/17 09/17/17 [place] [address] [place] [address] PCP - Attributed-MSSP 08/28/18 03/20/20 [place] [address] [place], [place] [address] PCP - Attributed-[facility] [place] 08/29/19 10/28/19 Virgil Love MD [address] [facility] 200 [place] [address] PCP - Attributed-[facility] MA 10/29/19 01/28/20 [place] [address] [place], [place] [address] PCP - Attributed-[facility] MA 01/29/20 06/14/21 [place] [address] [place], [place] [address] PCP - General Family Medicine 05/07/21 05/14/21 Virgil Love MD [address] [facility] 200 [place] [address] PCP - General Family Medicine 06/06/21 09/06/21 Virgil Love MD [address] [facility] 200 [place] [address] PCP - General Family Medicine 09/07/21 08/17/24 [place] [address] [facility] [address] [place] [address] PCP - Attributed-[facility] 07/31/21 12/14/21 [place] [address] [facility] [address] [place] [address] PCP - Attributed-[facility] 02/28/22 10/16/23 Virgil Love MD [address] [facility] 200 [place] [address] PCP - Attributed-[facility] P4 10/29/23 09/14/24 Justin Cowan MD [address] [place] [address] [address] [place] [address] PCP - Attributed-MSSP 10/07/17 07/01/18 Virgil Love MD [address] [facility] 200 [place] [address] PCP - Attributed-[facility]SP 07/02/18 08/27/18 None, Physician PCP - General 08/18/24 09/14/24 Josue Delgado MD [address] [place] [address] [place] [address] PCP - General Family Medicine 09/15/24 Charles Cardenas MD [address] [facility] [address] [place], [place] [address] Pulmonary Disease 09/19/10 05/19/22 Javi Sotelo MD [address] [facility] [address] [place], [place] [address] Dermatology 08/23/11 09/06/21 Grant Desir MD [address] [facility] [address] [place] [address] Endocrinology 03/02/13 05/19/22 Kofi Mendez MD [address] [place] [address] [address] [place] [address] Gastroenterology 03/02/13 05/19/22 Charles Soria DO [address] [facility] [address] [place] [address] Orthopedic Surgery 12/16/14 05/19/22 [place] [address] [place] [address] [address] [place] [address] Orthopedic Surgery 08/08/15 09/06/21 Yeimi Ramos, LUIS [address] [facility] [place], [place] [address] Electrical High Tension Tester 10/30/15 Tona Suarez, RN Director Of Email Marketing 04/22/17 06/24/18 Byron Nickerson MD Physician Hematology and Oncology 05/15/17 09/06/21 Fannie Combs, GAUGE MACHINE OPERATOR-TRANSITION ADVISOR [address] [facility] [address] [place] [address] Nurse Practitioner Nurse Practitioner 05/15/17 08/19/22 Virgil Love MD [address] [facility] [address] [place] [address] Family Medicine 11/25/19 Juju Toledo MD [address] [place] [address] Orthopedic Surgery 11/25/19 [place] [address] [facility] [address] [place] [address] Surgeon Orthopedic Surgery 05/07/21 [place] [address] [facility] [address] [place] [address] Physical Medicine and Rehabilitation 07/19/21 09/06/21 [place] [address] [facility] [address] [place] [address] Orthopedic Surgery 09/07/21 Dylan Ann MD [address] [place] [address] Cardiology 03/19/22 Kathy Galindo MD [address] [place] [address] Pulmonary Disease 08/20/22 Karla Masters Care Coordination Specialist Care Management 10/29/24 10/29/24 documented as of this encounter
--- OUTSIDE RECORDS SUMMARY | 2025-02-10 02:09 | XMS_ITS | Continuity of Care Document ---
Author Organization [facility] Address [address] [place] [address] Phone Care Team Providers Care Senior Qa Automation Engineer Name Role Phone Gerald Blackburn MD Unavailable [...] Providers Copied on Encounter [facility], [address], [place], [address], [place] tel:[phone] [facility] [place] Osteoarthrosis, localized, not specified whether primary or secondary, involving lower leg Fe 4 Alexey Duarte. [address] [place], [place], [id number] . tel: [phone] [facility], [address], [place], [address], [place] tel:[phone] [facility] [place] Osteoarthrosis, localized, not specified whether primary or secondary, involving lower leg 3 Alexey Duarte. [address], [place], [id number] . tel:[phone] [facility], [address], [place], [address], [place] tel:[phone] [facility] [place] Pain in joint involving lower legObesity, MorbidOsteoarthro sis, localized, not specified whether primary or secondary, involving lower legHypertension, UnspecifiedDiabet ic Nephropathy Feb- 0 3 Alexey Duarte. [address] [facility], [place], [place], [id number] . [phone] [facility], [address], [address], [place] tel:[phone] [facility] [place] Plantar fascial fibromatosisCalca do spur Feb-0 2 Paranjpe Amod. [address] [facility] [address], [place], [place], [id number] . tel:[phone] [facility], [address] [address], [place], [address], [place] tel:[phone] [facility] [place] Plantar fascial fibromatosisCalca do spur 2 Paranjpe Amod. [address] [facility] [address], [place], [place], [id number] . tel:[phone] [facility], [address], [address], [place] tel:[phone] [facility] [place] Plantar fascial fibromatosisCalca do spur 2 Paranjpe Amod. [address] [facility] [address], [place], [place], [id number] . tel:[phone] Family History Family Member Type Diagnosis Age [...]
--- OUTSIDE RECORDS SUMMARY | 2025-02-10 02:09 | XMS_ITS | Encounter Summary ---
Author Organization [facility] Address [address] [facility] [place] [address] Care Team Providers Care Sample Tailor Name Role Phone Justin Cowan MD Primary Care Provider Charles Cardenas MD Unavailable [phone] Javi Sotelo MD Unavailable Grant Desir MD Unavailable [phone] Kofi Mendez MD Unavailable Charles Soria DO Unavailable Juju Toledo MD Unavailable [phone] Yeimi Ramos OD Unavailable Tona Suarez RN Unavailable Byron Nickerson MD Unavailable Unavailable Fannie Combs DERRICK OPERATOR-REAL ESTATE AGENT/BROKER Unavailable [phone] Virgil Love MD Primary Care Provider Justin Cowan MD Primary Care Provider Maura Gallo MD Unavailable [phone] Virgil Love MD Unavailable [phone] Juju Toledo MD Unavailable [phone] Maura Gallo MD Unavailable Virgil Love MD Unavailable [phone] Maura Gallo MD Unavailable [phone] Maura Gallo MD Primary Care Provider [phone] Steve Stovall MD Unavailable [phone] Virgil Love MD Primary Care Provider [phone] David Flores MD Unavailable [phone] Paula HDEZ MD, Frank Unavailable [phone] Virgil Love MD Primary Care Provider [phone] Maura Gallo MD Unavailable [phone] Dylan Ann MD Unavailable [phone] Maura Gallo MD Unavailable [phone] Kathy Galindo MD Unavailable Virgil Love MD Unavailable [phone] Justin Cowan MD Unavailable [phone] Virgil Love MD Unavailable [phone] None, Physician Primary Care Provider UnavailJosue Cai MD Primary Care Provider [phone] Karla Masters Unavailable Encounter Details Date Type Department Care Team (Late st Contact Info) Description 02/03/2014 [facility] Justin Cowan MD 711 [facility] 300 [place] [address] Social History Tobacco Use Types Packs/Day Years Used Date Smoking Tobacco: Never Smokeless Tobacco: Never Alcohol Use Standard Drinks/Week Comments Yes 1.7 (1 standard drink = 0.6 oz p ure alcohol) Sex and Gender Information Value Date Recorded Sex Assigned at Male 05/12/2020 8:18 AM COMMERCIAL FIELD INSPECTOR Legal Sex Male 7:20 AM COMMERCIAL FIELD INSPECTOR Gender Identity Male 05/12/2020 8:18 AM COMMERCIAL FIELD INSPECTOR Sexual Orientation Straight 05/12/2020 8: 18 AM COMMERCIAL FIELD INSPECTOR documented as of this encounter Plan of Treatment Upcoming Encounters Date Type Department Care Team (Late st Contact Info) Description 03/14/2025 11:15 AM CDT Office Visit [facility] Health Orthopedics [address] [place], [place] [address] Juju Toledo MD [address] [place] [address] 04/25/2025 9:00 AM CDT Office Visit [facility] Health Orthopedics [address] [place] [address] Juju Toledo MD [address] [facility] 100 [place] [address] documented as of this encounter Goals Goal Patient Goal Type Associated Problems Recent Progress Patient-Stated? Author Blood Pressure < 140/90 Blood Pressure 105/65(2024 2:30 PM CDT) No Rojelio, Leonor [facility] Lifestyle: Have labs drawn Lifestyle No Rojelio, Leonor documented as of this encounter Visit Diagnoses Not on filedocumented in this encounter Care Teams Sample Tailor Relationship Specialty Start Date End Date Justin Cowan MD [address] [place] [address] 300 [place] [address] PCP - General 03/25/08 06/01/17 Virgil Love MD [address] [facility] 200 [place], [place] [address] PCP - General Family Medicine 06/02/17 09/16/17 Justin Cowan MD [address] [place] [address] 300 [place] [address] PCP - General Internal Medicine 09/17/17 09/17/17 [place] [address] [place] [address] PCP - Attributed-MSSP 08/28/18 03/20/20 [place] [address] [place] [address] PCP - Attributed-C MA 08/29/19 10/28/19 Virgil Love MD [address] [place] [address] [place] [address] PCP - Attributed-[facility] 10/29/19 01/28/20 [place] [address] [place] [address] PCP - Attributed-[facility] 01/29/20 06/14/21 [place] [address] [place] [address] PCP - General Family Medicine 05/07/21 05/14/21 Virgil Love MD [address] [place] [address] [place] [address] PCP - General Family Medicine 06/06/21 09/06/21 Virgil Love MD [address] [place] [address] [place] [address] PCP - General Family Medicine 09/07/21 08/17/24 [place] [address] [facility] [address] [place], [place] [address] PCP - Attributed-[facility] 07/31/21 12/14/21 [place] [address] [facility] [address] [place] [address] PCP - Attributed-[facility] 02/28/22 10/16/23 Virgil Love MD [address] [facility] 200 [place], [place] [address] PCP - Attributed-[facility] P4P 10/29/23 09/14/24 Justin Cowan MD [address] [facility] [address] [place] [address] PCP - Attributed-[facility] 10/07/17 07/01/18 Virgil Love MD [address] [facility] 200 [place] [address] PCP - Attributed-MSSP 07/02/18 08/27/18 None, Physician PCP - General 08/18/24 09/14/24 Josue Delgado MD [address] [place] [address] PCP - General Family Medicine 09/15/24 Charles Cardenas MD [address] [facility] [address] [place] [address] Pulmonary Disease 09/19/10 05/19/22 Javi Sotelo MD [address] [facility] [address] [place], [place] [address] Dermatology 08/23/11 09/06/21 Grant Desir MD [address] [facility] [address] [place] [address] Endocrinology 03/02/13 05/19/22 Kofi Mendez MD [address] [place] [address] [address] [place] [address] Gastroenterology 03/02/13 05/19/22 Charles Soria DO [address] [place] [address] Orthopedic Surgery 12/16/14 05/19/22 Juju Toledo MD [address] [facility] [address] [place] [address] Orthopedic Surgery 08/08/15 09/06/21 Yeimi Ramos OD [address] [facility] [place] [address] Electronic Integrated Systems Mechanic 10/30/15 Tona Suarez, RN Circus Supervisor 04/22/17 06/24/18 Byron Nickerson MD Physician Hematology and Oncology 05/15/17 09/06/21 Fannie Combs APRN-REAL ESTATE AGENT/BROKER 14[address] [facility] [address] [place], [place] [address] Nurse Practitioner Nurse Practitioner 05/15/17 08/19/22 Virgil Love MD [address] [place] [address] Family Medicine 11/25/19 Juju Toledo MD [address] [place] [address] Orthopedic Surgery 11/25/19 [place] [address] [place] [address] Surgeon Orthopedic Surgery 05/07/21 [place] [address] [place] [address] Physical Medicine and Rehabilitation 07/19/21 09/06/21 [place] [address] [address] [place] [address] Orthopedic Surgery 09/07/21 Dylan Ann MD [address] [place] [address] Cardiology 03/19/22 Kathy Galindo MD [address] [place] [address] Pulmonary Disease 08/20/22 Karla Masters Care Coordination Specialist Care Management 10/29/24 10/29/24 documented as of this encounter
--- OUTSIDE RECORDS SUMMARY | 2025-02-10 02:09 | XMS_ITS | Encounter Summary ---
Author Organization [facility] Address [address] [facility] [place] [address] Care Team Providers Care Gear Tester Name Role Phone Charles Cardenas MD Unavailable [phone] Javi Sotelo MD Unavailable Grant Desir MD Unavailable [phone] Kofi Mendez MD Unavailable [phone] Charles Soria DO Unavailable Juju Toledo MD Unavailable [phone] Yeimi Ramos OD Unavailable [phone] Byron Nickerson MD Unavailable Unavailable Fannie Combs LOTTERIES AGENT-HOME APPRAISER Unavailable [phone] Maura Gallo MD Unavailable Virgil Love MD Unavailable [phone] Juju Toledo MD Unavailable [phone] Maura Gallo MD Unavailable Virgil Love MD Unavailable [phone] Maura Gallo MD Unavailable Maura Gallo MD Primary Care Provider Steve Stovall MD Unavailable [phone] Virgil Love MD Primary Care Provider [phone] David Flores MD Unavailable [phone] Paula HDEZ MD, Javi Unavailable Virgil Love MD Primary Care Provider [phone] Maura Gallo MD Unavailable [phone] Dylan Ann MD Unavailable [phone] Maura Gallo MD Unavailable [phone] Kathy Galindo MD Unavailable Virgil Love MD Unavailable [phone] None, Physician Primary Care Provider UnavailJosue Cai MD Primary Care Provider [phone] Karla Masters Unavailable Encounter Details Date Type Department Care Team (Late st Contact Info) Description 02/18/2019 [facility] [address] [place] [address] Juju Toledo MD [address] [place] [address] Social History Tobacco Use Types Packs/Day Years Used Date Smoking Tobacco: Never Smokeless Tobacco: Never Alcohol Use Standard Drinks/Week Comments No 4 (1 standard drink = 0.6 oz pur e alcohol) Sex and Gender Information Value Date Recorded Sex Assigned at Male 05/12/2020 8:18 AM FITTER TYPE BAR AND SEGMENT Legal Sex Male 7:20 AM FITTER TYPE BAR AND SEGMENT Gender Identity Male 05/12/2020 8:18 AM FITTER TYPE BAR AND SEGMENT Sexual Orientation Straight 05/12/2020 8: 18 AM FITTER TYPE BAR AND SEGMENT documented as of this encounter Functional Status * Is person deaf or have serious hearing difficulty? Answer Date of Assessment Author No 06/24/2018 12:00 PM FITTER TYPE BAR AND SEGMENT Lissett Nicholson RN * Is person blind [...] Description 03/14/2025 11:15 AM CDT Office Visit [facility] Orthopedics [address] [address] Juju Toledo MD [address] [phone] 04/25/2025 9:00 AM CDT Office Visit [facility] Orthopedics [address] [place] [address] Juju Toledo MD [address] [address] documented as of this encounter Goals Goal [...] on filedocumented in this encounter Care Teams Gear Tester Relationship Specialty [place] [address] [place] [address] PCP - Attributed-[facility] 08/28/18 03/20/20 [place] [address] [place] [address] PCP - Attributed-[facility] 08/29/19 10/28/19 Virgil Love MD [address] [facility] 200 [place] [address] PCP - Attributed-[facility] 10/29/19 01/28/20 [place] [address] [place] [address] PCP - Attributed-[facility] 01/29/20 06/14/21 [place] [address] [place] [address] PCP - General Family Medicine 05/07/21 05/14/21 Virgil Love MD [address] [facility] 200 [place] [address] PCP - General Family Medicine 06/06/21 09/06/21 Virgil Love MD [address] [facility] [address] [place] [address] PCP - General Family Medicine 09/07/21 08/17/24 [place] [address] [facility] [address] [place], [place] [address] PCP - Attributed-[facility] 07/31/21 12/14/21 [place] [address] [facility] [address] [place], [place] [address] PCP - Attributed-[facility] 02/28/22 10/16/23 Virgil Love MD [address] [facility] 200 [place] [address] PCP - Attributed-[facility] P4P 10/29/23 09/14/24 None, Physician PCP - General 08/18/24 09/14/24 Josue Delgado MD [address] [place] [address] PCP - General Family Medicine 09/15/24 Charles Cardenas MD [address] [place] [address] Pulmonary Disease 09/19/10 05/19/22 Javi Sotelo MD [address]01 [facility] [address] [place] [address] Dermatology 08/23/11 09/06/21 Grant Desir MD 711 [facility] [address] [place] [address] Endocrinology 03/02/13 05/19/22 Kofi Mendez MD [address] [facility] [address] [place] [address] Gastroenterology 03/02/13 05/19/22 Charles Soria DO [address] [place] [address] Orthopedic Surgery 12/16/14 05/19/22 Juuj Toledo MD 1475 [facility] 100 [place] [address] Orthopedic Surgery 08/08/15 09/06/21 Yeimi Ramos, OD [address] [place] [address] Graduate Recruiter 10/30/15 Byron Nickerson MD [address] [place] [address] Physician Hematology and Oncology 05/15/17 09/06/21 Fannie Combs APRN-HOME APPRAISER [address] [facility] [address] [place], [place] [address] Nurse Practitioner Nurse Practitioner 05/15/17 08/19/22 Virgil Love MD [address] [facility] 200 [place], [place] [address] Family Medicine 11/25/19 Juju Toledo MD [address] [facility] 100 [place] [address] Orthopedic Surgery 11/25/19 [place] [address] [place] [address] Surgeon Orthopedic Surgery 05/07/21 [place] [address] [place] [address] Physical Medicine and Rehabilitation 07/19/21 09/06/21 [place] [address] [place] [address] Orthopedic Surgery 09/07/21 Dylan Ann MD [address] [place] [address] Cardiology 03/19/22 Kathy Galindo MD [address] [place] [address] Pulmonary Disease 08/20/22 Karla Masters Care Coordination Specialist Care Management 10/29/24 10/29/24 documented as of this encounter
--- OUTSIDE RECORDS SUMMARY | 2025-02-10 02:09 | XMS_ITS | Encounter Summary ---
Author Organization [facility] Address [address] [facility] [place] [address] Care Team Providers Care Insulation Board Head Saw Operator Name Role Phone Charles Cardenas MD Unavailable [phone] Javi Sotelo MD Unavailable [phone] Grant Desir MD Unavailable [phone] Kofi Mendez MD Unavailable [phone] Charles Soria DO Unavailable [phone] Juju Toledo MD Unavailable [phone] Yeimi Ramos OD Unavailable [phone] Byron Nickerson MD Unavailable Unavailable Fannie Combs OPTICAL TECHNICIAN-LINE CLOSER Unavailable [phone] Maura Gallo MD Unavailable Virgil Love MD Unavailable [phone] Juju Toledo MD Unavailable [phone] Virgil Love MD Unavailable [phone] Maura Gallo MD Unavailable [phone] Maura Gallo MD Primary Care Provider Steve Stovall MD Unavailable [phone] Virgil Love MD Primary Care Provider [phone] David Flores MD Unavailable Paula HDEZ MD, Frank Unavailable [phone] Virgil Love MD Primary Care Provider [phone] Maura Gallo MD Unavailable Dylan Ann MD Unavailable [phone] Maura Gallo MD Unavailable Kathy Galindo MD Unavailable Virgil Love MD Unavailable [phone] None, Physician Primary Care Provider UnavailJosue Cai MD Primary Care Provider Karla Masters Unavailable Encounter Details Date Type Department Care Team (Late st Contact Info) Description 11/17/2019 Lab Requisition [facility] Care D[facility] Lab [address] [place] [address] Dario Sanabria MD [address] [place] [address] Social History Tobacco Use Types Packs/Day Years Used Date Smoking Tobacco: Never Smokeless Tobacco: Never Alcohol Use Standard Drinks/Week Comments No 4 (1 standard drink = 0.6 oz pur e alcohol) Sex and Gender Information Value Date Recorded Sex Assigned at Male 05/12/2020 8:18 AM REINSURANCE ANALYST Legal Sex Male 7:20 AM REINSURANCE ANALYST Gender Identity Male 05/12/2020 8:18 AM REINSURANCE ANALYST Sexual Orientation Straight 05/12/2020 8: 18 AM REINSURANCE ANALYST COVID-19 Exposure Response Date Recorded In the [...] Description 03/14/2025 11:15 AM CDT Office Visit [facility] [address] [place] [address] Juju Toledo MD [address] [phone] 04/25/2025 9:00 AM CDT Office Visit [facility] [address] [place] [address] Juju Toledo MD [address] [phone] documented as of this encounter Goals Goal [...] AM CDT) Case Report Dermatopathology Report Case: [id number] Authorizing Provider: Dario Sanabria MD Collected: 11/16/2019 12:00 AM Ordering Location: [facility] DermPath Lab Received: 11/17/2019 09:52 AM [...] by Scott Donnelly MD on 11/26/2019 at 1718 CDT Final Diagnosis Specimen A. SKIN, scalp A: DERMAL FIBROSIS (L90.5) Specimen B. SKIN, scalp B: DERMAL FIBROSIS (L90.5) Specimen C. 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 SKIN, scalp D: ACTINIC KERATOSIS (L57.0) Specimen E. 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 Check margins. 0 5:19 PM CDT DERMATOPATHOLOGY LABORATORY Gross Description A: [id number]. B: [id number]. C: [id number]. D: [id number]. E: [id number]. 0 5:19 PM CDT DERMATOPATHOLOGY LABORATORY Microscopic [...] characteristic determined by the Dermatopathology Laboratory at [facility], directed by Dr. Joey Donnelly. These tests need not be, and therefore are not, approved by the [place] Food and Drug Administration. The tests are used for clinical purposes. Billing Codes Specimen Charges Stain Charges 52034 85772 60562 25778 90784 1 1 1 1 1 0 5:19 [...] BLES Edited Result - Final DERMATOPATHOLOGY LABORATORY [facility] - Department of Dermatology [employer] [place]/[address] [phone] documented in this encounter Visit Diagnoses Not on filedocumented in this encounter Care Teams Insulation Board Head Saw Operator Relationship Specialty [place] [address] [address] [facility] [address] [place] [address] PCP - Attributed-MSSP 08/28/18 03/20/20 Virgil Love MD [address] [facility] [address] [place] [address] PCP - Attributed-C SRUTHI 10/29/19 01/28/20 [place] [address] [address] [place] [address] PCP - Attributed-C SRUTHI 01/29/20 06/14/21 [place] [address] [facility] [address] [place] [address] PCP - General Family Medicine 05/07/21 05/14/21 Virgil Love MD [address] [facility] [address] [place] [address] PCP - General Family Medicine 06/06/21 09/06/21 Virgil Love MD [address] [facility] [address] [place] [address] PCP - General Family Medicine 09/07/21 08/17/24 [place] [address] [facility] [address] [place] [address] PCP - Attributed-[facility] 07/31/21 12/14/21 [place] [address] [facility] [address] [place] [address] PCP - Attributed-[facility] 02/28/22 10/16/23 Virgil Love MD [address] [facility] [address] [place] [address] PCP - Attributed-[facility] P[facility] 10/29/23 09/14/24 None, Physician PCP - General 08/18/24 09/14/24 Josue Delgado MD [address] [place] [address] PCP - General Family Medicine 09/15/24 Charles Cardenas MD [address] [facility] [place] [address] Pulmonary Disease 09/19/10 05/19/22 Javi Sotelo MD [address] [facility] [address] [place] [address] Dermatology 08/23/11 09/06/21 Grant Desir MD [address] [place] [address] [address] [place] [phone] Endocrinology 03/02/13 05/19/22 Kofi Mendez MD [address] [place] [address] [address] [place] [phone] Gastroenterology 03/02/13 05/19/22 Charles Soria DO [address] [place] [phone] Orthopedic Surgery 12/16/14 05/19/22 [place] [address] [place] [address] [address] [place] [phone] Orthopedic Surgery 08/08/15 09/06/21 Yeimi Ramos, OD [address] [facility] [address] [address] Gas Turbine Powerplant Mechanic 10/30/15 Byron Nickerson MD [address] [facility] [place] [address] Physician Hematology and Oncology 05/15/17 09/06/21 Fannie Combs, OPTICAL TECHNICIAN-LINE CLOSER [address] [facility] [address] [place] [address] Nurse Practitioner Nurse Practitioner 05/15/17 08/19/22 Virgil Love MD [address] [place] [address] Family Medicine 11/25/19 Juju Toledo MD [address] [place] [phone] Orthopedic Surgery 11/25/19 [place] [address] [place] [address] Surgeon Orthopedic Surgery 05/07/21 [place] [address] [place] [address] Physical Medicine and Rehabilitation 07/19/21 09/06/21 [place] [address] [address] [place] [address] Orthopedic Surgery 09/07/21 Dylan Ann MD [address] [place] [address] Cardiology 03/19/22 Kathy Galindo MD [address] [place] [address] Pulmonary Disease 08/20/22 Karla Masters Care Coordination Specialist Care Management 10/29/24 10/29/24 documented as of this encounter
--- OUTSIDE RECORDS SUMMARY | 2025-02-10 02:09 | XMS_ITS | Encounter Summary ---
Author Organization [facility] Address [address] [facility] [place] [address] Care Team Providers Care Service Provider Name Role Phone Charles Cardenas MD Unavailable [phone] Grant Desir MD Unavailable [phone] Kofi Mendez MD Unavailable [phone] Charles Soria DO Unavailable [phone] Yeimi Ramos OD Unavailable [phone] Fannie Combs MASTER IN CHANCERY-FOOD CHECKER Unavailable [phone] Virgil Love MD Unavailable [phone] Juju Toledo MD Unavailable [phone] Steve Stovall MD Unavailable [phone] Paula HDEZ MD, Frank Unavailable [phone] Virgil Love MD Primary Care Provider Maura Gallo MD Unavailable [phone] Dyaln Ann MD Unavailable Maura Gallo MD Unavailable [phone] Kathy Galindo MD Unavailable Virgil Love MD Unavailable None, Physician Primary Care Provider UnavailJosue Cai MD Primary Care Provider [phone] Karla Masters Sarina Unavailable Encounter Details Date Type Department Care Team (Late st Contact Info) Description 11/09/2021 [facility] Outpatient Visit [facility] Orthopedics - Radiology [address] [place] [address] Document, Scanned Social History Tobacco Use Types [...] Sex Assigned at Male 05/12/2020 8:18 AM STONE POLISHER HAND Legal Sex Male 7:20 AM STONE POLISHER HAND Gender Identity Male 05/12/2020 8:18 AM STONE POLISHER HAND Sexual Orientation Straight 05/12/2020 8: 18 AM STONE POLISHER HAND documented as of this encounter Functional Status [...] Description 03/14/2025 11:15 AM CDT Office Visit [facility] Health Orthopedics [address] [phone] Juju Toledo MD [address] [address] 04/25/2025 9:00 AM CDT Office Visit [facility] Orthopedics [address] [phone] Juju Toledo MD [address] [address] documented as of this encounter [...] on filedocumented in this encounter Care Teams Service Provider Relationship Specialty Start Date End Date Virgil Love MD [address] [facility] [address] [place] [address] PCP - General Family Medicine 09/07/21 08/17/24 [place] [address] [facility] [address] [place] [address] PCP - Attributed-[facility] 07/31/21 [place] [address] [facility] [address] [place] [address] PCP - Attributed-[facility] 02/28/22 Virgil Love MD [address] [place] [address] 200 [place] [address] PCP - Attributed-[facility] P4 10/29/23 09/14/24 None, Physician PCP - General 08/18/24 09/14/24 Josue Delgado MD [address] [place] [address] PCP - General Family Medicine 09/15/24 Charles Cardenas MD [address] [place] [address] Pulmonary Disease 09/19/10 05/19/22 Grant Desir MD [address] [facility] [address] [place] [address] Endocrinology 03/02/13 05/19/22 Kofi Mendez MD [address] [facility] [address] [place] [address] Gastroenterology 03/02/13 05/19/22 Charles Soria DO [address] [place] [address] Orthopedic Surgery 12/16/14 05/19/22 Yeimi Ramos, OD [address] [facility] [address] [place], [place] [phone] [employer] Agent Team Member 10/30/15 Fannie Combs, MASTER IN CHANCERY-FOOD CHECKER [address] [facility] [address] [place] [address] Nurse Practitioner Nurse Practitioner 05/15/17 08/19/22 Virgil Love MD [address] [facility] [address] [place], [place] [phone] Family Medicine 11/25/19 Juju Toledo MD [address] [place] [phone] Orthopedic Surgery 11/25/19 [place] [address] [facility] [address] [place] [address] Surgeon Orthopedic Surgery 05/07/21 [place] [address] [facility] [address] [place] [address] Orthopedic Surgery 09/07/21 Dylan Ann MD [address] [place] [address] Cardiology 03/19/22 Kathy Galindo MD [address] [place] [address] Pulmonary Disease 08/20/22 Karla Masters Care Coordination Specialist Care Management 10/29/24 10/29/24 documented as of this encounter
--- OUTSIDE RECORDS SUMMARY | 2025-02-10 02:09 | XMS_ITS | Clinical Summary ---
Author Organization [facility] Address [address] [facility] [address] [place] [address] Phone Care Team Providers Care Otr Flatbed Driver Name Role Phone Josue Delgado MD Primary Care Provider [phone] Allergies No known active allergies Medications celecoxib [...] (two) times a day 02/26/2021 Active multivitamin,tx -uian-Bq-BD-min 27-0.4 mg tablet Take by mouth Active UNABLE TO FIND CPAP [id number] l [id number] ed-decreased from 9-08/11/18 08/11/2018 Active apixaban (ELIQUIS) 2.5 mg tablet Take 1 tablet (2.5 mg total) by mouth 2 (two) times a day Active torsemide (DEMADEX) 20 mg tablet Take 2 tablets (40 mg total) by mouth 2 (two) times a day 360 tablet 3 08/20/2023 Active cholecalciferol (VITAMIN D-3) 5,000 unit tablet Active Mounjaro 7.5 mg/0.5 mL pen injector injection Inject 0.5 mL (7.5 mg total) under the skin 09/06/2024 Active Active Problems Problem Noted Date Diagnosed Date Chronic diastolic heart failure 05/03/2024 Assessment & Plan (11/05/2024 11:37 PM CDT): Euvolemic, NYHA III sx -- Continue torsemide 40 bid Assessment & Plan (05/03/2024 1:52 PM RETAIL CONSULTANT): Some residual edema. Having some nocturia so we discussed adjusting dose of torsemide in the morning - Change torsemide to 40 mg every morning and check BMP in 2 weeks Generalized edema 11/27/2021 Assessment & Plan (10/20/2023 9:25 AM CDT): Some persistent edema likely venous insufficiency. - check tte Assessment & Plan (09/05/2022 10:18 PM RETAIL CONSULTANT): Euvolemic on exam. Try switching Lasix to [...] Atherosclerosis of aorta 10/02/2017 Overview (04/03/2021): CXR: 07.01.17 Assessment & Plan (05/03/2024 1:51 PM RETAIL CONSULTANT): Stable -- Continue statin CKD (chronic kidney [...] pain 12/19/2015 Coronary artery disease invo lving ambler coronary artery of ambler heart without angina pectoris 10/01/2013 Overview (04/03/2021): Thallium treadmill 05/11: no ischemia, poss small prior apical infarct, nl LVEF. Cardiac cath 06/10: LVEF 60%, 20% L main. Assessment & Plan (11/05/2024 11:38 PM CDT): He has nonobstructive Coronary artery disease based on a cardiac catheterization. Remains free of anginal symptoms -- Continue Eliquis and statin for primary prevention. Assessment & Plan (05/03/2024 1:51 PM RETAIL CONSULTANT): He has nonobstructive Coronary artery disease based on a cardiac catheterization. Remains free of anginal symptoms -- Continue Eliquis and statin for primary prevention. Assessment & Plan (10/20/2023 9:23 AM CDT): He has nonobstructive Coronary artery disease based on a cardiac catheterization. Continue Eliquis and statin for primary prevention. Remains free of anginal symptoms Assessment & Plan (09/05/2022 10:17 PM RETAIL CONSULTANT): He has nonobstructive Coronary artery disease based [...] (04/03/2021): HCTZ started 05/11. Assessment & Plan (11/05/2024 11:37 PM CDT): Well controlled Assessment & Plan (05/03/2024 1:51 PM RETAIL CONSULTANT): Well controlled Assessment & Plan (10/20/2023 9:24 AM CDT): Well controlled CTS (carpal tunnel syndrome) 09/25/2012 Peripheral neuropathy 09/25/2012 Obstructive sleep apnea syndrome 09/19/2010 Overview (04/03/2021): CPAP, Dx 09/07 (Dr Cardenas) GERD (gastroesophageal reflux disease) 8 Overview (04/03/2021): EGD (Dr. Mendez) 04/06 [...] on file Legal Sex Male 5:33 PM RETAIL CONSULTANT Gender Identity Male 04/06/2021 8:16 AM CDT Sexual Orientation Straight 04/06/2021 8: 16 AM CDT Obstetrics History Last Filed Vital Signs Vital Sign Reading Time Taken Comments Blood Pressure 100/82 11/08/2024 1:01 PM CDT Pulse 78 11/08/2024 1:01 PM CDT Temperature 36.1 C (97 F) 04/23/2021 12:27 PM CDT Respiratory Rate 22 04/23/2021 3:06 PM CDT Oxygen Saturation 97% 11/08/2024 1:01 PM CDT Inhaled Oxygen Concentration - - Weight 140.2 kg (309 lb) 11/08/2024 1:01 PM CDT Height 180.3 cm (5' 11) 11/08/2024 1:01 PM CDT Body Mass Index 43.1 11/08/2024 1:01 PM CDT Plan of Treatment Health Maintenance Due Date [...] exists Colon Cancer Screening-Colonoscopy 06/14/20232012 Covid-19 Vaccine (6 - 2023-2 5 season) 2024 03/20/2024, 12/12/2021, 03/03/2021, Additional history exists Influenza Vaccine (#1) 2025 , 04/11/2023, 04/01/2022, Additional history exists Lipid Panel 11/08/2025 11/08/2024, 10/28, 09/08/2023, Additional history exists eGFR 11/08/2025 11/08/2024, 04/30, 10/09/2023, Additional history exists DTaP/Tdap/Td Vaccine (3 - Td or Tdap) 07/23/2030 07/23/2020, 12/16/2014 Zoster Vaccine Completed 06/12/2019, 06/2018, 02/28/2019, Additional history exists Procedures Procedure Name Priority Date/Time Associated Diagnosis Comments LIPID PANEL Routine 11/08/2024 2:45 PM CDT EGFR Routine 11/08/2024 1:54 PM CDT Coronary artery disease involving ambler coronary artery of ambler heart without angina pectoris COLONOSCOPY REPORT 06/14/2013 from Last 3 Months or Most Recently Relevant to Health Maintenance Results * (ABNORMAL) Lipid panel (11/08/2024 2:45 PM CDT) SCRIBED Cholesterol, Total 0(A) 30 - 199 mg/dL EXTERNAL LAB SCRIBED Triglycerides 0 <=149 mg/dL EXTERNAL LAB SCRIBED HDL 0(A) >=40 mg/dL EXTERNAL LAB SCRIBED LDL 68 <=129 mg/dL EXTERNAL LAB Scribed Non-HDL Cholesterol 0 NONE mg/dL EXTERNAL LAB SCRIBED Total Cholesterol/HDL Ratio 0 NONE EXTERNAL LAB Blood 11/08/2024 2:45 PM CDT [facility] Provider LAB BLOOD ORDERABLES Nereyda l Result Performing Organization Address City/[facility]/ZIP Co de Phone Number EXTERNAL LAB * (ABNORMAL) eGFR (11/08/2024 1:54 PM CDT) eGFR 57(L) >=60 mL/min/1. 73 m2 Comment: Interpretive Data [...] interpretive data was last reviewed 2021. Blood 11/08/2024 1:54 PM CDT 11/08/2024 2:22 PM CDT Dylan Ann MD LAB BLOOD ORDERABLES Fin al Result Performing Organization Address City/[facility]/ZIP Co de Phone Number [facility] [address] Department [place] [address] * COLONOSCOPY REPORT (06/14/2013) Anatomical Region Laterality Modality Other Narrative 06/14/2013 Ordered by an unspecified provider. us Historical Provider MD KELLEY PROCEDURE ORDERABLES F inal Result from Last 3 Months or Most Recently Relevant to Health Maintenance Insurance [facility] MEDICARE ADVANTAGE [facility] MEDICARE Address: [place] [id number] [facility] MEDICARE Address: [place] [address] [facility] MEDICARE Address: [address] [address] Care Teams Otr Flatbed Driver Relationship Specialty Start Date End Date Josue Delgado MD [address] [place], [place] [phone] PCP - General Family Medicine 11/08/24
--- OUTSIDE RECORDS SUMMARY | 2025-02-10 02:09 | XMS_ITS | Encounter Summary ---
Author Organization [facility] Address [address] [facility] [place] [address] Care Team Providers Care Machine Feller Name Role Phone Yeimi Ramos OD Unavailable Virgil Love MD Unavailable [phone] Juju Toledo MD Unavailable [phone] Steve Stovall MD Unavailable [phone] Paula HDEZ MD, Frank Unavailable [phone] Dylan Ann MD Unavailable [phone] Kathy Galindo MD Unavailable Josue Delgado MD Primary Care Provider Encounter Details Date Type Department Care Team (Late st Contact Info) Description 12/10/2024 [facility] Outpatient Visit [facility] Orthopedics [address] [place] [address] Document, Scanned Social History Tobacco [...] Sex Assigned at Male 05/12/2020 8:18 AM FRUIT PACKER FACE AND FILL Legal Sex Male 7:20 AM FRUIT PACKER FACE AND FILL Gender Identity Male 05/12/2020 8:18 AM FRUIT PACKER FACE AND FILL Sexual Orientation Straight 05/12/2020 8: 18 AM FRUIT PACKER FACE AND FILL documented as of this encounter Functional Status * Is person deaf or have serious hearing difficulty? Answer Date of Assessment Author No 11/29/2024 2:08 PM Siddharth Esqueda RN * Is person blind or have serious difficulty seeing? Answer Date of Assessment Author No 11/29/2024 2:08 PM Siddharth Esqueda RN * Does person have serious difficulty walking/climbing stairs? Answer Date of Assessment Author No 11/29/2024 2:08 PM Siddharth Esqueda RN * Does person have difficulty dressing/bathing? Answer Date of Assessment Author No 11/29/2024 2:08 PM Siddharth Esqueda RN * Does person have difficulty doing errands alone? Answer Date of Assessment Author No 11/29/2024 2:08 PM Siddharth Esqueda RN documented as of this encounter Mental Status * Does person have difficulty concentrating/remembering/making decisions? Answer Entry Date Author No 11/29/2024 2:08 PM Siddharth Esqueda RN documented in this encounter Plan of Treatment Upcoming Encounters Date Type Department Care Team (Late st Contact Info) Description 03/14/2025 11:15 AM CDT Office Visit [facility] [address] [place] [phone] Juju Toledo MD [address] [place] [address] 04/25/2025 9:00 AM CDT Office Visit [facility] Orthopedics [address] [place] [phone] Juju Toledo MD [address] [place] [phone] documented as of this encounter Goals Goal [...] on filedocumented in this encounter Care Teams Machine Feller Relationship Specialty Start Date End Date Josue Delgado MD [address] [place] [address] PCP - General Family Medicine 09/15/24 Yeimi Ramos OD [address] [facility] [place] [address] Wig Comber 10/30/15 Virgil Love MD [address] [place] [address] Family Medicine 11/25/19 Juju Toledo MD [address] [facility] [address] [place] [address] Orthopedic Surgery 11/25/19 [place] [address] [address] Surgeon Orthopedic Surgery 05/07/21 [place] [address] [address] Orthopedic Surgery 09/07/21 Dylan Ann MD [address] [facility] [address] [place] [address] Cardiology 03/19/22 Kathy Galindo MD [address] [place] [address] Pulmonary Disease 08/20/22 documented as of this encounter
--- OUTSIDE RECORDS SUMMARY | 2025-02-10 02:09 | XMS_ITS | Encounter Summary ---
Author Organization [facility] Address [address] [place] [address] Care Team Providers Care Consulting Utility Forester Name Role Phone Charles Cardenas MD Unavailable [phone] Grant Desir MD Unavailable Kofi Mendez MD Unavailable [phone] Charles Soria DO Unavailable [phone] Yeimi Ramos OD Unavailable [phone] Fannie Combs APPLICATION SUPPORT CONSULTANT-MANUFACTURING ENGINEERING TECHNICIAN Unavailable [phone] Virgil Love MD Unavailable [phone] Juju Toledo MD Unavailable [phone] Steve Stovall MD Unavailable Paula HDEZ MD, Frank Unavailable [phone] Virgil Love MD Primary Care Provider Maura Gallo MD Unavailable [phone] Dylan Ann MD Unavailable Maura Gallo MD Unavailable Kathy Galindo MD Unavailable Virgil Love MD Unavailable None, Physician Primary Care Provider UnavailJosue Cai MD Primary Care Provider [phone] Karla Masters Sarina Unavailable Encounter Details Date Type Department Care Team (Late st Contact Info) Description 11/29/2021 [facility] Outpatient Visit [facility] Orthopedics - Radiology [address] [place] [address] Document, Scanned Social History Tobacco Use Types [...] Sex Assigned at Male 05/12/2020 8:18 AM SHOE HANDLER Legal Sex Male 7:20 AM SHOE HANDLER Gender Identity Male 05/12/2020 8:18 AM SHOE HANDLER Sexual Orientation Straight 05/12/2020 8: 18 AM SHOE HANDLER documented as of this encounter Functional Status [...] 03/14/2025 11:15 AM CDT Office Visit [facility] Health Orthopedics [address] [id number] Juju Toledo MD [address] [address] 04/25/2025 9:00 AM CDT Office Visit [facility] Orthopedics [address] [phone] Juju Toledo MD [address] [address] documented as of this encounter Goals Goal Patient Goal Type Associated Problems Recent Progress Patient-Stated? Author Blood Pressure < 140/90 Blood Pressure 105/65(2024 2:30 PM CDT) No Rojelio, [place] Blood Pressure < 140/90 Blood Pressure 105/65(2024 [...] on filedocumented in this encounter Care Teams Consulting Utility Forester Relationship Specialty Start Date End Date Virgil Love MD [address] [facility] [facility] [address] [place] [address] PCP - General Family Medicine 09/07/21 08/17/24 [place] [address] [facility] [address] [place] [address] PCP - Attributed-[facility] 07/31/21 [place] [address] [facility] [address] [place] [address] PCP - Attributed-[facility] 02/28/22 iVrgil Love MD [address] [place] [address] [address] [place] [address] PCP - Attributed-[facility] P4 10/29/23 09/14/24 None, Physician PCP - General 08/18/24 09/14/24 Josue Delgado MD [address] [place] [address] PCP - General Family Medicine 09/15/24 Charles Cardenas MD [address] [place] [address] Pulmonary Disease 09/19/10 05/19/22 Grant Desir MD [address] [facility] [address] [place] [address] Endocrinology 03/02/13 05/19/22 Kofi Mendez MD [address] [facility] [address] [place] [address] Gastroenterology 03/02/13 05/19/22 Charles Soria DO [address] [place] [address] Orthopedic Surgery 12/16/14 05/19/22 Yeimi Ramos, OD [address] [facility] [address] [place], [place] [id number] Service Line Layer 10/30/15 Fannie Combs, APPLICATION SUPPORT CONSULTANT-MANUFACTURING ENGINEERING TECHNICIAN [address] [facility] [address] [place] [address] Nurse Practitioner Nurse Practitioner 05/15/17 08/19/22 Virgil Love MD [address] [facility] [address] [place], [place] [phone] Family Medicine 11/25/19 Juju Toledo MD [address] [place] [phone] Orthopedic Surgery 11/25/19 [place] [address] [facility] [address] [place] [address] Surgeon Orthopedic Surgery 05/07/21 [place] [address] [address] [facility] [address] [place] [address] Orthopedic Surgery 09/07/21 Dylan Ann MD [address] [place] [address] Cardiology 03/19/22 Kathy Galindo MD [address] [place] [address] Pulmonary Disease 08/20/22 Karla Masters Care Coordination Specialist Care Management 10/29/24 10/29/24 documented as of this encounter
--- OUTSIDE RECORDS SUMMARY | 2025-02-10 02:10 | XMS_ITS | Encounter Summary ---
Author Organization [facility] Address [address] [facility] [place] [address] Care Team Providers Care Pathology Manager Name Role Phone Yeimi Ramos OD Unavailable [phone] Virgil Love MD Unavailable [phone] Juju Toledo MD Unavailable [phone] Steve Stovall MD Unavailable [phone] Paula HDEZ MD, Frank Unavailable [phone] Virgil Love MD Primary Care Provider Dylan Ann MD Unavailable [phone] Maura Gallo MD Unavailable [phone] Kathy Galindo MD Unavailable Virgil Love MD Unavailable [phone] None, Physician Primary Care Provider UnavailJosue Cai MD Primary Care Provider [phone] Karla Masters Unavailable Encounter Details Date Type Department Care Team (Late st Contact Info) Description 11/19/2022 Lab Requisition [facility] - DermPath Lab [address] [facility] [place] [address] Venkata Mckeon MD [phone] [place] [address] Neoplasm of uncertain behavior of [...] Sex Assigned at Male 05/12/2020 8:18 AM HOT MILL SUPERVISOR Legal Sex Male 7:20 AM HOT MILL SUPERVISOR Gender Identity Male 05/12/2020 8:18 AM HOT MILL SUPERVISOR Sexual Orientation Straight 05/12/2020 8: 18 AM HOT MILL SUPERVISOR documented as of this encounter Functional [...] Description 03/14/2025 11:15 AM CDT Office Visit [facility] Orthopedics [address] [place] [address] Juju Toledo MD [address] [phone] 04/25/2025 9:00 AM CDT Office Visit [facility] Orthopedics [address] [place] [address] [phone] Juju Toledo MD [address] [phone] documented as of this encounter Goals Goal [...] AM CDT) Case Report Dermatopathology Report Case: [id number] Authorizing Provider: Venkata Mckeon MD Collected: 11/19/2022 03:33 AM Ordering Location: [facility] DermPath Lab Received: 11/20/2022 01:53 PM Pathologist: Radha Koch MD Specimen: Skin, sternum 4:08 PM CDT DERMATOPATHOLOGY LABORATORY Final Diagnosis Specimen A. SKIN, sternum: ACTINIC KERATOSIS, PIGMENTED (L57.0) SEBORRHEIC KERATOSIS, IRRITATED AND INFLAMED (L82.0) (see microscopic description) 4:08 PM CDT DERMATOPATHOLOGY LABORATORY at 1608 CDT Clinical History Neoplasm of Uncertain Behavior vs. SK vs. [place] R/O MIS 4:08 PM CDT DERMATOPATHOLOGY LABORATORY Gross Description Specimen A: Received is one formalin filled container labeled with the patient's name and designated sternum. The specimen consists of a shave biopsy measuring [id number] mm. Jar 0. 4:08 PM CDT DERMATOPATHOLOGY LABORATORY Microscopic Description Specimen A. SKIN, sternum: There is alternating orthokeratosis and parakeratosis. Along the undersurface of the epidermis, there are buds of atypical keratinocytes in a disorderly arrangement. There is prominent pigmentation in some of the keratinocytes. Sections show adjacent acanthosis, papillomatosis, hyperkeratosis, and squamous eddies. There is a lymphohistiocytic infiltrate within the papillary dermis. 4:08 PM CDT DERMATOPATHOLOGY LABORATORY Disclaimer An external and internal positive and negative controls are appropriate for the histochemical, immunohistochemical and immunofluorescence stain(s) in this case (if any), except where stated explicitly. The performance characteristics of the stain(s) cited in this report were developed and its performance characteristic determined by the Dermatopathology Laboratory at [facility], directed by Dr. Joey Donnelly. These tests need not be, and therefore are not, approved by the [place] Food and Drug Administration. The tests are used for clinical purposes. Billing Codes Specimen Charges Stain Charges 84503 1 3 4:08 PM CDT DERMATOPATHOLOGY LABORATORY Embedded Images 3 4:08 PM CDT DERMATOPATHOLOGY LABORATORY Pathology/Cytolo gy TISSUE SPECIMEN FROM SKIN / Unknown 11/19/2022 3:33 AM CDT 11/20/2022 1:53 PM CDT Venkata Mckeon MD LAB - PATHOLOGY/CYTOLOGY ORDERAB LES Final Result DERMATOPATHOLOGY LABORATORY [facility] - Department of Dermatology [address], [address] [phone] documented in this encounter Visit Diagnoses Diagnosis Neoplasm of uncertain behavior of skin documented in this encounter Care Teams Pathology Manager Relationship Specialty Start Date End Date Virgil Love MD [address] [facility] [address] [place] [address] PCP - General Family Medicine 09/07/21 08/17/24 [place] [address] [place] [address] PCP - Attributed-[facility] 02/28/22 Virgil Love MD [address] [facility] [address] [place] [address] PCP - Attributed-[facility] P4P 10/29/23 09/14/24 None, Physician PCP - General 08/18/24 09/14/24 Josue Delgado MD [address] [place] [address] PCP - General Family Medicine 09/15/24 Yeimi Ramos, LUIS [address] [facility] [place] [address] Spinner Operator 10/30/15 Virgil Love MD [address] [place] [address] Family Medicine 11/25/19 Juju Toledo MD [address] [place] [phone] Orthopedic Surgery 11/25/19 [place] [address] [facility] [address] [place], [place] [phone] Surgeon Orthopedic Surgery 05/07/21 [place] [address] [address] [place] [address] Orthopedic Surgery 09/07/21 Dylan Ann MD [address] [place] [address] Cardiology 03/19/22 Kathy Galindo MD [address] [place] [address] Pulmonary Disease 08/20/22 Karla Masters Care Coordination Specialist Care Management 10/29/24 10/29/24 documented as of this encounter
--- NOTE | 2025-02-10 09:00 | P.PNAN_ITS ---
Anes - Initial Pre Proc Eval Procedure: Operation Date: 02/10/25 14:30 Proposed Procedures p Screening Colonoscopy - Mukesh Tavares MD Date/Time: 02/10/25 09:00 Surgeon: Mukesh Tavares MD Pre Op Diagnosis: Screening Patient Data Age: 74 Gender: M Height: 1.8 m Weight: 136.1 kg Allergies Allergy/AdvReac Type Severity Reaction Status Date / Time No Known Allergies Allergy Verified 01/28/25 14:04 Home Medications ?Medication ?Instructions ?Recorded ?Confirmed ?Type Lactobacillus rhamnosus-Bifidobac. 1 cap PO DIRECTED 04/15/24 02/10/25 History animalis 3 billion cell capsule (Glarity) cholecalciferol (vitamin D3) 250 250 mcg PO DAILY 04/15/24 02/10/25 History mcg (10,000 unit) capsule coenzyme Q10 100 mg capsule (Co 100 mg PO DAILY 04/15/24 02/10/25 History Q-10) torsemide 20 mg tablet 40 mg PO DAILY PRN edema 04/15/24 01/28/25 History apixaban 2.5 mg tablet (Eliquis) 2.5 mg PO BID #180 tabs 08/16/24 02/10/25 Rx celecoxib 100 mg capsule 100 mg PO BID #180 caps 08/16/24 02/10/25 Rx fexofenadine 180 mg tablet 180 mg PO DAILY 10/20/24 02/10/25 History atorvastatin 40 mg tablet 40 mg PO DAILY #90 tabs 11/14/24 02/10/25 Rx olmesartan 5 mg tablet 5 mg PO DAILY #90 tabs 12/06/24 02/10/25 Rx tirzepatide 12.5 mg/0.5 mL 12.5 mg (0.5 mL) subcut WEEKLY #6 12/06/24 02/10/25 Rx subcutaneous pen injector mL (Mounjaro) pregabalin 75 mg capsule 150 mg (2 x 75 mg) PO BID #180 caps 01/24/25 02/10/25 Rx metronidazole 0.75 % topical cream 1 applic topical DAILY PRN rash 01/28/25 01/28/25 History (MetroCream) Patient hx anesthesia problems: none Family hx anesthesia problems: none Results Review: All pre-operative results and documents have been reviewed as part of the pre-operative evaluation. [facility] Past Medical History Medical History (Updated 02/10/25 @ 09:00 by Héctor Dias DO) CKD (chronic kidney disease) Obstructive sleep apnea on CPAP Diabetes type 2 Cough present for greater than 3 weeks Pain of left knee after injury Heart disease GERD (gastroesophageal reflux disease) Hyperlipidemia Arthritis Pulmonary embolism Factor V Leiden Surgical History Surgical History (Updated 12/06/24 @ 09:20 by SANJUANA Soto) History of cataract surgery History of bariatric surgery History of tonsillectomy History of left hip replacement History of bilateral knee replacement Family History Family History Other Carcinoma of colon Depression Non Hodgkin's lymphoma Social History Social History Smoking status: Never smoker Alcohol intake: current Alcohol use details: rare Substance use type: does not use Do You Feel Safe in your Home?: Yes Lack of Transportation: No Lack of Food: Never True Current Housing: I Have Housing Concerned About Future Housing: No Difficulty Paying Gas/Electric Bills: No Difficulty Paying for Meds: No Currently Unemployed: No Education: Master's Degree or Higher Difficulty w/ Childcare or Family Care: No Living arrangements: with family Occupation/Education: retired Gender identity (if verbalized by the patient): Male Spiritual care concerns: No Anes - Eval Final PreProcedure Day of Procedure 02/10/25 09:00 Patient weight: morbidly obese Heart: regular rate and rhythm Lungs: clear to auscultation Airway: Mallampati scale class II Neurological: alert and oriented Last oral intake: >/= 8 hours ASA classification: III Emergent: no Anesthetic plan: proceed Anesthesia type and monitoring: general GIVS and standard monitoring Results Review: All pre-operative results and documents have been reviewed as part of the pre- operative evaluation. Informed Consent: The patient's anesthetic plan and its attendant risks and benefits were discus sed with the patient/family/POA. Questions were solicited and answers provided to the satisfaction of the patient/family/POA.
[2025-02-10 14:27] VITALS: BP 121/74; PULSE 76; RESP 20; TEMP 36.7; O2SAT 97
--- NOTE | 2025-02-10 14:30 | SUR.PREOP ---
Patient made aware of procedure delay- questions answered. No problems at this time.
[2025-02-10] MEDS: LACTATED RINGERS 1,000 ML 150 ML IV CONT (14:44)
--- NOTE | 2025-02-10 15:34 | PM.HPGS ---
History of Present Illness History of Present Illness Consent: Risks, benefits, and alternatives have been discussed and questions answered. Patient agrees to proceed with procedure. Chief complaint: Screening Narrative: Raffy To is a 74 year old male here for screening colonoscopy, last one 10 years ago Review of Systems Review of Systems: All systems reviewed & are unremarkable except as noted in HPI and below PMFSH Past Medical History Medical History (Updated 02/10/25 @ 09:00 by Héctor Dias, DO) CKD (chronic kidney disease) Obstructive sleep apnea on CPAP Diabetes type 2 Cough present for greater than 3 weeks Pain of left knee after injury Heart disease GERD (gastroesophageal reflux disease) Hyperlipidemia Arthritis Pulmonary embolism Factor V Leiden Surgical History Surgical History (Updated 12/06/24 @ 09:20 by SANJUANA Soto) History of cataract surgery History of bariatric surgery History of tonsillectomy History of left hip replacement History of bilateral knee replacement Family History Family History Other Carcinoma of colon Depression Non Hodgkin's lymphoma Social History Social History Smoking status: Never smoker Alcohol intake: current Alcohol use details: rare Substance use type: does not use Do You Feel Safe in your Home?: Yes Lack of Transportation: No Lack of Food: Never True Current Housing: I Have Housing Concerned About Future Housing: No Difficulty Paying Gas/Electric Bills: No Difficulty Paying for Meds: No Currently Unemployed: No Education: Master's Degree or Higher Difficulty w/ Childcare or Family Care: No Living arrangements: with family Occupation/Education: retired Gender identity (if verbalized by the patient): Male Spiritual care concerns: No Meds Home Medications and Allergies Home Medications ?Medication ?Instructions ?Recorded ?Confirmed ?Type Lactobacillus rhamnosus-Bifidobac. 1 cap PO DIRECTED 04/15/24 02/10/25 History animalis 3 billion cell capsule (Just around Us) cholecalciferol (vitamin D3) 250 250 mcg PO DAILY 04/15/24 02/10/25 History mcg (10,000 unit) capsule coenzyme Q10 100 mg capsule (Co 100 mg PO DAILY 04/15/24 02/10/25 History Q-10) torsemide 20 mg tablet 40 mg PO DAILY PRN edema 10/17/24 08/01/25 History apixaban 2.5 mg tablet (Eliquis) 2.5 mg PO BID #180 tabs 08/16/24 02/10/25 Rx celecoxib 100 mg capsule 100 mg PO BID #180 caps 08/16/24 02/10/25 Rx fexofenadine 180 mg tablet 180 mg PO DAILY 10/20/24 02/10/25 History atorvastatin 40 mg tablet 40 mg PO DAILY #90 tabs 11/14/24 02/10/25 Rx olmesartan 5 mg tablet 5 mg PO DAILY #90 tabs 12/06/24 02/10/25 Rx tirzepatide 12.5 mg/0.5 mL 12.5 mg (0.5 mL) subcut WEEKLY #6 12/06/24 02/10/25 Rx subcutaneous pen injector mL (Mounjaro) pregabalin 75 mg capsule 150 mg (2 x 75 mg) PO BID #180 caps 01/24/25 02/10/25 Rx metronidazole 0.75 % topical cream 1 applic topical DAILY PRN rash 01/28/25 01/28/25 History (MetroCream) Allergies Allergy/AdvReac Type Severity Reaction Status Date / Time No Known Allergies Allergy Verified 01/28/25 14:04 Vital Signs Vital Signs - 24 hr 02/10/25 14:27 Temperature 98.0 F Pulse Rate 76 Respiratory Rate 20 Blood Pressure 121/74 Pulse Oximetry 97 Oxygen Delivery Room Air Exam Const: General: comfortable and no acute distress HENMT: Face/Nose/Sinus: Normal nares present Eyes: General: appearance normal, both eyes and all related structures Neck: Neck: no JVD Resp: Auscultation: clear to auscultation bilaterally Cardio: Rate: regular rate Rhythm: regular rhythm GI: Inspection: non-distended GI Palp: Yes Soft to palpation Skin: General skin exam: normal color Neuro: Speech: normal speech Extrem: General: normal to inspection Psych: Mental Status: mental status grossly normal Assessment and Plan Assessment and plan (1) Encounter for screening colonoscopy: Code(s): Z12.11 - Encounter for screening for malignant neoplasm of colon Status: Acute Assessment and Plan: colonoscopy
--- NOTE | 2025-02-10 15:45 | S_PTH ---
PATIENT: Raffy To LOC: [facility]#:[id number] AGE/SX: 74/M ROOM: RE02/10/[address]: Mukesh Tavares MD : 1950 BED: DIS: 02/10/2025 SPEC #: [id number] RECD: 02/11/25 08:27 STATUS: MAHIN RENancy #: [id number] GIUSEPPE: 02/10/25 15:[address]: Mukesh Tavares DEPT: [facility] Surgical RECD BY: Theron Mills ENTERED: 02/11/25 08:27 SP TYPE: Surgical OTHR DR: Josue Delgado MD Tissues: A - Colon Polypectomy B - Colon Polypectomy Procedures: Hematoxylin and Eosin Stain Gross and Microscopic Level 4
[2025-02-10 15:47] VITALS: BP 108/65; PULSE 74; RESP 20; O2SAT 100
[2025-02-10 15:57] VITALS: BP 111/65; PULSE 68; RESP 19; O2SAT 100
[2025-02-10 16:07] VITALS: BP 120/66; PULSE 65; RESP 19; O2SAT 100
== END 2025-02-10 16:17 | disposition home or self-care (01) ==
PROVIDERS: PCP Family Medicine; Referring Provider Family Medicine; Visit Provider Internal Medicine Gastroenterology
PROC: 0DJD8ZZ Inspection of Lower Intestinal Tract, Via Natural or Artificial Opening Endoscopic (ICD-10-PCS; CPT 45378; principal; 2025-02-10 14:30)
DX: Z12.11 Encounter for screening for malignant neoplasm of colon (principal); D12.5 Benign neoplasm of sigmoid colon; D12.2 Benign neoplasm of ascending colon; K64.8 Other hemorrhoids; E11.22 Type 2 diabetes mellitus with diabetic chronic kidney disease; N18.9 Chronic kidney disease, unspecified; G47.33 Obstructive sleep apnea (adult) (pediatric); E78.5 Hyperlipidemia, unspecified; K21.9 Gastro-esophageal reflux disease without esophagitis; I51.9 Heart disease, unspecified; D68.51 Activated protein C resistance; M19.90 Unspecified osteoarthritis, unspecified site; E66.01 Morbid (severe) obesity due to excess calories; Z68.41 Body mass index [BMI] 40.0-44.9, adult; Z79.01 Long term (current) use of anticoagulants; Z79.1 Long term (current) use of non-steroidal anti-inflammatories (NSAID); Z79.85 Long-term (current) use of injectable non-insulin antidiabetic drugs; Z99.89 Dependence on other enabling machines and devices; Z98.890 Other specified postprocedural states; Z98.84 Bariatric surgery status; Z86.711 Personal history of pulmonary embolism; Z80.0 Family history of malignant neoplasm of digestive organs; Z80.7 Family history of other malignant neoplasms of lymphoid, hematopoietic and related tissues
CPT/HCPCS: 45380; 45385; 88305; J2003; J2704; J7120

== ENCOUNTER 2025-06-13 10:30 | Outpatient (CLI) | payer MEDICARE, SELFPAY ==
--- NOTE | 2025-06-13 10:59 | ECG_ITS ---
Test Date: 2025-06-13 11:09:01 Measurements Intervals [facility] Rate: 64 P: 37 SD: 274 QRS: 32 QRSD: 97 T: 24 QT: 382 QTc: 397 Interpretive Statements SINUS RHYTHM WITH FIRST DEGREE AV BLOCK EARLY PRECORDIAL R/S TRANSITION BASELINE ARTIFACT- I, II, III, AVR, AVL, AVF, V1, V4-V6 BORDERLINE ECG No previous ECG available for comparison Electronically Signed On 06-13-2025 11:40:48 MAINTENANCE SUPERVISOR ELECTRICAL by Brendan Dewitt D.O.
[2025-06-13 11:34] LABS: Hematocrit 41.0 % (42.0-52.0); Hemoglobin 13.4 g/dL (14.0-18.0); Immature Granulocyte Percent A 0.2 % (0-0.5); Lymphocytes Absolute Auto 1.72 K/mm3 (0.9-3.2); Mean Corpuscular HGB Conc 32.7 g/dl (32-36); Mean Corpuscular Hemoglobin 31.8 pg (26-34); Mean Corpuscular Volume 97.2 fl (80-100); Nucleated Red Blood Cells Absolute Auto 0.000 K/mm3 (0.0-0.012); Nucleated Red Blood Cells Perc 0.0 % (0.0-0.2); Platelet Count Result 188 k/mm3 (150-375); Red Blood Count 4.22 M/mm3 (4.6-6.20); White Blood Count 5.5 K/mm3 (4.5-10.0)
[2025-06-13 12:00] LABS: Alanine Aminotransferase 16 U/L (6-50); Albumin Level 3.9 g/dL (3.5-5.1); Alkaline Phosphatase 92 U/L (38-126); Anion Gap 4 mmol/L (4-12); Aspartate Amino Transferase 25 U/L (17-59); Bilirubin,Total 1.0 mg/dL (0.2-1.3); Blood Urea Nitrogen 28 mg/dL (9-20); Calcium 9.3 mg/dL (8.4-10.2); Carbon Dioxide 30 mmol/L (22-30); Chloride 100 mmol/L (98-107); Cholesterol 131 mg/dL (0-200); Estimated Glomerular Filt Rate 58; Glucose 89 mg/dL (65-110); HDL Direct 43 mg/dL; Potassium 4.9 mmol/L (3.4-5.0); Sodium 134 mmol/L (137-145); Total Protein 6.9 g/dL (6.3-8.2); Triglycerides 66 mg/dL (<150)
[2025-06-13 12:17] LABS: Hemoglobin A1C 5.5 % (<5.7)
[2025-06-13 12:37] LABS: Prostate Specific Antigen 1.4 ng/mL (< OR = 4.0); Thyroid Stimulating Hormone 0.919 uIU/mL (0.465-4.680)
== END 2025-06-13 10:31 | disposition home or self-care (01) ==
PROVIDERS: PCP Family Medicine; Visit Provider Physician Assistant Medical
DX: E11.9 Type 2 diabetes mellitus without complications (principal); I25.10 Atherosclerotic heart disease of native coronary artery without angina pectoris; E78.5 Hyperlipidemia, unspecified; I51.9 Heart disease, unspecified; D68.51 Activated protein C resistance; Z12.5 Encounter for screening for malignant neoplasm of prostate; E78.2 Mixed hyperlipidemia; K21.9 Gastro-esophageal reflux disease without esophagitis; I27.20 Pulmonary hypertension, unspecified; Z01.818 Encounter for other preprocedural examination
CPT/HCPCS: 36415; 80053; 80061; 83036; 84153; 84443; 85025; 93005; G0103